=== PATIENT | male | born 1950 | race Caucasian/White ===

== ENCOUNTER 2019-03-18 19:49 | Inpatient (IN) | payer MEDICARE, OTHER, SELFPAY ==
[2019-03-18 19:50] VITALS: BP 193/74; BP 203/85; PULSE 118; PULSE 121; RESP 15; TEMP 36.8; O2SAT 91; O2SAT 92; BMI 38.0
--- NOTE | 2019-03-18 19:54 | CT_ITS ---
CT head/brain wo con HISTORY: Headache, pain, contusion or hematoma following injury ITS.REASON: fall ORDERING PHYSICIAN: Tristen Moreno MD PATIENT AGE: 68 years COMPARISON: 06/03/2018 TECHNIQUE: Axial images obtained without contrast. Brain and bone windows reviewed. All CT scans at the facility use one or more dose reduction, viz: automated exposure control, ma/kV adjustment per patient size (including targeted exams where dose is matched to indication, i.e. head), or iterative reconstruction technique. FINDINGS: There is diffuse atrophy with periventricular ischemic gliotic change. There is no left cerebellar infarction as well as old bilateral lacunar infarctions of the basal ganglia old small area of infarction in the right occipital lobe and possibly a small lacunar infarction in the right cerebellum centrally.. No acute calvarial fracture. Small metallic density in the left occipital scalp. IMPRESSION: 1. No acute finding. 2. Atrophy with chronic ischemic changes
--- NOTE | 2019-03-18 19:54 | XR_ITS ---
XR pelvis 1-2V HISTORY: Fall with injury and pain ITS.REASON: fall ORDERING PHYSICIAN: Tristen Moreno MD PATIENT AGE: 68 years Comparison: None FINDINGS: No fracture or dislocation is evident. No significant degenerative change. No lytic or blastic change. The SI joints have an unremarkable appearance. Unremarkable soft tissues. IMPRESSION: Negative pelvis.
--- NOTE | 2019-03-18 19:54 | XR_ITS ---
XR chest AP HISTORY: Posttraumatic pain ITS.REASON: fall ORDERING PHYSICIAN: Tristen Moreno MD PATIENT AGE: 68 years COMPARISON: 06/03/2018 FINDINGS: There are low lung lines. There is mild prominence of the cardiomediastinal silhouette. There is blunting of left CP angle consistent with left side pleural effusion or pleural reaction. There is a curvilinear lucency involving the superior aspect of the left scapula medial to the coracoid process along with a transverse lucency involving the glenoid region on the left. Suspicious for a scapular fracture. Consider CT for further evaluation. IMPRESSION: 1. Mild cardiomegaly and mild prominence of mediastinum with left-sided pleural effusion or pleural reaction. 2. Possible Left-sided scapular fracture. Suggest correlation with CT
--- NOTE | 2019-03-18 19:54 | CT_ITS ---
CT CERVICAL SPINE WITHOUT CONTRAST CT RECONSTRUCTIONS HISTORY:Neck pain following injury, fall with injury and pain ORDERING PHYSICIAN: Tristen Mroeno MD PATIENT AGE: 68 years COMPARISON: None Technique: All CT scans at the facility use one or more dose reduction, viz: automated exposure control, ma/kV adjustment per patient size (including targeted exams where dose is matched to indication, i.e. head), or iterative reconstruction technique PROCEDURE: Axial spiral CT scanning performed of the cervical spine beginning at the base of the skull and continuing to the upper T-spine. 3-D multiplanar reconstruction with 3-D manipulation of volumetric data set in image rendering was completed by the radiologist and/or technologist with the supervision of the radiologist on independent workstation. FINDINGS: There is normal alignment. No acute fracture or dislocation is evident. There is overall diffuse increased bony density of the skeletal structures. C2-C3: Mild degenerative disc disease with minimal ossification posterior longitudinal ligament. C3-C4: Mild ossification of the posterior longitudinal ligament. C4-C5: Unremarkable. C5-C6: Degenerative disc disease. C6-C7: Prominent right disc osteophyte complex with right lateral recess and foraminal narrowing with degenerative disc disease and spinal stenosis. C7-T1: Degenerative disc disease. Lung apices are clear. No prevertebral soft tissue swelling. There are bilateral thyroid nodules as described chest CT report. IMPRESSION: 1. No acute fracture. 2. Multilevel degenerative changes. At C6-C7 there is prominent right disc osteophyte complex with right lateral recess and foraminal narrowing with degenerative disc disease and spinal stenosis. 3. Diffuse osseous sclerosis of the bony structures. Differential diagnosis includes renal osteodystrophy, hyperparathyroidism, prostate metastatic disease and other less common entities.
[2019-03-18 20:38] LABS: Basophils % 0.1 % (0.1-2.0); Hematocrit 35.9 % (42.0-52.0); Hemoglobin 12.3 g/dL (14.1-18.0); Lymphocytes # 0.5 K/mm3 (0.7-4.5); Lymphocytes % 3.3 % (10-50); Mean Corpuscular HGB Conc 34.1 g/dL (31.8-35.4); Mean Corpuscular Hemoglobin 26.9 pg (27.0-31.2); Mean Corpuscular Volume 78.8 fl (80-94); Mean Platelet Volume 8.9 fl (7.4-10.4); Monocytes # 0.8 K/mm3 (0.1-1.0); Monocytes % 4.7 % (1.7-9.3); Neutrophils # 15.1 K/mm3 (1.8-7.8); Neutrophils % 91.9 % (37.0-80.0); Platelet Count 176 K/mm3 (142-424); Red Blood Count 4.55 M/mm3 (4.60-6.20); Red Cell Distribution Width 14.5 % (11.5-17.5); White Blood Count 16.4 K/mm3 (4.8-10.8)
[2019-03-18 20:39] LABS: Anion Gap 12.8 mEq/L (5-15); Blood Urea Nitrogen 23 mg/dL (7-18); Calcium 8.9 mg/dL (8.5-10.1); Carbon Dioxide 29 mmol/L (21.0-32.0); Chloride 102 mmol/L (98-107); Creatinine Clearance Estimated 65 mL/min (50-200); Creatinine,Serum 2.02 mg/dL (0.70-1.30); Estimated Glomerular Filt Rate 33 ml/min (>60); GFR (African American) 40 ML/MIN (>60); Glucose 205 mg/dL (74-106); Potassium 3.8 mmoL/L (3.5-5.1); Sodium 140 mmol/L (136-145); Troponin I < 0.02 ng/ml (0.00-0.06)
[2019-03-18 20:40] LABS: MANUAL DIFFERENTIAL MANUAL DIFFERENTIAL (MANUAL DIFF)
[2019-03-18 20:50] VITALS: BP 186/80; PULSE 104; O2SAT 90
[2019-03-18 21:11] LABS: Lymphocytes % 2 % (10-50); Monocytes % 2 % (2-9); Neutrophils % 96 % (42-76); Total Cells Counted 100
[2019-03-18 21:12] LABS: Anisocytosis 1+; Ovalocytes 1+; Platelet Estimate Normal
--- NOTE | 2019-03-18 21:16 | HMH.EDFALL ---
ED Disposition Clinical Impression: Renal insufficiency, Cerebral atrophy, Cerebellar infarct, DDD (degenerative disc disease), cervical, Cervical stenosis of spinal canal, Cervical spondylosis, Severe sepsis, Cellulitis of scrotum UTI (urinary tract infection) Qualifiers: Urinary tract infection type: site unspecified Hematuria presence: without hematuria Qualified Code(s): N39.0 - Urinary tract infection, site not specified Leukocytosis Qualifiers: Leukocytosis type: unspecified Qualified Code(s): D72.829 - Elevated white blood cell count, unspecified Scapular fracture Qualifiers: Encounter type: initial encounter Scapula location: body Fracture type: closed Fracture alignment: nondisplaced Laterality: left Qualified Code(s): S42.115A - Nondisplaced fracture of body of scapula, left shoulder, initial encounter for closed fracture Disposition: Admitted As Inpatient Condition on Discharge: Fair Referrals: Provider,Referral, MD [Primary Care Provider] - - Critical Care Critical Care Time: No Attestation: On 03/18/19, the high probability of a clinically significant, sudden or life threatening deterioration of the following system(s) required my full and direct attention, intervention and personal management. The time I documented below is in addition to time spent performing reported procedures but includes the following listed in this critical care notation. Medical Decision Making - Medical Records Medical records reviewed: Yes: I reviewed the patient's medical records. - Sharan Inquiry Pt receiving controlled substance: No Vital Signs: 03/18/19 19:50 03/18/19 20:50 03/18/19 22:14 Temperature 98.3 F Temperature Source Oral Pulse Rate [Right Brachial] 118 H 104 H 95 H Respiratory Rate 15 Blood Pressure [Right Arm] 193/74 H 186/80 H 161/79 H Blood Pressure Mean [Right Arm] 113 115 106 Blood Pressure Source [Right Arm] Manual Cuff/ Auscultation 02 Sat by Pulse Oximetry 92 L 90 L 90 L Oxygen Delivery Method Room Air Room Air Room Air - Lab Data Lab results reviewed: Yes: I reviewed the patient's lab results. Lab Results 03/18/19 20:05: WBC 16.4 H, RBC 4.55 L, Hgb 12.3 L, Hct 35.9 L, MCV 78.8 L, MCH 26.9 L, MCHC 34.1, RDW 14.5, Plt Count 176, MPV 8.9, Neut % (Auto) 91.9 H, Lymph % (Auto) 3.3 L, [place] % (Auto) 4.7, Eos % (Auto) 0.0 L, Baso % (Auto) 0.1, Neut # (Auto) 15.1 H, Lymph # (Auto) 0.5 L, [place] # (Auto) 0.8, Eos # (Auto) 0.0, Baso # (Auto) 0.0, Total Counted 100, Neutrophils % (Manual) 96 H, Lymphocytes % (Manual) 2 L, Monocytes % (Manual) 2, Platelet Estimate Normal, Anisocytosis 1+, Ovalocytes 1+ 03/18/19 20:05: Sodium 140, Potassium 3.8, Chloride 102, Carbon Dioxide 29, Anion Gap 12.8, BUN 23 H, Creatinine 2.02 H, Estimated Creat Clear 65, Estimated GFR 33 L, Est GFR ( Amer) 40 L, Glucose 205 H, Calcium 8.9, Troponin I < 0.02 03/18/19 23:35: Urine Color [place], Urine Appearance Cloudy, Urine pH 6.0, Ur Specific [place] 1.020, Urine Protein 2+, Urine Glucose (UA) Trace, Urine Ketones Negative, Urine Blood 3+, Urine Nitrate Negative, Urine Bilirubin Negative, Urine Urobilinogen 1.0, Ur Leukocyte Esterase 2+ A, Urine RBC 20-50, Urine WBC 5-10, Ur Squamous Epith Cells 3-5, Urine Bacteria 1+ Result diagrams: 03/18/19 20:05 03/18/19 20:05 Orders (Tests/Meds): ED MEDICATIONS Generic Name Dose Route Start Last Admin Trade Name Catrachito PRN Reason Stop Dose Admin Ceftriaxone Sodium 1 gm/ 50 mls @ 100 mls/hr 03/19/19 00:15 03/19/19 00:31 Sodium Chloride IV 04/02/19 00:14 100 mls/hr Q24H MICHAEL Administration Protocol ORDERS Category Date Time Status CT cervical spine wo con Stat Cat Scan 03/18/19 19:[address] chest wo con Stat Cat Scan 03/19/19 23:[address] head/brain wo con Stat Cat Scan 03/18/19 19:54 Taken Hemoglobin A1C Stat Lab 03/19/19 00:41 Ordered Lactic Acid Stat Lab 03/19/19 00:30 Received Blood Culture Stat Micro 03/19/19 00:30 Received Urine
[2019-03-18 22:14] VITALS: BP 161/79; PULSE 95; O2SAT 90
--- NOTE | 2019-03-18 23:00 | PC.NURSE ---
Multiple attempts to start a polo catheter per Dr Moreno. Unsuccessful. stated that patient needed a scotal/testicular ultrasound.
[2019-03-18 23:40] LABS: Microscopic, Urine URINE MICROSCOPIC (MICROSCOPIC)
[2019-03-18 23:42] LABS: Appearance,Urine CLOUDY (Clear); Bilirubin,Urine Negative (Negative); Blood, Urine 3+ (Negative); Color,Urine ORANGE (Yellow); Glucose,Urine (UA) TRACE (Negative); Ketones,Urine Negative (Negative); Leukocyte Esterase,Urine 2+ (Negative); Nitrate,Urine Negative (Negative); Protein,Urine 2+ (Negative)
[2019-03-18 23:51] LABS: Bacteria,Urine 1+ /lpf; RBC,Urine 20-50 #/hpf (0-3)
[2019-03-19] VITALS (15 sets, daily range): BP systolic 150–180; BP diastolic 64–93; PULSE 70–111; RESP 15–18; TEMP 36.2–37.6; O2SAT 91–97; BMI 41.5; BMI 41.3
--- NOTE | 2019-03-19 00:30 | PC.NURSE ---
blood cultures drawn at this time by erma huertap.
--- NOTE | 2019-03-19 01:04 | PC.NURSE ---
pt back to radiology
[2019-03-19 04:55] LABS: Anion Gap 12.8 mEq/L (5-15); Blood Urea Nitrogen 24 mg/dL (7-18); Calcium 8.9 mg/dL (8.5-10.1); Carbon Dioxide 30 mmol/L (21.0-32.0); Chloride 102 mmol/L (98-107); Chol/HDL Ratio 2.4 (1-3.5); Cholesterol 117 mg/dL (140-200); Creatinine Clearance Estimated 33 mL/min (50-200); Creatinine,Serum 1.96 mg/dL (0.70-1.30); Estimated Glomerular Filt Rate 34 ml/min (>60); GFR (African American) 42 ML/MIN (>60); Glucose 153 mg/dL (74-106); HDL Cholesterol 49 mg/dL (27-67); LDL Cholesterol 58 mg/dL (0-130); Potassium 3.8 mmoL/L (3.5-5.1); Sodium 141 mmol/L (136-145); Triglycerides 49 mg/dL (30-200); VLDL Cholesterol 10 mg/dL (0-40)
[2019-03-19 05:00] LABS: Troponin I < 0.02 ng/ml (0.00-0.06)
[2019-03-19 05:07] LABS: Basophils % 0.1 % (0.1-2.0); Eosinophils % 0.1 % (0.1-12.0); Hematocrit 34.7 % (42.0-52.0); Hemoglobin 11.4 g/dL (14.1-18.0); Lymphocytes # 0.8 K/mm3 (0.7-4.5); Lymphocytes % 4.9 % (10-50); Mean Corpuscular Hemoglobin 26.4 pg (27.0-31.2); Mean Corpuscular Volume 80.2 fl (80-94); Mean Platelet Volume 8.5 fl (7.4-10.4); Monocytes # 0.7 K/mm3 (0.1-1.0); Monocytes % 4.2 % (1.7-9.3); Neutrophils # 14.4 K/mm3 (1.8-7.8); Neutrophils % 90.7 % (37.0-80.0); Platelet Count 147 K/mm3 (142-424); Red Blood Count 4.33 M/mm3 (4.60-6.20); Red Cell Distribution Width 14.4 % (11.5-17.5); White Blood Count 15.8 K/mm3 (4.8-10.8)
[2019-03-19 05:18] LABS: MANUAL DIFFERENTIAL MANUAL DIFFERENTIAL (MANUAL DIFF)
[2019-03-19 05:52] LABS: Anisocytosis 1+; Lymphocytes % 3 % (10-50); Monocytes % 2 % (2-9); Neutrophils % 95 % (42-76); Platelet Estimate Normal; Stomatocytes 1+; Total Cells Counted 100
--- NOTE | 2019-03-19 06:26 | PC.NURSE ---
PT ARRIVED TO FLOOR AT 0150
--- NOTE | 2019-03-19 06:47 | PC.NURSE ---
Pt refused to answer or did not know several questions to admission assessment. Pt can be difficult to understand at time with delayed and garbled speech. Pt A&O to person, place, and situation however would not respond to any time identification questions. Pt slept off/on since arrival to the floor. Pt refused to remove his clothing he arrived in from [facility] and refused to remove shoes, which are noted to be on the wrong foot. Pt also refused to have bath/shower this shift, pt was offered and encouraged to get cleaned up, even partially, pt refused. Pt had an episode of diaphoresis and linens were changed and pt finally allowed to have a gown in place of his makenna-shirt which was soaked. Pt denied any pain, N/V/D, or difficulty breathing. Pt has had an intermittent dry cough. Sinus tach & NSR noted on monitoring manager. Call light within reach, bed alarm in use, and will continue to monitor.
--- NOTE | 2019-03-19 07:31 | P.CONPHA_ITS ---
[facility] Pharmacy VTE Monitoring - Patient Demographics Admission date: 03/18/19 Report Date: 03/19/19 Time: 07:31 Allergies/Adverse Reactions: Patient Allergies No Known Allergies Allergy (Verified 03/18/19 20:00) Height: 1.68 m Weight: 116.8 kg Patient Problems: Current Active Problems (Updated 03/19/19 @ 01:25 by Tristen Moreno MD) Urinary tract infection (Acute) Renal insufficiency (Acute) Leukocytosis (Acute) Scapular fracture (Acute) Cerebral atrophy (Acute) Cerebellar infarct (Acute) DDD (degenerative disc disease), cervical (Acute) Cervical stenosis of spinal canal (Acute) Cervical spondylosis (Acute) Severe sepsis (Acute) Cellulitis of scrotum (Acute) - VTE Risk Labs: VTE Related Lab Results Hgb 11.4 g/dL (14.1-18.0) L 03/19/19 04:35 Hct 34.7 % (42.0-52.0) L 03/19/19 04:35 Plt Count 147 K/mm3 (142-424) 03/19/19 04:35 BUN 24 mg/dL (7-18) H 03/19/19 04:35 Creatinine 1.96 mg/dL (0.70-1.30) H 03/19/19 04:35 Estimated Creat Clear 33 mL/min (50-200) 03/19/19 04:35 Clinical Trial Participant: No - Prophylaxis VTE Prophylaxis Ordered?: Yes Types of VTE Prophylaxis: TEDS Knee High
[2019-03-19 07:49] LABS: Troponin I < 0.02 ng/ml (0.00-0.06)
--- NOTE | 2019-03-19 08:38 | HMH.ACPN2 ---
Internal Medicine - PN: Subj *Date: 03/19/19 *Time: 08:38 Interval history: 68-year-old patient resting in bed quietly. Is awake and alert answers all questions appropriately says he is feeling better today. 03/18/2019 Pt brought in by EMS after an unwitnessed fall at [facility]. Pt denies any pain anywhere, and stated that he just hit his head after losing his footing. Pt heart rate and blood pressure are elevated. Pt slow to respond but does follow commands. FSBS en route by EMS was 209. (Per Dr. Moreno). Exam Vital signs and Labs for Last 24 Hours: Temp Pulse Resp BP Pulse Ox 97.1 F L 85 18 156/89 H 97 03/19/19 07:38 03/19/19 07:38 03/19/19 07:38 03/19/19 07:38 03/19/19 07:38 Laboratory Results - last 24 hr 03/18/19 20:05: WBC 16.4 H, RBC 4.55 L, Hgb 12.3 L, Hct 35.9 L, MCV 78.8 L, MCH 26.9 L, MCHC 34.1, RDW 14.5, Plt Count 176, MPV 8.9, Neut % (Auto) 91.9 H, Lymph % (Auto) 3.3 L, [place] % (Auto) 4.7, Eos % (Auto) 0.0 L, Baso % (Auto) 0.1, Neut # (Auto) 15.1 H, Lymph # (Auto) 0.5 L, [place] # (Auto) 0.8, Eos # (Auto) 0.0, Baso # (Auto) 0.0, Total Counted 100, Neutrophils % (Manual) 96 H, Lymphocytes % (Manual) 2 L, Monocytes % (Manual) 2, Platelet Estimate Normal, Anisocytosis 1+, Ovalocytes 1+ 03/18/19 20:05: Sodium 140, Potassium 3.8, Chloride 102, Carbon Dioxide 29, Anion Gap 12.8, BUN 23 H, Creatinine 2.02 H, Estimated Creat Clear 65, Estimated GFR 33 L, Est GFR ( Amer) 40 L, Glucose 205 H, Calcium 8.9, Troponin I < 0.02 03/18/19 23:35: Urine Color [place], Urine Appearance Cloudy, Urine pH 6.0, Ur Specific [place] 1.020, Urine Protein 2+, Urine Glucose (UA) Trace, Urine Ketones Negative, Urine Blood 3+, Urine Nitrate Negative, Urine Bilirubin Negative, Urine Urobilinogen 1.0, Ur Leukocyte Esterase 2+ A, Urine RBC 20-50, Urine WBC 5-10, Ur Squamous Epith Cells 3-5, Urine Bacteria 1+ 03/19/19 00:00: Hemoglobin A1c 5.0 03/19/19 00:30: Lactate 1.0 03/19/19 04:35: Troponin I < 0.02 03/19/19 04:35: WBC 15.8 H, RBC 4.33 L, Hgb 11.4 L, Hct 34.7 L, MCV 80.2, MCH 26.4 L, MCHC 33.0, RDW 14.4, Plt Count 147, MPV 8.5, Neut % (Auto) 90.7 H, Lymph % (Auto) 4.9 L, [place] % (Auto) 4.2, Eos % (Auto) 0.1, Baso % (Auto) 0.1, Neut # (Auto) 14.4 H, Lymph # (Auto) 0.8, [place] # (Auto) 0.7, Eos # (Auto) 0.0, Baso # (Auto) 0.0, Total Counted 100, Neutrophils % (Manual) 95 H, Lymphocytes % (Manual) 3 L, Monocytes % (Manual) 2, Platelet Estimate Normal, Anisocytosis 1+, Stomatocytes 1+ 03/19/19 04:35: Sodium 141, Potassium 3.8, Chloride 102, Carbon Dioxide 30, Anion Gap 12.8, BUN 24 H, Creatinine 1.96 H, Estimated Creat Clear 33, Estimated GFR 34 L, Est GFR ( Amer) 42 L, Glucose 153 H D, Calcium 8.9, Magnesium 2.0, Triglycerides 49, Cholesterol 117 L, LDL Cholesterol 58, VLDL Cholesterol 10, HDL Cholesterol 49, Cholesterol/HDL Ratio 2.4 03/19/19 07:25: Troponin I < 0.02 I & O for Last 24 hours: Intake & Output 03/16/19 03/17/19 03/18/19 03/19/19 23:59 23:59 23:59 23:59 Intake Total 780 / 780 Balance 780 / 780 Weight 280 lb 257 lb 8 oz Radiology Reports for the Last 24 Hours: 03/[address]: IMPRESSION: 1. No acute fracture. 2. Multilevel degenerative changes. At C6-C7 there is prominent right disc osteophyte complex with right lateral recess and foraminal narrowing with degenerative disc disease and spinal stenosis. 3. Diffuse osseous sclerosis of the bony structures. Differential diagnosis includes renal osteodystrophy, hyperparathyroidism, prostate metastatic disease and other less common entities. Dictated By: Ephraim Estevez MD CXR: IMPRESSION: 1. Mild cardiomegaly and mild prominence of mediastinum with left-sided pleural effusion or pleural reaction. 2. Possible Left-sided scapular fracture. Suggest correlation with CT Dictated By: Ephraim Estevez MD 03/[address]: MPRESSION: 1. No acute finding. 2. Atrophy with chronic ischemic changes Dictated By: Ephraim Estevez MD 03/18 Pelvis XR: MPRESSION: Negative
--- NOTE | 2019-03-19 08:41 | P.PN_ITS ---
Internal Medicine - PN: Subj *Date: 03/19/19 *Time: 08:38 Interval history: 68-year-old patient resting in bed quietly. Is awake and alert answers all questions appropriately says he is feeling better today. 03/18/2019 Pt brought in by EMS after an unwitnessed fall at [facility]. Pt denies any pain anywhere, and stated that he just hit his head after losing his footing. Pt heart rate and blood pressure are elevated. Pt slow to respond but does follow commands. FSBS en route by EMS was 209. (Per Dr. Moreno). Exam Vital signs and Labs for Last 24 Hours: Temp Pulse Resp BP Pulse Ox 97.1 F L 85 18 156/89 H 97 03/19/19 07:38 03/19/19 07:38 03/19/19 07:38 03/19/19 07:38 03/19/19 07:38 Laboratory Results - last 24 hr 03/18/19 20:05: WBC 16.4 H, RBC 4.55 L, Hgb 12.3 L, Hct 35.9 L, MCV 78.8 L, MCH 26.9 L, MCHC 34.1, RDW 14.5, Plt Count 176, MPV 8.9, Neut % (Auto) 91.9 H, Lymph % (Auto) 3.3 L, [place] % (Auto) 4.7, Eos % (Auto) 0.0 L, Baso % (Auto) 0.1, Neut # (Auto) 15.1 H, Lymph # (Auto) 0.5 L, [place] # (Auto) 0.8, Eos # (Auto) 0.0, Baso # (Auto) 0.0, Total Counted 100, Neutrophils % (Manual) 96 H, Lymphocytes % (Manual) 2 L, Monocytes % (Manual) 2, Platelet Estimate Normal, Anisocytosis 1+, Ovalocytes 1+ 03/18/19 20:05: Sodium 140, Potassium 3.8, Chloride 102, Carbon Dioxide 29, Anion Gap 12.8, BUN 23 H, Creatinine 2.02 H, Estimated Creat Clear 65, Estimated GFR 33 L, Est GFR ( Amer) 40 L, Glucose 205 H, Calcium 8.9, Troponin I < 0.02 03/18/19 23:35: Urine Color [place], Urine Appearance Cloudy, Urine pH 6.0, Ur Specific [place] 1.020, Urine Protein 2+, Urine Glucose (UA) Trace, Urine Ketones Negative, Urine Blood 3+, Urine Nitrate Negative, Urine Bilirubin Negative, Urine Urobilinogen 1.0, Ur Leukocyte Esterase 2+ A, Urine RBC 20-50, Urine WBC 5-10, Ur Squamous Epith Cells 3-5, Urine Bacteria 1+ 03/19/19 00:00: Hemoglobin A1c 5.0 03/19/19 00:30: Lactate 1.0 03/19/19 04:35: Troponin I < 0.02 03/19/19 04:35: WBC 15.8 H, RBC 4.33 L, Hgb 11.4 L, Hct 34.7 L, MCV 80.2, MCH 26.4 L, MCHC 33.0, RDW 14.4, Plt Count 147, MPV 8.5, Neut % (Auto) 90.7 H, Lymph % (Auto) 4.9 L, [place] % (Auto) 4.2, Eos % (Auto) 0.1, Baso % (Auto) 0.1, Neut # (Auto) 14.4 H, Lymph # (Auto) 0.8, [place] # (Auto) 0.7, Eos # (Auto) 0.0, Baso # (Auto) 0.0, Total Counted 100, Neutrophils % (Manual) 95 H, Lymphocytes % (Manual) 3 L, Monocytes % (Manual) 2, Platelet Estimate Normal, Anisocytosis 1+, Stomatocytes 1+ 03/19/19 04:35: Sodium 141, Potassium 3.8, Chloride 102, Carbon Dioxide 30, Anion Gap 12.8, BUN 24 H, Creatinine 1.96 H, Estimated Creat Clear 33, Estimated GFR 34 L, Est GFR ( Amer) 42 L, Glucose 153 H D, Calcium 8.9, Magnesium 2.0, Triglycerides 49, Cholesterol 117 L, LDL Cholesterol 58, VLDL Cholesterol 10, HDL Cholesterol 49, Cholesterol/HDL Ratio 2.4 03/19/19 07:25: Troponin I < 0.02 I & O for Last 24 hours: Intake & Output 03/16/19 03/17/19 03/18/19 03/19/19 23:59 23:59 23:59 23:59 Intake Total 780 / 780 Balance 780 / 780 Weight 280 lb 257 lb 8 oz Radiology Reports for the Last 24 Hours: 03/[address]: IMPRESSION: 1. No acute fracture. 2. Multilevel degenerative changes. At C6-C7 there is prominent right disc osteophyte complex with right lateral recess and foraminal narrowing with degenerative disc disease and spinal stenosis. 3. Diffuse osseous sclerosis of the bony structures. Differential diagnosis includes renal osteodystrophy, hyperparathyroidism, prostate m
--- NOTE | 2019-03-19 10:15 | HMH.PTEV ---
Physical Therapy Evaluation Rehab PT IP Evaluation Start: 03/19/19 08:42 Freq: ONCE Status: Active Protocol: Document 03/19/19 10:13 YUE (Rec: 03/19/19 10:15 YUE [id number]) Subjective/History History History this is the initial IP PT evaluation for Floyd Medina . Pt is a 68 y/o male that lives at [facility] home. Nsg [facility] Subjective Subjective no complaints Rehab PT IP Eval Objective Appearance Patient Behavior Appropriate Patient Orientation Person,Place Difficulty following instructions mild Speech Pattern Clear Ambulation Patient Able to Ambulate Yes Ambulation Observation IP General Gait Pattern Observation Wide Based Gait,Shuffling Step Ambulation Distance (feet) 40 Ambulation Assistive Device None Balance Ability to Arise Able, uses arms to help Sitting Balance Steady, safe Standing Balance Steady, wide stance Dynamic Sitting Balance Ability Good Dynamic Standing Balance Ability Fair Transfers Bed Transfer Ability Independent Chair Transfer Ability Independent Sit to Stand Bed Transfer Ability Supervision/Stand by Sit to Stand Chair Transfer Ability Supervision/Stand by ROM All Extremities PT ROM Status WFL MMT All Extremities PT MMT WFL Rehab PT IP prob,goals,plan Problems Date of Evaluation: 03/19/19 Rehab Potential Rehab Potential Innapropriate for Skilled Therapy Discharge Plan PT Discharge Plan dc back to home once medically stable G -code Required Yes Eval Complexity Eval Charge Codes 56532 - Low Complexity G Codes PT Current Status Mobility PT Current Status Modifier CI-At least 1% but less than 20% impaired, limited or restricted PT Goal Status Mobility PT Goal Status Modifer CI-At least 1% but less than 20% impaired, limited or restricted PHYSICIAN CERTIFICATION: I certify the specified therapy services for Floyd Medina are required, authorized, and reviewed every 30 days.
--- NOTE | 2019-03-19 11:09 | HMH.OTEV ---
OT Inpatient Evaluation Rehab OT IP Evaluation Start: 03/19/19 08:43 Freq: ONCE Status: Complete Protocol: Document 03/19/19 11:03 LILIANA (Rec: 03/19/19 11:09 [facility] [id number]) Rehab OT IP Assessment Subjective History Pt is a 68 year old male who lived at [facility] prior to being admitted to the hospital . Pt reports prior to hosptial stay he was independent with all ADLs and IADLs. Pt plans to return back to [facility] following discharge. Subjective I feel good. Objective Upper Extremity Gross ROM WFL Bed Mobility bed mobility-scooting,bed mobility - supine/sit,bed mobility - rolling Assist Level Supervision/Stand by Transfer Training Sit/Stand Transfer Assist Level Supervision/Stand by Chair Transfer Ability Supervision/Stand by Chair Transfer Technique Sit to/from Ambulatory Chair Transfer Assistive Devices None Lower Body Dressing Ability Standby Assistance Performing Toilet Hygiene Ability Standby Assistance Overall Commode/Toilet Transfer Ability Standby Assistance Commode/Toilet Transfer Technique Sit to/from Ambulatory decrease in endurance No Rehab OT IP prob,goals,plan Problems Date of Evaluation: 03/19/19 Rehab Potential Rehab Potential Innapropriate for Skilled Therapy Discharge Plan OT Discharge Plan At this time patient is at his baseline. Pt does not require further therapy. Eval Complexity Eval Charge Codes 60644 - Low Complexity G Codes G -code Required Yes OT Current Status Self Care OT Current Status Modifier CI-At least 1% but less than 20% impaired, limited or restricted OT Goal Status Carry OT Goal Status Modifier CI-At least 1% but less than 20% impaired, limited or restricted PHYSICIAN CERTIFICATION: I certify the specified therapy services for Floyd Medina are required, authorized, and reviewed every 30 days.
--- NOTE | 2019-03-19 14:12 | HMH.HP ---
*Admission Date: 03/18/19 *Chief complaint: Fall at [facility] *History of present illness: 68 YOM sitting up in bed, resp easy/even. States he feels a lot better. Pt brought in by EMS after an unwitnessed fall at [facility]. Pt denies any pain anywhere, and stated that he just hit his head after losing his footing. Pt heart rate and blood pressure are elevated. Pt slow to respond but does follow commands. FSBS en route by EMS was 209. Denies any specific injury or abd pain but has scrotal swelling for 2 weeks ([address] Dr. Moreno) [facility] History Medical History: Reports:: Hypertension Denies:: Cancer, Diabetes Mellitus Type 1, Diabetes Mellitus Type 2, MRSA *Have you ever received a pneumonia vaccine?: No (pt could not answer) *Have you received a flu vaccine this season?: No (pt could not answer) Amputation: No Fractures: Yes (right foot) - *Social History Educational Level: Completed High School Smoking Status: Former smoker Alcohol Intake: former *Occupational Status:: disabled Housing: residential *Travel in the last 8 weeks: None - Psychiatric History Expresses thoughts of harming self/others: None Suicide Plan Description: No Plan Family Hx:: Cancer, Diabetes, Heart Attack, Kidney Disease Review of Systems - *Neurologic Denies localized weakness, Denies frequent falls Meds Home Medications Medication Instructions Recorded Confirmed Type Lisinopril [Lisinopril 5mg Tablet] 5 mg PO DAILY 03/18/19 03/18/19 History Allergies Allergy/AdvReac Type Severity Reaction Status Date / Time No Known Allergies Allergy Verified 03/18/19 20:00 Exam Vital signs and Labs for Last 24 Hours: Temp Pulse Resp BP Pulse Ox 98.6 F 70 18 163/87 H 95 03/19/19 11:23 03/19/19 12:00 03/19/19 11:23 03/19/19 11:23 03/19/19 11:23 Laboratory Results - last 24 hr 03/18/19 20:05: WBC 16.4 H, RBC 4.55 L, Hgb 12.3 L, Hct 35.9 L, MCV 78.8 L, MCH 26.9 L, MCHC 34.1, RDW 14.5, Plt Count 176, MPV 8.9, Neut % (Auto) 91.9 H, Lymph % (Auto) 3.3 L, [place] % (Auto) 4.7, Eos % (Auto) 0.0 L, Baso % (Auto) 0.1, Neut # (Auto) 15.1 H, Lymph # (Auto) 0.5 L, [place] # (Auto) 0.8, Eos # (Auto) 0.0, Baso # (Auto) 0.0, Total Counted 100, Neutrophils % (Manual) 96 H, Lymphocytes % (Manual) 2 L, Monocytes % (Manual) 2, Platelet Estimate Normal, Anisocytosis 1+, Ovalocytes 1+ 03/18/19 20:05: Sodium 140, Potassium 3.8, Chloride 102, Carbon Dioxide 29, Anion Gap 12.8, BUN 23 H, Creatinine 2.02 H, Estimated Creat Clear 65, Estimated GFR 33 L, Est GFR ( Amer) 40 L, Glucose 205 H, Calcium 8.9, Troponin I < 0.02 03/18/19 23:35: Urine Color [place], Urine Appearance Cloudy, Urine pH 6.0, Ur Specific [place] 1.020, Urine Protein 2+, Urine Glucose (UA) Trace, Urine Ketones Negative, Urine Blood 3+, Urine Nitrate Negative, Urine Bilirubin Negative, Urine Urobilinogen 1.0, Ur Leukocyte Esterase 2+ A, Urine RBC 20-50, Urine WBC 5-10, Ur Squamous Epith Cells 3-5, Urine Bacteria 1+ 03/19/19 00:00: Hemoglobin A1c 5.0 03/19/19 00:30: Lactate 1.0 03/19/19 04:35: Troponin I < 0.02 03/19/19 04:35: WBC 15.8 H, RBC 4.33 L, Hgb 11.4 L, Hct 34.7 L, MCV 80.2, MCH 26.4 L, MCHC 33.0, RDW 14.4, Plt Count 147, MPV 8.5, Neut % (Auto) 90.7 H, Lymph % (Auto) 4.9 L, [place] % (Auto) 4.2, Eos % (Auto) 0.1, Baso % (Auto) 0.1, Neut # (Auto) 14.4 H, Lymph # (Auto) 0.8, [place] # (Auto) 0.7, Eos # (Auto) 0.0, Baso # (Auto) 0.0, Total Counted 100, Neutrophils % (Manual) 95 H, Lymphocytes % (Manual) 3 L, Monocytes % (Manual) 2, Platelet Estimate Normal, Anisocytosis 1+, Stomatocytes 1+ 03/19/19 04:35: Sodium 141, Potassium 3.8, Chloride 102, Carbon Dioxide 30, Anion Gap 12.8, BUN 24 H, Creatinine 1.96 H, Estimated Creat Clear 33, Estimated GFR 34 L, Est GFR ( Amer) 42 L, Glucose 153 H D, Calcium 8.9, Magnesium 2.0, Triglycerides 49, Cholesterol 117 L, LDL Cholesterol 58, VLDL Cholesterol 10, HDL Cholesterol 49, Cholesterol/HDL Ratio 2.4 03/19/19 07:25: Troponin I < 0.02 I & O for Last 24 hours
--- NOTE | 2019-03-19 16:05 | PC.NURSE ---
no acute changes noted. b/p elevated and md notified. pt has been restless this shift and states aggravation with safety alarms. pt ambulates to bathroom and has incontinent episodes as well. iv patent but fluids are unhooked at this time due to pt constantly getting up and pulling at iv. md is aware of this. pt has had a bath this shift. call light in reach. nonskids on. safety on. will continue to monitor pt condition.
--- NOTE | 2019-03-19 17:31 | PC.NURSE ---
courtesy round done, ice filled and trash taken out.
--- NOTE | 2019-03-19 19:15 | PC.NURSE ---
report given to karen
--- NOTE | 2019-03-19 23:10 | US_ITS ---
US Testicular CLINICAL INDICATION: ITS.REASON: swollen testicular, unable to place polo ORDERING PHYSICIAN: Tristen Moreno MD PATIENT AGE: 68 years Comparison: None FINDINGS: Right testicle is 4.6 x 3.5 x 3.5 cm. Left testicle is 4.7 x 2 x 3.1 cm. Blood flow is present bilaterally. No testicular mass apparent. The epididymides are enlarged on both sides with heterogeneous increase echogenicity. There are bilateral hydroceles with synechiae noted on the right. There is diffuse scrotal wall thickening. IMPRESSION: 1. There is bilateral testicular blood flow with no testicular mass apparent. 2. Enlarged hyperechoic epididymides suggesting chronic epididymitis with small bilateral hydroceles. 3. Diffuse thickening of the scrotal skin suggesting cellulitis
--- NOTE | 2019-03-19 23:20 | CT_ITS ---
CT chest wo con HISTORY: Posttraumatic pain, abnormal chest x-ray, possible scapular fracture. ITS.REASON: abn cxr ORDERING PHYSICIAN: Tristen Moreno MD PATIENT AGE: 68 years COMPARISON: None Technique: Axial images obtained. Sagittal, and coronal reformatted images are also generated and reviewed. All CT scans at the facility use one or more dose reduction, viz: automated exposure control, ma/kV adjustment per patient size (including targeted exams where dose is matched to indication, i.e. head), or iterative reconstruction technique. FINDINGS: There is a 16 mm nodule in the right lobe of the thyroid gland superiorly at a 14 mm isodense nodule in the left lobe of thyroid gland.. No mediastinal or hilar mass. There are coronary artery calcifications and there is mild cardiomegaly. There is a small hiatal hernia. Upper abdominal images show splenomegaly at 19 cm. There is mild generalized motion artifact. No lobar consolidation or collapse. Atelectatic changes are present in the lung bases. There is mild fullness in the left adrenal gland nonspecific There is ankylosis of the lower thoracic spine. There is diffuse increased bony density throughout the skeleton. There is a faint curvilinear lucency near the base of the wing of the left scapula. This could be related to a prominent vascular groove. A nondisplaced fracture is not excluded. Please correlate with patient's area of pain and tenderness. IMPRESSION: 1. Bilateral thyroid nodules which may be better evaluated with ultrasound. 2. Splenomegaly. 3. Diffuse increased bony density of the skeletal structures. Differential diagnosis includes diffuse blastic metastatic process such as prostate metastasis,, renal osteodystrophy/hyperparathyroidism, myelosclerosis and other less common entities. 4. Faint curvilinear lucency at the base of the wing of the scapula on the left which could be related to prominent vascular groove or a nondisplaced fracture. Please correlate with patient's symptoms and area of tenderness
[2019-03-20 04:00] VITALS: BP 119/64; PULSE 92; RESP 20; TEMP 36.9; O2SAT 94; BMI 40.9
--- NOTE | 2019-03-20 05:16 | PC.NURSE ---
PT HAS SLEPT INTERMITTENTLY. ORIENTED TO NAME, PLACE ONLY. VERY UNSTEADY GAIT REQUIRING ASSISTANCE TO BATHROOM. NO COMPLAINTS OF PAIN. BED ALARM IN USE.
[2019-03-20 07:08] LABS: Basophils % 0.2 % (0.1-2.0); Eosinophils # 0.1 K/mm3 (0.0-0.4); Hematocrit 36.2 % (42.0-52.0); Lymphocytes # 0.7 K/mm3 (0.7-4.5); Lymphocytes % 7.5 % (10-50); Mean Corpuscular HGB Conc 33.1 g/dL (31.8-35.4); Mean Corpuscular Hemoglobin 26.6 pg (27.0-31.2); Mean Corpuscular Volume 80.4 fl (80-94); Mean Platelet Volume 9.2 fl (7.4-10.4); Monocytes # 0.4 K/mm3 (0.1-1.0); Monocytes % 4.5 % (1.7-9.3); Neutrophils # 8.3 K/mm3 (1.8-7.8); Neutrophils % 86.9 % (37.0-80.0); Platelet Count 174 K/mm3 (142-424); Red Cell Distribution Width 14.1 % (11.5-17.5); White Blood Count 9.5 K/mm3 (4.8-10.8)
[2019-03-20 07:10] LABS: MANUAL DIFFERENTIAL MANUAL DIFFERENTIAL (MANUAL DIFF)
--- NOTE | 2019-03-20 07:21 | PC.NURSE ---
REPORT GIVEN TO Kacy NEWTON
[2019-03-20 07:28] LABS: Anion Gap 9.8 mEq/L (5-15); Blood Urea Nitrogen 32 mg/dL (7-18); Calcium 9.1 mg/dL (8.5-10.1); Carbon Dioxide 30 mmol/L (21.0-32.0); Chloride 107 mmol/L (98-107); Creatinine Clearance Estimated 63 mL/min (50-200); Creatinine,Serum 1.88 mg/dL (0.70-1.30); Estimated Glomerular Filt Rate 36 ml/min (>60); GFR (African American) 44 ML/MIN (>60); Glucose 101 mg/dL (74-106); Potassium 3.8 mmoL/L (3.5-5.1); Sodium 143 mmol/L (136-145)
[2019-03-20 08:00] VITALS: BP 193/99; PULSE 81; RESP 18; TEMP 36.6; O2SAT 93
[2019-03-20 08:25] LABS: Lymphocytes % 8 % (10-50); Monocytes % 6 % (2-9); Neutrophils % 84 % (42-76); Platelet Estimate Normal; Total Cells Counted 100
--- NOTE | 2019-03-20 08:50 | HMH.ACPN2 ---
Internal Medicine - PN: Subj *Date: 03/20/19 *Time: 08:50 Interval history: looks better - scrotal reddness better - urology consult pending - Exam Vital signs and Labs for Last 24 Hours: Temp Pulse Resp BP Pulse Ox 97.8 F 81 18 193/99 H 93 L 03/20/19 08:00 03/20/19 08:00 03/20/19 08:00 03/20/19 08:00 03/20/19 08:00 Laboratory Results - last 24 hr 03/18/19 23:35: Urine Color [place], Urine Appearance Cloudy, Urine pH 6.0, Ur Specific [place] 1.020, Urine Protein 2+, Urine Glucose (UA) Trace, Urine Ketones Negative, Urine Blood 3+, Urine Nitrate Negative, Urine Bilirubin Negative, Urine Urobilinogen 1.0, Ur Leukocyte Esterase 2+ A, Urine RBC 20-50, Urine WBC 5-10, Ur Squamous Epith Cells 3-5, Urine Bacteria 1+ 03/20/19 06:38: WBC 9.5 D, RBC 4.50 L, Hgb 12.0 L, Hct 36.2 L, MCV 80.4, MCH 26.6 L, MCHC 33.1, RDW 14.1, Plt Count 174, MPV 9.2, Neut % (Auto) 86.9 H, Lymph % (Auto) 7.5 L, [place] % (Auto) 4.5, Eos % (Auto) 1.0, Baso % (Auto) 0.2, Neut # (Auto) 8.3 H, Lymph # (Auto) 0.7, [place] # (Auto) 0.4, Eos # (Auto) 0.1, Baso # (Auto) 0.0, Total Counted 100, Neutrophils % (Manual) 84 H, Band Neutrophils % 2.0, Lymphocytes % (Manual) 8 L, Monocytes % (Manual) 6, Platelet Estimate Normal 03/20/19 06:38: Sodium 143, Potassium 3.8, Chloride 107, Carbon Dioxide 30, Anion Gap 9.8, BUN 32 H D, Creatinine 1.88 H, Estimated Creat Clear 63, Estimated GFR 36 L, Est GFR ( Amer) 44 L, Glucose 101, Calcium 9.1 I & O for Last 24 hours: Intake & Output 03/17/19 03/18/19 03/19/19/30/19 11:59 11:59 11:59 11:59 Intake Total 780 / 780 1896 Balance 780 / 780 1896 Weight 257 lb 8 oz 255 lb Microbiology Reports for the Last 24 Hours: Microbiology 03/18/19 23:35 Urine,Clean Catch Urine Culture - Preliminary Gram Positive Cocci 03/19/19 00:30 Blood Blood Culture - Preliminary - Constitutional no acute distress, obese - *Routine HEENT Exam Head: Present: normocephalic Eye: Present: EOMI, PERRL ENT: Present: mucous membranes dry - *Routine Neck Exam Present: supple. Absent: JVD - *Routine Respiratory Exam Present: CTA bilaterally - *Routine Cardiovascular Exam Present: RRR, murmur - *Routine Abdominal Exam Present: soft - *Routine Exam Scrotal: Present: swelling, erythema - *Routine Extremities Exam Absent: calf tenderness - *Routine Skin Exam Present: intact - *Routine Neurological Exam Present: alert, CN II-XII intact - Routine Psychiatric Exam Present: cooperative, anxious Assessment and Plan (1) DDD (degenerative disc disease), cervical Current visit: Yes Status: Acute Category: Medical Code(s): M50.30 - Other cervical disc degeneration, unspecified cervical region (2) Foraminal stenosis of cervical region Current visit: Yes Status: Acute Category: Medical Code(s): M99.81 - Other biomechanical lesions of cervical region (3) Cervical spinal stenosis Current visit: Yes Status: Acute Category: Medical Code(s): M48.02 - Spinal stenosis, cervical region (4) Multiple thyroid nodules Current visit: Yes Status: Acute Category: Medical Code(s): E04.2 - Nontoxic multinodular goiter (5) Lacunar infarction Current visit: Yes Status: Acute Category: Medical Code(s): I63.81 - Other cerebral infarction due to occlusion or stenosis of small artery (6) Epididymitis Current visit: Yes Status: Acute Category: Medical Code(s): N45.1 - Epididymitis (7) UTI (urinary tract infection), bacterial Current visit: Yes Status: Acute Category: Medical Code(s): N39.0 - Urinary tract infection, site not specified; A49.9 - Bacterial infection, unspecified
--- NOTE | 2019-03-20 08:55 | P.PN_ITS ---
Internal Medicine - PN: Subj *Date: 03/20/19 *Time: 08:50 Interval history: looks better - scrotal reddness better - urology consult pending - Exam Vital signs and Labs for Last 24 Hours: Temp Pulse Resp BP Pulse Ox 97.8 F 81 18 193/99 H 93 L 03/20/19 08:00 03/20/19 08:00 03/20/19 08:00 03/20/19 08:00 03/20/19 08:00 Laboratory Results - last 24 hr 03/18/19 23:35: Urine Color [place], Urine Appearance Cloudy, Urine pH 6.0, Ur Specific [place] 1.020, Urine Protein 2+, Urine Glucose (UA) Trace, Urine Ketones Negative, Urine Blood 3+, Urine Nitrate Negative, Urine Bilirubin Negative, Urine Urobilinogen 1.0, Ur Leukocyte Esterase 2+ A, Urine RBC 20-50, Urine WBC 5-10, Ur Squamous Epith Cells 3-5, Urine Bacteria 1+ 03/20/19 06:38: WBC 9.5 D, RBC 4.50 L, Hgb 12.0 L, Hct 36.2 L, MCV 80.4, MCH 26.6 L, MCHC 33.1, RDW 14.1, Plt Count 174, MPV 9.2, Neut % (Auto) 86.9 H, Lymph % (Auto) 7.5 L, [place] % (Auto) 4.5, Eos % (Auto) 1.0, Baso % (Auto) 0.2, Neut # (Auto) 8.3 H, Lymph # (Auto) 0.7, [place] # (Auto) 0.4, Eos # (Auto) 0.1, Baso # (Auto) 0.0, Total Counted 100, Neutrophils % (Manual) 84 H, Band Neutrophils % 2.0, Lymphocytes % (Manual) 8 L, Monocytes % (Manual) 6, Platelet Estimate Normal 03/20/19 06:38: Sodium 143, Potassium 3.8, Chloride 107, Carbon Dioxide 30, Anion Gap 9.8, BUN 32 H D, Creatinine 1.88 H, Estimated Creat Clear 63, Estimated GFR 36 L, Est GFR ( Amer) 44 L, Glucose 101, Calcium 9.1 I & O for Last 24 hours: Intake & Output 03/17/19 03/18/19 03/19/19/30/19 11:59 11:59 11:59 11:59 Intake Total 780 / 780 1896 Balance 780 / 780 1896 189 Weight 257 lb 8 oz 255 lb Microbiology Reports for the Last 24 Hours: Microbiology 03/18/19 23:35 Urine,Clean Catch Urine Culture - Preliminary Gram Positive Cocci 03/19/19 00:30 Blood Blood Culture - Preliminary - Constitutional no acute distress, obese - *Routine HEENT Exam Head: Present: normocephalic Eye: Present: EOMI, PERRL ENT: Present: mucous membranes dry - *Routine Neck Exam Present: supple. Absent: JVD - *Routine Respiratory Exam Present: CTA bilaterally - *Routine Cardiovascular Exam Present: RRR, murmur - *Routine Abdominal Exam Present: soft - *Routine Exam Scrotal: Present: swelling, erythema - *Routine Extremities Exam Absent: calf tenderness - *Routine Skin Exam Present: intact - *Routine Neurological Exam Present: alert, CN II-XII intact - Routine Psychiatric Exam Present: cooperative, anxious Assessment and Plan (1) DDD (degenerative disc disease), cervical Current visit: Yes Status: Acute Category: Medical Code(s): M50.30 - Other cervical disc degeneration, unspecified cervical region (2) Foraminal stenosis of cervical region Current visit: Yes Status: Acute Category: Medical Code(s): M99.81 - Other biomechanical lesions of cervical region (3) Cervical spinal stenosis Current visit: Yes Status: Acute Category: Medical Code(s): M48.02 - Spinal stenosis, cervical region (4) Multiple thyroid nodules Current visit: Yes Status: Acute Category: Medical Code(s): E04.2 - Nontoxic multinodular goiter (5) Lacunar infarction Current visit: Yes Status: Acute Category: Medical Code(s): I63.81 - Other cerebral infarction due to
[2019-03-20 09:32] LABS: Prostate Specific Ag Screen 2.6 ng/mL (0.0-4.0)
--- NOTE | 2019-03-20 10:12 | PC.NURSE ---
0904: left message with tamara craft at dr [facility] office. pt's BP is getting higher and higher. pt takes lisinopril at [facility], but is not getting the med here. does md want to restart? waiting sex offender treatment professional back.
--- NOTE | 2019-03-20 10:13 | SW/DCPLANNER ---
Addendum entered by Kylee Willis 03/20/19 15:50: I have attempted to contact Raiza several times to inform her of the plan for this patient. There has been no answer/call back all day. Original Note: I have contacted Laureano from [facility] to inform her that after this patient is consulted by Urology. I did inform Laureano that this patient was evaluated by PT and walked a distance of 40ft and they have stated that patient is appropriate to return back to [place]. Laureano has stated that she will inform Raiza and she will come evaluate this patient. I have informed Laureano once Urology evaluates this patient this patient will be ready for discharge.
--- NOTE | 2019-03-20 10:52 | PC.NURSE ---
CA Round done at 1000. Ice water given, trash taken out.
--- NOTE | 2019-03-20 11:09 | HMH.PHACONS ---
- Pharmacy Consult Date: 03/20/19 Time: 11:09 Referring provider: DR. ESCALANTE Reason for Consult:: VANCOMYCIN DOSING Allergies and ADEs:: Allergies Allergy/AdvReac Type Severity Reaction Status Date / Time No Known Allergies Allergy Verified 03/18/19 20:00 Home Medications:: Home Medications Medication Instructions Recorded Confirmed Type Lisinopril [Lisinopril 5mg Tablet] 5 mg PO DAILY 03/18/19 03/18/19 History Height: 1.68 m Weight: 115.666 kg Laboratory Results:: Laboratory Results - last 24 hr 03/18/19 23:35: Urine Color [place], Urine Appearance Cloudy, Urine pH 6.0, Ur Specific [place] 1.020, Urine Protein 2+, Urine Glucose (UA) Trace, Urine Ketones Negative, Urine Blood 3+, Urine Nitrate Negative, Urine Bilirubin Negative, Urine Urobilinogen 1.0, Ur Leukocyte Esterase 2+ A, Urine RBC 20-50, Urine WBC 5-10, Ur Squamous Epith Cells 3-5, Urine Bacteria 1+ 03/20/19 06:38: WBC 9.5 D, RBC 4.50 L, Hgb 12.0 L, Hct 36.2 L, MCV 80.4, MCH 26.6 L, MCHC 33.1, RDW 14.1, Plt Count 174, MPV 9.2, Neut % (Auto) 86.9 H, Lymph % (Auto) 7.5 L, [place] % (Auto) 4.5, Eos % (Auto) 1.0, Baso % (Auto) 0.2, Neut # (Auto) 8.3 H, Lymph # (Auto) 0.7, [place] # (Auto) 0.4, Eos # (Auto) 0.1, Baso # (Auto) 0.0, Total Counted 100, Neutrophils % (Manual) 84 H, Band Neutrophils % 2.0, Lymphocytes % (Manual) 8 L, Monocytes % (Manual) 6, Platelet Estimate Normal 03/20/19 06:38: Sodium 143, Potassium 3.8, Chloride 107, Carbon Dioxide 30, Anion Gap 9.8, BUN 32 H D, Creatinine 1.88 H, Estimated Creat Clear 63, Estimated GFR 36 L, Est GFR ( Amer) 44 L, Glucose 101, Calcium 9.1 03/20/19 06:38: PSA Screen 2.6 Medical History: Reports:: Hypertension Denies:: Cancer, Diabetes Mellitus Type 1, Diabetes Mellitus Type 2, MRSA Assessment and Plan (1) DDD (degenerative disc disease), cervical Current visit: Yes Status: Acute Category: Medical Code(s): M50.30 - Other cervical disc degeneration, unspecified cervical region (2) Foraminal stenosis of cervical region Current visit: Yes Status: Acute Category: Medical Code(s): M99.81 - Other biomechanical lesions of cervical region (3) Cervical spinal stenosis Current visit: Yes Status: Acute Category: Medical Code(s): M48.02 - Spinal stenosis, cervical region (4) Multiple thyroid nodules Current visit: Yes Status: Acute Category: Medical Code(s): E04.2 - Nontoxic multinodular goiter (5) Lacunar infarction Current visit: Yes Status: Acute Category: Medical Code(s): I63.81 - Other cerebral infarction due to occlusion or stenosis of small artery (6) Epididymitis Current visit: Yes Status: Acute Category: Medical Code(s): N45.1 - Epididymitis (7) UTI (urinary tract infection), bacterial Current visit: Yes Status: Acute Category: Medical Code(s): N39.0 - Urinary tract infection, site not specified; A49.9 - Bacterial infection, unspecified - Assessment and plan all Dx Assessment and Plan for all problems:: BASED ON PATIENT FACTORS, RECOMMEND VANCOMYCIN 1,750MG IV EVERY 24 HOURS DUE TO POSITIVE BLOOD CULTURE (mecA DETECTED). PHARMACY WILL MONITOR AND ADJUST DOSE APPROPRIATE. -SHANTEL TAYLOR PHARMD
--- NOTE | 2019-03-20 14:48 | HMH.CONS ---
*Admission Date: 03/20/19 *Chief complaint: Scrotal swelling and buried penis *History of present illness: Patient is a 68-year-old white male admitted from [facility] for recent fall 2 days ago. Physical examination reveals some scrotal swelling and buried penis making it difficult for Calvin catheter placement. Scrotal ultrasound showed bilateral blood flow with no testicular mass. There are enlarged bilateral epididymis suggesting chronic epididymitis with small hydroceles and diffuse thickening of the scrotal skin. His white count was 15.8 yesterday renal function is elevated at 1.9. His urine showed 2+ leukocyte esterase 1+ bacteria. Urine cultures growing gram-positive cocci. Patient is a very poor historian and difficult to understand. He denies any recent scrotal injury. [facility] History Medical History: Reports:: Hypertension Denies:: Cancer, Diabetes Mellitus Type 1, Diabetes Mellitus Type 2, MRSA *Have you ever received a pneumonia vaccine?: No (pt could not answer) *Have you received a flu vaccine this season?: No (pt could not answer) Amputation: No Fractures: Yes (right foot) - *Social History Educational Level: Completed High School Smoking Status: Former smoker Alcohol Intake: former *Occupational Status:: disabled Housing: assisted *Travel in the last 8 weeks: None - Psychiatric History Expresses thoughts of harming self/others: None Suicide Plan Description: No Plan Family Hx:: Cancer, Diabetes, Heart Attack, Kidney Disease Review of Systems - *Neurologic Denies localized weakness, Denies frequent falls Meds Home Medications Medication Instructions Recorded Confirmed Type Lisinopril [Lisinopril 5mg Tablet] 5 mg PO DAILY 03/18/19 03/18/19 History Allergies Allergy/AdvReac Type Severity Reaction Status Date / Time No Known Allergies Allergy Verified 03/18/19 20:00 Exam Vital signs and Labs for Last 24 Hours: Temp Pulse Resp BP Pulse Ox 97.8 F 81 18 193/99 H 93 L 03/20/19 08:00 03/20/19 08:00 03/20/19 08:00 03/20/19 08:00 03/20/19 08:00 Laboratory Results - last 24 hr 03/18/19 23:35: Urine Color [place], Urine Appearance Cloudy, Urine pH 6.0, Ur Specific [place] 1.020, Urine Protein 2+, Urine Glucose (UA) Trace, Urine Ketones Negative, Urine Blood 3+, Urine Nitrate Negative, Urine Bilirubin Negative, Urine Urobilinogen 1.0, Ur Leukocyte Esterase 2+ A, Urine RBC 20-50, Urine WBC 5-10, Ur Squamous Epith Cells 3-5, Urine Bacteria 1+ 03/20/19 06:38: WBC 9.5 D, RBC 4.50 L, Hgb 12.0 L, Hct 36.2 L, MCV 80.4, MCH 26.6 L, MCHC 33.1, RDW 14.1, Plt Count 174, MPV 9.2, Neut % (Auto) 86.9 H, Lymph % (Auto) 7.5 L, [place] % (Auto) 4.5, Eos % (Auto) 1.0, Baso % (Auto) 0.2, Neut # (Auto) 8.3 H, Lymph # (Auto) 0.7, [place] # (Auto) 0.4, Eos # (Auto) 0.1, Baso # (Auto) 0.0, Total Counted 100, Neutrophils % (Manual) 84 H, Band Neutrophils % 2.0, Lymphocytes % (Manual) 8 L, Monocytes % (Manual) 6, Platelet Estimate Normal 03/20/19 06:38: Sodium 143, Potassium 3.8, Chloride 107, Carbon Dioxide 30, Anion Gap 9.8, BUN 32 H D, Creatinine 1.88 H, Estimated Creat Clear 63, Estimated GFR 36 L, Est GFR ( Amer) 44 L, Glucose 101, Calcium 9.1 03/20/19 06:38: PSA Screen 2.6 I & O for Last 24 hours: Intake & Output 03/17/19 03/18/19 03/19/19 03/20/19 23:59 23:59 23:59 23:59 Intake Total 1620 / 1620 1417 / 1417 Balance 1620 / 1620 1417 / 1417 Weight 127.006 kg 116.8 kg 115.666 kg Microbiology Reports for the Last 24 Hours: Microbiology 03/19/19 00:30 Blood Blood Culture - Preliminary Gram Positive Cocci 03/18/19 23:35 Urine,Clean Catch Urine Culture - Preliminary Gram Positive Cocci Narrative: Moderately obese white male in no apparent distress Pupils equal round reactive light Head is normocephalic Neck normal supple symmetric Normal respiratory effort Abdomen soft nondistended examination reveals scrotal enla
--- NOTE | 2019-03-20 14:52 | P.CONS_ITS ---
*Admission Date: 03/20/19 *Chief complaint: Scrotal swelling and buried penis *History of present illness: Patient is a 68-year-old white male admitted from [facility] for recent fall 2 days ago. Physical examination reveals some scrotal swelling and buried penis making it difficult for Calvin catheter placement. Scrotal ultrasound showed bilateral blood flow with no testicular mass. There are enlarged bilateral epididymis suggesting chronic epididymitis with small hydroceles and diffuse thickening of the scrotal skin. His white count was 15.8 yesterday renal function is elevated at 1.9. His urine showed 2+ leukocyte esterase 1+ bacteria. Urine cultures growing gram-positive cocci. Patient is a very poor historian and difficult to understand. He denies any recent scrotal injury. [facility] History Medical History: Reports:: Hypertension Denies:: Cancer, Diabetes Mellitus Type 1, Diabetes Mellitus Type 2, MRSA *Have you ever received a pneumonia vaccine?: No (pt could not answer) *Have you received a flu vaccine this season?: No (pt could not answer) Amputation: No Fractures: Yes (right foot) - *Social History Educational Level: Completed High School Smoking Status: Former smoker Alcohol Intake: former *Occupational Status:: disabled Housing: alf *Travel in the last 8 weeks: None - Psychiatric History Expresses thoughts of harming self/others: None Suicide Plan Description: No Plan Family Hx:: Cancer, Diabetes, Heart Attack, Kidney Disease Review of Systems - *Neurologic Denies localized weakness, Denies frequent falls Meds Home Medications Medication Instructions Recorded Confirmed Type Lisinopril [Lisinopril 5mg Tablet] 5 mg PO DAILY 03/18/19 03/18/19 History Allergies Allergy/AdvReac Type Severity Reaction Status Date / Time No Known Allergies Allergy Verified 03/18/19 20:00 Exam Vital signs and Labs for Last 24 Hours: Temp Pulse Resp BP Pulse Ox 97.8 F 81 18 193/99 H 93 L 03/20/19 08:00 03/20/19 08:00 03/20/19 08:00 03/20/19 08:00 03/20/19 08:00 Laboratory Results - last 24 hr 03/18/19 23:35: Urine Color [place], Urine Appearance Cloudy, Urine pH 6.0, Ur Specific [place] 1.020, Urine Protein 2+, Urine Glucose (UA) Trace, Urine K etones Negative, Urine Blood 3+, Urine Nitrate Negative, Urine Bilirubin Negative, Urine Urobilinogen 1.0, Ur Leukocyte Esterase 2+ A, Urine RBC 20-50, Urine WBC 5-10, Ur Squamous Epith Cells 3-5, Urine Bacteria 1+ 03/20/19 06:38: WBC 9.5 D, RBC 4.50 L, Hgb 12.0 L, Hct 36.2 L, MCV 80.4, MCH 26.6 L, MCHC 33.1, RDW 14.1, Plt Count 174, MPV 9.2, Neut % (Auto) 86.9 H, Lymph % (Auto) 7.5 L, [place] % (Auto) 4.5, Eos % (Auto) 1.0, Baso % (Auto) 0.2, Neut # (Auto) 8.3 H, Lymph # (Auto) 0.7, [place] # (Auto) 0.4, Eos # (Auto) 0.1, Baso # (Auto) 0.0, Total Counted 100, Neutrophils % (Manual) 84 H, Band Neutrophils % 2.0, Lymphocytes % (Manual) 8 L, Monocytes % (Manual) 6, Platelet Estimate Normal 03/20/19 06:38: Sodium 143, Potassium 3.8, Chloride 107, Carbon Dioxide 30, Anion Gap 9.8, BUN 32 H D, Creatinine 1.88 H, Estimated Creat Clear 63, Estimated GFR 36 L, Est GFR ( Amer) 44 L, Glucose 101, Calcium 9.1 03/20/19 06:38: PSA Screen 2.6 I & O for Last 24 hours: Intake & Output 03/17/19 03/18/19 03/19/19 03/20/19 23:59 23:59 23:59 23:59 Intake Total 1620 / 1620 1417
[2019-03-20 15:29] VITALS: BP 190/100; PULSE 89; RESP 18; TEMP 36.7; O2SAT 94
--- NOTE | 2019-03-20 15:48 | CT_ITS ---
CT pelvis wo con INDICATION: Mass lump or swelling, enlarged scrotum, possible penile cancer ITS.REASON: ? [facility] ORDERING PHYSICIAN: Tristen Moreno MD PATIENT AGE: 68 years COMPARISON: None TECHNIQUE: Axial images are obtained without contrast. Sagittal and coronal reformatted images are reviewed as well. All CT scans at the facility use one or more dose reduction, viz: automated exposure control, ma/kV adjustment per patient size (including targeted exams where dose is matched to indication, i.e. head), or iterative reconstruction technique. IV contrast was not utilized secondary to patient's compromised renal status. Oral contrast was utilized. FINDINGS: 2.5 cm cyst projects off the posterior aspect of the left kidney. No evidence of appendicitis. No intestinal obstruction or free air on the visualized images. The prostate is slightly enlarged at 5.7 x 4.7 cm. There is thickening of the skin of the scrotum with right-sided hydrocele. There is increased soft tissue density with ill definition involving the penis. Correlation with physical exam needed inflammation/infection or neoplasm could cause this finding. There are small lymph nodes in the external iliac region and inguinal region on both sides with a right inguinal month measuring up to 1.5 x 1.3 cm and right external iliac nodes measuring up to 1.7 x 1.6 cm. There is diffuse bony sclerosis. IMPRESSION: 1. Diffuse increased density with ill definition of the penis which may be due to inflammation, infection, or even neoplasm. Small lymph nodes are present in the ankle regions and external iliac areas bilaterally. 2. Diffuse scrotal edema with small right hydrocele 3. Enlarged prostate. 4. Diffuse bony sclerosis. Diffuse prostate metastasis or renal osteodystrophy is considered
--- NOTE | 2019-03-20 17:23 | PC.NURSE ---
CA Round done 1700. Ice water given, trash taken out.
[2019-03-20 19:59] VITALS: BP 165/88; PULSE 86; RESP 18; TEMP 36.8; O2SAT 94
--- NOTE | 2019-03-21 03:11 | PC.NURSE ---
PT. ABLE TO STATE NAME AND ; UNABLE TO STATE PLACE OR YEAR. PT. UNCOOPERATIVE IN CARE AND HAS ATTEMPTED TO GET OOB WITHOUT ASSISTANCE SEVERAL TIMES; SAFETY PRECAUTIONS MAINTAINED. AROUND 2200 STAFF ALERTED TO BED ALARM AND FOUND PT. SITTING ON SIDE OF BED. PT. TRANSFERRED TO BATHROOM WITH X2 ASSIST; UNSTEADY GAIT AND BALANCE NOTED. WHILE PT. WAS WALKING INTO THE BATHROOM PT. HAD AN EPISODE OF INCONTINENCE OF THE BOWEL. BM WAS LIQUID IN CONSISTENCY. PT. RECEIVED A SHOWER. PER DAYSHIFT NURSE PT. HAD ONE EPISODE OF LOOSE STOOL, AND ONE SMALL EPISODE AT SHIFT CHANGE. DIARRHEA PANEL ORDERED PER POLICY. SCROTUM REDDENED AND ENLARGED WITH EXCORIATION. PT. IS CURRENTLY RESTING IN BED WITH EYES CLOSED AT THIS TIME. VSS. WILL CONTINUE TO MONITOR.
[2019-03-21 04:00] VITALS: BP 160/71; PULSE 89; RESP 20; TEMP 36.8; O2SAT 94
[2019-03-21 04:59] LABS: Adenovirus F 40/41, stool Not Detected (NotDetected); Astrovirus Not Detected (NotDetected); Campylobacter Not Detected (NotDetected); Clostridium Difficile A/B, PCR Not Detected (NotDetected); Cryptosporidium Not Detected (NotDetected); Cyclospora Cayetanesis Not Detected (NotDetected); Entamoeba histolytica Not Detected (NotDetected); Enteroaggregative E coli Not Detected (NotDetected); Enteropathogenic E coli Not Detected (NotDetected); Enterotoxigenic E coli Not Detected (NotDetected); Giardia lamblia Not Detected (NotDetected); Norovirus Not Detected (NotDetected); Plesimonas Shigalloides, PCR Not Detected (NotDetected); Rotavirus A Not Detected (NotDetected); Salmonella, PCR Not Detected (NotDetected); Sapovirus Not Detected (NotDetected); Shiga-like toxin E coli Not Detected (NotDetected); Shigella Enterovasive E coli Not Detected (NotDetected); Vibrio Cholerae Not Detected (NotDetected); Vibrio, PCR Not Detected (NotDetected); Yersinia Entercolitica, PCR Not Detected (NotDetected)
[2019-03-21 05:50] VITALS: BMI 40.8
--- NOTE | 2019-03-21 06:45 | PC.NURSE ---
REPORT WILL BE GIVEN TO Vasu FORREST
--- NOTE | 2019-03-21 07:11 | HMH.DCSUM ---
General - General Admission date:: 03/19/19 Discharge date: 03/21/19 HPI HPI: 68 YOM sitting up in bed, resp easy/even. States he feels a lot better. Pt brought in by EMS after an unwitnessed fall at [facility]. Pt denies any pain anywhere, and stated that he just hit his head after losing his footing. Pt heart rate and blood pressure are elevated. Pt slow to respond but does follow commands. FSBS en route by EMS was 209. Denies any specific injury or abd pain but has scrotal swelling for 2 weeks (Per Dr. Moreno) Hospital Course Hospital Course: pt has did well with ivf and abx with positive gram pos uti and was seen by urology-ient is a 68-year-old white male admitted from [facility] for recent fall 2 days ago. Physical examination reveals some scrotal swelling and buried penis making it difficult for Calvin catheter placement. Scrotal ultrasound showed bilateral blood flow with no testicular mass. There are enlarged bilateral epididymis suggesting chronic epididymitis with small hydroceles and diffuse thickening of the scrotal skin. His white count was 15.8 yesterday renal function is elevated at 1.9. His urine showed 2+ leukocyte esterase 1+ bacteria. Urine cultures growing gram-positive cocci. Patient is a very poor historian and difficult to understand. He denies any recent scrotal injury. -year-old white male with buried penis and scrotal swelling. It is difficult to say whether the patient has phimosis or not as the glans penis cannot be visualized. Of most interest is nodular glans penis and penile cancer is a possibility. Would recommend CT scan of the pelvic region with oral contrast to evaluate for lymphadenopathy. This patient will need higher level of care he does have penile cancer and referral to [facility] on outpatient basis is recommended. pt is ambulatory and kaitlin diet and blood culture was felt to be containment - pr will finish with po abx and will follow up as op with [facility] to determine if cancer and any treatment - pt has elevated bp and will change to norvasc sec to renal insuff Objective Vital signs: Temp Pulse Resp BP Pulse Ox 98.3 F 89 20 160/71 H 94 L 03/21/19 04:00 03/21/19 04:00 03/21/19 04:00 03/21/19 04:00 03/21/19 04:00 no acute distress, obese - *Routine HEENT Exam Head: Present: normocephalic Eye: Present: EOMI, PERRL, conjunctival icterus ENT: Present: mucous membranes dry - *Routine Neck Exam Present: supple - *Routine Respiratory Exam Present: CTA bilaterally - *Routine Cardiovascular Exam Present: RRR. Absent: murmur - *Routine Abdominal Exam Present: soft - *Routine Extremities Exam Present: full ROM - *Routine Skin Exam Present: intact - *Routine Neurological Exam Present: alert, oriented X3, CN II-XII intact - Routine Psychiatric Exam Present: normal affect Results Labs on day of discharge: Labs from last 24 hours 03/20/19 03/20/19 03/20/19 06:38 06:38 06:38 Total Counted 100 Neutrophils % (Manual) 84 H Band Neutrophils % 2.0 Lymphocytes % (Manual) 8 L Monocytes % (Manual) 6 Platelet Estimate Normal Sodium 143 Potassium 3.8 Chloride 107 Carbon Dioxide 30 Anion Gap 9.8 BUN 32 H D Creatinine 1.88 H Estimated Creat Clear 63 Estimated GFR 36 L Est GFR ( Amer) 44 L Glucose 101 Calcium 9.1 PSA Screen 2.6 Urine Color Urine Appearance Urine pH Ur Specific [place] Urine Protein Urine Glucose (UA) Urine Ketones Urine Blood Urine Nitrate Urine Bilirubin Urine Urobilinogen Ur Leukocyte Esterase Urine RBC Urine WBC Ur Squamous Epith Cells Urine Bacteria 03/18/19 23:35 Total Counted Neutrophils % (Manual) Band Neutrophils % Lymphocytes % (Manual) Monocytes % (Manual) Platelet Estimate Sodium Potassium Chloride Carbon Dioxide Anion Gap BUN Creatinine Estimated Creat Clear Estimat
[2019-03-21 08:00] VITALS: PULSE 94; RESP 18; TEMP 36.4; O2SAT 94
--- NOTE | 2019-03-21 09:01 | PC.NURSE ---
NURSE OBTAINED PTS BLOOD PRESSURE
--- NOTE | 2019-03-21 09:04 | PC.NURSE ---
called and spoke with tamara schroeder rn in dr. diamond office about patient bp being 195/102. patient only has lisinopril ordered which he will not be going back to [facility] on. they will be discontinuing that and starting amlodipine back at the [facility]. that has not be ordered here and with his being elevated wanted to ensure it was stable before discharge
[2019-03-21 09:06] VITALS: BP 195/102
--- NOTE | 2019-03-21 09:23 | PC.NURSE ---
tamara schroeder rn called back from dr. diamond office stating per cheo jones to give patient dose of amlodipine before discharge..
--- NOTE | 2019-03-21 09:40 | SW/DCPLANNER ---
I have spoke with Raiza at [facility] to inform her this patient will be discharging back today. Raiza has stated that she will send staff up today to transport this patient back to [place] [facility].
[2019-03-21 09:57] VITALS: BP 178/96
--- NOTE | 2019-03-21 09:58 | PC.NURSE ---
recheck of bp manually reveals an improvement of bp since medication was given. called and relayed to [facility] about new medications
== END 2019-03-21 11:55 | disposition home or self-care (01) | DRG 552 ==
LOC: ER 03-19 00:46 → 2ND 03-19 01:53
PROVIDERS: Nurse Practitioner Family; Admitting Provider Emergency Medicine; Emergency Provider Emergency Medicine; PCP Emergency Medicine; Visit Provider Emergency Medicine
DX: M48.02 Spinal stenosis, cervical region (principal); N39.0 Urinary tract infection, site not specified; M50.30 Other cervical disc degeneration, unspecified cervical region; E04.1 Nontoxic single thyroid nodule; N45.1 Epididymitis; N40.1 Benign prostatic hyperplasia with lower urinary tract symptoms; Z86.73 Personal history of transient ischemic attack (TIA), and cerebral infarction without residual deficits
CPT/HCPCS: 36415; 70450; 71045; 71250; 72125; 72170; 72192; 76870; 80048; 80061; 81001; 83036; 83605; 83735; 84484; 85007; 85025; 87040; 87077; 87086; 87088; 87186; 87507; 93005; 96365; 97161; 97165; 99285; G0103; J3370

== ENCOUNTER 2019-03-28 12:11 | Emergency (ER) | payer MEDICARE, OTHER, SELFPAY ==
[2019-03-28 12:12] VITALS: BP 185/111; PULSE 97; RESP 20; TEMP 36.8; O2SAT 92; BMI 29.5
--- NOTE | 2019-03-28 12:25 | HMH.EDGENADL ---
ED Disposition Clinical Impression: Hypertension Disposition: Home, Self-Care Condition on Discharge: Good Instructions: High Blood Pressure Additional Instructions: stop amlodipine. Start Losartan/hctz at dose sent to your pharmacy. follow up with Josh in week Prescriptions: Losartan/Hydrochlorothiazide [Losartan-Hctz 50-12.5 mg Tab] 1 each PO DAILY 30 Days #30 tab Time of Disposition: 13:10 - Critical Care Critical Care Time: No Attestation: On , the high probability of a clinically significant, sudden or life threatening deterioration of the following system(s) required my full and direct attention, intervention and personal management. The time I documented below is in addition to time spent performing reported procedures but includes the following listed in this critical care notation. Medical Decision Making - Medical Records Medical records reviewed: Yes: I reviewed the patient's medical records. - Sharan Inquiry Pt receiving controlled substance: No Sharan was queried for this patient: No Vital Signs: 03/28/19 12:12 03/28/19 12:45 Temperature 98.3 F Temperature Source Oral Pulse Rate [Left Radial] 97 H 97 H Respiratory Rate 20 18 Blood Pressure [Right Arm] 185/111 H 181/95 H Blood Pressure Mean [Right Arm] 135 123 Blood Pressure Source [Right Arm] Automatic Cuff Automatic Cuff Blood Pressure Position [Right Arm] Sitting Supine 02 Sat by Pulse Oximetry 92 L 93 L Oxygen Delivery Method Room Air Room Air - Lab Data Lab results reviewed: Yes: I reviewed the patient's lab results. Lab Results 03/28/19 12:00: WBC 8.5, RBC 4.74, Hgb 12.6 L, Hct 39.7 L, MCV 83.8, MCH 26.5 L, MCHC 31.6 L, RDW 14.9, Plt Count 240, MPV 8.5, Neut % (Auto) 83.6 H, Lymph % (Auto) 11.2, [place] % (Auto) 3.5, Eos % (Auto) 1.3, Baso % (Auto) 0.4, Neut # (Auto) 7.1, Lymph # (Auto) 1.0, [place] # (Auto) 0.3, Eos # (Auto) 0.1, Baso # (Auto) 0.0 03/28/19 12:00: Sodium 144, Potassium 3.8, Chloride 105, Carbon Dioxide 29, Anion Gap 13.8, BUN 20 H, Creatinine 1.77 H, Estimated Creat Clear 53, Estimated GFR 39 L, Est GFR ( Amer) 47 L, Glucose 97, Calcium 8.9, Total Bilirubin 0.6, AST 13 L, ALT 20, Alkaline Phosphatase 94, Total Protein 7.6, Albumin 3.3 L, Globulin 4.3 H, Albumin/Globulin Ratio 0.8 L Result diagrams: 03/28/19 12:00 03/28/19 12:00 Orders (Tests/Meds): ED MEDICATIONS Discontinued Medications Generic Name Dose Route Start Last Admin Trade Name Catrachito PRN Reason Stop Dose Admin Clonidine HCl 0.2 mg 03/28/19 12:24 03/28/19 12:32 Clonidine 0.1mg Tablet PO 03/28/19 12:25 0.1 mg ONCE ONE Administration ORDERS Category Date Time Status EKG Request [ECG Request by /Светлана] Stat Y 03/28/19 12:27 Ordered General Adult HPI - General Chief complaint: Anxiety Stated complaint: hypertension Time Seen by Provider: 03/28/19 12:25 Mode of Arrival: EMS Source of Information: Patient Limitations: No Limitations Description of Symptoms (Recalled from ER Triage Doc. by RN): sent over from [facility] for high blood pressure. Pt states he feels fine at this time. - History of Present Illness HPI narrative: no complaints. on amlodipine for two weeks, formerly on lisinopril - Related Data Home Medications Medication Instructions Recorded Confirmed lisinopril 5 mg tablet 5 mg PO DAILY 03/21/19 loperamide 2 mg capsule 2 mg PO Q4H 03/21/19 Previous Rx's Medication Instructions Recorded Cefdinir [Omnicef 300mg Capsule] 300 mg PO BID #10 cap 03/21/19 Losartan/Hydrochlorothiazide 1 each PO DAILY 30 Days #30 tab 03/28/19 [Losartan-Hctz 50-12.5 mg Tab] Allergies Allergy/AdvReac Type Severity Reaction Status Date / Time No Known Allergies Allergy Verified 03/18/19 20:00 [facility] History - Hepatitis A Screen Drug use history?: No High risk sexual behaviors?: No History of sexually transmitted infection?: No Currently employed?: No Childcare worker?: No Do you have
--- NOTE | 2019-03-28 12:28 | ED_ITS ---
ED Disposition Clinical Impression: Hypertension Disposition: Home, Self-Care Condition on Discharge: Good Instructions: High Blood Pressure Additional Instructions: stop amlodipine. Start Losartan/hctz at dose sent to your pharmacy. follow up with Josh in week Prescriptions: Losartan/Hydrochlorothiazide [Losartan-Hctz 50-12.5 mg Tab] 1 each PO DAILY 30 Days #30 tab Time of Disposition: 13:10 - Critical Care Critical Care Time: No Attestation: On , the high probability of a clinically significant, sudden or life thr eatening deterioration of the following system(s) required my full and direct attention, intervention and personal management. The time I documented below is in addition to time spent performing reported procedures but includes the following listed in this critical care notation. Medical Decision Making - Medical Records Medical records reviewed: Yes: I reviewed the patient's medical records. - Sharan Inquiry Pt receiving controlled substance: No Sharan was queried for this patient: No Vital Signs: 03/28/19 12:12 03/28/19 12:45 Temperature 98.3 F Temperature Source Oral Pulse Rate [Left Radial] 97 H 97 H Respiratory Rate 20 18 Blood Pressure [Right Arm] 185/111 H 181/95 H Blood Pressure Mean [Right Arm] 135 123 Blood Pressure Source [Right Arm] Automatic Cuff Automatic Cuff Blood Pressure Position [Right Arm] Sitting Supine 02 Sat by Pulse Oximetry 92 L 93 L Oxygen Delivery Method Room Air Room Air - Lab Data Lab results reviewed: Yes: I reviewed the patient's lab results. Lab Results 03/28/19 12:00: WBC 8.5, RBC 4.74, Hgb 12.6 L, Hct 39.7 L, MCV 83.8, MCH 26.5 L, MCHC 31.6 L, RDW 14.9, Plt Count 240, MPV 8.5, Neut % (Auto) 83.6 H, Lymph % (Auto) 11.2, [place] % (Auto) 3.5, Eos % (Auto) 1.3, Baso % (Auto) 0.4, Neut # (Auto) 7.1, Lymph # (Auto) 1.0, [place] # (Auto) 0.3, Eos # (Auto) 0.1, Baso # (Auto) 0.0 03/28/19 12:00: Sodium 144, Potassium 3.8, Chloride 105, Carbon Dioxide 29, Anion Gap 13.8, BUN 20 H, Creatinine 1.77 H, Estimated Creat Clear 53, Estimated GFR 39 L, Est GFR ( Amer) 47 L, Glucose 97, Calcium 8.9, Total Bilirubin 0.6, AST 13 L, ALT 20, Alkaline Phosphatase 94, Total Protein 7.6, Albumin 3.3 L , Globulin 4.3 H, Albumin/Globulin Ratio 0.8 L Result diagrams: 03/28/19 12:00 03/28/19 12:00 Orders (Tests/Meds): ED MEDICATIONS Discontinued Medications Generic Name Dose Route Start Last Admin Trade Name Freq PRN Reason Stop Dose Admin Clonidine HCl 0.2 mg 03/28/19 12:24 03/28/19 12:32 Clonidine 0.1mg Tablet PO 03/28/19 12:25 0.1 mg ONCE ONE Administration ORDERS Category Date Time Status EKG Request [ECG Request by /Светлана] Stat Y 03/28/19 12:27 Ordered General Adult HPI - General Chief complaint: Anxiety Stated complaint: hypertension Time Seen by Provider: 03/28/19 12:25 Mode of Arrival: EMS Source of Information: Patient Limitations: No Limitations Description of Symptoms (Recalled from ER Triage Doc. by RN): sent over from [facility] for high blood pressure. Pt states he feels fine at this time. - History of Present Illness HPI narrative:
[2019-03-28 12:45] VITALS: BP 181/95; PULSE 97; RESP 18; O2SAT 93
[2019-03-28 12:47] LABS: Basophils % 0.4 % (0.1-2.0); Eosinophils # 0.1 K/mm3 (0.0-0.4); Eosinophils % 1.3 % (0.1-12.0); Hematocrit 39.7 % (42.0-52.0); Hemoglobin 12.6 g/dL (14.1-18.0); Lymphocytes % 11.2 % (10-50); Mean Corpuscular HGB Conc 31.6 g/dL (31.8-35.4); Mean Corpuscular Hemoglobin 26.5 pg (27.0-31.2); Mean Corpuscular Volume 83.8 fl (80-94); Mean Platelet Volume 8.5 fl (7.4-10.4); Monocytes # 0.3 K/mm3 (0.1-1.0); Monocytes % 3.5 % (1.7-9.3); Neutrophils # 7.1 K/mm3 (1.8-7.8); Neutrophils % 83.6 % (37.0-80.0); Platelet Count 240 K/mm3 (142-424); Red Blood Count 4.74 M/mm3 (4.60-6.20); Red Cell Distribution Width 14.9 % (11.5-17.5); White Blood Count 8.5 K/mm3 (4.8-10.8)
[2019-03-28 12:55] LABS: Alanine Aminotransferase 20 U/L (12-78); Albumin Level 3.3 gm/dL (3.4-5.0); Albumin/Globulin Ratio 0.8 (1.1-1.8); Alkaline Phosphatase 94 U/L (46-116); Anion Gap 13.8 mEq/L (5-15); Aspartate Amino Transferase 13 U/L (15-37); Bilirubin,Total 0.6 mg/dL (0.2-1.0); Blood Urea Nitrogen 20 mg/dL (7-18); Calcium 8.9 mg/dL (8.5-10.1); Carbon Dioxide 29 mmol/L (21.0-32.0); Chloride 105 mmol/L (98-107); Creatinine Clearance Estimated 53 mL/min (50-200); Creatinine,Serum 1.77 mg/dL (0.70-1.30); Estimated Glomerular Filt Rate 39 ml/min (>60); GFR (African American) 47 ML/MIN (>60); Globulin 4.3 gm/dl (1.3-3.2); Glucose 97 mg/dL (74-106); Potassium 3.8 mmoL/L (3.5-5.1); Sodium 144 mmol/L (136-145); Total Protein,Serum 7.6 gm/dL (6.4-8.2)
[2019-03-28 14:03] VITALS: BP 176/85; PULSE 87; RESP 20; TEMP 36.9; O2SAT 92
== END 2019-03-28 14:02 | disposition home or self-care (01) ==
PROVIDERS: Emergency Provider Emergency Medicine
DX: I10 Essential (primary) hypertension (principal); F41.9 Anxiety disorder, unspecified; Z87.891 Personal history of nicotine dependence
CPT/HCPCS: 80053; 85025; 93005; 99282

== ENCOUNTER 2019-04-09 13:02 | Outpatient (CLI) | payer MEDICARE, OTHER, SELFPAY ==
[2019-04-09 13:25] VITALS: BP 154/82; PULSE 78; RESP 18; TEMP 36.8; O2SAT 96
--- NOTE | 2019-04-09 14:04 | PC.NURSE ---
04/09/19 1357 Invanz 1 Gm IM given as ordered in 2 divided doses, 500mg IM R gluteus drake and 500mg IM L gluteus drake. Pt kaitlin well with no problems noted
[2019-04-09 14:25] VITALS: BP 154/81; PULSE 82; RESP 18; TEMP 36.8; O2SAT 97
== END 2019-04-09 14:25 | disposition home or self-care (01) ==
LOC: INF 13:05
PROVIDERS: PCP Emergency Medicine; Visit Provider Emergency Medicine
DX: N39.0 Urinary tract infection, site not specified (principal); Z16.12 Extended spectrum beta lactamase (ESBL) resistance
CPT/HCPCS: 96372; J1335

== ENCOUNTER 2019-04-10 14:10 | Outpatient (CLI) | payer MEDICARE, OTHER, SELFPAY ==
[2019-04-10 14:40] VITALS: BP 157/90; PULSE 97; RESP 16; TEMP 36.7
== END 2019-04-10 14:55 | disposition home or self-care (01) ==
LOC: INF 14:23
PROVIDERS: Visit Provider Emergency Medicine
DX: N39.0 Urinary tract infection, site not specified (principal); Z16.12 Extended spectrum beta lactamase (ESBL) resistance
CPT/HCPCS: 96372; J1335

== ENCOUNTER 2019-04-11 14:00 | Outpatient (CLI) | payer MEDICARE, OTHER, SELFPAY ==
[2019-04-11 14:10] VITALS: BP 170/91; PULSE 96; RESP 18; TEMP 36.6; O2SAT 95; BMI 31.0
== END 2019-04-11 14:42 | disposition home or self-care (01) ==
LOC: INF 14:32
PROVIDERS: Visit Provider Emergency Medicine
DX: N39.0 Urinary tract infection, site not specified (principal); Z16.12 Extended spectrum beta lactamase (ESBL) resistance
CPT/HCPCS: 96372; J1335

== ENCOUNTER 2019-04-12 14:38 | Outpatient (CLI) | payer MEDICARE, OTHER, SELFPAY ==
[2019-04-12 15:03] VITALS: BMI 31.1
[2019-04-12 15:05] VITALS: BP 162/91; PULSE 89; RESP 18; O2SAT 96
== END 2019-04-12 15:16 | disposition home or self-care (01) ==
LOC: INF 14:38
PROVIDERS: PCP Emergency Medicine; Visit Provider Emergency Medicine
DX: N39.0 Urinary tract infection, site not specified (principal); Z16.12 Extended spectrum beta lactamase (ESBL) resistance
CPT/HCPCS: 96372; J1335

== ENCOUNTER 2019-04-13 14:21 | Outpatient (CLI) | payer MEDICARE, OTHER, SELFPAY ==
[2019-04-13 14:52] VITALS: BP 133/76; PULSE 84; RESP 18; O2SAT 94
== END 2019-04-13 14:54 | disposition home or self-care (01) ==
LOC: INF 14:22
PROVIDERS: PCP Emergency Medicine; Visit Provider Emergency Medicine
DX: N39.0 Urinary tract infection, site not specified (principal); Z16.12 Extended spectrum beta lactamase (ESBL) resistance
CPT/HCPCS: 96372; J1335

== ENCOUNTER 2019-04-14 16:12 | Outpatient (CLI) | payer MEDICARE, OTHER, SELFPAY ==
[2019-04-14 16:12] VITALS: BP 147/82; PULSE 95; RESP 20; TEMP 36.9; O2SAT 100
--- NOTE | 2019-04-14 16:15 | PC.NURSE ---
given in both hips
[2019-04-14 16:20] VITALS: BP 145/78; PULSE 68; RESP 20; TEMP 36.9; O2SAT 95
== END 2019-04-14 16:23 | disposition home or self-care (01) ==
LOC: INF 16:12
PROVIDERS: Visit Provider Emergency Medicine
DX: N39.0 Urinary tract infection, site not specified (principal); Z16.12 Extended spectrum beta lactamase (ESBL) resistance
CPT/HCPCS: 96372; J1335

== ENCOUNTER 2019-04-15 14:06 | Outpatient (CLI) | payer MEDICARE, OTHER, SELFPAY ==
[2019-04-15 14:12] VITALS: BP 145/77; PULSE 90; RESP 18; TEMP 36.6; O2SAT 98
== END 2019-04-15 14:27 | disposition home or self-care (01) ==
LOC: INF 14:06
PROVIDERS: Visit Provider Emergency Medicine
DX: N39.0 Urinary tract infection, site not specified (principal); Z16.12 Extended spectrum beta lactamase (ESBL) resistance
CPT/HCPCS: 96372; J1335

== ENCOUNTER 2019-04-16 14:45 | Outpatient (CLI) | payer MEDICARE, OTHER, SELFPAY ==
[2019-04-16 15:00] VITALS: BP 157/79; PULSE 102; RESP 18; TEMP 36.4; O2SAT 96
== END 2019-04-16 15:15 | disposition home or self-care (01) ==
LOC: INF 14:47
PROVIDERS: Visit Provider Emergency Medicine
DX: N39.0 Urinary tract infection, site not specified (principal); Z16.12 Extended spectrum beta lactamase (ESBL) resistance
CPT/HCPCS: 96372; J1335

== ENCOUNTER 2019-04-17 14:20 | Outpatient (CLI) | payer MEDICARE, OTHER, SELFPAY ==
[2019-04-17 14:28] VITALS: BMI 32.5
[2019-04-17 14:56] LABS: Creatinine Clearance Estimated 49 mL/min (50-200); Estimated Glomerular Filt Rate 32 ml/min (>60); GFR (African American) 38 ML/MIN (>60)
[2019-04-17 15:03] VITALS: BP 150/67; PULSE 87; RESP 18; O2SAT 95
== END 2019-04-17 15:05 | disposition home or self-care (01) ==
LOC: INF 14:24
PROVIDERS: Visit Provider Emergency Medicine
DX: N39.0 Urinary tract infection, site not specified (principal); Z16.12 Extended spectrum beta lactamase (ESBL) resistance
CPT/HCPCS: 36415; 82565; 96372; J1335

== ENCOUNTER 2019-04-18 14:25 | Outpatient (CLI) | payer MEDICARE, OTHER, SELFPAY ==
[2019-04-18 14:50] VITALS: BP 165/90; PULSE 92; RESP 18; O2SAT 93
== END 2019-04-18 15:05 | disposition home or self-care (01) ==
LOC: INF 14:32
PROVIDERS: Visit Provider Emergency Medicine
DX: N39.0 Urinary tract infection, site not specified (principal); Z16.12 Extended spectrum beta lactamase (ESBL) resistance
CPT/HCPCS: 96372; J1335

== ENCOUNTER 2019-10-26 08:50 | Inpatient (IN) | payer MEDICARE, OTHER, SELFPAY ==
[2019-10-26] VITALS (8 sets, daily range): BP systolic 121–192; BP diastolic 58–99; PULSE 75–104; RESP 18–22; TEMP 37.1–39.4; O2SAT 90–95; BMI 39.1; BMI 38.7
--- NOTE | 2019-10-26 08:54 | HMH.EDGENADL ---
ED Disposition Clinical Impression: Dehydration, Acute urinary tract infection, Frequent falls Chronic renal disease Qualifiers: Chronic kidney disease stage: unspecified stage Qualified Code(s): N18.9 - Chronic kidney disease, unspecified Rhabdomyolysis Qualifiers: Rhabdomyolysis type: traumatic Encounter type: initial encounter Qualified Code(s): T79.6XXA - Traumatic ischemia of muscle, initial encounter Fever Qualifiers: Fever type: unspecified Qualified Code(s): R50.9 - Fever, unspecified Disposition: Admitted as Observation Condition on Discharge: Fair (Stable) Referrals: Tristen Moreno MD [Primary Care Provider] - Time of Disposition: 10:16 - Critical Care Critical Care Time: No Attestation: On , the high probability of a clinically significant, sudden or life threatening deterioration of the following system(s) required my full and direct attention, intervention and personal management. The time I documented below is in addition to time spent performing reported procedures but includes the following listed in this critical care notation. Medical Decision Making - Medical Records Medical records reviewed: Yes: I reviewed the patient's medical records. - Sharan Inquiry Pt receiving controlled substance: No Sharan was queried for this patient: No Vital Signs: 10/26/19 08:50 10/26/19 09:55 Temperature 100.5 F H Temperature Source Oral Pulse Rate [Radial] 95 H 90 Respiratory Rate 18 Blood Pressure [Right Arm] 138/70 177/91 H Blood Pressure Mean [Right Arm] 92 119 Blood Pressure Source [Right Arm] Automatic Cuff Blood Pressure Position [Right Arm] Sitting 02 Sat by Pulse Oximetry 91 L 91 L Oxygen Delivery Method Room Air Room Air - Lab Data Lab results reviewed: Yes: I reviewed the patient's lab results. Lab Results 10/26/19 09:06: Magnesium 1.7, Troponin I < 0.02, TSH 1.21 D 10/26/19 09:06: Lactate 1.0 10/26/19 09:06: WBC 7.5, RBC 4.64, Hgb 12.2 L, Hct 36.9 L, MCV 79.5 L, MCH 26.3 L, MCHC 33.1, RDW 14.9, Plt Count 173, MPV 9.9, Neut % (Auto) 91.2 H, Lymph % (Auto) 3.5 L, [place] % (Auto) 4.8, Eos % (Auto) 0.2, Baso % (Auto) 0.3, Neut # (Auto) 6.8, Lymph # (Auto) 0.3 L, [place] # (Auto) 0.4, Eos # (Auto) 0.0, Baso # (Auto) 0.0, Total Counted 100, Neutrophils % (Manual) 88 H, Lymphocytes % (Manual) 5 L, Monocytes % (Manual) 7, Platelet Estimate Normal, Hypochromasia 1+, Anisocytosis 1+, Microcytosis 1+ 10/26/19 09:06: Sodium 141, Potassium 3.6, Chloride 103, Carbon Dioxide 29, Anion Gap 12.6, BUN 42 H, Creatinine 2.62 H, Estimated Creat Clear 44, Estimated GFR 25 L, Est GFR ( Amer) 30 L, Glucose 138 H, Calcium 8.4 L, Total Bilirubin 0.9, AST 50 H, ALT 24, Alkaline Phosphatase 90, Total Creatine Kinase 1733 H*, Total Protein 7.1, Albumin 3.3 L, Globulin 3.8 H, Albumin/Globulin Ratio 0.9 L 10/26/19 09:06: Influenza Type A Ag Negative, Influenza Type B Ag Negative 10/26/19 09:08: POC Glucose 126 H 10/26/19 09:25: Ammonia < 10 L 10/26/19 09:36: Urine Color Yellow, Urine Appearance Cloudy, Urine pH 5.5, Ur Specific [place] 1.025, Urine Protein Trace, Urine Glucose (UA) Negative, Urine Ketones Negative, Urine Blood 3+, Urine Nitrate Negative, Urine Bilirubin Negative, Urine Urobilinogen 0.2, Ur Leukocyte Esterase 2+ A, Urine RBC 3-5, Urine WBC 10-20, Ur Squamous Epith Cells 5-10, Urine Bacteria 2+ Result diagrams: 10/26/19 09:06 10/26/19 09:06 Orders (Tests/Meds): ED MEDICATIONS Generic Name Dose Route Start Last Admin Trade Name Freq PRN Reason Stop Dose Admin Sodium Chloride 1,000 mls @ 999 mls/hr 10/26/19 09:00 10/26/19 09:09 Sod Chlor 0.9% 1000ml Bag IV 10/26/19 10:00 999 mls/hr .Q1H1M MICHAEL Administration Piperacillin Sod/Tazobactam 50 mls @ 100 mls/hr 10/26/19 10:15 Sod 3.375 gm/ Sodium Chloride IV 11/09/19 10:14 Q6H MICHAEL Protocol ORDERS Category Date Time Status Pelvis XR 1-2 views [XR pelvis 1-2V] Stat Exams 10/26/19 09:01 Taken Blood Culture S
--- NOTE | 2019-10-26 08:55 | ECG_ITS ---
APPROVED REPORT Exam: Resting ECG HR:103 bpm ECG Measurements Heart Rate 103 AXES MD 132 P 44 QRSd 82 QRS -5 QT 344 T 46 QTc 450 <Conclusion> Sinus tachycardia Nonspecific ST abnormality Abnormal ECG Electronically signed by : Maciel Pike, 10/27/2019 13:04:29
--- NOTE | 2019-10-26 09:00 | XR_ITS ---
PROCEDURE: XR CHEST PORTABLE Patient Age:69Y CLINICAL HISTORY: Fever. Frequent falls COMPARISON: CXR2 XR chest AP from 06/03/[address] chest wo con from 03/19/2019 FINDINGS: Today's lordotic projection AP portable semi-erect CXR compared to more optimal upright PA chest 06/03/2018 CXR. There is poor inspiration today,. Increased density left lung base of which partially obscures the left CP angle. Initially appearance was suspect For left pleural effusion and minimal airspace disease at left base (however see additional note below the) Upper normal pulmonary vascularity.. Cardiomegaly, noting cardiac silhouette will be accentuated by the AP rather lordotic portable projection. manager poker leads in place. Chest wall appears grossly unremarkable with no obvious acute rib fractures the. Mild hypertrophic changes AC joints noted ADDITIONAL NOTE. I now see that there is a February 2019 CT chest.-On that study the CT cable coverer we view this same appearance is at left CP angle that we see today.. Specifically on the February 2019 CT images, note that there is a prominent anterior fat pad extending laterally and along with the cardiomegaly/left ventricular configuration and elevation left hemidiaphragm, along with some elevation left hemidiaphragm, 8 yields this same appearance of increased density left CP angle. Thus after reviewing the CT I suspect this is most likely chronic feature not acute. Current lordotic projection may also further accentuate these anterior fat-pad densities at the left base noted on prior CT IMPRESSION: The CT chest from February 2019 is particularly helpful, and shows a similar density at the left CP angle & left lung base--due to the combination: Prominent anterior fat pad, cardiomegaly, and elevation left hemidiaphragm Thus favor appearance towards the left CP angle more likely chronic feature/baseline. Would encourage more optimal follow-up upright AP chest when can be tolerated to better evaluate (or if feasible PA and lateral chest would be even more optimal) Cardiomegaly. upper normal pulmonary vascularity noted. No acute findings otherwise, on current rather lordotic projection AP portable CXR Dictated by: Tony Lunsford MD 10/26/2019 10:00 Electronically signed by Tony Lunsford MD in [place] 10/26/2019 10:00
--- NOTE | 2019-10-26 09:01 | XR_ITS ---
PROCEDURE: XR PELVIS 1-2V Patient Age:69Y CLINICAL INDICATION: Frequent falls. Poor historian does not follow instructions COMPARISON: No exams were available for comparison TECHNIQUE: XR Pelvis AP View FINDINGS: AP portable pelvis radiograph shows no acute findings. No fracture. Bones well mineralized. Hip joint spaces well maintained. The SI joints unremarkable pubis iliac bone unremarkable. No fracture or dislocation is evident. No significant degenerative change. No lytic or blastic change. The SI joints have an unremarkable appearance. Unremarkable soft tissues. IMPRESSION: No acute findings. . Osseous pelvis appears intact Dictated by: Tony Lunsford MD 10/26/2019 10:05 Electronically signed by Tony Lunsford MD in [place] 10/26/2019 10:05
[2019-10-26 09:15] LABS: POC Glucose,Bedside 126 (70-110)
[2019-10-26 09:15] LABS: Basophils % 0.3 % (0.1-2.0); Eosinophils % 0.2 % (0.1-12.0); Hematocrit 36.9 % (42.0-52.0); Hemoglobin 12.2 g/dL (14.1-18.0); Lymphocytes # 0.3 K/mm3 (0.7-4.5); Lymphocytes % 3.5 % (10-50); Mean Corpuscular HGB Conc 33.1 g/dL (31.8-35.4); Mean Corpuscular Hemoglobin 26.3 pg (27.0-31.2); Mean Corpuscular Volume 79.5 fl (80-94); Mean Platelet Volume 9.9 fl (7.4-10.4); Monocytes # 0.4 K/mm3 (0.1-1.0); Monocytes % 4.8 % (1.7-9.3); Neutrophils # 6.8 K/mm3 (1.8-7.8); Neutrophils % 91.2 % (37.0-80.0); Platelet Count 173 K/mm3 (142-424); Red Blood Count 4.64 M/mm3 (4.60-6.20); Red Cell Distribution Width 14.9 % (11.5-17.5); White Blood Count 7.5 K/mm3 (4.8-10.8)
[2019-10-26 09:23] LABS: MANUAL DIFFERENTIAL MANUAL DIFFERENTIAL (MANUAL DIFF)
[2019-10-26 09:28] LABS: Troponin I < 0.02 ng/ml (0.00-0.06)
[2019-10-26 09:33] LABS: Magnesium 1.7 mg/dL (1.4-2.2); Thyroid Stimulating Hormone 1.21 uIU/ml (0.358-3.740)
[2019-10-26 09:35] LABS: Alanine Aminotransferase 24 U/L (12-78); Albumin Level 3.3 gm/dL (3.4-5.0); Albumin/Globulin Ratio 0.9 (1.1-1.8); Alkaline Phosphatase 90 U/L (46-116); Anion Gap 12.6 mEq/L (5-15); Aspartate Amino Transferase 50 U/L (15-37); Bilirubin,Total 0.9 mg/dL (0.2-1.0); Blood Urea Nitrogen 42 mg/dL (7-18); Calcium 8.4 mg/dL (8.5-10.1); Carbon Dioxide 29 mmol/L (21.0-32.0); Chloride 103 mmol/L (98-107); Creatine Kinase 1733 U/L (39-308); Creatinine Clearance Estimated 44 mL/min (50-200); Creatinine,Serum 2.62 mg/dL (0.70-1.30); Estimated Glomerular Filt Rate 25 ml/min (>60); GFR (African American) 30 ML/MIN (>60); Globulin 3.8 gm/dl (1.3-3.2); Glucose 138 mg/dL (74-106); Potassium 3.6 mmoL/L (3.5-5.1); Sodium 141 mmol/L (136-145); Total Protein,Serum 7.1 gm/dL (6.4-8.2)
[2019-10-26 09:39] LABS: Microscopic, Urine URINE MICROSCOPIC (MICROSCOPIC)
[2019-10-26 09:41] LABS: Appearance,Urine CLOUDY (Clear); Bilirubin,Urine Negative (Negative); Blood, Urine 3+ (Negative); Color,Urine YELLOW (Yellow); Glucose,Urine (UA) Negative (Negative); Ketones,Urine Negative (Negative); Leukocyte Esterase,Urine 2+ (Negative); Nitrate,Urine Negative (Negative); PH,Urine 5.5 (5.0-8.5); Protein,Urine TRACE (Negative); Specific Gravity, Urine 1.025 (1.005-1.030); Urobilinogen,Urine 0.2 EU/dl (0.2)
[2019-10-26 09:44] LABS: Anisocytosis 1+; Lymphocytes % 5 % (10-50); Monocytes % 7 % (2-9); Neutrophils % 88 % (42-76); Platelet Estimate Normal; Total Cells Counted 100
[2019-10-26 09:45] LABS: Hypochromasia 1+; Microcytosis 1+
[2019-10-26 09:45] LABS: Ammonia < 10 umol/L (19-54)
[2019-10-26 09:50] LABS: Bacteria,Urine 2+ /lpf
--- NOTE | 2019-10-26 10:05 | PC.NURSE ---
paged dr davis for ED MD
--- NOTE | 2019-10-26 10:09 | PC.NURSE ---
speaking to dr davis
--- NOTE | 2019-10-26 10:18 | PC.NURSE ---
spoke with tiny in registration for admission
--- NOTE | 2019-10-26 10:32 | PC.NURSE ---
Report called to ADOLFO Wade.
--- NOTE | 2019-10-26 10:37 | PC.NURSE ---
med/surg staff here to take pt
--- NOTE | 2019-10-26 11:51 | PC.NURSE ---
rn aware of all vital signs
--- NOTE | 2019-10-26 13:08 | PC.NURSE ---
Patient triggered sepsis. On-call MD (Dr Danielson) notified, informed him of VS, labs and meds ordered. He wanted patient to complete sepsis bolus. Patient received 1L NS in ER, pharmacy notified and order placed to complete the rest of the bolus.
--- NOTE | 2019-10-26 13:59 | HMH.PHAVTE ---
[facility] Pharmacy VTE Monitoring - Patient Demographics Admission date: 10/26/19 Report Date: 10/26/19 Time: 13:59 Allergies/Adverse Reactions: Patient Allergies No Known Allergies Allergy (Verified 10/03/19 08:18) Height: 1.75 m Weight: 119.068 kg Patient Problems: Current Active Problems Chronic renal disease (Acute) Rhabdomyolysis (Acute) Dehydration (Acute) Acute urinary tract infection (Acute) Frequent falls (Acute) Fever (Acute) - VTE Risk Labs: VTE Related Lab Results Hgb 12.2 g/dL (14.1-18.0) L 10/26/19 09:06 Hct 36.9 % (42.0-52.0) L 10/26/19 09:06 Plt Count 173 K/mm3 (142-424) 10/26/19 09:06 BUN 42 mg/dL (7-18) H 10/26/19 09:06 Creatinine 2.62 mg/dL (0.70-1.30) H 10/26/19 09:06 Estimated Creat Clear 44 mL/min (50-200) 10/26/19 09:06 - Prophylaxis VTE Prophylaxis Ordered?: Yes Types of VTE Prophylaxis: TEDS Knee High Location of Applied Device: Bilateral Lower Extremeties - VTE Diagnosis Confirmed Treatment or plan recommended: Continue Current Treatment
--- NOTE | 2019-10-26 14:10 | PC.NURSE ---
PATIENT ARRIVED ON FLOOR VIA STRETCHER, THIS RN ALONG WITH BERNICE COLEMAN BATHED PATIENT. PATIENT'S PENIS IS SPLIT, RED, HAS PURULENT DRAINAGE AND A STRONG FOUL SMELL. PATIENT HAD A TEMP OF 100.8. THIS RN UNABLE TO ADMINISTER TYLENOL DUE TO PATIENT RECEIVING TYLENOL IN ED. BLANKETS WERE REMOVED AND ROOM WAS COOLED DOWN. THIS RN WILL RE ASSESS AND ADMINISTER TYLENOL WHEN APPROPRIATE. DURING BATH AND BRIEF CHANGE PATIENT WAS COMBATIVE AND RESISTIVE TO CARE. PATIENT CONTINUED TO REFUSE TO ALLOW US TO CLEAN HIS PENIS. NO OTHER CONCERNS AT THIS TIME.
--- NOTE | 2019-10-26 14:26 | HMH.PHAINT ---
MEDICATION RECONCILIATION COMPLETED ON PATIENT USING MAR FROM [facility]. -SHANTEL TAYLOR, NONAD
--- NOTE | 2019-10-26 19:01 | PC.NURSE ---
UPON REASSESSMENT, PATIENT TEMP WAS 103.0, THIS RN ADMINISTERED TYLENOL AND PROVIDED ICE PACKS UNDER PATIENT'S ARMS AND ON PATIENT'S THIGHS. THIS RN RECHECKED PATIENT'S TEMP WHITHIN 30 MIN AND TEMP WAS DOWN TO 100.9. NO OTHER CONCERNS AT THIS TIME.
[2019-10-27] VITALS (9 sets, daily range): BP systolic 152–177; BP diastolic 68–91; PULSE 68–90; RESP 18–20; TEMP 36.6–38.4; O2SAT 91–94; BMI 39.3
--- NOTE | 2019-10-27 06:13 | PC.NURSE ---
A&OX2. PT MUMBLES AND IS UNABLE TO BE UNDERSTOOD AT TIMES. PT TOLERATING RA WELL THIS SHIFT. PT PENIS REDDENED WITH SEROUS DRAINAGE NOTED. INNER THIGHS REDDENED WELL. PT CHANGED AND KEPT DRY, POWDER APPLIED TO THIGHS. PT HAS HAD NO COMPLAINTS THUS FAR THIS SHIFT. PT TEMP 100.1 AT ONE TIME, TREATED WITH TYLENOL PER MAR AND ACTIVE COOLING MEASURES. ON REASSESSMENT, PT TEMP 97.9. BED SAFETY ACTIVE T/O SHIFT. VSS WILL CONTINUE TO MONITOR.
[2019-10-27 07:14] LABS: Basophils % 0.2 % (0.1-2.0); Eosinophils % 0.6 % (0.1-12.0); Hematocrit 34.4 % (42.0-52.0); Hemoglobin 11.4 g/dL (14.1-18.0); Lymphocytes # 0.5 K/mm3 (0.7-4.5); Lymphocytes % 7.7 % (10-50); Mean Corpuscular HGB Conc 33.2 g/dL (31.8-35.4); Mean Corpuscular Hemoglobin 26.4 pg (27.0-31.2); Mean Corpuscular Volume 79.6 fl (80-94); Mean Platelet Volume 9.3 fl (7.4-10.4); Monocytes # 0.5 K/mm3 (0.1-1.0); Monocytes % 6.7 % (1.7-9.3); Neutrophils % 84.9 % (37.0-80.0); Platelet Count 125 K/mm3 (142-424); Red Blood Count 4.32 M/mm3 (4.60-6.20); Red Cell Distribution Width 14.7 % (11.5-17.5)
[2019-10-27 07:31] LABS: Anion Gap 14.4 mEq/L (5-15); Blood Urea Nitrogen 39 mg/dL (7-18); Calcium 8.2 mg/dL (8.5-10.1); Carbon Dioxide 26 mmol/L (21.0-32.0); Chloride 107 mmol/L (98-107); Creatinine Clearance Estimated 47 mL/min (50-200); Creatinine,Serum 2.62 mg/dL (0.70-1.30); Estimated Glomerular Filt Rate 25 ml/min (>60); GFR (African American) 30 ML/MIN (>60); Glucose 108 mg/dL (74-106); Potassium 3.4 mmoL/L (3.5-5.1); Sodium 144 mmol/L (136-145)
[2019-10-27 07:36] LABS: Creatine Kinase 1367 U/L (39-308)
--- NOTE | 2019-10-27 08:44 | CA_ITS ---
APPROVED REPORT EXAM: Comprehensive 2D, Doppler, and color-flow Echocardiogram Steel Engraver: Erica Mcdaniel RT(R) Ht: 5 ft 9 in Wt: 266lbs BSA: 2.33 BP: 154/79 mmHg Indications: ELEVATED CARDIAC ENZY,COPD,OBESITY,HTN 2D Dimensions LVOT 2.04 cm (M/F) 1.5-2.5 M-Mode Dimensions RVDd 3.46 cm (0.9-2.6) LVDd 4.56 cm (3.5-5.7) LVDs 3.02 cm (3.5-5.7) IVSd 1.41 cm (0.6-1.1) PWd 0.98 cm (0.6-1.1) EF (Teich) 62.70% FS 33.80% EDV (Teich) 95.40 mL ESV (Teich) 35.60 mL LV Diastology E/A Ratio 0.80 Mitral Valve MV A Velocity 101.00 (40-130 cm/s) Left Ventricle Left atrium is mildly enlarged, left ventricle is normal size, mild concentric left ventricular hypertrophy, visually estimated ejection fraction 55% with no regional wall motion abnormality, grade 1 diastolic dysfunction seen without tissue Doppler evidence of raise left atrial pressure. Right Ventricle Right atrium and right ventricular normal size and contractility. Aortic Valve Aortic valve is thickened and calcified, leaflet continue to display good mobility, there is no aortic stenosis or aortic insufficiency. Mitral Valve Mitral valve is grossly normal, there is mild mitral regurgitation. Tricuspid Valve Tricuspid valve is grossly normal, there is mild tricuspid regurgitation. Tricuspid regurgitation jet velocity is inadequate for calculation of the right ventricular systolic pressure. Pulmonic Valve Pulmonic valve is poorly visualized. Great Vessels Aortic root is normal size. Pericardium No significant pericardial effusion noted. Conclusion 1. Mildly enlarged left atrium, normal left ventricular size, mild concentric left ventricular hypertrophy, visually estimated ejection fraction 55% with no regional wall motion abnormality, grade 1 diastolic dysfunction seen without tissue Doppler evidence of raise left atrial pressure. 2. Thickened and calcified aortic valve without aortic stenosis aortic insufficiency. 3. Mild mitral and tricuspid regurgitation. 4. No significant pericardial effusion noted. Electronically signed by : Chan Campos, 10/27/2019 20:52:43
--- NOTE | 2019-10-27 08:46 | HMH.HP ---
*Admission Date: 10/26/19 *Chief complaint: uti *History of present illness: 69 yr old male Patient presented to ER via EMS from personal care facility. Patient reports frequent falls and fever. Patient reports strongly smell of urine. Patient denies having chest pain, cough, SOB and abdominal pain. No N/V/D. pt admitted for uti, hx of esbl. elevated cre. [facility] History I have reviewed the patient's past medical history: Yes Medical History: Reports:: Hypertension Denies:: Cancer, Diabetes Mellitus Type 1, Diabetes Mellitus Type 2, Internal Pacemaker, MRSA, Seizures *Have you ever received a pneumonia vaccine?: No (PATIENT WILL NOT ANSWER) *Have you received a flu vaccine this season?: No (PATIENT WILL NOT ANSWER) Other Medical History: Denies: Blood Transfusion Reaction Other Surgeries: No: Pacemaker Amputation: No Fractures: Yes (right foot) - *Social History Educational Level: Completed High School Smoking Status: Never smoker Alcohol Intake: never Alcohol Intake Frequency:: other Substance Use Type: denies use *Occupational Status:: disabled Housing: assisted living facility *Travel in the last 8 weeks: None Family Hx:: Cancer, Diabetes, Heart Attack, Kidney Disease Review of Systems - Review of Systems Review of systems:: pertinent systems reviewed and negative unless documented below - Constitutional Reports fever(s), Denies body ache(s), Denies headache(s) - Eyes Denies change in vision - ENT Denies change in voice - *Cardiovascular Denies chest pain with activity, Denies foot swelling - *Respiratory Denies chest congestion, Denies cough - *Gastrointestinal Denies abdominal pain, Denies belching - *Genitourinary Reports difficulty urinating, Reports urinary frequency, Reports urinary incontinence - *Musculoskeletal Denies decreased muscle mass - Integumentary/Breasts Denies rash - *Neurologic Reports frequent falls, Reports weakness (generalized), Denies abnormal hearing - Psychiatric Denies anxiety - Endocrine Denies flushing - Hematologic/Lymphatic Denies enlarged lymph nodes - Allergic/Immunologic Denies lip swelling, Denies tongue swelling Meds Home Medications Medication Instructions Recorded Confirmed Type Tamsulosin HCl 0.4 mg PO DAILY 10/10/19 10/26/19 History Irbesartan [Avapro 75mg 75 mg PO DAILY 10/26/19 10/26/19 History tablet] hydroCHLOROthiazide [HCTZ 12.5mg 12.5 mg PO DAILY 10/26/19 10/26/19 History cap] Allergies Allergy/AdvReac Type Severity Reaction Status Date / Time No Known Allergies Allergy Verified 10/03/19 08:18 Exam Vital signs and Labs for Last 24 Hours: Temp Pulse Resp BP Pulse Ox 97.9 F 68 19 154/79 H 93 L 10/27/19 03:43 10/27/19 03:43 10/27/19 03:43 10/27/19 03:43 10/27/19 03:43 Laboratory Results - last 24 hr 10/26/19 09:06: Magnesium 1.7, Troponin I < 0.02, TSH 1.21 D 10/26/19 09:06: Lactate 1.0 10/26/19 09:06: WBC 7.5, RBC 4.64, Hgb 12.2 L, Hct 36.9 L, MCV 79.5 L, MCH 26.3 L, MCHC 33.1, RDW 14.9, Plt Count 173, MPV 9.9, Neut % (Auto) 91.2 H, Lymph % (Auto) 3.5 L, [place] % (Auto) 4.8, Eos % (Auto) 0.2, Baso % (Auto) 0.3, Neut # (Auto) 6.8, Lymph # (Auto) 0.3 L, [place] # (Auto) 0.4, Eos # (Auto) 0.0, Baso # (Auto) 0.0, Total Counted 100, Neutrophils % (Manual) 88 H, Lymphocytes % (Manual) 5 L, Monocytes % (Manual) 7, Platelet Estimate Normal, Hypochromasia 1+, Anisocytosis 1+, Microcytosis 1+ 10/26/19 09:06: Sodium 141, Potassium 3.6, Chloride 103, Carbon Dioxide 29, Anion Gap 12.6, BUN 42 H, Creatinine 2.62 H, Estimated Creat Clear 44, Estimated GFR 25 L, Est GFR ( Amer) 30 L, Glucose 138 H, Calcium 8.4 L, Total Bilirubin 0.9, AST 50 H, ALT 24, Alkaline Phosphatase 90, Total Creatine Kinase 1733 H*, Total Protein 7.1, Albumin 3.3 L, Globulin 3.8 H, Albumin/Globulin Ratio 0.9 L 10/26/19 09:06: Influenza Type A Ag Negative, Influenza Type B Ag Negative 10/26/19 09:08: POC Glucose 126 H 10/26/19 09
--- NOTE | 2019-10-27 09:58 | HMH.OTEV ---
OT Inpatient Evaluation Rehab OT IP Evaluation Start: 10/27/19 08:43 Freq: ONCE Status: Complete Protocol: Document 10/27/19 09:53 LILIANA (Rec: 10/27/19 09:56 [id number]) Rehab OT IP Assessment Subjective History Pt oriented to person and place upon arrival. Pt agreeable to engage in therapy evaluation. Pt explains he lived at [facility] skilled nursing prior to being hospitalized. Pt claims he was independent with dressing, showering, and feeding. However, pt explains he relied on staff to complete IADL's. Subjective I'm fine now. Objective Patient Orientation Person,Place Upper Extremity Gross ROM WFL Assist Level Supervision/Stand by Transfer Training Sit/Stand Transfer Assist Level Contact Guard/Hand Hold decrease in endurance No Rehab OT IP prob,goals,plan Problems Date of Evaluation: 10/27/19 Rehab Potential Rehab Potential Innapropriate for Skilled Therapy Discharge Plan OT Discharge Plan Pt appears to be at baseline at this time concerning ADL function. Pt is safe to return to personal skilled nursing once medically stable. Eval Complexity Eval Charge Codes 18444 - Low Complexity G Codes G -code Required Yes OT Current Status Self Care OT Current Status Modifier CJ-At least 20% but less than 40% impaired, limited or restricted OT Goal Status Self Care OT Goal Status Modifier CJ-At least 20% but less than 40% impaired, limited or restricted PHYSICIAN CERTIFICATION: I certify the specified therapy services for Floyd Medina are required, authorized, and reviewed every 30 days.
--- NOTE | 2019-10-27 10:18 | PC.NURSE ---
DR. IGLESIAS AT BEDSIDE. REPORT GIVEN
--- NOTE | 2019-10-27 10:44 | HMH.PTEV ---
Physical Therapy Evaluation Rehab PT IP Evaluation Start: 10/27/19 08:43 Freq: .once Status: Active Protocol: Document 10/27/19 10:42 DAVION (Rec: 10/27/19 10:44 PHOGABI [id number]) Subjective/History History History 69 yowm adm to [facility] with weakness and UTI. He lives at personal [facility] and is independent with all mobility at baseline. Subjective Subjective No c/o this am. Rehab PT IP Eval Objective Appearance Patient Behavior Appropriate Patient Orientation Person,Place,Time Difficulty following instructions none Speech Pattern Clear Ambulation Patient Able to Ambulate Yes Ambulation Observation IP General Gait Pattern Observation Wide Based Gait Ambulation Distance (feet) 50 Ambulation Assistive Device None Balance Ability to Arise Able, uses arms to help Sitting Balance Steady, safe Standing Balance Steady, wide stance Dynamic Sitting Balance Ability Good Dynamic Standing Balance Ability Good Transfers Bed Transfer Ability Supervision/Stand by Chair Transfer Ability Supervision/Stand by Sit to Stand Bed Transfer Ability Supervision/Stand by Sit to Stand Chair Transfer Ability Supervision/Stand by ROM All Extremities PT ROM Status WFL MMT All Extremities PT MMT WFL Rehab PT IP prob,goals,plan Problems Date of Evaluation: 10/27/19 Discharge Plan PT Discharge Plan Pt is appropriate to return to personal [facility] as he is at baseline for all transfers and ambulation. G -code Required Yes Eval Complexity Eval Charge Codes 99606 - Moderate Complexity G Codes PT Current Status Mobility PT Current Status Modifier CI-At least 1% but less than 20% impaired, limited or restricted PT Goal Status Mobility PT Goal Status Modifer CI-At least 1% but less than 20% impaired, limited or restricted PHYSICIAN CERTIFICATION: I certify the specified therapy services for Floyd Medina are required, authorized, and reviewed every 30 days.
--- NOTE | 2019-10-27 10:46 | HMH.CONS ---
*Admission Date: 10/26/19 *Reason for consult:: Frequent UTIs/status post recent dorsal slit of the penis *History of present illness: Patient is a 69-year-old white male who is resident of [facility]. He has a history of urinary tract infections, chronic renal insufficiency and urinary incontinence who underwent recent dorsal slit of the penis for condition of phimosis. Patient was admitted to [facility] yesterday after a fall. He was noted dehydrated and had a urinary tract infection. He has been treated for BPH in my office and started tamsulosin recently. His creatinine is elevated at 2.6 on admission is likely due to rhabdomyolysis as his creatinine kinase is significantly elevated. Is being aggressively hydrated and exam today denies any pain. Did have a CT scan of the chest without any significant acute changes. Urine cultures growing out gram-negative rods in the was on Zosyn and has transitioned to Invanz review of labs show that he had a E. coli UTI back in March 2019. At time of his dorsal slit, a circumcision had been planned but due to extensive adhesions to the underlying glans penis we were unable to retract the foreskin and a dorsal slit was performed instead. Patient states he is able to void little better. Postvoid residual in the office was elevated at 244 cc and he was started on tamsulosin at that time. It is likely that his urinary incontinence is multifactorial. His baseline creatinine is around 1.9. [facility] History Medical History: Reports:: Hypertension Denies:: Cancer, Diabetes Mellitus Type 1, Diabetes Mellitus Type 2, Internal Pacemaker, MRSA, Seizures *Have you ever received a pneumonia vaccine?: No (PATIENT WILL NOT ANSWER) *Have you received a flu vaccine this season?: No (PATIENT WILL NOT ANSWER) Other Medical History: Denies: Blood Transfusion Reaction Other Surgeries: No: Pacemaker Amputation: No Fractures: Yes (right foot) - *Social History Educational Level: Completed High School Smoking Status: Never smoker Alcohol Intake: never Alcohol Intake Frequency:: other Substance Use Type: denies use *Occupational Status:: disabled Housing: assisted living facility *Travel in the last 8 weeks: None Family Hx:: Cancer, Diabetes, Heart Attack, Kidney Disease Review of Systems - Review of Systems Review of systems:: pertinent systems reviewed and negative unless documented below - *Neurologic Reports frequent falls, Reports weakness (generalized), Denies abnormal hearing, Denies headache(s) Meds Home Medications Medication Instructions Recorded Confirmed Type Tamsulosin HCl 0.4 mg PO DAILY 10/10/19 10/26/19 History Irbesartan [Avapro 75mg 75 mg PO DAILY 10/26/19 10/26/19 History tablet] hydroCHLOROthiazide [HCTZ 12.5mg 12.5 mg PO DAILY 10/26/19 10/26/19 History cap] Allergies Allergy/AdvReac Type Severity Reaction Status Date / Time No Known Allergies Allergy Verified 10/03/19 08:18 Exam Vital signs and Labs for Last 24 Hours: Temp Pulse Resp BP Pulse Ox 98.5 F 80 18 177/87 H 94 L 10/27/19 08:00 10/27/19 08:00 10/27/19 08:40 10/27/19 08:00 10/27/19 08:40 Laboratory Results - last 24 hr 10/26/19 09:36: Urine Color Yellow, Urine Appearance Cloudy, Urine pH 5.5, Ur Specific [place] 1.025, Urine Protein Trace, Urine Glucose (UA) Negative, Urine Ketones Negative, Urine Blood 3+, Urine Nitrate Negative, Urine Bilirubin Negative, Urine Urobilinogen 0.2, Ur Leukocyte Esterase 2+ A, Urine RBC 3-5, Urine WBC 10-20, Ur Squamous Epith Cells 5-10, Urine Bacteria 2+ 10/27/19 06:35: WBC 7.0, RBC 4.32 L, Hgb 11.4 L, Hct 34.4 L, MCV 79.6 L, MCH 26.4 L, MCHC 33.2, RDW 14.7, Plt Count 125 L D, MPV 9.3, Neut % (Auto) 84.9 H, Lymph % (Auto) 7.7 L, [place] % (Auto) 6.7, Eos % (Auto) 0.6, Baso % (Auto) 0.2, Neut # (Auto) 6.0, Lymph # (Auto) 0.5 L, [place] # (Auto) 0.5, Eos # (Auto) 0.0, Baso # (Auto) 0.0 10/27/19 06:35: Sodium 144, Potassium 3.4 L, Chloride 107, Carbon Diox
--- NOTE | 2019-10-27 12:00 | PC.NURSE ---
DISCHARGE EDUCATION WENT OVER AT THIS TIME. PT. V/U AND I ENCOURAGED QUESTIONS
--- NOTE | 2019-10-27 13:56 | SW/DCPLANNER ---
This patient currently resides at [facility]. PT has stated that patient is stable to return back once medically ready for discharge. I will follow up with Laureano from [place] once patient is ready for discharge. Discharge date is unknown at this time.
--- NOTE | 2019-10-27 15:45 | PC.NURSE ---
NURSE FOUND PATIENT TO BE IN BATHROOM- IV RIPPED OUT AND PATIENT HAD URINATED AND HAD A BOWEL MOVEMENT ON THE FLOOR. NURSE CLEANED PATIENT AND ROOM UP. IV TO BE RESTARTED. BED ALARM SET AT THIS TIME. EXPLAINED TO PATIENT TO CALL FOR ASSISTANCE
--- NOTE | 2019-10-27 16:45 | PC.NURSE ---
NO CHANGES NOTED FROM PREVIOUS ASSESSMENT. EXP WHEEZES NOTED AND INTERMITTENT SOB NOTED. PT. REPORTS HE DOES NOT USE OXYGEN [place]. BOWEL SOUNDS ACTIVEX4 AND BOWEL MOVEMENT MY SHIFT. PT. IS INCONTINENT WELL. PT. HAS HAD CONFUSION TODAY- GOT OUT OF BED AND TORE IV OUT AND URINATED ON FLOOR. BED ALARM FURTHER PLACED ON PATIENT. PT. ALERT TO NAME, . DORSAL SLIT ON PENIS NOTED TO BE DRAINING SEROUS DRAINAGE NO S/S OF INFECTION. NO CURRENT NEEDS.
--- NOTE | 2019-10-27 19:10 | PC.NURSE ---
report given to rashawn
[2019-10-28] VITALS: BP 180/87; PULSE 78; RESP 19; TEMP 36.5; O2SAT 94
--- NOTE | 2019-10-28 00:54 | PC.NURSE ---
pt found to have ripped iv out again. new 20g placed in the Right AC
[2019-10-28 04:00] VITALS: BP 200/92; PULSE 74; TEMP 36.9; O2SAT 92
--- NOTE | 2019-10-28 04:19 | PC.NURSE ---
pt has rested well. he ran a fever at beginning of shift which prn tylenol was administered with desired effect. pt ambulates to bathroom with standby assist. bed alarm is on. pt desires to go home today. vss. will cont. to monitor.
[2019-10-28 05:00] VITALS: BMI 40.0
[2019-10-28 05:35] VITALS: RESP 24
--- NOTE | 2019-10-28 05:56 | PC.NURSE ---
0540 was notified by tech of elevated bp and RR. audible wheezing noted upon entrance to room, that was not present before. pt states he does not feel sob. teacher physically impaired MD, agustin Blake. he called back and asked about IV fluid rate, and home medications. he ordered to stop IVF for now, and to give a one time dose of 40mg iv lasix and see how it effects him. orders read back for verification and carried out. educated pt, again, on importance of not getting up without assistance and now the importance of helping us measure his urine output. will cont. to monitor.
[2019-10-28 06:30] VITALS: RESP 19
[2019-10-28 08:00] VITALS: BP 174/89; PULSE 97; RESP 20; TEMP 36.9; O2SAT 90
--- NOTE | 2019-10-28 08:11 | HMH.DCSUM ---
General - General Admission date:: 10/27/19 Discharge date: 10/28/19 HPI HPI: 69 yr old male Patient presented to ER via EMS from personal care facility. Patient reports frequent falls and fever. Patient reports strongly smell of urine. Patient denies having chest pain, cough, SOB and abdominal pain. No N/V/D. pt admitted for uti, hx of esbl. elevated cre. Hospital Course Hospital Course: Patient sitting up in chair today, denies any further pain. He reports that he was urinating throughout the night without any difficulty, denies any concerns/needs at present. Discussed discharge back to [facility] today, he is and he is agreeable to this. 69 yr old male Patient presented to ER via EMS from personal care facility. Patient reports frequent falls and fever. Patient reports strongly smell of urine. Patient denies having chest pain, cough, SOB and abdominal pain. No N/V/D. pt admitted for uti, hx of esbl. elevated cre. Urology seen and recommends: 69-year-old white male with history of urinary incontinence, BPH, phimosis and mental health issues. He is currently on tamsulosin and is status post a recent dorsal slit the penis. Continues to wear pull-ups for his incontinence. The plan was to reassess his postvoid residual on the tamsulosin and upcoming office visit. Hopefully tamsulosin is helpful in helping to empty his bladder which would decrease urinary tract infections. His risk factor for urinary tract infections previously included the phimosis but the dorsal slit should improve his ability to empty the urine from inside the foreskin. Patient currently on Invanz for a UTI. His foreskin is healing currently by secondary intention and there is no evidence of any wound infection. His creatinine is elevated above baseline due to some mild rhabdomyolysis. Recommend following up in the office as planned for repeat bladder scan. We need to make sure he is on the tamsulosin at [facility]. Urine grew Proteus and will receive Cipro 500mg twice daily x7 days 10/26 Pelvis XR: IMPRESSION: No acute findings. . Osseous pelvis appears intact Dictated by: Dr. Lunsford, 10/26 CXR: IMPRESSION: The CT chest from February 2019 is particularly helpful, and shows a similar density at the left CP angle & left lung base--due to the combination: Prominent anterior fat pad, cardiomegaly, and elevation left hemidiaphragm Thus favor appearance towards the left CP angle more likely chronic feature/baseline. Would encourage more optimal follow-up upright AP chest when can be tolerated to better evaluate (or if feasible PA and lateral chest would be even more optimal) Cardiomegaly. upper normal pulmonary vascularity noted. No acute findings otherwise, on current rather lordotic projection AP portable CXR Dictated by: Dr. Lunsford, Objective Vital signs: Temp Pulse Resp BP Pulse Ox 98.5 F 97 H 20 174/89 H 90 L 10/28/19 08:00 10/28/19 08:00 10/28/19 08:00 10/28/19 08:00 10/28/19 08:00 no acute distress - *Routine HEENT Exam Head: Present: normocephalic. Absent: tenderness of temporal artery Eye: Present: EOMI, PERRL, normal accommodation ENT: Present: mucous membranes moist. Absent: sinus tenderness - *Routine Neck Exam Present: full ROM, trachea midline. Absent: JVD, tracheal deviation - *Routine Respiratory Exam Present: CTA bilaterally. Absent: accessory muscle use - *Routine Cardiovascular Exam Present: RRR - *Routine Abdominal Exam Present: soft, normoactive bowel sounds. Absent: tenderness, firm - *Routine Extremities Exam Present: full ROM. Absent: tenderness - Routine Back/Spine/Pelvis Exam Back/Spine: Present: full ROM. Absent: CVA tenderness - *Routine Skin Exam Present: intact. Absent: erythema, jaundice - *Routine Neurological Exam Present: alert, oriented X3, CN II-XII intact. Absent: altered mental status - Routine Psychiatric Exam Present:
[2019-10-28 08:55] LABS: Anion Gap 14.3 mEq/L (5-15); Blood Urea Nitrogen 34 mg/dL (7-18); Calcium 8.1 mg/dL (8.5-10.1); Carbon Dioxide 27 mmol/L (21.0-32.0); Chloride 105 mmol/L (98-107); Creatine Kinase 670 U/L (39-308); Creatinine Clearance Estimated 48 mL/min (50-200); Estimated Glomerular Filt Rate 25 ml/min (>60); GFR (African American) 30 ML/MIN (>60); Glucose 153 mg/dL (74-106); Potassium 3.3 mmoL/L (3.5-5.1); Sodium 143 mmol/L (136-145)
--- NOTE | 2019-10-28 10:01 | SW/DCPLANNER ---
CALLED [facility] TO GET THIS PATIENT A RIDE BACK TO HIS PERSONAL ALF HERE AT [facility]... PATIENT HAS BEEN CLEARED TO GO BACK....
--- NOTE | 2019-10-28 10:20 | PC.NURSE ---
LINDA NOTIFIED AT 0932 OF PT DISCHARGE ORDER. SPOKE WITH SHAD STATED HE COULD COME BACK BY [facility]
== END 2019-10-28 11:47 | disposition home or self-care (01) | DRG 690 ==
LOC: ER 10:16 → 2ND 10:23
PROVIDERS: Admitting Provider Family Medicine; Emergency Provider Emergency Medicine; PCP Emergency Medicine; Visit Provider Emergency Medicine
DX: N39.0 Urinary tract infection, site not specified (principal); Z68.41 Body mass index [BMI] 40.0-44.9, adult; M62.82 Rhabdomyolysis; E86.0 Dehydration; I12.9 Hypertensive chronic kidney disease with stage 1 through stage 4 chronic kidney disease, or unspecified chronic kidney disease; N47.1 Phimosis; E66.01 Morbid (severe) obesity due to excess calories; N18.4 Chronic kidney disease, stage 4 (severe); R29.6 Repeated falls
CPT/HCPCS: 36415; 71045; 72170; 80048; 80053; 81001; 82140; 82550; 82962; 83605; 83735; 84443; 84484; 85007; 85025; 87040; 87086; 87088; 87186; 87275; 87276; 93005; 93306; 96365; 96366; 97162; 97165; 99285; G0378; J1335; J2543

== ENCOUNTER 2019-11-25 13:17 | Outpatient (CLI) | payer MEDICARE, OTHER, SELFPAY ==
[2019-11-25 14:05] VITALS: BP 158/84; PULSE 95; RESP 18; TEMP 36.9; O2SAT 95
[2019-11-25 14:35] VITALS: BP 146/82; PULSE 89; RESP 18; TEMP 36.9; O2SAT 95
== END 2019-11-25 14:35 | disposition home or self-care (01) ==
LOC: INF 13:22
PROVIDERS: PCP Emergency Medicine; Visit Provider Emergency Medicine
DX: N39.0 Urinary tract infection, site not specified (principal)
CPT/HCPCS: 96372

== ENCOUNTER → 2020-03-29 08:54 | Outpatient (CLI) | payer MEDICARE, MEDICAID, SELFPAY ==
--- NOTE | 2020-03-29 09:06 | US_ITS ---
PROCEDURE: US KIDNEY CLINICAL INDICATION: CHRONIC KIDNEY DISEASE COMPARISON: No exams were available for comparison FINDINGS: The right kidney has been removed. Left kidney is 15 x 7 by 7 cm. There is some cortical thinning. No hydronephrosis or renal mass evident. Incidental note is made of splenomegaly at 15 cm. IMPRESSION: Prior right nephrectomy. Enlarged left kidney with cortical thinning. Splenomegaly Dictated by: Ephraim Estevez MD 03/29/2020 18:41 Electronically signed by Ephraim Estevez MD in [place] 03/29/2020 18:41
== END ==
PROVIDERS: PCP Emergency Medicine; Visit Provider Internal Medicine Nephrology
DX: N18.4 Chronic kidney disease, stage 4 (severe) (principal)
CPT/HCPCS: 76770

== ENCOUNTER → 2020-05-12 14:07 | Outpatient (CLI) | payer MEDICARE, MEDICAID, SELFPAY ==
[2020-05-12 14:11] LABS: Microscopic, Urine URINE MICROSCOPIC (MICROSCOPIC)
[2020-05-12 14:19] LABS: Appearance,Urine CLEAR (Clear); Bilirubin,Urine Negative (Negative); Blood, Urine TRACE-L (Negative); Color,Urine YELLOW (Yellow); Glucose,Urine (UA) Negative (Negative); Ketones,Urine Negative (Negative); Leukocyte Esterase,Urine 3+ (Negative); Nitrate,Urine Negative (Negative); PH,Urine 5.5 (5.0-8.5); Protein,Urine Negative (Negative); Specific Gravity, Urine <= 1.005 (1.005-1.030); Urobilinogen,Urine 0.2 EU/dl (0.2)
[2020-05-12 14:47] LABS: Amorphous Sediment,Urine 2+ /lpf; Bacteria,Urine Trace /lpf; WBC,Urine 20-50 #/hpf (0-3)
== END ==
PROVIDERS: Visit Provider Emergency Medicine
DX: N39.0 Urinary tract infection, site not specified (principal); R39.15 Urgency of urination; M45.4 Ankylosing spondylitis of thoracic region
CPT/HCPCS: 81001; 87086; 87088; 87186

== ENCOUNTER 2020-06-06 23:14 | Observation (INO) | payer MEDICARE, MEDICAID, SELFPAY ==
[2020-06-06 23:15] VITALS: BP 157/85; PULSE 104; RESP 16; TEMP 37.3; O2SAT 90; BMI 32.1
[2020-06-06 23:45] VITALS: BP 160/85; PULSE 98; RESP 16; O2SAT 91
[2020-06-07] VITALS (11 sets, daily range): BP systolic 128–170; BP diastolic 66–111; PULSE 77–97; RESP 16–20; TEMP 36.7–37.4; O2SAT 92–97; BMI 32.3
[2020-06-07 00:40] LABS: Basophils % 0.1 % (0.1-2.0); Eosinophils % 0.1 % (0.1-12.0); Hemoglobin 12.1 g/dL (14.1-18.0); Lymphocytes # 0.7 K/mm3 (0.7-4.5); Lymphocytes % 4.1 % (10-50); Mean Corpuscular HGB Conc 33.6 g/dL (31.8-35.4); Mean Corpuscular Hemoglobin 26.6 pg (27.0-31.2); Mean Corpuscular Volume 79.3 fl (80-94); Mean Platelet Volume 8.6 fl (7.4-10.4); Monocytes # 0.7 K/mm3 (0.1-1.0); Monocytes % 4.5 % (1.7-9.3); Neutrophils # 14.9 K/mm3 (1.8-7.8); Neutrophils % 91.1 % (37.0-80.0); Platelet Count 202 K/mm3 (142-424); Red Blood Count 4.54 M/mm3 (4.60-6.20); Red Cell Distribution Width 15.2 % (11.5-17.5); White Blood Count 16.3 K/mm3 (4.8-10.8)
[2020-06-07 00:45] LABS: Alanine Aminotransferase 10 U/L (12-78); Albumin Level 3.8 g/dl (3.5-5.0); Albumin/Globulin Ratio 1.2 (1.1-1.8); Alkaline Phosphatase 111 U/L (38-126); Anion Gap 13.8 mEq/L (5-15); Aspartate Amino Transferase 21 U/L (17-59); Bilirubin,Total 0.8 mg/dl (0.2-1.3); Blood Urea Nitrogen 30 mg/dl (9-20); Carbon Dioxide 30 mmol/L (22.0-30.0); Chloride 97 mmol/L (98-107); Creatinine Clearance Estimated 55 mL/min (50-200); Estimated Glomerular Filt Rate 32 ml/min (>60); GFR (African American) 38 ML/MIN (>60); Globulin 3.3 g/dL (1.3-3.2); Glucose 161 mg/dl (74-100); Potassium 3.8 mmoL/L (3.5-5.1); Sodium 137 mmol/L (136-145); Total Protein,Serum 7.1 g/dl (6.3-8.2)
[2020-06-07 01:01] LABS: MANUAL DIFFERENTIAL MANUAL DIFFERENTIAL (MANUAL DIFF)
--- NOTE | 2020-06-07 01:11 | HMH.EDUROGM ---
ED Disposition Clinical Impression: SIRS (systemic inflammatory response syndrome), Renal insufficiency, Phimosis of penis, Obesity (BMI 30.0-34.9) Hematuria Qualifiers: Hematuria type: gross Qualified Code(s): R31.0 - Gross hematuria Disposition: Admitted as Observation Condition on Discharge: Good - Critical Care Critical Care Time: No Attestation: On 06/06/20, the high probability of a clinically significant, sudden or life threatening deterioration of the following system(s) required my full and direct attention, intervention and personal management. The time I documented below is in addition to time spent performing reported procedures but includes the following listed in this critical care notation. Medical Decision Making - Medical Records Medical records reviewed: Yes: I reviewed the patient's medical records. - Sharan Inquiry Pt receiving controlled substance: No Vital Signs: 06/06/20 23:15 06/06/20 23:45 06/07/20 00:30 Temperature 99.1 F Temperature Source Oral Pulse Rate [Right Brachial] 104 H 98 H 92 H Respiratory Rate 16 16 17 Blood Pressure [Right Arm] 157/85 H 160/85 H 128/69 Blood Pressure Mean [Right Arm] 109 110 88 Blood Pressure Source [Right Arm] Automatic Cuff Automatic Cuff Automatic Cuff Blood Pressure Position [Right Arm] Sitting Sitting Sitting 02 Sat by Pulse Oximetry 90 L 91 L 95 Oxygen Delivery Method Room Air Room Air Room Air 06/07/20 01:15 06/07/20 01:40 06/07/20 02:15 Temperature Temperature Source Pulse Rate [Right Brachial] 95 H 90 87 Respiratory Rate 18 17 16 Blood Pressure [Right Arm] 133/111 H 139/73 141/70 H Blood Pressure Mean [Right Arm] 118 95 93 Blood Pressure Source [Right Arm] Automatic Cuff Automatic Cuff Blood Pressure Position [Right Arm] Sitting Sitting Sitting 02 Sat by Pulse Oximetry 96 95 95 Oxygen Delivery Method Room Air Room Air Room Air 06/07/20 02:47 Temperature Temperature Source Pulse Rate [Right Brachial] 97 H Respiratory Rate Blood Pressure [Right Arm] 167/99 H Blood Pressure Mean [Right Arm] 121 Blood Pressure Source [Right Arm] Automatic Cuff Blood Pressure Position [Right Arm] Sitting 02 Sat by Pulse Oximetry 97 Oxygen Delivery Method Room Air - Lab Data Lab results reviewed: Yes: I reviewed the patient's lab results. Lab Results 06/07/20 00:05: WBC 16.3 H, RBC 4.54 L, Hgb 12.1 L, Hct 36.0 L, MCV 79.3 L, MCH 26.6 L, MCHC 33.6, RDW 15.2, Plt Count 202, MPV 8.6, Neut % (Auto) 91.1 H, Lymph % (Auto) 4.1 L, [place] % (Auto) 4.5, Eos % (Auto) 0.1, Baso % (Auto) 0.1, Neut # (Auto) 14.9 H, Lymph # (Auto) 0.7, [place] # (Auto) 0.7, Eos # (Auto) 0.0, Baso # (Auto) 0.0, Total Counted 100, Neutrophils % (Manual) 84 H, Band Neutrophils % 11.0 H, Lymphocytes % (Manual) 5 L, Platelet Estimate Normal, RBC Morphology Normal 06/07/20 00:05: Sodium 137, Potassium 3.8, Chloride 97 L, Carbon Dioxide 30, Anion Gap 13.8, BUN 30 H, Creatinine 2.10 H, Estimated Creat Clear 55, Estimated GFR 32 L, Est GFR ( Amer) 38 L, Glucose 161 H, Calcium 9.0, Total Bilirubin 0.8, AST 21, ALT 10 L, Alkaline Phosphatase 111, Total Protein 7.1, Albumin 3.8, Globulin 3.3 H, Albumin/Globulin Ratio 1.2 06/07/20 01:50: Chlamy pneumoniae PCR Not detected, Adenovirus (PCR) Not detected, B. pertussis DNA (PCR) Not detected, Coronavirus OC43 (PCR) Not detected, Coronavirus HKU1 (PCR) Not detected, Coronavirus 229E (PCR) Not detected, COVID-19 PCR Not detected, Coronavirus NL63 (PCR) Not detected, Human Metapneumovir PCR Not detected, Influenza A (H1) PCR Not detected, Influ A (H1N1/09) PCR Not detected, Influenza A (H3) PCR Not detected, Influenza Type A (PCR) Not detected, Influenza Type B (PCR) Not detected, M. pneumoniae (PCR) Not detected, Parainfluenza 1 (PCR) Not detected, Parainfluenza 2 (PCR) Not detected, Parainfluenza 3 (PCR) Not detected, Parainfluenza 4 (PCR) Not detected, RSV (PCR) Not detected, Entero/Rhino (PCR) Not detected Result diagrams: 06/07/20 00:05
[2020-06-07 01:12] LABS: Lymphocytes % 5 % (10-50); Neutrophils % 84 % (42-76); Platelet Estimate Normal; RBC Morphology Normal; Total Cells Counted 100
--- NOTE | 2020-06-07 01:17 | CT_ITS ---
PROCEDURE: CT ABDOMEN PELVIS WO CON CLINICAL INDICATION: blood in urine Hematuria COMPARISON: CT CT ABDOMEN PELVIS WO CON from 11/20/2019 TECHNIQUE: Axial images obtained with sagittal and coronal reformats. All CT scans at the facility use one or more dose reduction, viz: automated exposure control, ma/kV adjustment per patient size (including targeted exams where dose is matched to indication, i.e. head), or iterative reconstruction technique. FINDINGS: LOWER THORAX: No acute finding ABDOMEN & PELVIS: The liver and gallbladder unremarkable appearance. Spleen is enlarged at 18 cm. There is thickening of distal esophagus. The adrenal glands are enlarged left more so than changed. There has been prior nephrectomy. 3 cm exophytic density projects from the left kidney posteriorly may be due to renal cyst. No renal or. No intestinal obstruction or free air. Unremarkable appendix. No evidence of diverticulitis. Prostate is enlarged at 6.2 cm with mild thickening of the urinary bladder. There is diffuse increased density bony structures similar to the previous exam. There is an old right 8th and 9th rib fracture. There is gynecomastia. IMPRESSION: 1. Prior right nephrectomy. Probable left cyst. 2. Enlarged prostate. 3. Mild thickening of the urinary bladder which may be due to nondistention or cystitis. 4. Splenomegaly 5. Diffuse sclerotic appearance of the bones. Differential diagnosis includes renal osteodystrophy, hyperparathyroidism, or diffuse sclerotic metastatic disease. Dictated by: Ephraim Estevez MD 06/07/2020 06:26 Ephraim Estevez MD in [place] 06/07/2020 06:26
--- NOTE | 2020-06-07 01:45 | PC.NURSE ---
attempted to obtain cultures and lactic per order. unsuccessful x 2 attempts. pt tolerated well. waiting on next available staff member to attempt.
--- NOTE | 2020-06-07 02:01 | PC.NURSE ---
unable to obtain lactic and cultures by ana rosa ríos rn. will reattempt
[2020-06-07 02:03] LABS: Adenovirus,PCR Not Detected (NotDetected); Bordetella Pertussis Not Detected (NotDetected); Chlamydophila Pneumoniae, PCR Not Detected (NotDetected); Coronavirus 19, PCR Not Detected (NotDetected); Coronavirus 229E Not Detected (NotDetected); Coronavirus NL63 Not Detected (NotDetected); Coronavirus OC43 Not Detected (NotDetected); Coronovirus HKU1,PCR Not Detected (NotDetected); Human Metapneumovirus Not Detected (NotDetected); Influenza A, PCR Not Detected (NotDetected); Influenza AH1, 2009 Not Detected (NotDetected); Influenza AH1, PCR Not Detected (NotDetected); Influenza AH3,PCR Not Detected (NotDetected); Influenza B, PCR Not Detected (NotDetected); Mycoplasma Pneumoniae, PCR Not Detected (NotDetected); Parainfluenza 1, PCR Not Detected (NotDetected); Parainfluenza 2, PCR Not Detected (NotDetected); Parainfluenza 3, PCR Not Detected (NotDetected); Parainfluenza 4, PCR Not Detected (NotDetected); Respiratory Syncytial Virus Not Detected (NotDetected); Rhinovirus/Enterovirus Not Detected (NotDetected)
--- NOTE | 2020-06-07 02:09 | PC.NURSE ---
to ct at this time.
--- NOTE | 2020-06-07 02:10 | PC.NURSE ---
multiple attempts to obtain lactic and cultures; was successful for cultures but not lactic. called lab and spoke with xavier. he will obtain lactic while patient in ct
--- NOTE | 2020-06-07 02:13 | PC.NURSE ---
Administered Invanz at this time. Had documented previously that it was given but after I scanned realized we had not drawn lactic and cultures. It took multiple sticks in the mean time to get those drawn.
[2020-06-07 02:57] LABS: Lactic Acid 1.2 mmol/L (0.7-2.1)
--- NOTE | 2020-06-07 04:27 | PC.NURSE ---
patient up to floor via wheelchair per staff
--- NOTE | 2020-06-07 05:18 | PC.NURSE ---
Spoke with sister in law Luna Medina on the phone. No POA per [facility] face sheet and per RACHEL. DNR code status per SNF face sheet. New DNR signed and verified with 2 RN's, on chart now. Pt aware.
--- NOTE | 2020-06-07 06:07 | PC.NURSE ---
Per MD we do not work up pt for sepsis due to the fact his elevated creatinine is a chronic issue.
--- NOTE | 2020-06-07 06:54 | PC.NURSE ---
Pt is alert and oriented to person and place only. Speech intermittently garbled with repetition, pt baseline. Pt is very resistive to care from staff. Pulled out his IV from the ER while in ER. Noted to be a difficult stick due to resistance from pt and noncompliance. Was able to obtain a 20 gauge in his left ac with NS infusing at 50 ml/hr. Bed alarm on and functioning for pt safety due to wandering with confusion. Tolerates RA well with no c/o soa. Ambulates well independently with standby assist. Remains incontinent of bowel and bladder. Pt wearing brief at this time. VSS. Remains safe. Call light within reach. Spoke with ER nurse Namrata upon receiving report due to pt meeting sepsis criteria at this time. Due to pt having hx of chronic renal disease with chronic elevated creatine levels. states he does not meet sepsis criteria at this time.
--- NOTE | 2020-06-07 08:04 | HMH.PHAVTE ---
[facility] Pharmacy VTE Monitoring - Patient Demographics Admission date: 06/06/20 Report Date: 06/07/20 Time: 08:04 Allergies/Adverse Reactions: Patient Allergies No Known Allergies Allergy (Verified 06/07/20 04:42) Height: 1.88 m Weight: 114.56 kg Patient Problems: Current Active Problems Renal insufficiency (Acute) Phimosis of penis (Acute) Hematuria (Acute) SIRS (systemic inflammatory response syndrome) (Acute) Obesity (BMI 30.0-34.9) (Acute) - VTE Risk Labs: VTE Related Lab Results Hgb 12.1 g/dL (14.1-18.0) L 06/07/20 00:05 Hct 36.0 % (42.0-52.0) L 06/07/20 00:05 Plt Count 202 K/mm3 (142-424) 06/07/20 00:05 BUN 30 mg/dl (9-20) H 06/07/20 00:05 Creatinine 2.10 mg/dl (0.66-1.25) H 06/07/20 00:05 Estimated Creat Clear 55 mL/min (50-200) 06/07/20 00:05 Was VTE Risk Assessment Performed: Yes VTE Risk Level: Low Risk Clinical Trial Participant: No - Prophylaxis VTE Prophylaxis Ordered?: Yes Types of VTE Prophylaxis: TEDS Knee High
--- NOTE | 2020-06-07 08:04 | PC.NURSE ---
Called Dr. Hartley's office to notify him of consult for this pt.
--- NOTE | 2020-06-07 08:22 | HMH.PHAINT ---
Home medication reconciliation completed using list from Mobile.
--- NOTE | 2020-06-07 09:26 | SW/DCPLANNER ---
This patient currently resides at [facility]. I have spoke with Miya from [place] and she has stated that patient is currently [facility] level of care at this time. I will continue to follow up Miya until this patient is ready for discharge.
[2020-06-07 10:44] LABS: Microscopic, Urine URINE MICROSCOPIC (MICROSCOPIC)
[2020-06-07 10:47] LABS: Appearance,Urine SL CLOUDY (Clear); Bilirubin,Urine Negative (Negative); Blood, Urine 2+ (Negative); Color,Urine YELLOW (Yellow); Glucose,Urine (UA) Negative (Negative); Ketones,Urine Negative (Negative); Leukocyte Esterase,Urine 2+ (Negative); Nitrate,Urine Negative (Negative); Protein,Urine TRACE (Negative); Urobilinogen,Urine 0.2 EU/dl (0.2)
[2020-06-07 11:04] LABS: Bacteria,Urine 2+ /lpf; WBC,Urine 20-50 #/hpf (0-3)
--- NOTE | 2020-06-07 11:18 | HMH.CONS ---
*Admission Date: 06/06/20 *Reason for consult:: Gross hematuria/urinary tract infection *History of present illness: Patient is a 69-year-old white male with a history of penile phimosis, urinary incontinence, chronic kidney disease and urinary incontinence. He is a resident of a local personal nursing home. He is a very poor historian. He was admitted to the hospital today with reports of gross hematuria and his personal nursing home but his urinalysis emergency room so the color was yellow and there was only 3-5 red cells per high-powered field and 1+ bacteria is present. The nurse taking care of him today states that she has not seen any gross hematuria. Patient is known to me and underwent a dorsal slit procedure last year for the phimosis. He has such dense underlying adhesions to the glans that a more formal circumcision could not be performed. His postvoid residual has been measured at 400 it is unclear if he is able to void on command. He does wear depends at the personal nursing home. 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 Recent urine cultures were reviewed. Urine culture on November 20 showed proper [employer] and a urine culture in March was contaminated. Urine culture on May 14 showed greater than 100,[address] scan was performed this admission shows a prior right nephrectomy and a stable left exophytic cystic structure as well as enlarged prostate. Patient is on tamsulosin. [facility] History Medical History: Reports:: BPH, Cerebrovascular Accident, Hypertension, Renal Disease, Renal Insufficiency, Urinary Tract Infection Denies:: Cancer, Diabetes Mellitus Type 1, Diabetes Mellitus Type 2, Internal Pacemaker, MRSA, Seizures *Have you ever received a pneumonia vaccine?: No *Have you received a flu vaccine this season?: Yes Other Medical History: Reports: Thyroid Disease. Denies: Blood Transfusion Reaction Other Surgeries: No: Pacemaker Amputation: No Fractures: Yes (right foot) - *Social History Last grade of school completed: High school graduate Smoking Status: Never smoker Alcohol Intake: former Alcohol Intake Frequency:: other Substance Use Type: denies use *Occupational Status:: unemployed Housing: group home Household Members: other *Travel in the last 8 weeks: None Family Hx:: Unable to obtain Review of Systems - Review of Systems Review of systems:: pertinent systems reviewed and negative unless documented below - *Neurologic Denies abnormal walking, Denies localized weakness, Denies seizure-like activity Meds Home Medications Medication Instructions Recorded Confirmed Type Tamsulosin HCl 0.4 mg PO HS 10/10/19 06/07/20 History Irbesartan [Avapro 75mg 75 mg PO DAILY 10/26/19 06/07/20 History tablet] hydroCHLOROthiazide [HCTZ 12.5mg 12.5 mg PO DAILY 10/26/19 06/07/20 History capsule] Loperamide HCl [Imodium 2 mg 2 mg PO Q8H PRN 11/25/19 06/07/20 History capsule] hydrocodone 5 mg-acetaminophen 325 1 tab PO Q6H PRN #120 tab 03/31/20 06/07/20 Rx mg tablet Acetaminophen 500 mg PO TIDP PRN 06/07/20 06/07/20 History Cholecalciferol (Vitamin D3) 50,000 unit PO WEEKLY 06/07/20 06/07/20 History [Vitamin D3 50,000 unit Cap] Tramadol HCl [Tramadol 50mg 50 mg PO Q6HP PRN 06/07/20 06/07/20 History Tab] Allergies Allergy/AdvReac Type Severity Reaction Status Date / Time No Known Allergies Allergy Verified 06/07/20 04:42 Exam Vital signs and Labs for Last 24 Hours: Temp Pulse Resp BP Pulse Ox 98.2 F 96 H 18 164/66 H 92 L 06/07/20 08:00 06/07/20 08:00 06/07/20 08:00 06/07/20 08:00 06/07/20 08:00 Laboratory Results - last 24 hr 06/07/20 00:05: WBC 16.3 H, RBC 4.54 L, Hgb 12.1 L, Hct 36.0 L, MCV 79.3 L, MCH 26.6 L, MCHC 33.6, RDW 15.2, Plt Count 202, MPV 8.6, Neut % (Auto) 91.1 H, Lymph % (Auto) 4.1 L, [place] % (Auto) 4.5, Eos % (Auto) 0.1, Baso % (Auto) 0.1, Neut # (Auto) 14.9 H, Lymph # (Auto) 0.7, [place] # (Auto)
--- NOTE | 2020-06-07 13:03 | PC.NURSE ---
THIS RN RECEIVED A PHONE CALL FROM KASSANDRA MUSA TO ORDER A RENAL DIET. THIS RN PLACED ORDER.
--- NOTE | 2020-06-07 13:05 | HMH.HP ---
*Admission Date: 06/06/20 *Chief complaint: hematuria *History of present illness: this wm was sent from [facility] with episodes of hematuria with hx of recurrent uti- he was unable to provide hx in ed but has known issues with phimosis- he was found to have prob uti and sirs in the ed and was admitted for ivf and abx and urology consult - [facility] History I have reviewed the patient's past medical history: Yes Medical History: Reports:: BPH, Cerebrovascular Accident, Hypertension, Renal Disease, Renal Insufficiency, Urinary Tract Infection Denies:: Cancer, Diabetes Mellitus Type 1, Diabetes Mellitus Type 2, Internal Pacemaker, MRSA, Seizures *Have you ever received a pneumonia vaccine?: No *Have you received a flu vaccine this season?: Yes Other Medical History: Reports: Thyroid Disease. Denies: Blood Transfusion Reaction Other Surgeries: No: Pacemaker Amputation: No Fractures: Yes (right foot) - *Social History Last grade of school completed: High school graduate Smoking Status: Never smoker Alcohol Intake: former Alcohol Intake Frequency:: other Substance Use Type: denies use *Occupational Status:: unemployed Housing: [facility] Household Members: other *Travel in the last 8 weeks: None Family Hx:: Unable to obtain Review of Systems - Constitutional Denies fatigue, Denies fever(s) - Eyes Denies change in vision - ENT Denies tongue swelling - *Cardiovascular Denies chest pain - *Respiratory Denies chest congestion, Denies cough - *Gastrointestinal Denies abdominal pain - *Genitourinary Reports blood in urine, Reports other (phimosis) - *Musculoskeletal Denies joint pain - Integumentary/Breasts Denies rash - *Neurologic Denies abnormal walking, Denies localized weakness, Denies seizure-like activity - Psychiatric Reports irritability Meds Home Medications Medication Instructions Recorded Confirmed Type Tamsulosin HCl 0.4 mg PO HS 10/10/19 06/07/20 History Irbesartan [Avapro 75mg 75 mg PO DAILY 10/26/19 06/07/20 History tablet] hydroCHLOROthiazide [HCTZ 12.5mg 12.5 mg PO DAILY 10/26/19 06/07/20 History capsule] Loperamide HCl [Imodium 2 mg 2 mg PO Q8H PRN 11/25/19 06/07/20 History capsule] hydrocodone 5 mg-acetaminophen 325 1 tab PO Q6H PRN #120 tab 03/31/20 06/07/20 Rx mg tablet Acetaminophen 500 mg PO TIDP PRN 06/07/20 06/07/20 History Cholecalciferol (Vitamin D3) 50,000 unit PO WEEKLY 06/07/20 06/07/20 History [Vitamin D3 50,000 unit Cap] Tramadol HCl [Tramadol 50mg 50 mg PO Q6HP PRN 06/07/20 06/07/20 History Tab] Allergies Allergy/AdvReac Type Severity Reaction Status Date / Time No Known Allergies Allergy Verified 06/07/20 04:42 Exam Vital signs and Labs for Last 24 Hours: Temp Pulse Resp BP Pulse Ox 98.2 F 96 H 18 164/66 H 92 L 06/07/20 08:00 06/07/20 08:00 06/07/20 08:00 06/07/20 08:00 06/07/20 08:00 Laboratory Results - last 24 hr 06/07/20 00:05: WBC 16.3 H, RBC 4.54 L, Hgb 12.1 L, Hct 36.0 L, MCV 79.3 L, MCH 26.6 L, MCHC 33.6, RDW 15.2, Plt Count 202, MPV 8.6, Neut % (Auto) 91.1 H, Lymph % (Auto) 4.1 L, [place] % (Auto) 4.5, Eos % (Auto) 0.1, Baso % (Auto) 0.1, Neut # (Auto) 14.9 H, Lymph # (Auto) 0.7, [place] # (Auto) 0.7, Eos # (Auto) 0.0, Baso # (Auto) 0.0, Total Counted 100, Neutrophils % (Manual) 84 H, Band Neutrophils % 11.0 H, Lymphocytes % (Manual) 5 L, Platelet Estimate Normal, RBC Morphology Normal 06/07/20 00:05: Sodium 137, Potassium 3.8, Chloride 97 L, Carbon Dioxide 30, Anion Gap 13.8, BUN 30 H, Creatinine 2.10 H, Estimated Creat Clear 55, Estimated GFR 32 L, Est GFR ( Amer) 38 L, Glucose 161 H, Calcium 9.0, Total Bilirubin 0.8, AST 21, ALT 10 L, Alkaline Phosphatase 111, Total Protein 7.1, Albumin 3.8, Globulin 3.3 H, Albumin/Globulin Ratio 1.2 06/07/20 01:50: Chlamy pneumoniae PCR Not detected, Adenovirus (PCR) Not detected, B. pertussis DNA (PCR) Not detected, Coronavirus OC43 (PCR) Not detected, Coronavirus HKU1 (PC
--- NOTE | 2020-06-07 17:55 | PC.NURSE ---
PATIENT HAS INTERMITTENT CONFUSION. THIS RN TAUGHT PATIENT HOW TO USE THE CALL LIGHT AT START OF SHIFT. PATIENT WAS USING CALL LIGHT TO USE RESTROOM AND USING CALL ROPE IN RESTROOM. AROUND 1600 PATIENT BEGAN SHOWING SOME CONFUSION. QUICK TO GET OUT OF BED WITHOUT THINKING OF CONSEQUENCES. NOT USE CALL ROPE IN BATHROOM. PATIENT IS UP TO CHAIR AT THIS TIME WITH A CHAIR ALARM. TOLERATING WELL. NO OTHER CONCERNS AT THIS TIME.
--- NOTE | 2020-06-08 02:31 | PC.NURSE ---
A&OX4. PT HAS TOLERATED ROOM AIR WELL THROUGHOUT SHIFT. RESPIRATIONS REGULAR AND UNLABORED. LUNG SOUNDS BILATERALLY CLEAR. NO COUGH NOTED. FIRM AND NONTENDER ABDOMEN NOTED. ACTIVE BOWEL SOUNDS HEARD IN ALL 4 QUADRANTS. NO BM THUS FAR. PT AMBULATES TO THE RESTROOM WITH STANDBY ASSIST. PT VOIDS IN TOILET. CLOUDY YELLOW AND RUST COLOR URINE NOTED. DRIBBLING NOTED. PT HAS BEEN UP SEVERAL TIMES TO URINATE. PT HAS HAD A FEW EPISODES OF INCONTINENCE THIS SHIFT. BED LINENS CHANGED NEEDED AND GOWN. PT RECEIVED PARTIAL BATH. REFUSED FULL BATH. HAND FOOD AND NUTRITION SERVICES ASSISTANT EQUAL. +2 PULSES NOTED THROUGHOUT. NO EDEMA NOTED. BED ALARM ON TO PROMOTE SAFETY. NS INFUSING AT 50ML/HR. PT MOVES INDEPENDENTLY IN BED. NO PAIN REPORTED THROUHGOUT SHIFT. PT IS CURRENTLY SLEEPING AT THIS TIME WITH CALL LIGHT WITHIN REACH. BED IN LOWEST POSITION. VSS. NO CONCERNS AT THIS TIME. WILL CONTINUE TO MONITOR.
[2020-06-08 03:53] VITALS: BP 156/86; PULSE 85; RESP 18; TEMP 37.5; O2SAT 94
[2020-06-08 05:00] VITALS: BMI 32.3
[2020-06-08 06:48] LABS: Basophils % 0.2 % (0.1-2.0); Eosinophils # 0.1 K/mm3 (0.0-0.4); Eosinophils % 1.3 % (0.1-12.0); Hematocrit 34.1 % (42.0-52.0); Hemoglobin 11.4 g/dL (14.1-18.0); Lymphocytes # 0.6 K/mm3 (0.7-4.5); Lymphocytes % 7.1 % (10-50); Mean Corpuscular HGB Conc 33.3 g/dL (31.8-35.4); Mean Corpuscular Hemoglobin 26.9 pg (27.0-31.2); Mean Corpuscular Volume 80.8 fl (80-94); Mean Platelet Volume 9.1 fl (7.4-10.4); Monocytes # 0.4 K/mm3 (0.1-1.0); Monocytes % 5.1 % (1.7-9.3); Neutrophils # 6.7 K/mm3 (1.8-7.8); Neutrophils % 86.3 % (37.0-80.0); Platelet Count 163 K/mm3 (142-424); Red Blood Count 4.23 M/mm3 (4.60-6.20); Red Cell Distribution Width 15.3 % (11.5-17.5); White Blood Count 7.8 K/mm3 (4.8-10.8)
[2020-06-08 06:50] LABS: Chloride 102 mmol/L (98-107); Potassium 3.8 mmoL/L (3.5-5.1); Sodium 140 mmol/L (136-145)
[2020-06-08 06:53] LABS: Anion Gap 11.8 mEq/L (5-15); Blood Urea Nitrogen 22 mg/dl (9-20); Calcium 8.8 mg/dl (8.4-10.2); Carbon Dioxide 30 mmol/L (22.0-30.0); Creatinine Clearance Estimated 64 mL/min (50-200); Estimated Glomerular Filt Rate 38 ml/min (>60); GFR (African American) 46 ML/MIN (>60); Glucose 136 mg/dl (74-100)
[2020-06-08 07:04] LABS: MANUAL DIFFERENTIAL MANUAL DIFFERENTIAL (MANUAL DIFF)
[2020-06-08 07:34] LABS: Eosinophils % 2 % (0-3); Lymphocytes % 4 % (10-50); Monocytes % 5 % (2-9); Neutrophils % 89 % (42-76); Platelet Estimate Normal; Total Cells Counted 100
[2020-06-08 07:35] LABS: Anisocytosis 1+; Hypochromasia 1+; Microcytosis 1+
[2020-06-08 07:48] VITALS: BP 157/89; PULSE 80; RESP 18; TEMP 36.9; O2SAT 98
--- NOTE | 2020-06-08 09:58 | HMH.DCSUM ---
General - General Admission date:: 06/07/20 Discharge date: 06/08/20 HPI HPI: this wm was sent from f with episodes of hematuria with hx of recurrent uti- he was unable to provide hx in ed but has known issues with phimosis- he was found to have prob uti and sirs in the ed and was admitted for ivf and abx and urology consult - Hospital Course Hospital Course: 69-year-old male patient lying in bed with eyes closed, awakens to verbal and tactile stimuli. He is nonverbal shakes his head no when asked if he is in pain or needs anything. Discussed him being discharged back to the [facility] today, he is agreeable to this. No more episodes of hematuria visible during the night. T-max during the night 99 5, currently 98 4 at present. 69 YOM in to ED from [facility] with episodes of large amounts of bloody urine with hx of recurrent uti. He was non-verbal unable to provide hx in ed, but has known issues with phimosis. He was found to have prob uti and sirs in the ed and was admitted for ivf and abx and urology consult. White blood count 16.3, after fluids and antibiotics currently 7.8. BUN/creatinine on admission 30/2.1. After fluids is decreased to 22/1.8. GFR on admission 32, after fluids now increased to 38. Urinalysis showed 2+ blood, 2+ leukocyte esterase, 2+ bacteria, and trace protein, culture currently pending Blood cultures pending x2 06/07/20 Abd/Pelvis CT: FINDINGS: ABDOMEN & PELVIS: The liver and gallbladder unremarkable appearance. Spleen is enlarged at 18 cm. There is thickening of distal esophagus. The adrenal glands are enlarged left more so than changed. There has been prior nephrectomy. 3 cm exophytic density projects from the left kidney posteriorly may be due to renal cyst. No renal or. No intestinal obstruction or free air. Unremarkable appendix. No evidence of diverticulitis. Prostate is enlarged at 6.2 cm with mild thickening of the urinary bladder. There is diffuse increased density bony structures similar to the previous exam. There is an old right 8th and 9th rib fracture. There is gynecomastia. IMPRESSION 1. Prior right nephrectomy. Probable left cyst. 2. Enlarged prostate. 3. Mild thickening of the urinary bladder which may be due to nondistention or cystitis. 4. Splenomegaly 5. Diffuse sclerotic appearance of the bones. Differential diagnosis includes renal osteodystrophy, hyperparathyroidism, or diffuse sclerotic metastatic disease. Dictated by: Herb, Urology has seen and rec: Patient with reports of gross hematuria but his urine in the emergency room was yellow and there is no report of his urine being bloody on the floor. Recommend watching on the floor overnight. Patient does have a history of recurring urinary tract infections and BPH. He is currently on tamsulosin and will add finasteride to help with bladder emptying as well as possible prostatic bleeding. Recurrent phimosis. The opening the foreskin is large enough to get a urine stream through and patient has undergone a previous dorsal slit with some recurrence of the phimosis due to healing of the dorsal slit. 1. We will discharge back to [place] today 2. Cefdinir 300 mg twice daily x5 days 3. Follow-up with PCP in 1 week 4. Follow-up with urology in 4 weeks Objective Vital signs: Temp Pulse Resp BP Pulse Ox 98.4 F 80 18 157/89 H 98 06/08/20 07:48 06/08/20 07:48 06/08/20 07:48 06/08/20 07:48 06/08/20 07:48 no acute distress, obese, chronically ill appearing - *Routine HEENT Exam Head: Present: normocephalic ENT: Present: mucous membranes dry - *Routine Neck Exam Present: trachea midline. Absent: JVD, tracheal deviation - *Routine Respiratory Exam Present: decreased breath sounds - *Routine Cardiovascular Exam Present: RRR - *Routine Abdominal Exam Present: soft, obese. Absent: tenderness, firm - *Routine Extremities Exam Present: pulses intact. Absen
--- NOTE | 2020-06-08 12:25 | PC.NURSE ---
Called report to Rayne Ye and gave report on pt. Also, pt is going to be transported back to [place] via bus within 30 mins, this was at 1225. Pt has had a bm this shift it was soft and brown. RR even and unlabored. Alert to self and sitting in chair. Chair alarm on r/t safety. Has briefs on r/t occasional incont. CB in reach.
--- NOTE | 2020-06-08 13:47 | PC.NURSE ---
Pt back to [place] via bus at approx 1330
== END 2020-06-08 13:30 ==
LOC: ER 06-07 01:42 → 2ND 06-07 04:02
PROVIDERS: Nurse Practitioner Family; Admitting Provider Emergency Medicine; Emergency Provider Emergency Medicine; PCP Emergency Medicine; Visit Provider Emergency Medicine
DX: N30.21 Other chronic cystitis with hematuria (principal); I10 Essential (primary) hypertension; E03.9 Hypothyroidism, unspecified; N47.1 Phimosis; Z79.899 Other long term (current) drug therapy
CPT/HCPCS: 36415; 74176; 80048; 80053; 81001; 83605; 85007; 85025; 87040; 87086; 87088; 87186; 87581; 87633; 87798; 96365; 96366; 99285; G0378; J1335

== ENCOUNTER → 2021-02-06 14:23 | Outpatient (CLI) | payer MEDICARE, MEDICAID, SELFPAY ==
[2021-02-06 14:35] LABS: Microscopic, Urine URINE MICROSCOPIC (MICROSCOPIC)
[2021-02-06 14:40] LABS: Basophils # 0.1 K/mm3 (0-0.2); Basophils % 0.7 % (0.1-2.0); Eosinophils # 0.2 K/mm3 (0.0-0.4); Hematocrit 42.9 % (42.0-52.0); Hemoglobin 13.8 g/dL (14.1-18.0); Lymphocytes % 13.3 % (10-50); Mean Corpuscular HGB Conc 32.3 g/dL (31.8-35.4); Mean Corpuscular Hemoglobin 26.7 pg (27.0-31.2); Mean Corpuscular Volume 82.7 fl (80-94); Mean Platelet Volume 8.8 fl (7.4-10.4); Monocytes # 0.4 K/mm3 (0.1-1.0); Monocytes % 5.3 % (1.7-9.3); Neutrophils # 5.8 K/mm3 (1.8-7.8); Neutrophils % 78.6 % (37.0-80.0); Platelet Count 189 K/mm3 (142-424); Red Blood Count 5.19 M/mm3 (4.60-6.20); Red Cell Distribution Width 14.7 % (11.5-17.5); White Blood Count 7.3 K/mm3 (4.8-10.8)
[2021-02-06 15:12] LABS: Appearance,Urine CLEAR (Clear); Bilirubin,Urine Negative (Negative); Blood, Urine TRACE-I (Negative); Color,Urine YELLOW (Yellow); Glucose,Urine (UA) Negative (Negative); Ketones,Urine Negative (Negative); Leukocyte Esterase,Urine 2+ (Negative); Nitrate,Urine Negative (Negative); Protein,Urine Negative (Negative); Urobilinogen,Urine 0.2 EU/dl (0.2)
[2021-02-06 15:15] LABS: Chloride 101 mmol/L (98-107); Sodium 141 mmol/L (136-145)
[2021-02-06 15:16] LABS: Potassium 4.2 mmoL/L (3.5-5.1)
[2021-02-06 15:18] LABS: Alanine Aminotransferase 17 U/L (12-78); Albumin Level 4.1 g/dl (3.5-5.0); Albumin/Globulin Ratio 1.5 (1.1-1.8); Alkaline Phosphatase 95 U/L (38-126); Anion Gap 10.2 mEq/L (5-15); Aspartate Amino Transferase 24 U/L (17-59); Bilirubin,Total 0.6 mg/dl (0.2-1.3); Blood Urea Nitrogen 21 mg/dl (9-20); Carbon Dioxide 34 mmol/L (22.0-30.0); Estimated Glomerular Filt Rate 38 ml/min (>60); GFR (African American) 46 ML/MIN (>60); Globulin 2.7 g/dL (1.3-3.2); Total Protein,Serum 6.8 g/dl (6.3-8.2)
[2021-02-06 15:19] LABS: Calcium 9.3 mg/dl (8.4-10.2); Glucose 114 mg/dl (74-100)
[2021-02-06 15:33] LABS: Amorphous Sediment,Urine 1+ /lpf; WBC,Urine 20-50 #/hpf (0-3)
== END ==
LOC: LAB 02-07 06:22 → LAB.DROPOF 02-07 06:23
PROVIDERS: Visit Provider Emergency Medicine
DX: R31.9 Hematuria, unspecified (principal)
CPT/HCPCS: 80053; 81001; 85025; 87086

== ENCOUNTER 2021-02-27 03:20 | Emergency (ER) | payer MEDICARE, MEDICAID, SELFPAY ==
[2021-02-27 03:15] VITALS: BP 167/94; PULSE 81; RESP 18; TEMP 36.8; O2SAT 95; BMI 40.8
[2021-02-27 03:47] LABS: Microscopic, Urine URINE MICROSCOPIC (MICROSCOPIC)
[2021-02-27 03:48] LABS: Appearance,Urine SL CLOUDY (Clear); Bilirubin,Urine Negative (Negative); Blood, Urine 1+ (Negative); Color,Urine YELLOW (Yellow); Glucose,Urine (UA) Negative (Negative); Ketones,Urine Negative (Negative); Leukocyte Esterase,Urine 2+ (Negative); Nitrate,Urine Negative (Negative); Protein,Urine TRACE (Negative); Specific Gravity, Urine 1.015 (1.005-1.030); Urobilinogen,Urine 0.2 EU/dl (0.2)
[2021-02-27 03:59] LABS: Barbiturates Screen,Urine Negative ng/ml (<200); Benzodiazepines Screen,Urine Negative ng/ml (<200); RBC,Urine Occasional #/hpf (0-3); WBC,Urine TNTC #/hpf (0-3)
[2021-02-27 04:00] VITALS: BP 158/81; PULSE 79; RESP 16; O2SAT 93
[2021-02-27 04:00] LABS: Amphetamine/Metha Screen,Urine Negative ng/ml (<1000); Bacteria,Urine 3+ /lpf
[2021-02-27 04:01] LABS: Cannabinoid Screen,Urine Negative ng/ml (<50); Cocaine Screen,Urine Negative ng/ml (<300)
[2021-02-27 04:02] LABS: Methadone Screen,Urine Negative ng/ml (<300)
[2021-02-27 04:03] LABS: Opiate Screen,Urine Negative ng/ml (<300); Phencyclidine Screen,Urine Negative ng/ml (<25)
--- NOTE | 2021-02-27 04:03 | XR_ITS ---
PROCEDURE INFORMATION: Exam: XR Chest Exam date and time: 02/27/2021 4:03 AM Age: 70 years old Clinical indication: Injury or trauma; Blunt trauma (contusions or hematomas); Patient HX: Fall, PT not good historian TECHNIQUE: Imaging protocol: XR of the chest. Views: 2 views. Total images: 2 COMPARISON: CT CHEST WO CON 12/20/2019 2:43 PM FINDINGS: Lungs: Patchy nonspecific bibasilar opacities favor atelectasis. Pleural spaces: Unremarkable. No pleural effusion. No pneumothorax. Heart/Mediastinum: Unremarkable. No cardiomegaly. Bones/joints: Osseous sclerosis from potential osseous metastatic disease or metabolic disorder. Anterior endplate osteophyte formation. IMPRESSION: 1. Osseous sclerosis from potential osseous metastatic disease or metabolic disorder. 2. Patchy nonspecific bibasilar opacities favor atelectasis.
--- NOTE | 2021-02-27 04:03 | XR_ITS ---
PROCEDURE INFORMATION: Exam: XR Pelvis Exam date and time: 02/27/2021 4:03 AM Age: 70 years old Clinical indication: Injury or trauma; Blunt trauma (contusions or hematomas); Does not apply; Pelvic region; Patient HX: Fall, PT not good historian TECHNIQUE: Imaging protocol: XR pelvis. Views: 1 or 2 view. Total images: 1 COMPARISON: CT ABDOMEN PELVIS WO CON 06/07/2020 2:11 AM FINDINGS: Bones/joints: Severe osseous sclerosis is concerning for osseous metastatic disease or less likely metabolic disorder. Neither femoral neck well displayed due to slight outward rotation of the hips. Soft tissues: Unremarkable. IMPRESSION: 1. Severe osseous sclerosis is concerning for osseous metastatic disease or less likely metabolic disorder. Recommend correlation with PSA levels. 2. Neither femoral neck well displayed due to slight outward rotation of the hips. If the patient is tender in this region, consider dedicated radiographs. 3. No acute fracture identified.
--- NOTE | 2021-02-27 04:03 | CT_ITS ---
PROCEDURE INFORMATION: Exam: CT Head Without Contrast Exam date and time: 02/27/2021 4:03 AM Age: 70 years old Clinical indication: Injury or trauma; Blunt trauma (contusions or hematomas); Consciousness not specified; Patient HX: Fall, PT not good historian; Additional info: Dizzy TECHNIQUE: Imaging protocol: Computed tomography of the head without contrast. Radiation optimization: All CT scans at this facility use at least one of these dose optimization techniques: automated exposure control; mA and/or kV adjustment per patient size (includes targeted exams where dose is matched to clinical indication); or iterative reconstruction. COMPARISON: HEADWO CT head/brain wo con 04/07/2019 8:36 PM FINDINGS: Brain: Moderate atrophy. No intracranial hemorrhage. No mass. Several scattered foci of decreased attenuation within periventricular/subcortical white matter. Encephalomalacia within LEFT cerebellar hemisphere. No edema. Cerebral ventricles: No hydrocephalus. Bones/joints: No acute fracture. Paranasal sinuses: No acute sinusitis. Mastoid air cells: No significant effusion. Orbital cavity: Unremarkable as visualized. Soft tissues: Small radiopaque foreign body along LEFT occipital soft tissues, stable. IMPRESSION: 1. No intracranial hemorrhage. 2. Probable chronic microvascular ischemic changes.
--- NOTE | 2021-02-27 04:06 | CT_ITS ---
PROCEDURE INFORMATION: Exam: CT Cervical Spine Without Contrast Exam date and time: 02/27/2021 4:06 AM Age: 70 years old Clinical indication: Injury or trauma; Blunt trauma; Patient HX: Fall, PT not good historian TECHNIQUE: Imaging protocol: Computed tomography images of the cervical spine without contrast. Radiation optimization: All CT scans at this facility use at least one of these dose optimization techniques: automated exposure control; mA and/or kV adjustment per patient size (includes targeted exams where dose is matched to clinical indication); or iterative reconstruction. COMPARISON: [facility] CT cervical spine wo con 04/07/2019 8:39 PM FINDINGS: Bones/joints: No acute fracture. Normal alignment. Increased density of visualized bones, stable. Discs/Spinal canal/Neural foramina: Mild to moderate degenerative disc disease within lower cervical spine. Mild indentation thecal sac/cord lower cervical spine. Sinuses: Mild focal mucosal thickening of maxillary sinuses. Small LEFT maxillary retention cyst. Thyroid: 1.3 cm nodule within RIGHT lobe. Lungs: Unremarkable as visualized. Soft tissues: Unremarkable. IMPRESSION: No fracture. COMMENTS: Consistent with the [employer] [place] [employer]'s Incidental Findings Committee white paper (J Am Andrea Radiol 2015): In patients aged 35 years and older with an incidental thyroid nodule equal to or greater than 1.[address], MRI or extrathyroidal US, further evaluation with dedicated thyroid US is recommended for patients with normal life expectancy and without comorbidities. For smaller nodules without suspicious features, no further evaluation or follow up is recommended.
--- NOTE | 2021-02-27 04:08 | PC.NURSE ---
This RN spoke with RN at [facility]. RN states pt had fallen out of his chair onto his bottom yesterday evening with no injuries but had been hypertensive during the day. She called PCP and received one time order for Irbesartan 75mg. She says pt had also been leaning when he was walking and stated he was dizzy around 6pm. Pt denies being dizzy or that he was dizzy yesterday.
[2021-02-27 04:13] LABS: Basophils % 0.3 % (0.1-2.0); Eosinophils # 0.2 K/mm3 (0.0-0.4); Eosinophils % 2.4 % (0.1-12.0); Hemoglobin 12.1 g/dL (14.1-18.0); Lymphocytes % 15.3 % (10-50); Mean Corpuscular HGB Conc 32.5 g/dL (31.8-35.4); Mean Corpuscular Hemoglobin 26.6 pg (27.0-31.2); Mean Corpuscular Volume 81.8 fl (80-94); Mean Platelet Volume 9.2 fl (7.4-10.4); Monocytes # 0.4 K/mm3 (0.1-1.0); Monocytes % 5.5 % (1.7-9.3); Neutrophils % 76.4 % (37.0-80.0); Platelet Count 170 K/mm3 (142-424); Red Blood Count 4.53 M/mm3 (4.60-6.20); Red Cell Distribution Width 14.9 % (11.5-17.5); White Blood Count 6.5 K/mm3 (4.8-10.8)
[2021-02-27 04:20] LABS: Anion Gap 7.3 mEq/L (5-15); Blood Urea Nitrogen 28 mg/dl (9-20); Carbon Dioxide 35 mmol/L (22.0-30.0); Chloride 104 mmol/L (98-107); Creatinine Clearance Estimated 68 mL/min (50-200); Estimated Glomerular Filt Rate 35 ml/min (>60); GFR (African American) 43 ML/MIN (>60); Glucose 104 mg/dl (74-100); Potassium 4.3 mmoL/L (3.5-5.1); Sodium 142 mmol/L (136-145)
[2021-02-27 04:25] LABS: Acetaminophen < 10 ug/ml (10-30); Salicylate < 1.0 mg/dL (2.0-20.0); Valproic Acid, (Depakene) < 10.0 ug/ml (50-100)
--- NOTE | 2021-02-27 05:31 | HMH.EDAMS ---
ED Disposition Clinical Impression: CKD (chronic kidney disease) stage 4, GFR 15-29 ml/min, Obesity, morbid, BMI 40.0-49.9, Chronic schizophrenia UTI (urinary tract infection) Qualifiers: Urinary tract infection type: site unspecified Hematuria presence: without hematuria Qualified Code(s): N39.0 - Urinary tract infection, site not specified Disposition: Home, Self-Care Condition on Discharge: Good Instructions: DI for Altered Mental Status Additional Instructions: resume meds and will call sunday for additional orders - Critical Care Critical Care Time: No Attestation: On 02/27/21, the high probability of a clinically significant, sudden or life threatening deterioration of the following system(s) required my full and direct attention, intervention and personal management. The time I documented below is in addition to time spent performing reported procedures but includes the following listed in this critical care notation. Medical Decision Making - Medical Records Medical records reviewed: Yes: I reviewed the patient's medical records. - Sharan Inquiry Pt receiving controlled substance: No Vital Signs: 02/27/21 03:15 02/27/21 04:00 Temperature 98.2 F Temperature Source Oral Pulse Rate 79 Pulse Rate [Left Radial] 81 Respiratory Rate 18 16 Blood Pressure 158/81 H Blood Pressure [Right Arm] 167/94 H Blood Pressure Mean [Right Arm] 118 Blood Pressure Source Automatic Cuff Blood Pressure Source [Right Arm] Automatic Cuff Blood Pressure Position Sitting Blood Pressure Position [Right Arm] Sitting 02 Sat by Pulse Oximetry 95 93 L Oxygen Delivery Method Room Air Room Air - Lab Data Lab results reviewed: Yes: I reviewed the patient's lab results. Lab Results 02/27/21 03:39: Urine Color Yellow, Urine Appearance Sl cloudy, Urine pH 7.0, Ur Specific [place] 1.015, Urine Protein Trace, Urine Glucose (UA) Negative, Urine Ketones Negative, Urine Blood 1+, Urine Nitrate Negative, Urine Bilirubin Negative, Urine Urobilinogen 0.2, Ur Leukocyte Esterase 2+ A, Urine RBC Occasional, Urine WBC Tntc, Ur Squamous Epith Cells None, Urine Bacteria 3+ 02/27/21 03:39: Urine Opiates Screen Negative, Urine Methadone Screen Negative, Ur Barbituates Screen Negative, Ur Phencyclidine Scrn Negative, Ur Amphetamines Screen Negative, U Benzodiazepines Scrn Negative, Urine Cocaine Screen Negative, U Marijuana (THC) Screen Negative 02/27/21 04:02: WBC 6.5, RBC 4.53 L, Hgb 12.1 L, Hct 37.0 L, MCV 81.8, MCH 26.6 L, MCHC 32.5, RDW 14.9, Plt Count 170, MPV 9.2, Neut % (Auto) 76.4, Lymph % (Auto) 15.3, [place] % (Auto) 5.5, Eos % (Auto) 2.4, Baso % (Auto) 0.3, Neut # (Auto) 5.0, Lymph # (Auto) 1.0, [place] # (Auto) 0.4, Eos # (Auto) 0.2, Baso # (Auto) 0.0 02/27/21 04:02: Sodium 142, Potassium 4.3, Chloride 104, Carbon Dioxide 35 H, Anion Gap 7.3, BUN 28 H, Creatinine 1.90 H, Estimated Creat Clear 68, Estimated GFR 35 L, Est GFR ( Amer) 43 L, Glucose 104 H, Calcium 9.0, Salicylates < 1.0 L, Acetaminophen < 10 L, Total Valproic Acid < 10.0 L Result diagrams: 02/27/21 04:02 02/27/21 04:02 Orders (Tests/Meds): ORDERS Category Date Time Status XR chest 2V Stat Exams 02/27/21 04:03 Taken XR pelvis 1-2V Stat Exams 02/27/21 04:03 Taken Urine Culture Stat Micro 02/27/21 03:39 Received - Radiology Data #1 Image(s): Chest, Pelvis Image Reviewed: Yes I reviewed the patient's radiology image Preliminary Findings: No Fracture Seen - CT Data CT Scan: Head, C-Spine Time Received: 05:[address] Reviewed: Yes: I have viewed the radiologist's interpretation Preliminary Findings: No Fracture Seen Medical Decision Narrative: no fx seen and pt with no fever but has uti -will await culture results Altered Mental Status HPI - General Chief Complaint: Altered Mental Status Stated Complaint: insomnia Time Seen by Provider: 02/27/21 03:30 Mode of Arrival: EMS Source of Information: Patient, EMS, Medical Record Limit
[2021-02-27 05:49] VITALS: BP 169/78; PULSE 91; RESP 16; TEMP 36.6; O2SAT 96
[2021-02-27 06:16] LABS: Alanine Aminotransferase 10 U/L (12-78); Albumin Level 3.7 g/dl (3.5-5.0); Alkaline Phosphatase 90 U/L (38-126); Aspartate Amino Transferase 16 U/L (17-59); Bilirubin,Direct 0.2 mg/dl (0.0-0.4); Bilirubin,Indirect 0.1 mg/dL (0.0-0.9); Bilirubin,Total 0.3 mg/dl (0.2-1.3); Bilirubin,Unconjugated 0.1 mg/dL (0.0-1.1); Total Protein,Serum 6.6 g/dl (6.3-8.2)
[2021-02-27 06:48] LABS: Prostate Specific Ag Screen 0.8 ng/ml (0.0-4.0)
== END 2021-02-27 05:58 | disposition home or self-care (01) ==
PROVIDERS: Emergency Provider Emergency Medicine; PCP Emergency Medicine
DX: N18.4 Chronic kidney disease, stage 4 (severe) (principal); E66.9 Obesity, unspecified; Z68.41 Body mass index [BMI] 40.0-44.9, adult; N30.00 Acute cystitis without hematuria; F20.9 Schizophrenia, unspecified; E10.9 Type 1 diabetes mellitus without complications; E78.5 Hyperlipidemia, unspecified; I10 Essential (primary) hypertension; Z86.73 Personal history of transient ischemic attack (TIA), and cerebral infarction without residual deficits; K21.9 Gastro-esophageal reflux disease without esophagitis; Z87.891 Personal history of nicotine dependence; Z79.899 Other long term (current) drug therapy; Z12.5 Encounter for screening for malignant neoplasm of prostate
CPT/HCPCS: 70450; 71046; 72125; 72170; 80048; 80076; 80164; 80305; 80329; 81001; 85025; 87086; 99283; G0103

== ENCOUNTER 2021-06-02 18:49 | Observation (INO) | payer MEDICARE, MEDICAID, SELFPAY ==
[2021-06-02] VITALS (11 sets, daily range): BP systolic 122–164; BP diastolic 60–95; PULSE 79–113; RESP 22–30; TEMP 37.4–38.2; O2SAT 93–98; BMI 40.6
--- NOTE | 2021-06-02 18:54 | XR_ITS ---
PROCEDURE INFORMATION: Exam: XR Chest Exam date and time: 06/02/2021 6:54 PM Age: 70 years old Clinical indication: Fever and shortness of breath; Patient HX: Fever; SOA; Additional info: Fever, SOA TECHNIQUE: Imaging protocol: XR of the chest. Views: 1 view. COMPARISON: CR XR CHEST 2V 02/27/2021 4:10 AM FINDINGS: Lungs: Ill-defined left basilar opacity noted. Pleural spaces: Unremarkable. No pleural effusion. No pneumothorax. Heart/Mediastinum: Unremarkable. No cardiomegaly. Bones/joints: Unremarkable. IMPRESSION: Ill-defined left basilar opacity could represent a pneumonia
--- NOTE | 2021-06-02 19:00 | HMH.EDGENADL ---
ED Disposition Condition on Discharge: Fair - Critical Care Critical Care Time: No <Zach Millan - Last Filed: 06/02/21 19:35> <Tristen Moreno - Last Filed: 06/02/21 21:16> Clinical Impression: SIRS (systemic inflammatory response syndrome), Obesity, morbid, BMI 40.0-49.9, Chronic schizophrenia, REYNALDO (acute kidney injury) Sepsis Qualifiers: Sepsis type: sepsis due to unspecified organism Sepsis acute organ dysfunction status: unspecified Qualified Code(s): A41.9 - Sepsis, unspecified organism Fall Qualifiers: Encounter type: initial encounter Qualified Code(s): W19.XXXA - Unspecified fall, initial encounter Disposition: Admitted as Observation Referrals: Tristen Moreno MD [Primary Care Provider] - Attestation: On 06/02/21, the high probability of a clinically significant, sudden or life threatening deterioration of the following system(s) required my full and direct attention, intervention and personal management. The time I documented below is in addition to time spent performing reported procedures but includes the following listed in this critical care notation. Medical Decision Making - Medical Records Medical records reviewed: Yes: I reviewed the patient's medical records. - Sharan Inquiry Pt receiving controlled substance: No <Zach Millan - Last Filed: 06/02/21 19:35> - Lab Data Lab results reviewed: Yes: I reviewed the patient's lab results. Result diagrams: 06/02/21 19:23 06/02/21 19:23 - Radiology Data #1 Image(s): Chest Image Reviewed: Yes I reviewed the patient's radiology image, Yes I have reviewed radiologist's interpretation Preliminary Findings: Abnormal <Tristen Moreno - Last Filed: 06/02/21 21:16> Vital Signs: 06/02/21 18:49 Temperature 100.8 F H Temperature Source Rectal Pulse Rate [Right] 110 H Respiratory Rate 22 Blood Pressure [Right Arm] 140/64 Blood Pressure Mean [Right Arm] 89 02 Sat by Pulse Oximetry 97 Oxygen Delivery Method Nasal Cannula Oxygen Flow Rate (LPM) 3 - Lab Data Lab Results 06/02/21 19:23: WBC 7.4, RBC 4.41 L, Hgb 11.6 L, Hct 35.0 L, MCV 79.4 L, MCH 26.3 L, MCHC 33.1, RDW 15.1, Plt Count 177, MPV 8.6, Neut % (Auto) 89.4 H, Lymph % (Auto) 4.6 L, [place] % (Auto) 5.5, Eos % (Auto) 0.2, Baso % (Auto) 0.2, Neut # (Auto) 6.6, Lymph # (Auto) 0.4 L, [place] # (Auto) 0.4, Eos # (Auto) 0.0, Baso # (Auto) 0.0, Total Counted 100, Neutrophils % (Manual) 93 H, Lymphocytes % (Manual) 5 L, Monocytes % (Manual) 2, Platelet Estimate Normal, Hypochromasia 1+, Microcytosis 1+ 06/02/21 19:23: Sodium 140, Potassium 3.6, Chloride 102, Carbon Dioxide 30, Anion Gap 11.6, BUN 34 H, Creatinine 2.40 H, Estimated Creat Clear 61, Estimated GFR 27 L, Est GFR ( Amer) 33 L, Glucose 137 H, Calcium 8.7, Total Bilirubin 0.4, AST 26, ALT 20, Alkaline Phosphatase 92, Total Protein 6.9, Albumin 3.7, Globulin 3.2, Albumin/Globulin Ratio 1.2, Lipase 76 06/02/21 19:23: Lactate 0.8 Orders (Tests/Meds): ED MEDICATIONS Generic Name Dose Route Start Last Admin Trade Name Freq PRN Reason Stop Dose Admin Sodium Chloride 1,000 mls @ 999 mls/hr 06/02/21 19:00 06/02/21 19:34 Sod Chlor 0.9% 1000ml Bag IV 06/02/21 20:00 999 mls/hr .Q1H1M MICHAEL Administration Piperacillin Sod/Tazobactam 100 mls @ 200 mls/hr 06/02/21 19:00 06/02/21 19:45 Sod 4.5 gm/ Sodium Chloride IV 06/16/21 18:59 200 mls/hr Q6H MICHAEL Administration Discontinued Medications Generic Name Dose Route Start Last Admin Trade Name Freq PRN Reason Stop Dose Admin Acetaminophen 975 mg 06/02/21 19:36 06/02/21 19:47 Acetaminophen 325mg Tab PO 06/02/21 19:37 975 mg ONCE ONE Administration Ceftriaxone Sodium 2 gm/ 100 mls @ 200 mls/hr 06/02/21 19:00 Sodium Chloride IV 06/16/21 18:59 Q12H MICHAEL ORDERS Category Date Time Status Rapid PCR Covid and Flu A/B Stat Lab 06/02/21 20:16 Received Urinalysis and Microscopic Stat Lab 06/02/21 18:54 Ordered Blood Culture
[2021-06-02 19:53] LABS: Chloride 102 mmol/L (98-107)
[2021-06-02 19:54] LABS: Basophils % 0.2 % (0.1-2.0); Eosinophils % 0.2 % (0.1-12.0); Hemoglobin 11.6 g/dL (14.1-18.0); Lymphocytes # 0.4 K/mm3 (0.7-4.5); Lymphocytes % 4.6 % (10-50); Mean Corpuscular HGB Conc 33.1 g/dL (31.8-35.4); Mean Corpuscular Hemoglobin 26.3 pg (27.0-31.2); Mean Corpuscular Volume 79.4 fl (80-94); Mean Platelet Volume 8.6 fl (7.4-10.4); Monocytes # 0.4 K/mm3 (0.1-1.0); Monocytes % 5.5 % (1.7-9.3); Neutrophils # 6.6 K/mm3 (1.8-7.8); Neutrophils % 89.4 % (37.0-80.0); Platelet Count 177 K/mm3 (142-424); Potassium 3.6 mmoL/L (3.5-5.1); Red Blood Count 4.41 M/mm3 (4.60-6.20); Red Cell Distribution Width 15.1 % (11.5-17.5); Sodium 140 mmol/L (136-145); White Blood Count 7.4 K/mm3 (4.8-10.8)
[2021-06-02 19:55] LABS: MANUAL DIFFERENTIAL MANUAL DIFFERENTIAL (MANUAL DIFF)
[2021-06-02 19:56] LABS: Alanine Aminotransferase 20 U/L (12-78); Aspartate Amino Transferase 26 U/L (17-59); Blood Urea Nitrogen 34 mg/dl (9-20); Creatinine Clearance Estimated 61 mL/min (50-200); Estimated Glomerular Filt Rate 27 ml/min (>60); GFR (African American) 33 ML/MIN (>60)
[2021-06-02 19:57] LABS: Albumin Level 3.7 g/dl (3.5-5.0); Albumin/Globulin Ratio 1.2 (1.1-1.8); Alkaline Phosphatase 92 U/L (38-126); Anion Gap 11.6 mEq/L (5-15); Bilirubin,Total 0.4 mg/dl (0.2-1.3); Calcium 8.7 mg/dl (8.4-10.2); Carbon Dioxide 30 mmol/L (22.0-30.0); Globulin 3.2 g/dL (1.3-3.2); Glucose 137 mg/dl (74-100); Lipase 76 U/L (23-300); Total Protein,Serum 6.9 g/dl (6.3-8.2)
[2021-06-02 20:05] LABS: Lactic Acid 0.8 mmol/L (0.7-2.1)
[2021-06-02 20:21] LABS: Coronavirus 19, PCR Not Detected (NotDetected); Influenza A, PCR Not Detected (NotDetected); Influenza B, PCR Not Detected (NotDetected)
[2021-06-02 20:28] LABS: Lymphocytes % 5 % (10-50); Microcytosis 1+; Monocytes % 2 % (2-9); Neutrophils % 93 % (42-76); Total Cells Counted 100
[2021-06-02 20:29] LABS: Hypochromasia 1+; Platelet Estimate Normal
--- NOTE | 2021-06-02 21:32 | PC.NURSE ---
multiple attempts by nursing and md to obtain urine specimen via catheter. unsuccessful. pt tolerated, but not well. upset and it was agreed we would stop attempting to do so.
[2021-06-03] VITALS (7 sets, daily range): BP systolic 122–174; BP diastolic 68–96; PULSE 76–87; RESP 20–22; TEMP 36.7–37.2; O2SAT 2–94; BMI 39.7
--- NOTE | 2021-06-03 00:02 | PC.NURSE ---
patient up to floor via stretcher.
--- NOTE | 2021-06-03 05:46 | PC.NURSE ---
Patient has difficultly speaking clearly due to hx of CVA. No signs of pain or complaints of pain. Walked to bathroom x1 assist. Bed alarm active. Reoriented patient to call light multiple times. VSS. No further concerns.
[2021-06-03 06:06] LABS: Appearance,Urine CLEAR (Clear); Bilirubin,Urine Negative (Negative); Blood, Urine 3+ (Negative); Color,Urine YELLOW (Yellow); Glucose,Urine (UA) Negative (Negative); Ketones,Urine Negative (Negative); Leukocyte Esterase,Urine 2+ (Negative); Nitrate,Urine Negative (Negative); Protein,Urine 2+ (Negative); Specific Gravity, Urine 1.015 (1.005-1.030); Urobilinogen,Urine 0.2 EU/dl (0.2)
[2021-06-03 06:07] LABS: Microscopic, Urine URINE MICROSCOPIC (MICROSCOPIC)
[2021-06-03 06:29] LABS: Bacteria,Urine Trace /lpf; RBC,Urine 20-50 #/hpf (0-3)
--- NOTE | 2021-06-03 07:37 | HMH.PHAVTE ---
[facility] Pharmacy VTE Monitoring - Patient Demographics Admission date: 06/02/21 Report Date: 06/03/21 Time: 07:37 Allergies/Adverse Reactions: Patient Allergies No Known Allergies Allergy (Verified 03/03/21 10:19) Height: 1.75 m Weight: 122.215 kg Patient Problems: Current Active Problems Fall (Acute) SIRS (systemic inflammatory response syndrome) (Acute) Chronic schizophrenia (Acute) Sepsis (Acute) REYNALDO (acute kidney injury) (Acute) Obesity, morbid, BMI 40.0-49.9 (Chronic) - VTE Risk Labs: VTE Related Lab Results Hgb 11.6 g/dL (14.1-18.0) L 06/02/21 19:23 Hct 35.0 % (42.0-52.0) L 06/02/21 19:23 Plt Count 177 K/mm3 (142-424) 06/02/21 19:23 BUN 34 mg/dl (9-20) H 06/02/21 19:23 Creatinine 2.40 mg/dl (0.66-1.25) H 06/02/21 19:23 Estimated Creat Clear 61 mL/min (50-200) 06/02/21 19:23 VTE Score: 2 VTE Risk Level: Very Low Risk - Prophylaxis VTE Prophylaxis Ordered?: Yes Types of VTE Prophylaxis: TEDS Knee High Location of Applied Device: Bilateral Lower Extremeties
[2021-06-03 07:38] LABS: Chloride 105 mmol/L (98-107); Potassium 3.6 mmoL/L (3.5-5.1); Sodium 144 mmol/L (136-145)
[2021-06-03 07:41] LABS: Anion Gap 11.6 mEq/L (5-15); Blood Urea Nitrogen 33 mg/dl (9-20); Calcium 8.5 mg/dl (8.4-10.2); Carbon Dioxide 31 mmol/L (22.0-30.0); Creatinine Clearance Estimated 51 mL/min (50-200); Estimated Glomerular Filt Rate 27 ml/min (>60); GFR (African American) 33 ML/MIN (>60); Glucose 113 mg/dl (74-100)
[2021-06-03 07:43] LABS: Basophils % 0.4 % (0.1-2.0); Eosinophils % 0.5 % (0.1-12.0); Hematocrit 35.6 % (42.0-52.0); Hemoglobin 11.8 g/dL (14.1-18.0); Lymphocytes # 0.6 K/mm3 (0.7-4.5); Lymphocytes % 10.7 % (10-50); Mean Corpuscular HGB Conc 33.2 g/dL (31.8-35.4); Mean Corpuscular Hemoglobin 26.4 pg (27.0-31.2); Mean Corpuscular Volume 79.4 fl (80-94); Mean Platelet Volume 8.7 fl (7.4-10.4); Monocytes # 0.4 K/mm3 (0.1-1.0); Monocytes % 8.3 % (1.7-9.3); Neutrophils # 4.2 K/mm3 (1.8-7.8); Platelet Count 160 K/mm3 (142-424); Red Blood Count 4.48 M/mm3 (4.60-6.20); Red Cell Distribution Width 14.8 % (11.5-17.5); White Blood Count 5.2 K/mm3 (4.8-10.8)
--- NOTE | 2021-06-03 08:50 | SW/DCPLANNER ---
Addendum entered by Kylee Willis 06/03/21 13:55: Discharge summary has been faxed to Miya with [facility]. Original Note: This patient currently resides at [facility]. I spoke with Miya from [place] and she has stated that patient is [facility] level of care. The plan is for this patient to discharge back today. Patient did have a COVID swab yesterday 06/02 and per Miya an additional COVID swab is NOT required prior to discharge today.
--- NOTE | 2021-06-03 12:52 | HMH.HPDC ---
General - General Admission date:: 06/03/21 Discharge date: 06/03/21 *Admission Date: 06/02/21 *Chief complaint: sepsis *History of present illness: 70-year-old male with a presents to the emergency department for evaluation of unwitnessed fall. Patient states he did fall, but did not hit his head and was lying on the bed when EMS got to [place]. Per ems He states he felt like he was having urinary problems . HX of UTI. Poor historian secondary to his schizophrenia. pt admitted for uti with 2+ leuk. [facility] History I have reviewed the patient's past medical history: Yes Medical History: Reports:: BPH, Cerebrovascular Accident, Diabetes Mellitus Type 1, Gastroesophageal Reflux Disease(GERD), Hyperlipidemia, Hypertension, MRSA, Renal Disease, Renal Insufficiency, Transient Ischemic Attacks (TIA), Urinary Tract Infection Denies:: Cancer, Diabetes Mellitus Type 2, Internal Pacemaker, Seizures *Have you ever received a pneumonia vaccine?: Yes *Have you received a flu vaccine this season?: Yes Other Medical History: Reports: Thyroid Disease. Denies: Blood Transfusion Reaction Other Surgeries: Yes: No Previous Surgery, Colonoscopy. No: Pacemaker Amputation: No Fractures: Yes (right foot) - *Social History Smoking Status: Former smoker Alcohol Intake: former Alcohol Intake Frequency:: other Substance Use Type: denies use *Occupational Status:: unemployed Housing: [facility] Household Members: other *Travel in the last 8 weeks: None Family Hx:: Unable to obtain Review of Systems - Review of Systems Review of systems:: pertinent systems reviewed and negative unless documented below - Constitutional Reports fatigue, Denies body ache(s) - Eyes Denies blurry vision - ENT Denies dizziness - *Cardiovascular Denies chest pain at rest - *Respiratory Denies chest congestion - *Gastrointestinal Denies belching - *Genitourinary Reports difficulty urinating, Reports painful urination, Reports urinary incontinence - *Musculoskeletal Denies deformity - Integumentary/Breasts Denies bleeding lesions - *Neurologic Denies abnormal hearing - Psychiatric Denies lack of enjoyment - Endocrine Denies excessive sweating - Hematologic/Lymphatic Denies easy bruising - Allergic/Immunologic Denies GI upset with certain foods Exam Vital signs and Labs for Last 24 Hours: Temp Pulse Resp BP Pulse Ox 98.5 F 78 20 158/78 H 94 L 06/03/21 08:00 06/03/21 08:00 06/03/21 08:00 06/03/21 08:00 06/03/21 08:00 Laboratory Results - last 24 hr 06/02/21 05:50: Urine Color Yellow, Urine Appearance Clear, Urine pH 7.0, Ur Specific [place] 1.015, Urine Protein 2+, Urine Glucose (UA) Negative, Urine Ketones Negative, Urine Blood 3+, Urine Nitrate Negative, Urine Bilirubin Negative, Urine Urobilinogen 0.2, Ur Leukocyte Esterase 2+ A, Urine RBC 20-50, Urine WBC 5-10, Ur Squamous Epith Cells 3-5, Urine Bacteria Trace 06/02/21 19:23: WBC 7.4, RBC 4.41 L, Hgb 11.6 L, Hct 35.0 L, MCV 79.4 L, MCH 26.3 L, MCHC 33.1, RDW 15.1, Plt Count 177, MPV 8.6, Neut % (Auto) 89.4 H, Lymph % (Auto) 4.6 L, [place] % (Auto) 5.5, Eos % (Auto) 0.2, Baso % (Auto) 0.2, Neut # (Auto) 6.6, Lymph # (Auto) 0.4 L, [place] # (Auto) 0.4, Eos # (Auto) 0.0, Baso # (Auto) 0.0, Total Counted 100, Neutrophils % (Manual) 93 H, Lymphocytes % (Manual) 5 L, Monocytes % (Manual) 2, Platelet Estimate Normal, Hypochromasia 1+, Microcytosis 1+ 06/02/21 19:23: Sodium 140, Potassium 3.6, Chloride 102, Carbon Dioxide 30, Anion Gap 11.6, BUN 34 H, Creatinine 2.40 H, Estimated Creat Clear 61, Estimated GFR 27 L, Est GFR ( Amer) 33 L, Glucose 137 H, Calcium 8.7, Total Bilirubin 0.4, AST 26, ALT 20, Alkaline Phosphatase 92, Total Protein 6.9, Albumin 3.7, Globulin 3.2, Albumin/Globulin Ratio 1.2, Lipase 76 06/02/21 19:23: Lactate 0.8 06/02/21 20:16: SARS-CoV-2 (PCR) Not detected, Influenza A Untype (PCR) Not detected, Influenza Type B (PCR) Not detected 06/03/21 07:21: WBC 5
== END 2021-06-03 15:50 ==
LOC: ER 21:18 → 2ND 06-03 00:11
PROVIDERS: Admitting Provider Emergency Medicine; Emergency Provider Emergency Medicine; PCP Emergency Medicine; Visit Provider Emergency Medicine
DX: Z20.822 Contact with and (suspected) exposure to COVID-19; Z79.899 Other long term (current) drug therapy; N39.0 Urinary tract infection, site not specified; R29.6 Repeated falls; F20.9 Schizophrenia, unspecified; E11.9 Type 2 diabetes mellitus without complications; I10 Essential (primary) hypertension; E78.5 Hyperlipidemia, unspecified; K21.9 Gastro-esophageal reflux disease without esophagitis
CPT/HCPCS: G0378; 36415; 71045; 80048; 80053; 81001; 83605; 83690; 85007; 85025; 87040; 87086; 96365; 96366; 99284; J2543; U0003

== ENCOUNTER → 2021-08-12 15:12 | Outpatient (CLI) | payer MEDICARE, MEDICAID, SELFPAY ==
[2021-08-12 16:14] LABS: Basophils % 0.5 % (0.1-2.0); Eosinophils # 0.1 K/mm3 (0.0-0.4); Eosinophils % 1.5 % (0.1-12.0); Hematocrit 38.2 % (42.0-52.0); Hemoglobin 11.9 g/dL (14.1-18.0); Lymphocytes # 0.8 K/mm3 (0.7-4.5); Lymphocytes % 12.9 % (10-50); Mean Corpuscular HGB Conc 31.1 g/dL (31.8-35.4); Mean Corpuscular Hemoglobin 26.4 pg (27.0-31.2); Mean Corpuscular Volume 84.9 fl (80-94); Monocytes # 0.4 K/mm3 (0.1-1.0); Neutrophils # 5.1 K/mm3 (1.8-7.8); Neutrophils % 79.2 % (37.0-80.0); Platelet Count 231 K/mm3 (142-424); Red Cell Distribution Width 15.6 % (11.5-17.5); White Blood Count 6.5 K/mm3 (4.8-10.8)
[2021-08-12 16:39] LABS: Alanine Aminotransferase 19 U/L (12-78); Albumin Level 3.5 g/dl (3.5-5.0); Albumin/Globulin Ratio 1.2 (1.1-1.8); Alkaline Phosphatase 77 U/L (38-126); Anion Gap 13.1 mEq/L (5-15); Aspartate Amino Transferase 21 U/L (17-59); Bilirubin,Total 0.2 mg/dl (0.2-1.3); Blood Urea Nitrogen 23 mg/dl (9-20); Calcium 8.8 mg/dl (8.4-10.2); Carbon Dioxide 30 mmol/L (22.0-30.0); Chloride 103 mmol/L (98-107); Estimated Glomerular Filt Rate 27 ml/min (>60); GFR (African American) 33 ML/MIN (>60); Globulin 2.9 g/dL (1.3-3.2); Glucose 136 mg/dl (74-100); Potassium 4.1 mmoL/L (3.5-5.1); Sodium 142 mmol/L (136-145); Total Protein,Serum 6.4 g/dl (6.3-8.2)
== END ==
PROVIDERS: Visit Provider Emergency Medicine
DX: D64.9 Anemia, unspecified (principal)
CPT/HCPCS: 80053; 85025

== ENCOUNTER 2021-08-13 09:31 | Emergency (ER) | payer MEDICARE, MEDICAID, SELFPAY ==
[2021-08-13 09:33] VITALS: BP 152/78; PULSE 103; RESP 18; TEMP 36.9; O2SAT 93; BMI 36.3
--- NOTE | 2021-08-13 09:35 | CT_ITS ---
PROCEDURE INFORMATION: Exam: CT Head Without Contrast Exam date and time: 08/13/2021 9:35 AM Age: 70 years old Clinical indication: Injury or trauma; Fall; Bleeding/hemorrhage and blunt trauma (contusions or hematomas); Consciousness not specified; Injury date: 08/13/2021 TECHNIQUE: Imaging protocol: Computed tomography of the head without contrast. 3D rendering (Not supervised by radiologist): MIP and/or 3D reconstructed images were created by the technologist. Radiation optimization: All CT scans at this facility use at least one of these dose optimization techniques: automated exposure control; mA and/or kV adjustment per patient size (includes targeted exams where dose is matched to clinical indication); or iterative reconstruction. COMPARISON: CT HEAD/BRAIN WO CON 02/27/2021 4:30 AM FINDINGS: Brain: 2.2 cm acute right subdural hematoma producing 7 mm of midline shift to the left. Chronic small-vessel ischemic change and left cerebellar encephalomalacia. Asymmetric caliber of the cortical sulci. Cerebral ventricles: Asymmetric caliber of the lateral ventricles, left greater than right. Paranasal sinuses: Bilateral paranasal sinus fluid and mucoperiosteal disease. Mastoid air cells: No mastoid effusion. Bones/joints: No acute calvarial injury. Soft tissues: No significant scalp hematoma. IMPRESSION: 2.2 cm acute right subdural hematoma producing 7 mm of midline shift to the left. The aforementioned findings initiated a critical results communication pathway. An addendum will be issued at the time of clincian notification.
--- NOTE | 2021-08-13 09:35 | CT_ITS ---
PROCEDURE INFORMATION: Exam: CT Maxillofacial Without Contrast Exam date and time: 08/13/2021 9:35 AM Age: 70 years old Clinical indication: Injury or trauma; Fall; Bleeding/hemorrhage and blunt trauma (contusions or hematomas); Eyelid and forehead and nose; Upper right and lower right; Uppeupper rightr right and lower left; Injury date: 08/13/2021 TECHNIQUE: Imaging protocol: Computed tomography images of the face without contrast. Radiation optimization: All CT scans at this facility use at least one of these dose optimization techniques: automated exposure control; mA and/or kV adjustment per patient size (includes targeted exams where dose is matched to clinical indication); or iterative reconstruction. COMPARISON: None FINDINGS: Orbital cavity: Unremarkable appearance of the globes, optic nerves, and extraocular muscles. Bones/joints: Acute nasal bone and nasal septal fractures. Paranasal sinuses: Bilateral paranasal sinus fluid and mucoperiosteal disease. Soft tissues: Nasal soft tissue swelling and subcutaneous emphysema. Nasal cavity: Bilateral opacification of the nasal cavities. IMPRESSION: Acute nasal bone and nasal septal fractures.
--- NOTE | 2021-08-13 09:35 | CT_ITS ---
PROCEDURE INFORMATION: Exam: CT Cervical Spine Without Contrast Exam date and time: 08/13/2021 9:35 AM Age: 70 years old Clinical indication: Injury or trauma; Fall; Bleeding/hemorrhage and blunt trauma; Injury date: 08/13/2021 TECHNIQUE: Imaging protocol: Computed tomography images of the cervical spine without contrast. Radiation optimization: All CT scans at this facility use at least one of these dose optimization techniques: automated exposure control; mA and/or kV adjustment per patient size (includes targeted exams where dose is matched to clinical indication); or iterative reconstruction. COMPARISON: CT CERVICAL SPINE WO CON 02/27/2021 4:33 AM FINDINGS: Bones/joints: No acute bony injury or malalignment in the visualized cervical spine. Discs/Spinal canal/Neural foramina: Degenerative change and disc bulging.Note that assessment of disc, spinal cord, and nerve root pathology is limited in the absence of intrathecal contrast. Nasopharynx: Fluid in the nasopharynx and visualized nasal cavities. Thyroid: Bilateral nodular hypodense thyroid lesions. Lungs: Unremarkable apices as visualized. Soft tissues: 4 mm subcutaneous metallic density in the left occipital region. Ligamentous calcification. IMPRESSION: No acute bony injury or malalignment in the visualized cervical spine. COMMENTS: Consistent with the [employer]'s Incidental Findings Committee white paper (J Am Andrea Radiol 2015): In patients aged 35 years and older with an incidental thyroid nodule equal to or greater than 1.[address], MRI or extrathyroidal US, further evaluation with dedicated thyroid US is recommended for patients with normal life expectancy and without comorbidities. For smaller nodules without suspicious features, no further evaluation or follow up is recommended.
--- NOTE | 2021-08-13 09:36 | XR_ITS ---
PROCEDURE INFORMATION: Exam: XR Chest Exam date and time: 08/13/2021 9:36 AM Age: 70 years old Clinical indication: Injury or trauma; Fall; Blunt trauma (contusions or hematomas) TECHNIQUE: Imaging protocol: XR of the chest. Views: 4 or more views. COMPARISON: CR XR CHEST PORTABLE 06/02/2021 7:24 PM FINDINGS: Lungs: Hypoinflation, without significant airspace disease. Pleural spaces: No pleural effusion. Heart/Mediastinum: Cardiac silhouette accentuated by hypoinflation. Bones/joints: Degenerative change. IMPRESSION: Hypoinflation, without significant airspace or pleural disease.
--- NOTE | 2021-08-13 09:39 | HMH.EDGENADL ---
ED Disposition Clinical Impression: Subdural hematoma Nasal fracture Qualifiers: Encounter type: initial encounter Fracture type: open Qualified Code(s): S02.2XXB - Fracture of nasal bones, initial encounter for open fracture Disposition: Xfer Short-Term Hosp Condition on Discharge: Serious Referrals: Provider,Referral, MD [Primary Care Provider] - Forms: Transfer Record - ED - Critical Care Critical Care Time: No Attestation: On , the high probability of a clinically significant, sudden or life threatening deterioration of the following system(s) required my full and direct attention, intervention and personal management. The time I documented below is in addition to time spent performing reported procedures but includes the following listed in this critical care notation. Medical Decision Making - Medical Records Medical records reviewed: Yes: I reviewed the patient's medical records. MR Comment: Reviewed lab work yesterday. The patient was not seen in the emergency department for his fall yesterday. - Sharan Inquiry Pt receiving controlled substance: No Vital Signs: 08/13/21 09:33 Temperature 98.5 F Temperature Source Oral Pulse Rate [Left Radial] 103 H Respiratory Rate 18 Blood Pressure [Right Arm] 152/78 H Blood Pressure Mean [Right Arm] 102 Blood Pressure Source [Right Arm] Automatic Cuff Blood Pressure Position [Right Arm] Sitting 02 Sat by Pulse Oximetry 93 L Oxygen Delivery Method Room Air - Lab Data Lab Results 08/13/21 09:51: WBC 5.5, RBC 4.55 L, Hgb 12.0 L, Hct 38.6 L, MCV 84.9, MCH 26.3 L, MCHC 31.0 L, RDW 15.5, Plt Count 201, MPV 9.7, Neut % (Auto) 80.4 H, Lymph % (Auto) 12.6, [place] % (Auto) 5.1, Eos % (Auto) 1.5, Baso % (Auto) 0.4, Neut # (Auto) 4.4, Lymph # (Auto) 0.7, [place] # (Auto) 0.3, Eos # (Auto) 0.1, Baso # (Auto) 0.0 08/13/21 09:51: Sodium 143, Potassium 3.9, Chloride 101, Carbon Dioxide 34 H, Anion Gap 11.9, BUN 21 H, Creatinine 2.50 H, Estimated Creat Clear 43, Estimated GFR 26 L, Est GFR ( Amer) 31 L, Glucose 111 H, Calcium 8.7, Total Bilirubin 0.3, AST 22, ALT 17, Alkaline Phosphatase 85, Total Protein 6.7, Albumin 3.5, Globulin 3.2, Albumin/Globulin Ratio 1.1 Result diagrams: 08/13/21 09:51 08/13/21 09:51 Orders (Tests/Meds): ED MEDICATIONS Discontinued Medications Generic Name Dose Route Start Last Admin Trade Name Freq PRN Reason Stop Dose Admin Lidocaine/Epinephrine 20 ml 08/13/21 09:37 08/13/21 09:44 Lidocaine 1% W/Epi 1:100,000 20ml Vial SQ 08/13/21 09:38 20 ml ONCE ONE Administration ORDERS Category Date Time Status CT cervical spine wo con Stat Cat Scan 08/13/21 09:[address] facial bones wo con Stat Cat Scan 08/13/21 09:[address] head/brain wo con Stat Cat Scan 08/13/21 09:35 Ordered Pelvis XR 1-2 views [XR pelvis 1-2V] Stat Exams 08/13/21 09:36 Ordered XR chest AP Stat Exams 08/13/21 09:36 Taken Rapid PCR Covid and Flu A/B Stat Lab 08/13/21 10:40 Ordered Urinalysis and Microscopic Stat Lab 08/13/21 09:37 Ordered - Radiology Data #1 Image(s): Chest Image Reviewed: Yes I reviewed the patient's radiology image Preliminary Findings: Normal/NAD - CT Data CT Scan: Head, C-Spine, Other (facial) Time Received: 10:[address] Reviewed: Yes: I have viewed the radiologist's interpretation Findings Narrative: PROCEDURE INFORMATION: Exam: CT Head Without Contrast Exam date and time: 08/13/2021 9:35 AM Age: 70 years old Clinical indication: Injury or trauma; Fall; Bleeding/hemorrhage and blunt trauma (contusions or hematomas); Consciousness not specified; Injury date: 08/13/2021 TECHNIQUE: Imaging protocol: Computed tomography of the head without contrast. 3D rendering (Not supervised by radiologist): MIP and/or 3D reconstructed images were created by the technologist. Radiation optimization: All CT scans at this facility use at least one of these dose optimization techniques: automated exp
--- NOTE | 2021-08-13 09:56 | PC.NURSE ---
pt to ct
[2021-08-13 10:00] LABS: Basophils % 0.4 % (0.1-2.0); Eosinophils # 0.1 K/mm3 (0.0-0.4); Eosinophils % 1.5 % (0.1-12.0); Hematocrit 38.6 % (42.0-52.0); Lymphocytes # 0.7 K/mm3 (0.7-4.5); Lymphocytes % 12.6 % (10-50); Mean Corpuscular Hemoglobin 26.3 pg (27.0-31.2); Mean Corpuscular Volume 84.9 fl (80-94); Mean Platelet Volume 9.7 fl (7.4-10.4); Monocytes # 0.3 K/mm3 (0.1-1.0); Monocytes % 5.1 % (1.7-9.3); Neutrophils # 4.4 K/mm3 (1.8-7.8); Neutrophils % 80.4 % (37.0-80.0); Platelet Count 201 K/mm3 (142-424); Red Blood Count 4.55 M/mm3 (4.60-6.20); Red Cell Distribution Width 15.5 % (11.5-17.5); White Blood Count 5.5 K/mm3 (4.8-10.8)
[2021-08-13 10:09] LABS: Chloride 101 mmol/L (98-107); Potassium 3.9 mmoL/L (3.5-5.1); Sodium 143 mmol/L (136-145)
[2021-08-13 10:12] LABS: Alanine Aminotransferase 17 U/L (12-78); Albumin Level 3.5 g/dl (3.5-5.0); Albumin/Globulin Ratio 1.1 (1.1-1.8); Alkaline Phosphatase 85 U/L (38-126); Anion Gap 11.9 mEq/L (5-15); Aspartate Amino Transferase 22 U/L (17-59); Bilirubin,Total 0.3 mg/dl (0.2-1.3); Blood Urea Nitrogen 21 mg/dl (9-20); Calcium 8.7 mg/dl (8.4-10.2); Carbon Dioxide 34 mmol/L (22.0-30.0); Creatinine Clearance Estimated 43 mL/min (50-200); Estimated Glomerular Filt Rate 26 ml/min (>60); GFR (African American) 31 ML/MIN (>60); Globulin 3.2 g/dL (1.3-3.2); Glucose 111 mg/dl (74-100); Total Protein,Serum 6.7 g/dl (6.3-8.2)
[2021-08-13 10:25] VITALS: BP 127/77; PULSE 90; RESP 18; O2SAT 94
--- NOTE | 2021-08-13 10:25 | PC.NURSE ---
Spoke with Rayne Ye at [facility] and informed her of our rad findings at that pt will be transferred.
--- NOTE | 2021-08-13 10:26 | PC.NURSE ---
rad called for disc. [facility] called for trauma transfer
[2021-08-13 10:30] VITALS: BP 151/84; PULSE 95; RESP 18; O2SAT 94
--- NOTE | 2021-08-13 10:39 | PC.NURSE ---
spoke with dr adair at . pt accepted. [facility] called
[2021-08-13 10:47] LABS: Coronavirus 19, PCR Not Detected (NotDetected); Influenza A, PCR Not Detected (NotDetected); Influenza B, PCR Not Detected (NotDetected)
[2021-08-13 10:56] VITALS: BP 151/84; PULSE 85; RESP 18; TEMP 36.9; O2SAT 95
[2021-08-13 11:00] VITALS: BP 129/79; PULSE 100; RESP 18; O2SAT 95
== END 2021-08-13 11:27 | disposition short-term general hospital (02) ==
PROVIDERS: Emergency Provider Emergency Medicine; PCP Emergency Medicine
DX: S06.5X9A Traumatic subdural hemorrhage with loss of consciousness of unspecified duration, initial encounter (principal); S02.2XXB Fracture of nasal bones, initial encounter for open fracture; W01.0XXA Fall on same level from slipping, tripping and stumbling without subsequent striking against object, initial encounter; Y92.129 Unspecified place in nursing home as the place of occurrence of the external cause; Z86.73 Personal history of transient ischemic attack (TIA), and cerebral infarction without residual deficits; I10 Essential (primary) hypertension; E78.5 Hyperlipidemia, unspecified; E03.9 Hypothyroidism, unspecified; Z87.891 Personal history of nicotine dependence
CPT/HCPCS: 70450; 70486; 71045; 72125; 80053; 85025; 99284; C9803; U0003; U0005

== ENCOUNTER 2021-10-21 21:14 | Emergency (ER) | payer MEDICARE, MEDICAID, SELFPAY ==
[2021-10-21 20:57] VITALS: BP 146/115; PULSE 86; RESP 16; TEMP 36.7; O2SAT 97; BMI 39.9
--- NOTE | 2021-10-21 21:21 | ECG_ITS ---
APPROVED REPORT Exam: Resting ECG HR:87 bpm ECG Measurements Heart Rate 87 AXES FL 144 P 49 QRSd 82 QRS -19 QT 388 T 31 QTc 466 Conclusion Normal sinus rhythm Normal ECG Electronically signed by : Pradip Baird MD 10/22/2021 09:48:04
--- NOTE | 2021-10-21 21:27 | HMH.EDGENADL ---
ED Disposition Clinical Impression: Fall Qualifiers: Encounter type: initial encounter Qualified Code(s): W19.XXXA - Unspecified fall, initial encounter Disposition: Xfer Intermediate Care Fac Condition on Discharge: Good Referrals: Tristen Moreno MD [Primary Care Provider] - - Critical Care Critical Care Time: No Attestation: On 10/21/21, the high probability of a clinically significant, sudden or life threatening deterioration of the following system(s) required my full and direct attention, intervention and personal management. The time I documented below is in addition to time spent performing reported procedures but includes the following listed in this critical care notation. Medical Decision Making - Medical Records Medical records reviewed: Yes: I reviewed the patient's medical records. - Sharan Inquiry Pt receiving controlled substance: No Vital Signs: 10/21/21 20:57 Temperature 98.0 F Temperature Source Oral Pulse Rate [Right] 86 Respiratory Rate 16 Blood Pressure [Right Arm] 146/115 H Blood Pressure Mean [Right Arm] 125 02 Sat by Pulse Oximetry 97 Medical Decision Narrative: Patient is a 71-year-old male who lives in a long-term care facility brought in by EMS with concern for fall and intracranial injury. Patient is well-appearing on initial evaluation, hypertensive on initial vitals with no significant tachycardia no fever. Patient is fully oriented for me on examination, although this does appear to be inconsistent. Patient is able to tell me he does not have any pain in his head, back, chest abdomen or pelvis. Patient states he lowered himself to the ground, after standing up, stating that he does not believe he fell or hit his head, that he remembers everything he did not pass out. Given this and concerned with retirement and history of subdural hematoma will order a CT head without IV contrast for further evaluation of intracranial trauma. Otherwise do not need to obtain the laboratory work-up at this time. ED had obtained, evidence of a small 3 mm subdural hematoma which is improved in size from prior examination and not worsening no evidence of midline shift. I have personally reviewed these images. Patient stable, able to urinate here in the emergency department, will send back to long-term care facility, prior to leaving given the patient return precautions return to the ED with worsening symptoms, to let his staff know to see if still developing a headache or weakness in his arms or legs. General Adult HPI - General Chief complaint: Fall Stated complaint: Unwitnessed fall OOB Time Seen by Provider: 10/21/21 21:28 Mode of Arrival: EMS Source of Information: Patient, EMS Limitations: dementia Description of Symptoms (Recalled from ER Triage Doc. by RN): retirement reports pt fell out of bed. pt is A&Ox3 and has no c/o - History of Present Illness HPI narrative: Patient is a 71-year-old male presents the ED today with EMS after a fall. Patient was found laying on the ground on his back by retirement staff, was noted to have alterations in his speech pattern which are a characteristic for him, and noted to be hypertensive on their initial assessment. Patient has a known subdural hematoma which was diagnosed in July, does not take anticoagulation currently, they were concerned for worsening intracranial injury and patient was brought to the emergency department for further evaluation. Per EMS who appear to have seen the patient in the past patient was awake alert mostly oriented except to place, describing no headache no abdominal pain no chest pain afebrile. - Related Data Home Medications Medication Instructions Recorded Confirmed Tamsulosin HCl 0.4 mg PO HS 10/10/19 06/20/21 Irbesartan [Avapro 75mg 75 mg PO DAILY 10/26/19 06/20/21 tablet] hydroCHLOROthiazide [HCTZ 12.5mg 12.5 mg PO DAILY 10/26/19 06/20/21 capsule] Loperamide HCl [Imodium 2 mg 2 mg PO
--- NOTE | 2021-10-21 21:28 | CT_ITS ---
PROCEDURE INFORMATION: Exam: CT Head Without Contrast Exam date and time: 10/21/2021 9:28 PM Age: 71 years old Clinical indication: Injury or trauma; Fall; Blunt trauma (contusions or hematomas); Without loss of consciousness; Injury date: 10/21/2021; Patient HX: HX of subdural hematoma on 08/13/2021 fell this pm; Additional info: [facility] 08/13/2021 fell again this pm TECHNIQUE: Imaging protocol: Computed tomography of the head without contrast. Radiation optimization: All CT scans at this facility use at least one of these dose optimization techniques: automated exposure control; mA and/or kV adjustment per patient size (includes targeted exams where dose is matched to clinical indication); or iterative reconstruction. COMPARISON: CT HEAD/BRAIN WO CON 08/13/2021 9:56 AM FINDINGS: Brain: There is advanced volume loss. There is extensive white matter lucency consistent with chronic microvascular disease. There are old white matter and basal ganglia lacunar infarcts. Left cerebellar infarct. Pontine lacunar infarct. No evidence of acute infarct. There is a small subacute right convexity subdural hematoma. Maximal thickness is 3 mm. This is markedly decreased from prior scan which demonstrated an acute hematoma measuring up to 18 mm. Mass effect has resolved. Midline shift has resolved. No new hemorrhage. No parenchymal hemorrhage. No subarachnoid hemorrhage. Cerebral ventricles: Ventricular enlargement secondary to volume loss. No intraventricular hemorrhage. Paranasal sinuses: Visualized sinuses are unremarkable. No fluid levels. Mastoid air cells: Visualized mastoid air cells are well aerated. Bones/joints: Unremarkable. No acute fracture. Soft tissues: Unremarkable. IMPRESSION: 1. Small right convexity subacute subdural hematoma with maximal thickness of 3 mm. This is markedly decreased in size and mass effect compared with prior scan. 2. There is chronic microvascular disease with multiple old lacunar infarcts. There is an old left cerebellar infarct. 3. No acute infarct or hemorrhage.
[2021-10-22 00:03] VITALS: BP 145/89; PULSE 82; RESP 16; TEMP 36.7; O2SAT 97
== END 2021-10-22 00:05 ==
PROVIDERS: Emergency Provider Student in an Organized Health Care Education/Training Program; PCP Emergency Medicine
DX: S06.5X9A Traumatic subdural hemorrhage with loss of consciousness of unspecified duration, initial encounter (principal); W06.XXXA Fall from bed, initial encounter; Y92.129 Unspecified place in nursing home as the place of occurrence of the external cause; K21.9 Gastro-esophageal reflux disease without esophagitis; E78.5 Hyperlipidemia, unspecified; I10 Essential (primary) hypertension; E03.9 Hypothyroidism, unspecified; Z87.891 Personal history of nicotine dependence; Z79.899 Other long term (current) drug therapy
CPT/HCPCS: 70450; 93005; 99283

== ENCOUNTER → 2021-10-29 00:30 | Outpatient (CLI) | payer MEDICARE, MEDICAID, SELFPAY ==
[2021-10-29 00:43] LABS: Microscopic, Urine URINE MICROSCOPIC (MICROSCOPIC)
[2021-10-29 00:58] LABS: Appearance,Urine CLOUDY (Clear); Bilirubin,Urine Negative (Negative); Blood, Urine TRACE-I (Negative); Color,Urine YELLOW (Yellow); Glucose,Urine (UA) Negative (Negative); Ketones,Urine Negative (Negative); Leukocyte Esterase,Urine 3+ (Negative); Nitrate,Urine Negative (Negative); Protein,Urine 1+ (Negative); Urobilinogen,Urine 0.2 EU/dl (0.2)
[2021-10-29 01:01] LABS: WBC,Urine TNTC #/hpf (0-3)
[2021-10-30 10:12] LABS: Creatinine,Urine Random 106 mg/dL (Not Estab.)
== END ==
PROVIDERS: Visit Provider Emergency Medicine
DX: N39.0 Urinary tract infection, site not specified (principal); B96.4 Proteus (mirabilis) (morganii) as the cause of diseases classified elsewhere
CPT/HCPCS: 81001; 82570; 84155; 87086; 87088; 87186

== ENCOUNTER → 2021-10-31 12:43 | Outpatient (POV) | payer MEDICARE, MEDICAID, SELFPAY | PROVIDERS: Visit Provider Internal Medicine Nephrology | DX: Z00.00 Encounter for general adult medical examination without abnormal findings (principal) ==

== ENCOUNTER 2021-11-03 23:55 | Emergency (ER) | payer MEDICARE, MEDICAID, SELFPAY ==
[2021-11-03 23:46] VITALS: BP 145/83; PULSE 68; RESP 18; TEMP 37.2; O2SAT 97; BMI 28.0; BMI 35.1
[2021-11-04] VITALS: BP 159/85; PULSE 88; O2SAT 97
--- NOTE | 2021-11-04 00:01 | XR_ITS ---
PROCEDURE INFORMATION: Exam: XR Chest Exam date and time: 11/04/2021 12:01 AM Age: 71 years old Clinical indication: Injury or trauma; Fall; Blunt trauma (contusions or hematomas) TECHNIQUE: Imaging protocol: XR of the chest. Views: 1 view. COMPARISON: CR XR CHEST AP 08/13/2021 10:32 AM FINDINGS: Lungs: Increased opacification at the left lung base, suggestive of lung consolidation and possible pleural effusion. Lung contusion cannot be excluded in the setting of trauma. Increased parenchymal markings and atelectatic change at the right lung base. These findings have progressed. Prominence of the pulmonary vascular markings. Pleural spaces: See Lungs finding. Heart/Mediastinum: The cardiac silhouette appears enlarged. Bones/joints: Right acromioclavicular arthropathy. Hypertrophic degenerative changes are noted involving the spine. IMPRESSION: 1. Increased opacification at the left lung base, suggestive of lung consolidation and possible pleural effusion. Lung contusion cannot be excluded in the setting of trauma. Increased parenchymal markings and atelectatic change at the right lung base. These findings have progressed. Clinical correlation and possible chest CT are recommended. 2. The cardiac silhouette appears enlarged. 3. Prominence of the pulmonary vascular markings.
--- NOTE | 2021-11-04 00:01 | CT_ITS ---
PROCEDURE INFORMATION: Exam: CT Cervical Spine Without Contrast Exam date and time: 11/04/2021 12:01 AM Age: 71 years old Clinical indication: Injury or trauma; Fall; Additional info: Fall with head injury, no loc TECHNIQUE: Imaging protocol: Computed tomography images of the cervical spine without contrast. Radiation optimization: All CT scans at this facility use at least one of these dose optimization techniques: automated exposure control; mA and/or kV adjustment per patient size (includes targeted exams where dose is matched to clinical indication); or iterative reconstruction. COMPARISON: CT CERVICAL SPINE WO CON 08/13/2021 10:03 AM FINDINGS: Bones/joints: No acute cervical spine fracture or subluxation. The facet alignment is preserved bilaterally. The occipital condyles and C1-C2 articulations appear intact. Hypertrophic degenerative changes are identified at the junction of the anterior C1 arch and dens process. An anterior bridging osteophyte is identified at C6-C7. There is a diffuse increase in density of the bone marrow of the visualized spine, stable compared to the previous exam. 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 Discs/Spinal canal/Neural foramina: Degenerative changes are visualized at multiple cervical levels. Moderate spinal canal stenosis at C6-C7, with a right-sided disc bulge/osteophyte complex. Spinal canal stenosis has mildly progressed. There is flattening of the right ventral cervical spinal cord. Mild spinal canal stenosis at C5-C6 with moderate spinal canal stenosis at C4-C5. Thyroid: Thyroid nodules are visualized. Within the right thyroid lobe, there is a 1.7 cm nodule. Lungs: No pneumothorax, as visualized. Soft tissues: No significant prevertebral soft tissue swelling. IMPRESSION: 1. No acute cervical spine fracture or subluxation. 2. Degenerative changes are visualized at multiple cervical levels. 3. Moderate spinal canal stenosis at C6-C7, which has mildly progressed. There is flattening of the right ventral cervical spinal cord. Mild spinal canal stenosis at C5-C6 with moderate spinal canal stenosis at C4-C5. This can be further evaluated with MRI. 4. There is a diffuse increase in density of the bone marrow of the visualized spine, stable compared to the previous exam. 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 5. Thyroid nodules are visualized. Within the right thyroid lobe, there is a 1.7 cm nodule. Follow-up ultrasonography recommended. COMMENTS: Consistent with the [employer]'s Incidental Findings Committee white paper (J Am Andrea Radiol 2015): In patients aged 35 years and older with an incidental thyroid nodule equal to or greater than 1.[address], MRI or extrathyroidal US, further evaluation with dedicated thyroid US is recommended for patients with normal life expectancy and without comorbidities. For smaller nodules without suspicious features, no further evaluation or follow up is recommended.
--- NOTE | 2021-11-04 00:01 | XR_ITS ---
PROCEDURE INFORMATION: Exam: XR Pelvis Exam date and time: 11/04/2021 12:01 AM Age: 71 years old Clinical indication: Screening exam; Fall, limited HX due to patient condition TECHNIQUE: Imaging protocol: XR pelvis. Views: 1 or 2 view. COMPARISON: CR XR PELVIS 1-2V 02/27/2021 4:16 AM FINDINGS: Bones/joints: No visualized acute fracture of the pelvis. No dislocation of the hips. Evaluation of the hips or fracture is limited, without visualized displacing fracture. The bilateral sacroiliac joints are intact. Degenerative changes are seen within the lower lumbar spine. Diffuse osteosclerosis of the visualized bone marrow, which has progressed. Differential considerations include renal osteodystrophy, metabolic disease, and osteoblastic metastatic disease. Soft tissues: No significant soft tissue swelling visualized. Limited evaluation. IMPRESSION: 1. No visualized acute fracture of the pelvis. 2. Diffuse osteosclerosis of the visualized bone marrow, which has progressed. Differential considerations include renal osteodystrophy, metabolic disease, and osteoblastic metastatic disease. Clinical correlation and possible follow-up bone scan recommended.
--- NOTE | 2021-11-04 00:01 | CT_ITS ---
PROCEDURE INFORMATION: Exam: CT Head Without Contrast Exam date and time: 11/04/2021 12:01 AM Age: 71 years old Clinical indication: Injury or trauma; Fall; Additional info: Fall with head injury, no loc TECHNIQUE: Imaging protocol: Computed tomography of the head without contrast. Radiation optimization: All CT scans at this facility use at least one of these dose optimization techniques: automated exposure control; mA and/or kV adjustment per patient size (includes targeted exams where dose is matched to clinical indication); or iterative reconstruction. COMPARISON: CT HEAD/BRAIN WO CON 10/21/2021 10:12 PM FINDINGS: Brain: Within the right frontal-parietal convexity, there is extra-axial isodensity consistent with dural thickening or subacute subdural hemorrhage. This measures 2-3 mm in thickness and is stable compared to the previous exam from 10/21/2021. No visualized acute intracranial hemorrhage. Encephalomalacia involving the left cerebellar lobe, consistent with an old infarct. This is stable. A small lacunar infarct is again seen within the jenaro. Stable basal ganglia/lee radiata lacunar infarcts visualized bilaterally. A small focus of encephalomalacia is seen within the right occipital lobe, as visualized on series 3, image 29 and likely representing an old infarct. The white-mark differentiation is otherwise preserved demonstrating no acute territorial type infarct. There is moderate cerebral white matter hypodensity, likely representing small vessel ischemic disease in a patient this age. The acuity of the white matter disease is indeterminate. There is no midline shift. Cerebellar atrophy visualized. Cerebral ventricles: Moderate ventriculomegaly again visualized. Moderate sulcal atrophy. Paranasal sinuses: Mucous retention cyst or polyp in the left maxillary sinus. Mild mucosal thickening the right maxillary sinus. Mucosal thickening of scattered ethmoid air cells. There is opacification of a right posterior ethmoid air cell. Mild mucosal thickening of the right frontal sinus, with minimal mucosal thickening of the left frontal sinus. Mastoid air cells: No mastoid effusion. Vasculature: Intracranial atherosclerosis visualized. Bones/joints: The calvarium demonstrates no evidence for a depressed fracture. Soft tissues: Unremarkable. IMPRESSION: 1. Within the right frontal-parietal convexity, there is mild extra-axial isodensity consistent with dural thickening or subacute subdural hemorrhage. This is stable compared to the previous exam. No visualized acute intracranial hemorrhage. 2. Encephalomalacia involving the left cerebellar lobe, consistent with an old infarct. This is stable. A small lacunar infarct is again seen within the jenaro. Stable basal ganglia/lee radiata lacunar infarcts visualized bilaterally. 3. A small focus of encephalomalacia is seen within the right occipital lobe, likely representing an old infarct. 4. There is moderate cerebral white matter hypodensity, likely representing small vessel ischemic disease in a patient this age. 5. Moderate ventriculomegaly again visualized. Moderate sulcal atrophy. 6. Paranasal sinus disease.
[2021-11-04 00:30] VITALS: BP 164/92; PULSE 87; O2SAT 97
[2021-11-04 01:00] VITALS: BP 156/83; PULSE 85; O2SAT 96
--- NOTE | 2021-11-04 01:28 | HMH.EDFALL ---
ED Disposition Clinical Impression: Concussion without loss of consciousness Qualifiers: Encounter type: initial encounter Qualified Code(s): S06.0X0A - Concussion without loss of consciousness, initial encounter Fall Qualifiers: Encounter type: initial encounter Qualified Code(s): W19.XXXA - Unspecified fall, initial encounter Disposition: Home, Self-Care Condition on Discharge: Good Additional Instructions: resume orders Referrals: Tristen Moreno MD [Primary Care Provider] - - Critical Care Critical Care Time: No Attestation: On 11/03/21, the high probability of a clinically significant, sudden or life threatening deterioration of the following system(s) required my full and direct attention, intervention and personal management. The time I documented below is in addition to time spent performing reported procedures but includes the following listed in this critical care notation. Medical Decision Making - Medical Records Medical records reviewed: Yes: I reviewed the patient's medical records. - Sharan Inquiry Pt receiving controlled substance: No Vital Signs: 11/03/21 23:46 11/04/21 00:00 11/04/21 00:30 Temperature 98.9 F Temperature Source Oral Pulse Rate 88 87 Pulse Rate [Right] 68 Respiratory Rate 18 Blood Pressure 159/85 H 164/92 H Blood Pressure [Right Arm] 145/83 H Blood Pressure Mean [Right Arm] 103 Blood Pressure Source [Right Arm] Automatic Cuff 02 Sat by Pulse Oximetry 97 97 97 Oxygen Delivery Method Room Air Room Air Room Air 11/04/21 01:00 Temperature Temperature Source Pulse Rate 85 Pulse Rate [Right] Respiratory Rate Blood Pressure 156/83 H Blood Pressure [Right Arm] Blood Pressure Mean [Right Arm] Blood Pressure Source [Right Arm] 02 Sat by Pulse Oximetry 96 Oxygen Delivery Method Room Air - Lab Data Lab results reviewed: Yes: I reviewed the patient's lab results. - Radiology Data #1 Image(s): Chest, Pelvis Image Reviewed: Yes I have reviewed radiologist's interpretation Preliminary Findings: No Fracture Seen - CT Data CT Scan: Head, C-Spine Time Received: 01:[address] Reviewed: Yes: I have viewed the radiologist's interpretation Preliminary Findings: Abnormal Medical Decision Narrative: pt with no acute fx Fall HPI - General Chief Complaint: Fall Stated Complaint: fall Time Seen by Provider: 11/04/21 00:00 Mode of Arrival: EMS Source of Information: Patient, EMS, Medical Record Limitations: Altered Mental Status Description of Symptoms (Recalled from ER Triage Doc. by RN): Pt from [place], fell getting up out of bed. Small cut to forehead with mild bleeding. No anticoag/antiplatlett medications per DEC. Pt denies any complaints or pain. No LOC. - History of Present Illness HPI Narrative: fell at [facility] with no loc MD complaint: fall Onset (ago): hour(s) Fall from: out of bed Fall witnessed: no Place fall occurred: [facility] Loss of consciousness: none Prolonged down time: no Context: tripped/slipped Location of injury: head, neck Severity: moderate Associated symptoms (after fall): denies - Related Data Home Medications Medication Instructions Recorded Confirmed Tamsulosin HCl 0.4 mg PO HS 10/10/19 06/20/21 Irbesartan [Avapro 75mg 75 mg PO DAILY 10/26/19 06/20/21 tablet] hydroCHLOROthiazide [HCTZ 12.5mg 12.5 mg PO DAILY 10/26/19 06/20/21 capsule] Loperamide HCl [Imodium 2 mg 2 mg PO Q8H PRN 11/25/19 06/20/21 capsule] Acetaminophen 500 mg PO TIDP PRN 06/07/20 06/20/21 Cholecalciferol (Vitamin D3) 50,000 unit PO WEEKLY 06/07/20 06/20/21 [Vitamin D3 50,000 unit Cap] Finasteride [Proscar 5mg Tablet] 5 mg PO HS 02/27/21 06/20/21 risperiDONE [Risperdal 0.25mg 0.5 mg PO DAILY 02/27/21 06/20/21 Tablet] Divalproex Sodium 250 mg PO HS 06/03/21 06/20/21 LORazepam [Lorazepam 0.5mg Tablet] 0.5 mg PO HS 06/03/21 06/20/21 Previous Rx's Medication Instructions Recorded [id number]
[2021-11-04 01:50] VITALS: BP 156/83; PULSE 85; RESP 18; TEMP 37.2; O2SAT 97
== END 2021-11-04 01:51 | disposition home or self-care (01) ==
PROVIDERS: Emergency Provider Emergency Medicine; PCP Emergency Medicine
DX: S06.0X0A Concussion without loss of consciousness, initial encounter (principal); W06.XXXA Fall from bed, initial encounter; Y92.129 Unspecified place in nursing home as the place of occurrence of the external cause; K21.9 Gastro-esophageal reflux disease without esophagitis; E78.5 Hyperlipidemia, unspecified; I10 Essential (primary) hypertension; Z86.73 Personal history of transient ischemic attack (TIA), and cerebral infarction without residual deficits; Z87.891 Personal history of nicotine dependence; Z79.899 Other long term (current) drug therapy
CPT/HCPCS: 70450; 71045; 72125; 72170; 99283

== ENCOUNTER 2021-11-17 19:10 | Emergency (ER) | payer MEDICARE, MEDICAID, SELFPAY ==
[2021-11-17 19:11] VITALS: BP 129/71; PULSE 93; RESP 16; TEMP 36.8; O2SAT 93; BMI 28.2
--- NOTE | 2021-11-17 19:22 | CT_ITS ---
PROCEDURE INFORMATION: Exam: CT Head Without Contrast Exam date and time: 11/17/2021 7:22 PM Age: 71 years old Clinical indication: Injury or trauma; Fall; Blunt trauma (contusions or hematomas) TECHNIQUE: Imaging protocol: Computed tomography of the head without contrast. Radiation optimization: All CT scans at this facility use at least one of these dose optimization techniques: automated exposure control; mA and/or kV adjustment per patient size (includes targeted exams where dose is matched to clinical indication); or iterative reconstruction. COMPARISON: CT HEAD/BRAIN WO CON 11/04/2021 12:16 AM FINDINGS: Brain: Chronic left cerebellar infarction with encephalomalacia. There is advanced cerebral atrophy. Changes of chronic white matter microvascular disease are present. No signs of a recent infarction or hemorrhage. No midline shift or mass effect. Cerebral ventricles: No ventriculomegaly. Paranasal sinuses: Visualized sinuses are clear. Mastoid air cells: Mastoid air cells are clear. Bones/joints: Unremarkable. No acute fracture. Soft tissues: Unremarkable. IMPRESSION: Atrophy and chronic white matter changes. No acute intracranial abnormality.
--- NOTE | 2021-11-17 19:22 | CT_ITS ---
PROCEDURE INFORMATION: Exam: CT Cervical Spine Without Contrast Exam date and time: 11/17/2021 7:22 PM Age: 71 years old Clinical indication: Injury or trauma; Fall TECHNIQUE: Imaging protocol: Computed tomography images of the cervical spine without contrast. Radiation optimization: All CT scans at this facility use at least one of these dose optimization techniques: automated exposure control; mA and/or kV adjustment per patient size (includes targeted exams where dose is matched to clinical indication); or iterative reconstruction. COMPARISON: CT CERVICAL SPINE WO CON 11/04/2021 12:16 AM FINDINGS: Bones/joints: No acute fracture. Normal alignment. Generalized skeletal sclerosis suggesting renal osteodystrophy. Discs/Spinal canal/Neural foramina: Advanced discogenic degenerative changes. Multilevel facet DJD. Large right paracentral disc osteophyte complex causing mild spinal stenosis. Bridging bulky anterior osteophyte formation, most prominent at C6-C7. Thyroid: Small thyroid nodules are unchanged. Lungs: Lung apices are normal. Soft tissues: Unremarkable. IMPRESSION: 1. No acute fracture. Normal alignment. 2. Advanced degenerative spondylosis. 3. Stable thyroid nodules.
--- NOTE | 2021-11-17 19:43 | HMH.EDGENADL ---
ED Disposition Clinical Impression: Fall Qualifiers: Encounter type: initial encounter Qualified Code(s): W19.XXXA - Unspecified fall, initial encounter Closed head injury Qualifiers: Encounter type: initial encounter Qualified Code(s): S09.90XA - Unspecified injury of head, initial encounter Disposition: Home, Self-Care Condition on Discharge: Fair Instructions: How to Prevent Falls Referrals: Tristen Moreno MD [Primary Care Provider] - Time of Disposition: 20:45 - Critical Care Critical Care Time: No Attestation: On 11/17/21, the high probability of a clinically significant, sudden or life threatening deterioration of the following system(s) required my full and direct attention, intervention and personal management. The time I documented below is in addition to time spent performing reported procedures but includes the following listed in this critical care notation. Medical Decision Making - Medical Records Medical records reviewed: Yes: I reviewed the patient's medical records. - Sharan Inquiry Pt receiving controlled substance: No Vital Signs: 11/17/21 19:11 Temperature 98.3 F Temperature Source Oral Pulse Rate [Right] 93 H Respiratory Rate 16 Blood Pressure [Right Arm] 129/71 Blood Pressure Mean [Right Arm] 90 02 Sat by Pulse Oximetry 93 L - CT Data CT Scan: Head, C-Spine Time Received: 20:[address] Reviewed: Yes: I have reviewed the patient's CT results, I have viewed the radiologist's interpretation Preliminary Findings: Normal/NAD Findings Narrative: Noncontrast head CT Chronic white vessel changes. No fracture, intracranial bleed, acute finding CT cervical spine IMPRESSION: 1. No acute fracture. Normal alignment. 2. Advanced degenerative spondylosis. 3. Stable thyroid nodules. Medical Decision Narrative: In summary this is a 71-year-old male presenting to the emergency department with head injury after a fall. Patient clinically stable on arrival. Vital signs within normal limits. He is in no acute distress. Concern for closed head injury, intracranial bleed. Will obtain noncontrast head CT and CT cervical spine. Noncontrast head CT shows no skull fracture, no intracranial bleed or other acute finding. CT cervical spine shows DJD but no fracture or other acute finding. Patient has ambulated well in the emergency department. Tolerating oral intake. Fall prevention. Stable for discharge General Adult HPI - General Chief complaint: Fall Stated complaint: fall Time Seen by Provider: 11/17/21 19:23 Mode of Arrival: EMS Limitations: No Limitations Description of Symptoms (Recalled from ER Triage Doc. by RN): prison reports pt has witnessed fall and struck rt side of head. pt has no c/o - History of Present Illness HPI narrative: 71-year-old male presenting to the emergency department with head injury after a fall. [facility] prison just prior to arrival. Had a witnessed fall. Staff says that they think he struck the right side of his head on a piece of furniture. He was able to get up with help. No loss of consciousness. Does not take blood thinners. He has a history of subdural hematoma. They called 911 to get him checked out. Patient will shake his head yes and no to questions. Does not speak in short sentences are full sentences. Denies headache. Denies neck pain. Denies confusion. - Related Data Home Medications Medication Instructions Recorded Confirmed Tamsulosin HCl 0.4 mg PO HS 10/10/19 06/20/21 Irbesartan [Avapro 75mg 75 mg PO DAILY 10/26/19 06/20/21 tablet] hydroCHLOROthiazide [HCTZ 12.5mg 12.5 mg PO DAILY 10/26/19 06/20/21 capsule] Loperamide HCl [Imodium 2 mg 2 mg PO Q8H PRN 11/25/19 06/20/21 capsule] Acetaminophen 500 mg PO TIDP PRN 06/07/20 06/20/21 Cholecalciferol (Vitamin D3) 50,000 unit PO WEEKLY 06/07/20 06/20/21 [Vitamin D3 50,000 unit Cap] Finasteride [Proscar 5mg Tablet] 5 mg PO HS 02/27/21
[2021-11-17 21:29] VITALS: BP 121/75; PULSE 63; RESP 19; TEMP 36.8; O2SAT 98
== END 2021-11-17 21:30 | disposition home or self-care (01) ==
PROVIDERS: Emergency Provider Emergency Medicine; PCP Emergency Medicine
DX: S09.90XA Unspecified injury of head, initial encounter (principal); W18.00XA Striking against unspecified object with subsequent fall, initial encounter; Y92.129 Unspecified place in nursing home as the place of occurrence of the external cause; K21.9 Gastro-esophageal reflux disease without esophagitis; E78.5 Hyperlipidemia, unspecified; I10 Essential (primary) hypertension; Z86.73 Personal history of transient ischemic attack (TIA), and cerebral infarction without residual deficits; E03.9 Hypothyroidism, unspecified
CPT/HCPCS: 70450; 72125; 99283

== ENCOUNTER 2021-11-20 16:21 | Emergency (ER) | payer MEDICARE, MEDICAID, SELFPAY ==
[2021-11-20] VITALS (7 sets, daily range): BP systolic 123–160; BP diastolic 67–91; PULSE 94–101; RESP 13–22; TEMP 37.1–37.2; O2SAT 94–98; BMI 31.5
--- NOTE | 2021-11-20 16:43 | PC.NURSE ---
Dr. Rivas wanted to speak with [facility], they were called at this time. Dr. Rivas speaking with them now.
--- NOTE | 2021-11-20 16:49 | XR_ITS ---
PROCEDURE INFORMATION: Exam: XR Chest Exam date and time: 11/20/2021 4:49 PM Age: 71 years old Clinical indication: Injury or trauma; Fall; Blunt trauma (contusions or hematomas); Additional info: Multiple falls TECHNIQUE: Imaging protocol: XR of the chest. Views: 1 view. Total images: 1 COMPARISON: CR XR CHEST PORTABLE 11/04/2021 12:04 AM FINDINGS: Lungs: Asymmetric lung volumes, decreased on the left. This might be due to pain/splinting. Pulmonary vasculature grossly normal. Approximately 2 cm zone of alveolar density in the peripheral left base which could represent atelectasis, pneumonia, or residual contusion, not significantly changed in appearance from 11/04/2021. Pleural spaces: No pneumothorax. Heart/Mediastinum: Heart size within normal limits for portable AP technique. No tracheal/mediastinal shift. Bones/joints: No acute osseous abnormalities are identified. Mild-moderate thoracic spondylosis. Other findings: No gross right-sided effusion. IMPRESSION: 1. Continued peripheral left basilar density at the lateral costophrenic angle measuring about 2 cm is not substantially changed. This could represent atelectasis, pneumonia, or contusion. It is somewhat rounded in configuration, and further imaging follow-up is recommended to document clearance to exclude a nodule. 2. No gross rib fractures are identified within the field of view. No pneumothorax.
--- NOTE | 2021-11-20 16:50 | PC.NURSE ---
stroke alert called
--- NOTE | 2021-11-20 16:51 | CT_ITS ---
PROCEDURE INFORMATION: Exam: CT Head Without Contrast Exam date and time: 11/20/2021 4:51 PM Age: 71 years old Clinical indication: Altered mental status/memory loss; Additional info: AMS, falls TECHNIQUE: Imaging protocol: Computed tomography of the head without contrast. Radiation optimization: All CT scans at this facility use at least one of these dose optimization techniques: automated exposure control; mA and/or kV adjustment per patient size (includes targeted exams where dose is matched to clinical indication); or iterative reconstruction. Other technique: STROKE PROTOCOL was implemented. COMPARISON: CT HEAD/BRAIN WO CON 11/17/2021 8:04 PM FINDINGS: Brain: No intracranial hemorrhage. There is low attenuation change in the white matter most consistent with chronic age related small vessel ischemic change. No acute territorial infarction is seen. These can be initially occult on head CT. ASPECTS score 10. Cerebral ventricles: Ventricles are somewhat dilated out of proportion to the sulci raising the possibility of but not definite for normal pressure hydrocephalus. This may all be atrophy and is similar to previous study. Paranasal sinuses: Visualized sinuses are unremarkable. No fluid levels. Mastoid air cells: Visualized mastoid air cells are well aerated. Bones/joints: Unremarkable. No acute fracture. Soft tissues: Unremarkable. IMPRESSION: 1. No intracranial hemorrhage. 2. Ventricles are somewhat dilated out of proportion to the sulci raising the possibility of but not definite for normal pressure hydrocephalus. This may all be atrophy and is similar to previous study. 3. There is low attenuation change in the white matter most consistent with chronic age related small vessel ischemic change. No acute territorial infarction is seen. These can be initially occult on head CT. Old bilateral cerebellar infarctions. Moderate generalized substance loss. 4. ASPECTS score 10.
--- NOTE | 2021-11-20 16:52 | CT_ITS ---
PROCEDURE INFORMATION: Exam: CT Cervical Spine Without Contrast Exam date and time: 11/20/2021 4:52 PM Age: 71 years old Clinical indication: Injury or trauma; Fall; Blunt trauma; Additional info: AMS, multiple falls. TECHNIQUE: Imaging protocol: Computed tomography images of the cervical spine without contrast. Radiation optimization: All CT scans at this facility use at least one of these dose optimization techniques: automated exposure control; mA and/or kV adjustment per patient size (includes targeted exams where dose is matched to clinical indication); or iterative reconstruction. COMPARISON: CT CERVICAL SPINE WO CON 11/17/2021 8:04 PM FINDINGS: Bones/joints: No cervical fracture or subluxation. Diffuse osteosclerosis again evident suggesting renal osteodystrophy or other metabolic abnormality versus diffuse metastatic disease. Discs/Spinal canal/Neural foramina: Moderate degenerative change without CT evidence of critical stenosis. Lungs: Lung apices are normal. Soft tissues: Unremarkable. IMPRESSION: 1. No cervical fracture or subluxation. 2. Diffuse osteosclerosis again evident suggesting renal osteodystrophy or other metabolic abnormality versus diffuse metastatic disease.
--- NOTE | 2021-11-20 16:53 | CT_ITS ---
PROCEDURE INFORMATION: Exam: CT Abdomen And Pelvis Without Contrast Exam date and time: 11/20/2021 4:53 PM Age: 71 years old Clinical indication: Abdominal pain; Additional info: Indicates abdominal pian/ aphasic TECHNIQUE: Imaging protocol: Computed tomography of the abdomen and pelvis without contrast. Total images: 367 Radiation optimization: All CT scans at this facility use at least one of these dose optimization techniques: automated exposure control; mA and/or kV adjustment per patient size (includes targeted exams where dose is matched to clinical indication); or iterative reconstruction. COMPARISON: CT ABDOMEN PELVIS WO CON 06/07/2020 2:11 AM FINDINGS: Lungs: Mild atelectasis in the lung bases with no suspected infiltrates or pulmonary contusion. The previously questioned rounded density in the lateral left basilar distribution actually represents some rounded subpleural fat. Heart: Heart size normal. Mild coronary artery calcification. Minimal pericardial fluid without marni pericardial effusion. Mild aortic ectasia/tortuosity. Mediastinal space: The visualized distal esophagus is largely contracted without gross abnormality. Liver: Arms down positioning with streak artifacts mildly limits assessment. Normal contour. No gross mass lesions. No intrahepatic biliary ductal dilatation. Gallbladder and bile ducts: Normal. No calcified stones. No ductal dilation. Pancreas: Mild pancreatic atrophy without acute abnormality. No pancreatic ductal dilatation. Spleen: Arms down positioning with streak artifacts mildly limits assessment. . Splenomegaly measuring 17.1 cm craniocaudal. Adrenal glands: Normal. No adrenal mass. Kidneys and ureters: Right nephrectomy. Chronic left renal cortical thinning suggesting chronic renal disease. Mild left perinephric stranding is unchanged, probably chronic perirenal scarring or edema. No hydronephrosis or hydroureter. No urinary tract stones are identified. 3 cm low-density well-circumscribed cortical cyst along the posterior left kidney is slightly increased in size from 2020 but does not require further evaluation. Stomach and bowel: The stomach is largely contracted without gross abnormality. The small bowel is nondilated with no gross abnormality. There is a moderate amount of stool distributed throughout the colon suggesting constipation. Appendix: The appendix is normal in caliber and demonstrates no evidence of appendicitis. Intraperitoneal space: No free fluid or air. Vasculature: No acute process. No abdominal aortic aneurysm. Lymph nodes: No adenopathy. Urinary bladder: Unremarkable as visualized. Reproductive: Mild prostate enlargement with a central low-density tract suggesting possible prior TURP. Bones/joints: No acute fractures. Chronic lower right lateral rib fractures again noted. Chronic diffuse osteosclerosis is unchanged back to 11/20/2019. This is nonspecific, possibly secondary to renal osteodystrophy. Diffuse osteoblastic metastasis considered less likely given the long-term stability of the appearance although not excluded. Other etiologies such as myelofibrosis, mastocytosis, hyperthyroidism, or hypoparathyroidism could produce this appearance, correlate clinically. Soft tissues: No acute soft tissue abnormalities.Very small fatty left inguinal hernia with no associated bowel herniation or evidence of strangulation.. IMPRESSION: 1. Moderate stool throughout the colon suggesting constipation. 2. Chronic moderate splenomegaly unchanged. No gross evidence of splenic laceration. 3. Prior right nephrectomy with chronic left perinephric stranding and cortical thinn
--- NOTE | 2021-11-20 17:00 | PC.NURSE ---
patient to CT scan
--- NOTE | 2021-11-20 17:11 | PC.NURSE ---
pt returned from CT at this time. Hooked back up to cardiac monitoring and vital signs. Nurse at bedside.
[2021-11-20 17:20] LABS: Basophils % 0.4 % (0.1-2.0); Eosinophils # 0.1 K/mm3 (0.0-0.4); Eosinophils % 0.8 % (0.1-12.0); Hematocrit 35.9 % (42.0-52.0); Hemoglobin 11.5 g/dL (14.1-18.0); Lymphocytes # 0.7 K/mm3 (0.7-4.5); Lymphocytes % 9.1 % (10-50); Mean Corpuscular Hemoglobin 26.6 pg (27.0-31.2); Mean Platelet Volume 9.3 fl (7.4-10.4); Monocytes # 0.5 K/mm3 (0.1-1.0); Monocytes % 7.2 % (1.7-9.3); Neutrophils # 6.2 K/mm3 (1.8-7.8); Neutrophils % 82.6 % (37.0-80.0); Platelet Count 179 K/mm3 (142-424); Red Blood Count 4.33 M/mm3 (4.60-6.20); Red Cell Distribution Width 14.9 % (11.5-17.5); White Blood Count 7.5 K/mm3 (4.8-10.8)
[2021-11-20 17:24] LABS: Alanine Aminotransferase 24 U/L (12-78); Albumin Level 3.6 g/dl (3.5-5.0); Albumin/Globulin Ratio 1.3 (1.1-1.8); Alkaline Phosphatase 81 U/L (38-126); Anion Gap 8.9 mEq/L (5-15); Aspartate Amino Transferase 50 U/L (17-59); Bilirubin,Total 0.5 mg/dl (0.2-1.3); Blood Urea Nitrogen 38 mg/dl (9-20); Calcium 8.9 mg/dl (8.4-10.2); Carbon Dioxide 33 mmol/L (22.0-30.0); Chloride 102 mmol/L (98-107); Estimated Glomerular Filt Rate 28 ml/min (>60); GFR (African American) 34 ML/MIN (>60); Globulin 2.7 g/dL (1.3-3.2); Glucose 117 mg/dl (74-100); Potassium 3.9 mmoL/L (3.5-5.1); Sodium 140 mmol/L (136-145); Total Protein,Serum 6.3 g/dl (6.3-8.2)
--- NOTE | 2021-11-20 17:25 | PC.NURSE ---
VRAD on the phone with er doctor.
[2021-11-20 17:26] LABS: Activated Partial Thrombo Time 23.7 seconds (22.8-30.6); INR 0.99 (0.9-1.1); Prothrombin Time 11.2 seconds (10.1-12.5)
[2021-11-20 17:28] LABS: Creatinine Clearance Estimated 43 mL/min (50-200); Ethyl Alcohol < 10 mg/dl (0-10)
--- NOTE | 2021-11-20 17:28 | PC.NURSE ---
MD speaking with radiology at this time, reporting a negative CT reading. MD cancelled stroke alert at this time.
[2021-11-20 17:36] LABS: Troponin I 0.02 ng/ml (0.00-0.034)
--- NOTE | 2021-11-20 18:03 | PC.NURSE ---
pt to radiology.
--- NOTE | 2021-11-20 19:06 | HMH.EDGENADL ---
ED Disposition Clinical Impression: Multiple falls Constipation Qualifiers: Constipation type: unspecified constipation type Qualified Code(s): K59.00 - Constipation, unspecified Disposition: Home, Self-Care Condition on Discharge: Fair Instructions: How to Prevent Falls Additional Instructions: Please increase patient's bowel regiment to prevent constipation. Please monitor closely and enforce fall precautions. If patient's condition worsens or other concerns arise, please have patient evaluated in the emergency department. Referrals: Tristen Moreno MD [Primary Care Provider] - - Critical Care Critical Care Time: No Attestation: On 11/20/21, the high probability of a clinically significant, sudden or life threatening deterioration of the following system(s) required my full and direct attention, intervention and personal management. The time I documented below is in addition to time spent performing reported procedures but includes the following listed in this critical care notation. Medical Decision Making - Medical Records Medical records reviewed: Yes: I reviewed the patient's medical records. - Sharan Inquiry Pt receiving controlled substance: No Vital Signs: 11/20/21 16:21 11/20/21 16:30 11/20/21 17:14 Temperature 99 F Temperature Source Oral Pulse Rate 96 H 95 H Pulse Rate [Radial] 101 H Respiratory Rate 18 21 13 Blood Pressure 123/67 156/89 H Blood Pressure [Right Arm] 123/73 Blood Pressure Mean 85 111 Blood Pressure Mean [Right Arm] 89 Blood Pressure Position [Right Arm] Sitting 02 Sat by Pulse Oximetry 98 96 96 Oxygen Delivery Method Room Air 11/20/21 17:29 11/20/21 17:59 11/20/21 18:30 Temperature Temperature Source Pulse Rate 100 H 95 H 94 H Pulse Rate [Radial] Respiratory Rate 20 Blood Pressure 160/82 H 155/88 H 159/91 H Blood Pressure [Right Arm] Blood Pressure Mean Blood Pressure Mean [Right Arm] Blood Pressure Position [Right Arm] 02 Sat by Pulse Oximetry 94 L 94 L 96 Oxygen Delivery Method 11/20/21 19:32 Temperature 98.7 F Temperature Source Pulse Rate 95 H Pulse Rate [Radial] Respiratory Rate 22 Blood Pressure 155/82 H Blood Pressure [Right Arm] Blood Pressure Mean Blood Pressure Mean [Right Arm] Blood Pressure Position [Right Arm] 02 Sat by Pulse Oximetry Oxygen Delivery Method Room Air - Lab Data Lab Results 11/20/21 16:45: WBC 7.5, RBC 4.33 L, Hgb 11.5 L, Hct 35.9 L, MCV 83.0, MCH 26.6 L, MCHC 32.0, RDW 14.9, Plt Count 179, MPV 9.3, Neut % (Auto) 82.6 H, Lymph % (Auto) 9.1 L, Smyth % (Auto) 7.2, Eos % (Auto) 0.8, Baso % (Auto) 0.4, Neut # (Auto) 6.2, Lymph # (Auto) 0.7, Smyth # (Auto) 0.5, Eos # (Auto) 0.1, Baso # (Auto) 0.0 11/20/21 16:45: PT 11.2, INR 0.99, APTT 23.7 11/20/21 16:45: Sodium 140, Potassium 3.9, Chloride 102, Carbon Dioxide 33 H, Anion Gap 8.9, BUN 38 H, Creatinine 2.30 H, Estimated Creat Clear 43, Estimated GFR 28 L, Est GFR ( Amer) 34 L, Glucose 117 H, Calcium 8.9, Total Bilirubin 0.5, AST 50, ALT 24, Alkaline Phosphatase 81, Troponin I 0.02, Total Protein 6.3, Albumin 3.6, Globulin 2.7, Albumin/Globulin Ratio 1.3 11/20/21 16:45: Plasma/Serum Alcohol < 10 Result diagrams: 11/20/21 16:45 11/20/21 16:45 Orders (Tests/Meds): ED MEDICATIONS Discontinued Medications Generic Name Dose Route Start Last Admin Trade Name Freq PRN Reason Stop Dose Admin Miscellaneous 1 each 11/20/21 16:49 Consider Pt For Statin At Discharge-Stroke NOTAPPLIC 12/20/21 16:48 NEEDED PRN Reminder for med @discharge - CT Data Findings Narrative: CT Head: IMPRESSION: 1. No intracranial hemorrhage. 2. Ventricles are somewhat dilated out of proportion to the sulci raising the possibility of but not definite for normal pressure hydrocephalus. This may all be atrophy and is similar to previous study. 3. There is low attenuation change in the white matter most cons
[2021-11-20 20:20] LABS: POC Glucose,Bedside 125 (70-110)
--- NOTE | 2021-11-21 | ECG_ITS ---
APPROVED REPORT Exam: Resting ECG HR:96 bpm ECG Measurements Heart Rate 96 AXES MT 149 P 37 QRSd 99 QRS -25 QT 358 T 29 QTc 411 Conclusion SINUS RHYTHM BORDERLINE LEFT AXIS DEVIATION [QRS AXIS < -20] LOW QRS VOLTAGE IN PRECORDIAL LEADS [QRS DEFLECTION < 1.0 mV IN CHEST LEADS] BORDERLINE ECG INTERPRETATION BASED ON A DEFAULT AGE OF 40 YEARS UNCONFIRMED REPORT Electronically signed by : Pradip Baird MD 11/21/2021 17:26:57
== END 2021-11-20 19:53 | disposition home or self-care (01) ==
PROVIDERS: Emergency Provider Emergency Medicine; PCP Emergency Medicine
DX: K59.00 Constipation, unspecified (principal); R29.6 Repeated falls; W18.39XA Other fall on same level, initial encounter; Y92.129 Unspecified place in nursing home as the place of occurrence of the external cause; E03.9 Hypothyroidism, unspecified; E10.9 Type 1 diabetes mellitus without complications; K21.9 Gastro-esophageal reflux disease without esophagitis; I10 Essential (primary) hypertension; E78.5 Hyperlipidemia, unspecified
CPT/HCPCS: 70450; 71045; 72125; 74176; 80053; 82962; 84484; 85025; 85610; 85730; 93005; 99283

== ENCOUNTER 2022-01-10 16:31 | Inpatient (IN) | payer MEDICARE, MEDICAID, SELFPAY ==
[2022-01-10] VITALS (8 sets, daily range): BP systolic 130–165; BP diastolic 74–96; PULSE 124–134; RESP 16–25; TEMP 38.2–39.2; O2SAT 88–99; BMI 31.1; BMI 34.0
--- NOTE | 2022-01-10 17:05 | CT_ITS ---
PROCEDURE INFORMATION: Exam: CT Abdomen And Pelvis With Contrast Exam date and time: 01/10/2022 7:04 PM Age: 71 years old Clinical indication: Fever; Prior surgery; Additional info: Fever, lethargy, necrotic penis, swollen RT abd TECHNIQUE: Imaging protocol: Computed tomography of the abdomen and pelvis with contrast. Radiation optimization: All CT scans at this facility use at least one of these dose optimization techniques: automated exposure control; mA and/or kV adjustment per patient size (includes targeted exams where dose is matched to clinical indication); or iterative reconstruction. Contrast material: ISOVUE; Contrast volume: 75 ml; Contrast route: IV; COMPARISON: CT ABDOMEN PELVIS WO CON 11/20/2021 6:03 PM FINDINGS: Lungs: Regions of parenchymal scarring with minimal pleural reactive change are demonstrated the left lung base. These findings have progressed slightly compared with the previous study. Liver: Normal. No mass. Gallbladder and bile ducts: Normal. No calcified stones. No ductal dilation. Pancreas: Normal. No ductal dilation. Spleen: Persistent splenomegaly spanning 17 cm in length. Findings stable. Adrenal glands: Normal. No mass. Kidneys and ureters: Right nephrectomy unchanged. There is a persistent septated multiloculated low-density mass arising from the posterior aspect of the left kidney. The findings are stable compared with the previous study . There is persistent cortical thinning and minimal perinephric stranding which is unchanged compared with the previous study. Additional smaller cysts again identified in the upper pole of the left kidney. Stomach and bowel: Unremarkable. No obstruction. No mucosal thickening. Appendix: No evidence of appendicitis. Intraperitoneal space: Unremarkable. No free air. No significant fluid collection. Vasculature: Unremarkable. No abdominal aortic aneurysm. Lymph nodes: Unremarkable. No enlarged lymph nodes. Urinary bladder: Unremarkable as visualized. Reproductive: Unremarkable as visualized. Bones/joints: Persistent diffuse osteosclerosis of the visualized bony structures. Findings have been present dating back to 06/07/2020. Soft tissues: Limited visualization of the external genitalia demonstrate no findings to suggest the presence of abscess or necrotizing fasciitis. Irregularity of the skin surface suggestive of ulceration versus laceration injury is partially visualized. Clinically correlate. IMPRESSION: 1. Splenomegaly. Findings stable and unchanged. 2. Evidence of previous right nephrectomy. Findings stable. 3. Stable appearance of the left kidney with multiloculated cysts arising from the posterior aspect. Superimposed findings compatible with chronic renal disease. Findings stable. 4. Chronic diffuse osteosclerosis. Findings stable. 5. Possible ulceration versus laceration injury of the penis. Findings not adequately visualized. Clinically correlate. No findings to suggest necrotizing fasciitis. COMMENTS: Consistent with the [employer]'s Incidental Findings Committee white paper (J Am Andrea Radiol 2018): Any incidental renal lesion less than 1 cm or classified as too small to characterize, or any incidental cystic renal lesion characterized as simple-appearing, is likely benign. No follow-up imaging is recommended for these lesions per consensus recommendations based on imaging criteria.
--- NOTE | 2022-01-10 17:05 | XR_ITS ---
PROCEDURE INFORMATION: Exam: XR Chest Exam date and time: 01/10/2022 6:49 PM Age: 71 years old Clinical indication: Fever; Additional info: Fever, lethargy TECHNIQUE: Imaging protocol: XR of the chest. Views: 1 view. COMPARISON: CR XR CHEST AP 11/20/2021 5:08 PM FINDINGS: Lungs: See Pleural spaces finding. Pleural spaces: Blunting of the left costophrenic angle consistent with a pleural effusion. Underlying regions of sub segmental atelectasis could not be excluded. Findings similar to the 11/20/2021 examination. Lung parenchyma otherwise unchanged. Heart/Mediastinum: Unremarkable. No cardiomegaly. Diaphragm: Elevation of both hemidiaphragms. Bones/joints: Unremarkable. No evidence of acute osseous abnormality. IMPRESSION: Persistent left pleural effusion. Could not exclude underlying region of atelectasis as well as pneumonia. Findings essentially stable compared with the previous study.
[2022-01-10 17:12] LABS: Microscopic, Urine URINE MICROSCOPIC (MICROSCOPIC)
[2022-01-10 17:14] LABS: Coronavirus 19, PCR Not Detected (NotDetected); Influenza A, PCR Not Detected (NotDetected); Influenza B, PCR Not Detected (NotDetected)
[2022-01-10 17:17] LABS: Basophils % 0.3 % (0.1-2.0); Eosinophils % 0.3 % (0.1-12.0); Hemoglobin 11.5 g/dL (14.1-18.0); Lymphocytes # 0.2 K/mm3 (0.7-4.5); Mean Corpuscular HGB Conc 32.8 g/dL (31.8-35.4); Mean Corpuscular Hemoglobin 26.8 pg (27.0-31.2); Mean Corpuscular Volume 81.8 fl (80-94); Mean Platelet Volume 8.9 fl (7.4-10.4); Monocytes # 0.5 K/mm3 (0.1-1.0); Monocytes % 5.6 % (1.7-9.3); Neutrophils # 7.4 K/mm3 (1.8-7.8); Neutrophils % 91.8 % (37.0-80.0); Platelet Count 188 K/mm3 (142-424); Red Blood Count 4.28 M/mm3 (4.60-6.20); Red Cell Distribution Width 15.1 % (11.5-17.5); White Blood Count 8.1 K/mm3 (4.8-10.8)
[2022-01-10 17:26] LABS: MANUAL DIFFERENTIAL MANUAL DIFFERENTIAL (MANUAL DIFF)
[2022-01-10 17:31] LABS: Chloride 104 mmol/L (98-107)
[2022-01-10 17:32] LABS: Potassium 4.2 mmoL/L (3.5-5.1); Sodium 138 mmol/L (136-145)
[2022-01-10 17:34] LABS: Alanine Aminotransferase 34 U/L (12-78); Aspartate Amino Transferase 38 U/L (17-59); Blood Urea Nitrogen 25 mg/dl (9-20); Creatinine Clearance Estimated 51 mL/min (50-200); Estimated Glomerular Filt Rate 33 ml/min (>60); GFR (African American) 40 ML/MIN (>60)
[2022-01-10 17:35] LABS: Albumin Level 3.3 g/dl (3.5-5.0); Albumin/Globulin Ratio 1.1 (1.1-1.8); Alkaline Phosphatase 125 U/L (38-126); Anion Gap 9.2 mEq/L (5-15); Bilirubin,Total 1.1 mg/dl (0.2-1.3); Carbon Dioxide 29 mmol/L (22.0-30.0); Globulin 2.9 g/dL (1.3-3.2); Glucose 121 mg/dl (74-100); Lactic Acid 0.8 mmol/L (0.7-2.1); Total Protein,Serum 6.2 g/dl (6.3-8.2)
--- NOTE | 2022-01-10 17:37 | CT_ITS ---
PROCEDURE INFORMATION: Exam: CT Head Without Contrast Exam date and time: 01/10/2022 6:54 PM Age: 71 years old Clinical indication: Altered mental status/memory loss; Additional info: AMS, prior TIA TECHNIQUE: Imaging protocol: Computed tomography of the head without contrast. Total images: 282 Radiation optimization: All CT scans at this facility use at least one of these dose optimization techniques: automated exposure control; mA and/or kV adjustment per patient size (includes targeted exams where dose is matched to clinical indication); or iterative reconstruction. COMPARISON: CT HEAD/BRAIN WO CON 11/20/2021 5:02 PM FINDINGS: Brain: Moderate generalized atrophy. Moderate-severe bilateral white matter hypodensities which are nonspecific but most commonly associated with chronic microvascular ischemia in this age group. No extra-axial fluid collections. No evidence of acute intracranial hemorrhage. No CT evidence of large territory acute or subacute intracranial ischemia/infarct. Chronic encephalomalacia consistent with chronic infarct in the left cerebellar hemisphere unchanged. Small chronic lacunar infarcts in the right basal ganglia and central jenaro. MRI would be more sensitive for acute/subacute ischemia if clinically indicated. No intracranial mass lesions. No midline shift or herniation. Cerebral ventricles: Moderate compensatory ventriculomegaly secondary to central atrophy. Paranasal sinuses: Mucosal thickening in the maxillary sinuses suggesting mild chronic sinus inflammatory disease. No fluid levels. The other paranasal sinuses are clear. Mastoid air cells: Visualized mastoid air cells are clear. Orbital cavities: Visualized orbital contents demonstrate no acute abnormality. Vasculature: Mild calcific atherosclerosis. No asymmetric vascular hyperdensities suggestive of thrombosis are identified. Bones/joints: The calvarium and visualized facial bones are intact. Soft tissues: The scalp and visualized soft tissues demonstrate no acute abnormality. 6 mm metallic BB foreign body in the left occipital subcutaneous fat again noted. Other findings: The IACs are grossly normal. The sella is grossly normal. IMPRESSION: 1. No acute intracranial process. No intracranial hemorrhage or mass effect. No significant change from 11/20/2021. 2. Atrophy and chronic microvascular changes consistent with age. Chronic infarct in the left cerebellar hemisphere and small chronic lacunar infarcts in the right basal ganglia and central jenaro. 3. Mild calcific atherosclerosis.
[2022-01-10 18:23] LABS: Appearance,Urine CLEAR (Clear); Bilirubin,Urine Negative (Negative); Blood, Urine 2+ (Negative); Color,Urine YELLOW (Yellow); Glucose,Urine (UA) Negative (Negative); Ketones,Urine TRACE (Negative); Leukocyte Esterase,Urine 3+ (Negative); Nitrate,Urine Negative (Negative); PH,Urine 7.5 (5.0-8.5); Protein,Urine 1+ (Negative); Specific Gravity, Urine 1.015 (1.005-1.030)
[2022-01-10 18:27] LABS: Hypochromasia 1+; Lymphocytes % 5 % (10-50); Monocytes % 3 % (2-9); Neutrophils % 91 % (42-76); Platelet Estimate Normal; Total Cells Counted 100
--- NOTE | 2022-01-10 18:29 | HMH.EDGENADL ---
ED Disposition Clinical Impression: Cystitis, SIRS (systemic inflammatory response syndrome) Disposition: Admitted As Inpatient Condition on Discharge: Fair Referrals: Tristen Moreno MD [Primary Care Provider] - - Critical Care Critical Care Time: No Attestation: On 01/10/22, the high probability of a clinically significant, sudden or life threatening deterioration of the following system(s) required my full and direct attention, intervention and personal management. The time I documented below is in addition to time spent performing reported procedures but includes the following listed in this critical care notation. Medical Decision Making - Medical Records Medical records reviewed: Yes: I reviewed the patient's medical records. - Sharan Inquiry Pt receiving controlled substance: No Vital Signs: 01/10/22 16:32 01/10/22 17:01 01/10/22 17:31 Temperature 102.5 F H Temperature Source Rectal Pulse Rate 131 H 131 H Pulse Rate [Right Radial] 134 H Respiratory Rate 25 H 22 24 Blood Pressure 149/88 H 165/85 H Blood Pressure [Right Arm] 159/96 H Blood Pressure Mean 99 111 Blood Pressure Mean [Right Arm] 117 Blood Pressure Source [Right Arm] Automatic Cuff Blood Pressure Position [Right Arm] Sitting 02 Sat by Pulse Oximetry 88 L 93 L 93 L Oxygen Delivery Method Room Air BiPAP 01/10/22 19:29 Temperature Temperature Source Pulse Rate 130 H Pulse Rate [Right Radial] Respiratory Rate 20 Blood Pressure 160/84 H Blood Pressure [Right Arm] Blood Pressure Mean Blood Pressure Mean [Right Arm] Blood Pressure Source [Right Arm] Blood Pressure Position [Right Arm] 02 Sat by Pulse Oximetry 97 Oxygen Delivery Method - Lab Data Lab results reviewed: Yes: I reviewed the patient's lab results. Lab Results 01/10/22 16:40: Urine Color Yellow, Urine Appearance Clear, Urine pH 7.5, Ur Specific Brewster 1.015, Urine Protein 1+, Urine Glucose (UA) Negative, Urine Ketones Trace, Urine Blood 2+, Urine Nitrate Negative, Urine Bilirubin Negative, Urine Urobilinogen 1.0, Ur Leukocyte Esterase 3+ A, Urine RBC 5-10, Urine WBC 10-20, Ur Squamous Epith Cells None, Urine Bacteria Trace 01/10/22 16:40: WBC 8.1, RBC 4.28 L, Hgb 11.5 L, Hct 35.0 L, MCV 81.8, MCH 26.8 L, MCHC 32.8, RDW 15.1, Plt Count 188, MPV 8.9, Neut % (Auto) 91.8 H, Lymph % (Auto) 2.0 L, Burke % (Auto) 5.6, Eos % (Auto) 0.3, Baso % (Auto) 0.3, Neut # (Auto) 7.4, Lymph # (Auto) 0.2 L, Burke # (Auto) 0.5, Eos # (Auto) 0.0, Baso # (Auto) 0.0, Total Counted 100, Neutrophils % (Manual) 91 H, Band Neutrophils % 1.0, Lymphocytes % (Manual) 5 L, Monocytes % (Manual) 3, Platelet Estimate Normal, Hypochromasia 1+ 01/10/22 16:40: Sodium 138, Potassium 4.2, Chloride 104, Carbon Dioxide 29, Anion Gap 9.2, BUN 25 H, Creatinine 2.00 H, Estimated Creat Clear 51, Estimated GFR 33 L, Est GFR ( Amer) 40 L, Glucose 121 H, Calcium 8.0 L, Total Bilirubin 1.1, AST 38, ALT 34, Alkaline Phosphatase 125, Total Protein 6.2 L, Albumin 3.3 L, Globulin 2.9, Albumin/Globulin Ratio 1.1 01/10/22 16:40: Lactate 0.8 01/10/22 16:40: SARS-CoV-2 (PCR) Not detected, Influenza A Untype (PCR) Not detected, Influenza Type B (PCR) Not detected Result diagrams: 01/10/22 16:40 01/10/22 16:40 Orders (Tests/Meds): ED MEDICATIONS Generic Name Dose Route Start Last Admin Trade Name Freq PRN Reason Stop Dose Admin Finasteride 5 mg 01/10/22 21:00 Finasteride 5mg Tablet PO 02/09/22 20:59 HS MICHAEL Ceftriaxone Sodium 1 gm/ 50 mls @ 100 mls/hr 01/10/22 19:15 Sodium Chloride IV 01/24/22 19:14 Q24H MICHAEL Loperamide HCl 2 mg 01/10/22 19:39 Loperamide 2mg Capsule PO 02/09/22 19:38 Q8H PRN Diarrhea Lorazepam 0.5 mg 01/10/22 21:00 Lorazepam 0.5mg Tablet PO 02/09/22 20:59 HS MICHAEL Non-Formulary Medication 50,000 unit 01/10/22 19:45 Cholecalciferol (Vitamin D3) [Vitamin D3 50,000 Unit Cap] PO 02/09/22 19:44 WEEKLY [facility] Non-Formulary
[2022-01-10 18:48] LABS: Bacteria,Urine Trace /lpf
--- NOTE | 2022-01-10 19:30 | PC.NURSE ---
Dr. Ladan velez for ED
--- NOTE | 2022-01-10 19:31 | PC.NURSE ---
ED doctor on phone with Dr. Pickering
--- NOTE | 2022-01-10 21:50 | PC.NURSE ---
PT ARRIVED TO FLOOR VIA STRETCHER FROM ED W/STAFF @ 2007
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
[2022-01-11] VITALS: BP 106/74; PULSE 137; RESP 20; TEMP 39.2; O2SAT 92
--- NOTE | 2022-01-11 01:30 | PC.NURSE ---
dr canales notifed of pt temp still elevated 102.6 rectally after tylenol given and not due to redose at this time, orders to start vancomycin and give bolus of iv fluids 1000ml x1 repeated and verified.
[2022-01-11 04:00] VITALS: BP 186/94; PULSE 84; RESP 18; TEMP 38.7; O2SAT 94
--- NOTE | 2022-01-11 07:18 | HMH.PHAVTE ---
[facility] VTE Monitoring - Patient Demographics Admission date: 01/11/22 Report Date: 01/11/22 Time: 07:18 Allergies/Adverse Reactions: Patient Allergies No Known Allergies Allergy (Verified 12/23/21 15:46) Height: 1.83 m Weight: 113.852 kg Patient Problems: Current Active Problems SIRS (systemic inflammatory response syndrome) (Acute) Cystitis (Acute) - VTE Risk Labs: VTE Related Lab Results Hgb 11.5 g/dL (14.1-18.0) L 01/10/22 16:40 Hct 35.0 % (42.0-52.0) L 01/10/22 16:40 Plt Count 188 K/mm3 (142-424) 01/10/22 16:40 BUN 25 mg/dl (9-20) H 01/10/22 16:40 Creatinine 2.00 mg/dl (0.66-1.25) H 01/10/22 16:40 Estimated Creat Clear 51 mL/min (50-200) 01/10/22 16:40 Was VTE Risk Assessment Performed: Yes VTE Score: 5 VTE Risk Level: Low Risk Clinical Trial Participant: No - Prophylaxis VTE Prophylaxis Ordered?: Yes Types of VTE Prophylaxis: TEDS Knee High, Pharmacological Pharmacologic Type: Heparin
[2022-01-11 07:21] LABS: Blood Urea Nitrogen 28 mg/dl (9-20); Calcium 7.9 mg/dl (8.4-10.2); Carbon Dioxide 29 mmol/L (22.0-30.0); Creatinine Clearance Estimated 56 mL/min (50-200); Estimated Glomerular Filt Rate 33 ml/min (>60); GFR (African American) 40 ML/MIN (>60); Glucose 135 mg/dl (74-100); Magnesium 1.8 mg/dl (1.6-2.3); Potassium 4.5 mmoL/L (3.5-5.1); Sodium 141 mmol/L (136-145)
[2022-01-11 07:31] LABS: Basophils % 0.1 % (0.1-2.0); Lymphocytes # 0.2 K/mm3 (0.7-4.5); Mean Corpuscular Hemoglobin 26.6 pg (27.0-31.2); Monocytes # 0.3 K/mm3 (0.1-1.0); Red Cell Distribution Width 15.3 % (11.5-17.5)
[2022-01-11 07:43] LABS: Anion Gap 9.5 mEq/L (5-15); Chloride 107 mmol/L (98-107); Hematocrit 32.3 % (42.0-52.0); Lymphocytes % 2.2 % (10-50); Mean Corpuscular HGB Conc 31.6 g/dL (31.8-35.4); Mean Platelet Volume 9.6 fl (7.4-10.4); Monocytes % 4.3 % (1.7-9.3); Neutrophils # 6.6 K/mm3 (1.8-7.8); Neutrophils % 93.4 % (37.0-80.0); Platelet Count 175 K/mm3 (142-424); Red Blood Count 3.84 M/mm3 (4.60-6.20); White Blood Count 7.1 K/mm3 (4.8-10.8)
[2022-01-11 07:57] LABS: Hemoglobin 10.2 g/dL (14.1-18.0)
[2022-01-11 07:58] LABS: MANUAL DIFFERENTIAL MANUAL DIFFERENTIAL (MANUAL DIFF)
[2022-01-11 08:00] VITALS: BP 123/62; PULSE 88; RESP 16; TEMP 36.9; O2SAT 98
--- NOTE | 2022-01-11 08:09 | HMH.PHAINT ---
MEDICATION RECONCILIATION COMPLETED ON PATIENT USING MAR FROM [facility]. -SHANTEL TAYLOR, NONAD
--- NOTE | 2022-01-11 08:49 | HMH.PHACONS ---
- Pharmacy Consult Date: 01/11/22 Time: 08:49 Referring provider: DR. HATFIELD Reason for Consult:: VANCOMYCIN DOSING Allergies and ADEs:: Allergies Allergy/AdvReac Type Severity Reaction Status Date / Time No Known Allergies Allergy Verified 12/23/21 15:46 Home Medications:: Home Medications Medication Instructions Recorded Confirmed Type Tamsulosin HCl 0.8 mg PO HS 10/10/19 01/11/22 History Loperamide HCl [Imodium 2 mg 2 mg PO TIDP PRN 11/25/19 01/11/22 History capsule] Acetaminophen 500 mg PO TIDP PRN 06/07/20 01/10/22 History Cholecalciferol (Vitamin D3) 50,000 unit PO MONTHLY 06/07/20 01/11/22 History [Vitamin D3 50,000 unit Cap] Finasteride [Proscar 5mg Tablet] 5 mg PO HS 02/27/21 01/11/22 History Divalproex Sodium 250 mg PO HS 06/03/21 01/11/22 History Losartan Potassium [Cozaar 25mg 25 mg PO DAILY 01/11/22 01/11/22 History Tablets] risperiDONE [Risperidone] 1 mg PO DAILY 01/11/22 01/11/22 History Height: 1.83 m Weight: 113.852 kg Laboratory Results:: Laboratory Results - last 24 hr 01/10/22 16:40: Urine Color Yellow, Urine Appearance Clear, Urine pH 7.5, Ur Specific [place] 1.015, Urine Protein 1+, Urine Glucose (UA) Negative, Urine Ketones Trace, Urine Blood 2+, Urine Nitrate Negative, Urine Bilirubin Negative, Urine Urobilinogen 1.0, Ur Leukocyte Esterase 3+ A, Urine RBC 5-10, Urine WBC 10-20, Ur Squamous Epith Cells None, Urine Bacteria Trace 01/10/22 16:40: WBC 8.1, RBC 4.28 L, Hgb 11.5 L, Hct 35.0 L, MCV 81.8, MCH 26.8 L, MCHC 32.8, RDW 15.1, Plt Count 188, MPV 8.9, Neut % (Auto) 91.8 H, Lymph % (Auto) 2.0 L, [place] % (Auto) 5.6, Eos % (Auto) 0.3, Baso % (Auto) 0.3, Neut # (Auto) 7.4, Lymph # (Auto) 0.2 L, [place] # (Auto) 0.5, Eos # (Auto) 0.0, Baso # (Auto) 0.0, Total Counted 100, Neutrophils % (Manual) 91 H, Band Neutrophils % 1.0, Lymphocytes % (Manual) 5 L, Monocytes % (Manual) 3, Platelet Estimate Normal, Hypochromasia 1+ 01/10/22 16:40: Sodium 138, Potassium 4.2, Chloride 104, Carbon Dioxide 29, Anion Gap 9.2, BUN 25 H, Creatinine 2.00 H, Estimated Creat Clear 51, Estimated GFR 33 L, Est GFR ( Amer) 40 L, Glucose 121 H, Calcium 8.0 L, Total Bilirubin 1.1, AST 38, ALT 34, Alkaline Phosphatase 125, Total Protein 6.2 L, Albumin 3.3 L, Globulin 2.9, Albumin/Globulin Ratio 1.1 01/10/22 16:40: Lactate 0.8 01/10/22 16:40: SARS-CoV-2 (PCR) Not detected, Influenza A Untype (PCR) Not detected, Influenza Type B (PCR) Not detected 01/11/22 06:41: WBC 7.1, RBC 3.84 L, Hgb 10.2 L D, Hct 32.3 L, MCV 84.0, MCH 26.6 L, MCHC 31.6 L, RDW 15.3, Plt Count 175, MPV 9.6, Neut % (Auto) 93.4 H, Lymph % (Auto) 2.2 L, [place] % (Auto) 4.3, Eos % (Auto) 0.0 L, Baso % (Auto) 0.1, Neut # (Auto) 6.6, Lymph # (Auto) 0.2 L, [place] # (Auto) 0.3, Eos # (Auto) 0.0, Baso # (Auto) 0.0 01/11/22 06:41: Sodium 141, Potassium 4.5, Chloride 107, Carbon Dioxide 29, Anion Gap 9.5, BUN 28 H, Creatinine 2.00 H, Estimated Creat Clear 56, Estimated GFR 33 L, Est GFR ( Amer) 40 L, Glucose 135 H, Calcium 7.9 L, Magnesium 1.8 Medical History: Reports:: BPH, Cerebrovascular Accident, Diabetes Mellitus Type 1, Gastroesophageal Reflux Disease(GERD), Hyperlipidemia, Hypertension, MRSA, Renal Disease, Renal Insufficiency, Transient Ischemic Attacks (TIA), Urinary Tract Infection Denies:: Cancer, Diabetes Mellitus Type 2, Internal Pacemaker, Seizures Assessment and Plan - Assessment and plan all Dx Assessment and Plan for all problems:: Age: 71 yo Serum creatinine: 2 mg/dL Height: 72.0 Inches Weight (kg): 113 Assessment: IBW (kg): 77.60 Dosing wt(kg): 113 Estimated Creatinine clearance (ml/min): 38.3 CRCL method: Cockcroft and Gault using ibw(default). Drug selected: Vancomycin Loading dose (mg): 0 Vd (liters): 90.4 (factor used: 0.8 L/kg) Edgardo (hr-1): 0.036 Half life (hrs): 19.25 Recommended dose: 1750 mg Interval: 24 hrs Infusion time (hrs): 2.0 Predicted peak (mcg/mL): 3
[2022-01-11 08:54] LABS: Hypochromasia 1+; Lymphocytes % 1 % (10-50); Monocytes % 2 % (2-9); Neutrophils % 97 % (42-76); Platelet Estimate Normal; Total Cells Counted 100
--- NOTE | 2022-01-11 09:44 | SW/DCPLANNER ---
Addendum entered by Kylee Willis 01/13/22 09:29: This patient will discharge back to [facility] today ICF level of care. Per Miya with [facility] patient will not require an additional COVID swab prior to discharge. Addendum entered by Kylee Willis 01/12/22 10:05: *Correction: [facility] Addendum entered by Kylee Willis 01/12/22 09:55: Updated patient information has been faxed to [facility] [place]: discharge date is unknown at this time. Original Note: This patient currently resides at [facility]. Miya dueñas/ [facility] has confirmed that patient is ICF level of care. I will continue to follow up with Miya until patient is medically stable for discharge.
--- NOTE | 2022-01-11 10:24 | XR_ITS ---
FINAL REPORT CLINICAL HISTORY: hip pain FINDINGS: Right hip with pelvis. There is no acute fracture or dislocation. The joint spaces are intact. There are no soft tissue abnormalities. IMPRESSION: No acute process. Reviewed, Interpreted and Dictated by Ramsey Thorpe MD Transcribed by Bal Dumont Authenticated by Ramsey Thorpe MD on 01/11/2022 12:26:41 PM [facility]
--- NOTE | 2022-01-11 11:19 | HMH.HP ---
*Admission Date: 01/11/22 *Chief complaint: ams *History of present illness: 71-year-old male presenting to the emergency department with chief complaint of fever, increased altered mental status from [facility]. 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 Pt admitted with uti, sepsis for further work up, urology consult,antibiotics and monitoring [facility] History I have reviewed the patient's past medical history: Yes Medical History: Reports:: BPH, Cerebrovascular Accident, Diabetes Mellitus Type 1, Gastroesophageal Reflux Disease(GERD), Hyperlipidemia, Hypertension, MRSA, Renal Disease, Renal Insufficiency, Transient Ischemic Attacks (TIA), Urinary Tract Infection Denies:: Cancer, Diabetes Mellitus Type 2, Internal Pacemaker, Seizures *Have you ever received a pneumonia vaccine?: Yes *Have you received a flu vaccine this season?: Yes Other Medical History: Reports: Blood Transfusion Reaction, Hypothyroidism, Thyroid Disease Other Surgeries: Yes: No Previous Surgery, Colonoscopy. No: Pacemaker Amputation: No Fractures: No - *Social History Smoking Status: Former smoker Alcohol Intake: never Alcohol Intake Frequency:: other Substance Use Type: denies use *Occupational Status:: retired, disabled Housing: jail Household Members: other *Travel in the last 8 weeks: None Family Hx:: Unable to obtain Review of Systems - Review of Systems Review of systems:: pertinent systems reviewed and negative unless documented below - Constitutional Reports fatigue, Reports weakness, Denies body ache(s) - Eyes Denies blurry vision - ENT Denies bleeding gums - *Cardiovascular Denies chest pain at rest - *Respiratory Denies change in phlegm color - *Gastrointestinal Denies abdominal pain - *Genitourinary Reports difficulty urinating, Reports penile discharge, Reports other - *Musculoskeletal Denies abnormal walking - Integumentary/Breasts Denies hair loss - *Neurologic Denies dizziness - Psychiatric Denies lack of enjoyment - Endocrine Denies excessive sweating - Hematologic/Lymphatic Denies easy bruising - Allergic/Immunologic Denies itchy eyes Meds Home Medications Medication Instructions Recorded Confirmed Type Tamsulosin HCl 0.8 mg PO HS 10/10/19 01/11/22 History Loperamide HCl [Imodium 2 mg 2 mg PO TIDP PRN 11/25/19 01/11/22 History capsule] Acetaminophen 500 mg PO TIDP PRN 06/07/20 01/10/22 History Cholecalciferol (Vitamin D3) 50,000 unit PO MONTHLY 06/07/20 01/11/22 History [Vitamin D3 50,000 unit Cap] Finasteride [Proscar 5mg Tablet] 5 mg PO HS 02/27/21 01/11/22 History Divalproex Sodium 250 mg PO HS 06/03/21 01/11/22 History Losartan Potassium [Cozaar 25mg 25 mg PO DAILY 01/11/22 01/11/22 History Tablets] risperiDONE [Risperidone] 1 mg PO DAILY 01/11/22 01/11/22 History Allergies Allergy/AdvReac Type Severity Reaction Status Date / Time No Known Allergies Allergy Verified 12/23/21 15:46 Exam Vital signs and Labs for Last 24 Hours: Temp Pulse Resp BP Pulse Ox 98.4 F 88 16 123/62 98 01/11/22 08:00 01/11/22 08:00 01/11/22 08:00 01/11/22 08:00 01/11/22 08:00 Laboratory Results - last 24 hr 01/10/22 16:40: Urine Color Yellow, Urine Appearance Clear, Urine pH 7.5, Ur Specific [place] 1.015, Urine Protein 1+, Urine Glucose (UA) Negative, Urine Ketones Trace, Urine Blood 2+, Urine Nitrate Negative, Urine Bilirubin Negative, Urine Urobilinogen 1.0, Ur Leukocyte Esterase 3+ A, Urine RBC 5-10, Urine WBC 10-20, Ur Squamous Epith Cells None, Urine Bacteria Trace 01/10/22 16:40: WBC 8.1, RBC 4.28 L, Hgb 11.5 L, Hct 35.0 L, MCV 81.8, MCH 26.8 L, MCHC 32.8, RDW 15.1, Plt Count 188, MPV 8.9, Neut % (Auto) 91.8 H, Lymph % (Auto) 2.0 L, [place] %
[2022-01-11 15:09] VITALS: BMI 33.7
[2022-01-11 16:00] VITALS: BP 161/77; PULSE 89; RESP 15; TEMP 37; O2SAT 97
[2022-01-11 21:35] VITALS: BP 144/72; PULSE 94; RESP 18; TEMP 36.6; O2SAT 92
[2022-01-12 04:39] VITALS: BP 133/83; PULSE 98; RESP 18; TEMP 36.5; O2SAT 100
[2022-01-12 04:40] VITALS: BMI 34.5
[2022-01-12 08:00] VITALS: BP 145/78; PULSE 94; RESP 16; TEMP 37.1; O2SAT 99
[2022-01-12 08:02] LABS: Basophils % 0.5 % (0.1-2.0); Eosinophils % 0.4 % (0.1-12.0); Hematocrit 30.6 % (42.0-52.0); Hemoglobin 9.9 g/dL (14.1-18.0); Lymphocytes # 0.2 K/mm3 (0.7-4.5); Lymphocytes % 11.1 % (10-50); Mean Corpuscular HGB Conc 32.2 g/dL (31.8-35.4); Mean Corpuscular Hemoglobin 26.5 pg (27.0-31.2); Mean Corpuscular Volume 82.4 fl (80-94); Mean Platelet Volume 9.5 fl (7.4-10.4); Monocytes # 0.2 K/mm3 (0.1-1.0); Monocytes % 8.9 % (1.7-9.3); Neutrophils # 1.7 K/mm3 (1.8-7.8); Neutrophils % 79.1 % (37.0-80.0); Platelet Count 125 K/mm3 (142-424); Red Blood Count 3.72 M/mm3 (4.60-6.20); Red Cell Distribution Width 15.3 % (11.5-17.5); White Blood Count 2.2 K/mm3 (4.8-10.8)
[2022-01-12 08:21] LABS: Blood Urea Nitrogen 36 mg/dl (9-20); Calcium 7.9 mg/dl (8.4-10.2); Carbon Dioxide 29 mmol/L (22.0-30.0); Chloride 109 mmol/L (98-107); Creatinine Clearance Estimated 57 mL/min (50-200); Estimated Glomerular Filt Rate 33 ml/min (>60); GFR (African American) 40 ML/MIN (>60); Glucose 89 mg/dl (74-100); Sodium 140 mmol/L (136-145)
--- NOTE | 2022-01-12 09:25 | HMH.ACPN2 ---
Internal Medicine - PN: Subj *Date: 01/12/22 *Time: 08:10 Interval history: pt awake and alert states no pain Exam Vital signs and Labs for Last 24 Hours: Temp Pulse Resp BP Pulse Ox 97.7 F 98 H 18 133/83 100 01/12/22 04:39 01/12/22 04:39 01/12/22 04:39 01/12/22 04:39 01/12/22 04:39 Laboratory Results - last 24 hr 01/12/22 07:03: WBC 2.2 L D, RBC 3.72 L, Hgb 9.9 L, Hct 30.6 L, MCV 82.4, MCH 26.5 L, MCHC 32.2, RDW 15.3, Plt Count 125 L D, MPV 9.5, Neut % (Auto) 79.1, Lymph % (Auto) 11.1, [place] % (Auto) 8.9, Eos % (Auto) 0.4, Baso % (Auto) 0.5, Neut # (Auto) 1.7 L, Lymph # (Auto) 0.2 L, [place] # (Auto) 0.2, Eos # (Auto) 0.0, Baso # (Auto) 0.0 01/12/22 07:03: Sodium 140, Potassium 4.0, Chloride 109 H, Carbon Dioxide 29, Anion Gap 6.0, BUN 36 H D, Creatinine 2.00 H, Estimated Creat Clear 57, Estimated GFR 33 L, Est GFR ( Amer) 40 L, Glucose 89, Calcium 7.9 L I & O for Last 24 hours: Intake & Output 01/09/22 01/10/22 01/11/22 01/12/22 11:59 11:59 11:59 11:59 Intake Total 2535 / 2535 Output Total Balance 2534 / 2534 Weight 251 lb 255 lb Microbiology Reports for the Last 24 Hours: Microbiology 01/10/22 16:40 Blood Blood Culture - Preliminary 01/10/22 16:40 Urine,Clean Catch Urine Culture - Preliminary - Constitutional no acute distress - *Routine HEENT Exam Head: Present: normocephalic Eye: Present: PERRL ENT: Present: mucous membranes moist - *Routine Neck Exam Present: supple. Absent: lymphadenopathy - *Routine Respiratory Exam Present: CTA bilaterally - *Routine Cardiovascular Exam Present: RRR - *Routine Abdominal Exam Present: soft, normoactive bowel sounds. Absent: tenderness - *Routine Exam Penile: Present: erythema, lesions Genitals image: 1 - erosions,lesions with foul odor with drainage - *Routine Extremities Exam Present: normal capillary refill. Absent: cyanosis, clubbing, edema - *Routine Skin Exam Present: warm, wounds. Absent: rash Comments: penis with open drainage odor noted - *Routine Neurological Exam Present: alert Assessment and Plan (1) Lesion of penis Status: Acute Category: Medical Code(s): N48.9 - Disorder of penis, unspecified (2) Severe sepsis Status: Acute Category: Medical Code(s): A41.9 - Sepsis, unspecified organism; R65.20 - Severe sepsis without septic shock (3) Cystitis Status: Acute Category: Medical Code(s): N30.90 - Cystitis, unspecified without hematuria (4) SIRS (systemic inflammatory response syndrome) Status: Acute Category: Medical Code(s): R65.10 - Systemic inflammatory response syndrome (SIRS) of non-infectious origin without acute organ dysfunction (5) REYNALDO (acute kidney injury) Status: Acute Category: Medical Code(s): N17.9 - Acute kidney failure, unspecified (6) Acute urinary tract infection Status: Acute Category: Medical Code(s): N39.0 - Urinary tract infection, site not specified (7) Frequent falls Status: Acute Category: Medical Code(s): R29.6 - Repeated falls (8) Hematuria Status: Acute Qualifiers: Hematuria type: gross Qualified Code(s): R31.0 - Gross hematuria Category: Medical Code(s): R31.9 - Hematuria, unspecified - Assessment and plan all Dx Assessment and Plan for all problems:: rounded with dr canales all orders per dr canales urology consult culture penis
[2022-01-12 16:00] VITALS: BP 140/80; PULSE 95; RESP 18; TEMP 36.9; O2SAT 92
--- NOTE | 2022-01-12 16:09 | HMH.CONS ---
*Admission Date: 01/11/22 *Reason for consult:: Penile lesion *History of present illness: Patient is a 71-year-old white male well-known to me. I saw him in the office on December 23 and he was noted to have evidence of some necrotic tissue at the urethral meatus and a firm mass in the ventral aspect of the foreskin. Mass was tender and suspicious for penile cancer. He was referred to urology and has an appointment failure next Sunday. He came into the emergency room with increased mental status from the skilled nursing. Patient is nonverbal at baseline and does refuse some procedures and exams in the office. His white count was 7.1 his creatinine was 2 consistent with his chronic kidney disease. Urinalysis shows 2+ blood, 3+ leukocyte esterase and trace bacteria. CT scan was performed which showed evidence of a previous right nephrectomy Splenomegaly, multiple cyst of the left kidney and possible ulceration of the penis. There is no evidence of lymphadenopathy. It is noted that patient was at [facility] emergency room on January 04 and a urology consultation was performed at that time. No intervention was delivered at that time as he had an appointment with attending neurologist next week. [facility] History Medical History: Reports:: BPH, Cerebrovascular Accident, Diabetes Mellitus Type 1, Gastroesophageal Reflux Disease(GERD), Hyperlipidemia, Hypertension, MRSA, Renal Disease, Renal Insufficiency, Transient Ischemic Attacks (TIA), Urinary Tract Infection Denies:: Cancer, Diabetes Mellitus Type 2, Internal Pacemaker, Seizures *Have you ever received a pneumonia vaccine?: Yes *Have you received a flu vaccine this season?: Yes Other Medical History: Reports: Blood Transfusion Reaction, Hypothyroidism, Thyroid Disease Other Surgeries: Yes: No Previous Surgery, Colonoscopy. No: Pacemaker Amputation: No Fractures: No - *Social History Smoking Status: Former smoker Alcohol Intake: never Alcohol Intake Frequency:: other Substance Use Type: denies use *Occupational Status:: retired, disabled Housing: skilled nursing Household Members: other *Travel in the last 8 weeks: None Family Hx:: Unable to obtain Review of Systems - Review of Systems Review of systems:: unable to obtain - *Neurologic Reports weakness, Denies abnormal walking, Denies dizziness Meds Home Medications Medication Instructions Recorded Confirmed Type Tamsulosin HCl 0.8 mg PO HS 10/10/19 01/11/22 History Loperamide HCl [Imodium 2 mg 2 mg PO TIDP PRN 11/25/19 01/11/22 History capsule] Acetaminophen 500 mg PO TIDP PRN 06/07/20 01/10/22 History Cholecalciferol (Vitamin D3) 50,000 unit PO MONTHLY 06/07/20 01/11/22 History [Vitamin D3 50,000 unit Cap] Finasteride [Proscar 5mg Tablet] 5 mg PO HS 02/27/21 01/11/22 History Divalproex Sodium 250 mg PO HS 06/03/21 01/11/22 History Losartan Potassium [Cozaar 25mg 25 mg PO DAILY 01/11/22 01/11/22 History Tablets] risperiDONE [Risperidone] 1 mg PO DAILY 01/11/22 01/11/22 History Allergies Allergy/AdvReac Type Severity Reaction Status Date / Time No Known Allergies Allergy Verified 12/23/21 15:46 Exam Vital signs and Labs for Last 24 Hours: Temp Pulse Resp BP Pulse Ox 98.7 F 94 H 16 145/78 H 99 01/12/22 08:00 01/12/22 08:00 01/12/22 08:00 01/12/22 08:00 01/12/22 08:00 Laboratory Results - last 24 hr 01/10/22 16:40: Urine Color Yellow, Urine Appearance Clear, Urine pH 7.5, Ur Specific [place] 1.015, Urine Protein 1+, Urine Glucose (UA) Negative, Urine Ketones Trace, Urine Blood 2+, Urine Nitrate Negative, Urine Bilirubin Negative, Urine Urobilinogen 1.0, Ur Leukocyte Esterase 3+ A, Urine RBC 5-10, Urine WBC 10-20, Ur Squamous Epith Cells None, Urine Bacteria Trace 01/12/22 07:03: WBC 2.2 L D, RBC 3.72 L, Hgb 9.9 L, Hct 30.6 L, MCV 82.4, MCH 26.5 L, MCHC 32.2, RDW 15.3, Plt Count 125 L D, MPV 9.5, Neut % (Auto) 79.1, Lymph % (Auto) 11.1, [place] % (Auto) 8.9, Eos % (Auto) 0.4, Baso % (Aut
[2022-01-12 20:00] VITALS: BP 170/79; PULSE 99; RESP 16; TEMP 37.4; O2SAT 92
[2022-01-12 21:32] LABS: Vancomycin,Trough 18.2 ug/mL (5.0-10.0)
[2022-01-13] VITALS: BP 175/81; PULSE 82; RESP 16; TEMP 37.3; O2SAT 93
[2022-01-13 03:07] LABS: Vancomycin,Peak 41.3 ug/ml (11-39)
[2022-01-13 04:00] VITALS: BP 164/82; PULSE 97; RESP 14; TEMP 37.5; O2SAT 91
[2022-01-13 05:00] VITALS: BMI 34.3
[2022-01-13 07:50] LABS: Basophils % 0.6 % (0.1-2.0); Eosinophils # 0.1 K/mm3 (0.0-0.4); Eosinophils % 1.8 % (0.1-12.0); Hematocrit 31.1 % (42.0-52.0); Hemoglobin 9.9 g/dL (14.1-18.0); Lymphocytes # 0.4 K/mm3 (0.7-4.5); Lymphocytes % 13.8 % (10-50); Mean Corpuscular HGB Conc 31.7 g/dL (31.8-35.4); Mean Corpuscular Hemoglobin 26.5 pg (27.0-31.2); Mean Corpuscular Volume 83.5 fl (80-94); Mean Platelet Volume 10.1 fl (7.4-10.4); Monocytes # 0.3 K/mm3 (0.1-1.0); Neutrophils # 2.1 K/mm3 (1.8-7.8); Neutrophils % 72.9 % (37.0-80.0); Platelet Count 148 K/mm3 (142-424); Red Blood Count 3.72 M/mm3 (4.60-6.20); Red Cell Distribution Width 15.3 % (11.5-17.5); White Blood Count 2.8 K/mm3 (4.8-10.8)
[2022-01-13 07:56] LABS: Anion Gap 9.8 mEq/L (5-15); Blood Urea Nitrogen 33 mg/dl (9-20); Carbon Dioxide 25 mmol/L (22.0-30.0); Chloride 109 mmol/L (98-107); Creatinine Clearance Estimated 54 mL/min (50-200); Estimated Glomerular Filt Rate 31 ml/min (>60); GFR (African American) 38 ML/MIN (>60); Glucose 97 mg/dl (74-100); Potassium 3.8 mmoL/L (3.5-5.1); Sodium 140 mmol/L (136-145)
[2022-01-13 08:00] VITALS: BP 149/81; PULSE 96; RESP 19; TEMP 37.1; O2SAT 93
--- NOTE | 2022-01-13 09:22 | HMH.DCSUM ---
General - General Admission date:: 01/10/22 Discharge date: 01/13/22 HPI HPI: 71-year-old male presenting to the emergency department with chief complaint of fever, increased altered mental status from [facility]. 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 Pt admitted with uti, sepsis for further work up, urology consult,antibiotics and monitoring Hospital Course Hospital Course: Abnormal Lab Results 01/10/22 16:40: Ur Leukocyte Esterase 3+ A 01/12/22 20:50: Vancomycin Trough 18.2 H 01/13/22 02:25: Vancomycin Peak 41.3 H* 01/13/22 06:29: WBC 2.8 L D, RBC 3.72 L, Hgb 9.9 L, Hct 31.1 L, MCH 26.5 L, MCHC 31.7 L, [place] % (Auto) 11.0 H, Lymph # (Auto) 0.4 L 01/13/22 06:29: Chloride 109 H, BUN 33 H, Creatinine 2.10 H, Estimated GFR 31 L, Est GFR ( Amer) 38 L, Calcium 8.0 L Microbiology 01/10/22 16:40 Blood Blood Culture - Preliminary 01/10/22 16:40 Blood Blood Culture - Preliminary Gram Negative Rods 01/10/22 16:40 Urine,Clean Catch Urine Culture - Preliminary Ordering Physician: Rayne Aponte MD Date of Service: 01/10/22 Procedure(s): CT abdomen pelvis w con Accession Number(s): [id number] cc: Carmen Argueta MD; Tristen Moreno MD; Rayne Aponte MD~ PROCEDURE INFORMATION: Exam: CT Abdomen And Pelvis With Contrast Exam date and time: 01/10/2022 7:04 PM Age: 71 years old Clinical indication: Fever; Prior surgery; Additional info: Fever, lethargy, necrotic penis, swollen RT abd TECHNIQUE: Imaging protocol: Computed tomography of the abdomen and pelvis with contrast. Radiation optimization: All CT scans at this facility use at least one of these dose optimization techniques: automated exposure control; mA and/or kV adjustment per patient size (includes targeted exams where dose is matched to clinical indication); or iterative reconstruction. Contrast material: ISOVUE; Contrast volume: 75 ml; Contrast route: IV; COMPARISON: CT ABDOMEN PELVIS WO CON 11/20/2021 6:03 PM FINDINGS: Lungs: Regions of parenchymal scarring with minimal pleural reactive change are demonstrated the left lung base. These findings have progressed slightly compared with the previous study. Liver: Normal. No mass. Gallbladder and bile ducts: Normal. No calcified stones. No ductal dilation. Pancreas: Normal. No ductal dilation. Spleen: Persistent splenomegaly spanning 17 cm in length. Findings stable. Adrenal glands: Normal. No mass. Kidneys and ureters: Right nephrectomy unchanged. There is a persistent septated multiloculated low-density mass arising from the posterior aspect of the left kidney. The findings are stable compared with the previous study . There is persistent cortical thinning and minimal perinephric stranding which is unchanged compared with the previous study. Additional smaller cysts again identified in the upper pole of the left kidney. Stomach and bowel: Unremarkable. No obstruction. No mucosal thickening. Appendix: No evidence of appendicitis. Intraperitoneal space: Unremarkable. No free air. No significant fluid collection. Vasculature: Unremarkable. No abdominal aortic aneurysm. Lymph nodes: Unremarkable. No enlarged lymph nodes. Urinary bladder: Unremarkable as visualized. Reproductive: Unremarkable as visualized. Bones/joints: Persistent diffuse osteosclerosis of the visualized bony structures. Findings have been present dating back to 06/07/2020. Soft tissues: Limited visualization of the external genitalia demonstrate no findings to suggest the presence of abscess or necrotizing fasciitis. Irregularity of the skin surface suggestive of ulceration versus laceration injury is part
--- NOTE | 2022-01-13 09:40 | HMH.PHACONS ---
- Pharmacy Consult Date: 01/13/22 Time: 09:40 Referring provider: DR. HATFIELD Reason for Consult:: VANCOMYCIN LEVELS Allergies and ADEs:: Allergies Allergy/AdvReac Type Severity Reaction Status Date / Time No Known Allergies Allergy Verified 12/23/21 15:46 Home Medications:: Home Medications Medication Instructions Recorded Confirmed Type Tamsulosin HCl 0.8 mg PO HS 10/10/19 01/11/22 History Loperamide HCl [Imodium 2 mg 2 mg PO TIDP PRN 11/25/19 01/11/22 History capsule] Acetaminophen 500 mg PO TIDP PRN 06/07/20 01/10/22 History Cholecalciferol (Vitamin D3) 50,000 unit PO MONTHLY 06/07/20 01/11/22 History [Vitamin D3 50,000 unit Cap] Finasteride [Proscar 5mg Tablet] 5 mg PO HS 02/27/21 01/11/22 History Divalproex Sodium 250 mg PO HS 06/03/21 01/11/22 History Losartan Potassium [Cozaar 25mg 25 mg PO DAILY 01/11/22 01/11/22 History Tablets] risperiDONE [Risperidone] 1 mg PO DAILY 01/11/22 01/11/22 History levoFLOXacin [Levaquin 500mg 500 mg PO DAILY 7 Days #7 tab 01/13/22 Rx tab] Height: 1.83 m Weight: 115.031 kg Laboratory Results:: Laboratory Results - last 24 hr 01/10/22 16:40: Urine Color Yellow, Urine Appearance Clear, Urine pH 7.5, Ur Specific [place] 1.015, Urine Protein 1+, Urine Glucose (UA) Negative, Urine Ketones Trace, Urine Blood 2+, Urine Nitrate Negative, Urine Bilirubin Negative, Urine Urobilinogen 1.0, Ur Leukocyte Esterase 3+ A, Urine RBC 5-10, Urine WBC 10-20, Ur Squamous Epith Cells None, Urine Bacteria Trace 01/12/22 20:50: Vancomycin Trough 18.2 H 01/13/22 02:25: Vancomycin Peak 41.3 H* 01/13/22 06:29: WBC 2.8 L D, RBC 3.72 L, Hgb 9.9 L, Hct 31.1 L, MCV 83.5, MCH 26.5 L, MCHC 31.7 L, RDW 15.3, Plt Count 148, MPV 10.1, Neut % (Auto) 72.9, Lymph % (Auto) 13.8, [place] % (Auto) 11.0 H, Eos % (Auto) 1.8, Baso % (Auto) 0.6, Neut # (Auto) 2.1, Lymph # (Auto) 0.4 L, [place] # (Auto) 0.3, Eos # (Auto) 0.1, Baso # (Auto) 0.0 01/13/22 06:29: Sodium 140, Potassium 3.8, Chloride 109 H, Carbon Dioxide 25, Anion Gap 9.8, BUN 33 H, Creatinine 2.10 H, Estimated Creat Clear 54, Estimated GFR 31 L, Est GFR ( Amer) 38 L, Glucose 97, Calcium 8.0 L Medical History: Reports:: BPH, Cerebrovascular Accident, Diabetes Mellitus Type 1, Gastroesophageal Reflux Disease(GERD), Hyperlipidemia, Hypertension, MRSA, Renal Disease, Renal Insufficiency, Transient Ischemic Attacks (TIA), Urinary Tract Infection Denies:: Cancer, Diabetes Mellitus Type 2, Internal Pacemaker, Seizures Assessment and Plan (1) Lesion of penis Status: Acute Category: Medical Code(s): N48.9 - Disorder of penis, unspecified (2) Severe sepsis Status: Acute Category: Medical Code(s): A41.9 - Sepsis, unspecified organism; R65.20 - Severe sepsis without septic shock (3) Cystitis Status: Acute Category: Medical Code(s): N30.90 - Cystitis, unspecified without hematuria (4) SIRS (systemic inflammatory response syndrome) Status: Acute Category: Medical Code(s): R65.10 - Systemic inflammatory response syndrome (SIRS) of non-infectious origin without acute organ dysfunction (5) REYNALDO (acute kidney injury) Status: Acute Category: Medical Code(s): N17.9 - Acute kidney failure, unspecified (6) Acute urinary tract infection Status: Acute Category: Medical Code(s): N39.0 - Urinary tract infection, site not specified (7) Frequent falls Status: Acute Category: Medical Code(s): R29.6 - Repeated falls (8) Hematuria Status: Acute Qualifiers: Hematuria type: gross Qualified Code(s): R31.0 - Gross hematuria Category: Medical Code(s): R31.9 - Hematuria, unspecified - Assessment and plan all Dx Assessment and Plan for all problems:: PATIENT HAD VANCOMYCIN PEAK AND TROUGH LEVELS DRAWN OVERNIGHT. PATIENT'S VANCOMYCIN PEAK WAS 41.3 MCG/ML AND TROUGH WAS 18.2 MCG/ML. RECOMMEND PATIENT'S VANCOMYCIN DOSE BE REDUCED TO 1500 MG Q24H IF PATIENT IS TO CONTINUE WITH VANCOMYCIN.
== END 2022-01-13 11:30 | DRG 871 ==
LOC: ER 19:50 → 2ND 19:58
PROVIDERS: Nurse Practitioner Family; Admitting Provider Family Medicine; Emergency Provider Emergency Medicine; PCP Emergency Medicine; Visit Provider Emergency Medicine
DX: A41.59 Other Gram-negative sepsis (principal); J96.01 Acute respiratory failure with hypoxia; N30.01 Acute cystitis with hematuria; R65.20 Severe sepsis without septic shock; N40.0 Benign prostatic hyperplasia without lower urinary tract symptoms; Z86.73 Personal history of transient ischemic attack (TIA), and cerebral infarction without residual deficits; K21.9 Gastro-esophageal reflux disease without esophagitis; E78.5 Hyperlipidemia, unspecified; Z86.14 Personal history of Methicillin resistant Staphylococcus aureus infection; E03.9 Hypothyroidism, unspecified; Z87.891 Personal history of nicotine dependence; E10.22 Type 1 diabetes mellitus with diabetic chronic kidney disease; I12.9 Hypertensive chronic kidney disease with stage 1 through stage 4 chronic kidney disease, or unspecified chronic kidney disease; N18.9 Chronic kidney disease, unspecified; C60.9 Malignant neoplasm of penis, unspecified; Z20.822 Contact with and (suspected) exposure to COVID-19
CPT/HCPCS: 36415; 70450; 71045; 73502; 74177; 80048; 80053; 80202; 81001; 83605; 83735; 85007; 85025; 87040; 87070; 87077; 87086; 87088; 87186; 87205; 96365; 96366; 96375; 99285; C9803; J0696; J3370; Q9967; U0003; U0005

== ENCOUNTER → 2022-02-08 13:00 | Outpatient (CLI) | payer MEDICARE, MEDICAID, SELFPAY | PROVIDERS: PCP Emergency Medicine; Visit Provider Specialist | DX: G40.909 Epilepsy, unspecified, not intractable, without status epilepticus (principal); R29.6 Repeated falls; S06.5X9A Traumatic subdural hemorrhage with loss of consciousness of unspecified duration, initial encounter ==

== ENCOUNTER 2022-02-17 19:54 | Emergency (ER) | payer MEDICARE, MEDICAID, SELFPAY ==
[2022-02-17 19:56] VITALS: BP 146/66; PULSE 101; RESP 18; TEMP 36.8; O2SAT 97; BMI 39.5
--- NOTE | 2022-02-17 20:00 | PC.NURSE ---
Patient grabbed one of the ER nurse's private area while she attempted to obtained IV access. Patient was instructed on appropriate behavior in this hospital. Patient verbalized understanding.
--- NOTE | 2022-02-17 20:06 | CT_ITS ---
PROCEDURE INFORMATION: Exam: CT Lumbar Spine Without Contrast Exam date and time: 02/17/2022 8:48 PM Age: 71 years old Clinical indication: Injury or trauma; Fall TECHNIQUE: Imaging protocol: Computed tomography images of the lumbar spine without contrast. Radiation optimization: All CT scans at this facility use at least one of these dose optimization techniques: automated exposure control; mA and/or kV adjustment per patient size (includes targeted exams where dose is matched to clinical indication); or iterative reconstruction. COMPARISON: CT THORACIC SPINE WO CON 02/17/2022 8:45 PM FINDINGS: Vertebrae: No acute fracture. Normal alignment. Diffuse osteosclerosis with subtle lucencies which could reflect renal osteodystrophy versus malignancy. Discs/Spinal canal/Neural foramina: Multilevel disc bulging and mild marginal osteophyte formation and facet joint arthropathy resulting in mild neural foraminal and mild canal narrowing. Soft tissues: Unremarkable. IMPRESSION: No acute fracture or malalignment. Diffuse osteosclerosis.
--- NOTE | 2022-02-17 20:06 | CT_ITS ---
PROCEDURE INFORMATION: Exam: CT Thoracic Spine Without Contrast Exam date and time: 02/17/2022 8:45 PM Age: 71 years old Clinical indication: Injury or trauma; Fall TECHNIQUE: Imaging protocol: Computed tomography images of the thoracic spine without contrast. Radiation optimization: All CT scans at this facility use at least one of these dose optimization techniques: automated exposure control; mA and/or kV adjustment per patient size (includes targeted exams where dose is matched to clinical indication); or iterative reconstruction. COMPARISON: CT CERVICAL SPINE WO CON 02/17/2022 8:42 PM FINDINGS: Vertebrae: Diffuse osteosclerosis with subtle lucencies which could indicate renal osteodystrophy versus malignancy. Multilevel anterior bridging osteophyte formation. No acute fracture or malalignment. Discs/Spinal canal/Neural foramina: See Vertebrae finding. Soft tissues: Unremarkable. IMPRESSION: 1. No acute fracture or malalignment. 2. Diffuse osteosclerosis.
--- NOTE | 2022-02-17 20:06 | CT_ITS ---
PROCEDURE INFORMATION: Exam: CT Abdomen And Pelvis Without Contrast Exam date and time: 02/17/2022 8:52 PM Age: 71 years old Clinical indication: Injury or trauma; Fall TECHNIQUE: Imaging protocol: Computed tomography of the abdomen and pelvis without contrast. Radiation optimization: All CT scans at this facility use at least one of these dose optimization techniques: automated exposure control; mA and/or kV adjustment per patient size (includes targeted exams where dose is matched to clinical indication); or iterative reconstruction. COMPARISON: CT ABDOMEN PELVIS W CON 01/10/2022 7:04 PM FINDINGS: Lungs: In the left lung base there is atelectasis and scarring. Liver: Normal. No mass. Gallbladder and bile ducts: Normal. No calcified stones. No ductal dilation. Pancreas: Normal. No ductal dilation. Spleen: Normal. No splenomegaly. Adrenal glands: Normal. No mass. Kidneys and ureters: 3.2 cm simple exophytic cyst posterior left kidney. Right nephrectomy. Stomach and bowel: Unremarkable. No obstruction. No mucosal thickening. Appendix: Normal appendix. Intraperitoneal space: Unremarkable. No free air. No significant fluid collection. Vasculature: Unremarkable. No abdominal aortic aneurysm. Lymph nodes: Unremarkable. No enlarged lymph nodes. Urinary bladder: Cystitis with urinary bladder wall thickening and surrounding inflammatory changes. Reproductive: Unremarkable as visualized. Bones/joints: There is diffuse osteosclerosis which could reflect renal osteodystrophy versus malignancy. No acute fracture. Soft tissues: Unremarkable. IMPRESSION: 1. No acute posttraumatic findings in the abdomen pelvis. 2. Cystitis. 3. Stable diffuse bony osteosclerosis which could reflect malignancy versus renal osteodystrophy. 4. Additional nonemergent findings as above COMMENTS: Consistent with the [place] [employer]'s Incidental Findings Committee white paper (J Am Andrea Radiol 2018): Any incidental renal lesion less than 1 cm or classified as too small to characterize, or any incidental cystic renal lesion characterized as simple-appearing, is likely benign. No follow-up imaging is recommended for these lesions per consensus recommendations based on imaging criteria.
--- NOTE | 2022-02-17 20:06 | CT_ITS ---
PROCEDURE INFORMATION: Exam: CT Head Without Contrast Exam date and time: 02/17/2022 8:39 PM Age: 71 years old Clinical indication: Injury or trauma; Fall TECHNIQUE: Imaging protocol: Computed tomography of the head without contrast. Radiation optimization: All CT scans at this facility use at least one of these dose optimization techniques: automated exposure control; mA and/or kV adjustment per patient size (includes targeted exams where dose is matched to clinical indication); or iterative reconstruction. COMPARISON: CT HEAD/BRAIN WO CON 01/10/2022 6:54 PM FINDINGS: Brain: Moderate to severe volume loss. Decreased attenuation of the supratentorial white matter is likely secondary to chronic microvascular ischemia. No acute intracranial hemorrhage, midline shift or intracranial mass. Chronic left cerebellar infarct. There are chronic lacunar infarcts at the right thalamus and bilateral lee radiata. Cerebral ventricles: Stable ventriculomegaly. Paranasal sinuses: Mild paranasal sinus disease. Mastoid air cells: Visualized mastoid air cells are well aerated. Bones/joints: Chronic nasal bone fractures. No acute calvarial fracture. Soft tissues: Left suboccipital soft tissue foreign body measuring 5 mm. This is stable from prior examination. IMPRESSION: No acute intracranial abnormality.
--- NOTE | 2022-02-17 20:06 | CT_ITS ---
PROCEDURE INFORMATION: Exam: CT Cervical Spine Without Contrast Exam date and time: 02/17/2022 8:42 PM Age: 71 years old Clinical indication: Injury or trauma; Fall TECHNIQUE: Imaging protocol: Computed tomography images of the cervical spine without contrast. Radiation optimization: All CT scans at this facility use at least one of these dose optimization techniques: automated exposure control; mA and/or kV adjustment per patient size (includes targeted exams where dose is matched to clinical indication); or iterative reconstruction. COMPARISON: CT CERVICAL SPINE WO CON 11/20/2021 5:02 PM FINDINGS: Bones/joints: No acute fracture. Normal alignment. Diffuse osteosclerosis could be due to malignancy or renal osteodystrophy. Anterior bridging osteophyte formation at C6-C7. Discs/Spinal canal/Neural foramina: At C6-C7 there is posterior osteophyte formation resulting in central canal narrowing and nerve root impingement. No additional significant disc protrusion. No severe spinal canal stenosis. No significant neural foraminal narrowing. Lungs: Lung apices are normal. Soft tissues: Unremarkable. IMPRESSION: No acute findings.
--- NOTE | 2022-02-17 20:06 | XR_ITS ---
PROCEDURE INFORMATION: Exam: XR Pelvis Exam date and time: 02/17/2022 9:40 PM Age: 71 years old Clinical indication: Injury or trauma; Fall; Blunt trauma (contusions or hematomas); Bilateral; Pelvic region; Additional info: [facility] at [facility] patient TECHNIQUE: Imaging protocol: XR pelvis. Views: 1 or 2 view. COMPARISON: CT ABDOMEN PELVIS WO CON 02/17/2022 8:52 PM FINDINGS: Bones/joints: Unremarkable. No acute fracture. Soft tissues: Unremarkable. IMPRESSION: No acute findings.
--- NOTE | 2022-02-17 20:15 | XR_ITS ---
PROCEDURE INFORMATION: Exam: XR Chest Exam date and time: 02/17/2022 9:33 PM Age: 71 years old Clinical indication: Injury or trauma; Fall; Blunt trauma (contusions or hematomas); Additional info: Fall at skilled nursing dementia patient TECHNIQUE: Imaging protocol: XR of the chest. Views: 1 view. COMPARISON: CR XR CHEST PORTABLE 01/10/2022 6:49 PM FINDINGS: Lungs: No consolidation. Granulomatous disease. Scattered atelectasis in the lung bases. Pleural spaces: Persistent left pleural effusion versus pleural scarring. No pneumothorax. Heart/Mediastinum: Unremarkable. No cardiomegaly. Bones/joints: Unremarkable. IMPRESSION: No acute findings.
[2022-02-17 20:24] LABS: Alanine Aminotransferase 18 U/L (12-78); Albumin Level 3.1 g/dl (3.5-5.0); Albumin/Globulin Ratio 1.1 (1.1-1.8); Alkaline Phosphatase 87 U/L (38-126); Aspartate Amino Transferase 16 U/L (17-59); Bilirubin,Total 0.3 mg/dl (0.2-1.3); Blood Urea Nitrogen 23 mg/dl (9-20); Calcium 8.4 mg/dl (8.4-10.2); Carbon Dioxide 33 mmol/L (22.0-30.0); Chloride 102 mmol/L (98-107); Creatinine Clearance Estimated 61 mL/min (50-200); Estimated Glomerular Filt Rate 35 ml/min (>60); GFR (African American) 43 ML/MIN (>60); Globulin 2.8 g/dL (1.3-3.2); Glucose 123 mg/dl (74-100); Sodium 140 mmol/L (136-145); Total Protein,Serum 5.9 g/dl (6.3-8.2)
[2022-02-17 20:29] LABS: C-Reactive Protein 25.5 mg/L (0-4)
[2022-02-17 20:43] LABS: Procalcitonin 0.327 ng/mL (0.0-2.0)
[2022-02-17 21:00] LABS: Basophils % 0.3 % (0.1-2.0); Eosinophils # 0.1 K/mm3 (0.0-0.4); Eosinophils % 1.5 % (0.1-12.0); Hematocrit 31.7 % (42.0-52.0); Hemoglobin 9.8 g/dL (14.1-18.0); Lymphocytes # 0.7 K/mm3 (0.7-4.5); Lymphocytes % 11.3 % (10-50); Mean Corpuscular HGB Conc 30.7 g/dL (31.8-35.4); Mean Corpuscular Volume 81.4 fl (80-94); Mean Platelet Volume 8.1 fl (7.4-10.4); Monocytes # 0.5 K/mm3 (0.1-1.0); Monocytes % 7.3 % (1.7-9.3); Neutrophils # 5.1 K/mm3 (1.8-7.8); Neutrophils % 79.6 % (37.0-80.0); Platelet Count 198 K/mm3 (142-424); Red Cell Distribution Width 14.7 % (11.5-17.5); White Blood Count 6.4 K/mm3 (4.8-10.8)
--- NOTE | 2022-02-17 21:46 | HMH.EDFALL ---
ED Disposition Clinical Impression: Fall Qualifiers: Encounter type: initial encounter Qualified Code(s): W19.XXXA - Unspecified fall, initial encounter Contusion of head Qualifiers: Encounter type: initial encounter Contusion of head detail: unspecified part of head Qualified Code(s): S00.93XA - Contusion of unspecified part of head, initial encounter Disposition: Home, Self-Care Condition on Discharge: Good Instructions: How to Prevent Falls Additional Instructions: resume orders Referrals: Tristen Moreno MD [Primary Care Provider] - - Critical Care Critical Care Time: No Attestation: On 02/17/22, the high probability of a clinically significant, sudden or life threatening deterioration of the following system(s) required my full and direct attention, intervention and personal management. The time I documented below is in addition to time spent performing reported procedures but includes the following listed in this critical care notation. Medical Decision Making - Medical Records Medical records reviewed: Yes: I reviewed the patient's medical records. - Sharan Inquiry Pt receiving controlled substance: No Vital Signs: 02/17/22 19:56 Temperature 98.2 F Temperature Source Oral Pulse Rate [Apical] 101 H Respiratory Rate 18 Blood Pressure [Right Arm] 146/66 H Blood Pressure Mean [Right Arm] 92 Blood Pressure Source [Right Arm] Automatic Cuff Blood Pressure Position [Right Arm] Sitting 02 Sat by Pulse Oximetry 97 Oxygen Delivery Method Room Air - Lab Data Lab results reviewed: Yes: I reviewed the patient's lab results. Lab Results 02/17/22 20:05: WBC 6.4, RBC 3.90 L, Hgb 9.8 L, Hct 31.7 L, MCV 81.4, MCH 25.0 L, MCHC 30.7 L, RDW 14.7, Plt Count 198, MPV 8.1, Neut % (Auto) 79.6, Lymph % (Auto) 11.3, [place] % (Auto) 7.3, Eos % (Auto) 1.5, Baso % (Auto) 0.3, Neut # (Auto) 5.1, Lymph # (Auto) 0.7, [place] # (Auto) 0.5, Eos # (Auto) 0.1, Baso # (Auto) 0.0 02/17/22 20:05: Sodium 140, Potassium 4.0, Chloride 102, Carbon Dioxide 33 H, Anion Gap 9.0, BUN 23 H, Creatinine 1.90 H, Estimated Creat Clear 61, Estimated GFR 35 L, Est GFR ( Amer) 43 L, Glucose 123 H, Calcium 8.4, Total Bilirubin 0.3, AST 16 L, ALT 18, Alkaline Phosphatase 87, C-Reactive Protein 25.5 H, Total Protein 5.9 L, Albumin 3.1 L, Globulin 2.8, Albumin/Globulin Ratio 1.1, Procalcitonin 0.327 Result diagrams: 02/17/22 20:05 02/17/22 20:05 Orders (Tests/Meds): ORDERS Category Date Time Status Complete Blood Count Auto Diff Stat Lab 02/17/22 20:05 Results Erythrocyte Sedimentation Rate Stat Lab 02/17/22 20:05 Results Rapid PCR Covid and Flu A/B Stat Lab 02/17/22 20:12 Ordered - Radiology Data #1 Image(s): Chest, Pelvis Image Reviewed: Yes I have reviewed radiologist's interpretation Preliminary Findings: Normal/NAD - CT Data CT Scan: Head, C-Spine, Abdomen, Pelvis, T-Spine, L-Spine Time Received: 22:[address] Reviewed: Yes: I have viewed the radiologist's interpretation Preliminary Findings: No Fracture Seen Medical Decision Narrative: fall but stable exam and vital signs Fall HPI - General Chief Complaint: Fall Stated Complaint: fall Time Seen by Provider: 02/17/22 20:15 Mode of Arrival: EMS Source of Information: Patient, EMS, Medical Record Limitations: No Limitations Description of Symptoms (Recalled from ER Triage Doc. by RN): Per ems, patient fell at approximately 1925 and was found laying on his back on the floor. States that he did hit his head and has a knot on the back of his head at the left center. - History of Present Illness HPI Narrative: fell at [facility] and sent to ed for barbara SMILEY complaint: fall Onset (ago): hour(s) Fall from: other Fall witnessed: no Place fall occurred: [facility] Loss of consciousness: none Prolonged down time: no Symptoms prior to fall: none Location of injury: head, neck Severity: moderate Associated symptoms (after fall): denies - Related Data Home
[2022-02-17 22:06] VITALS: BP 140/70; PULSE 80; RESP 20; TEMP 36.8; O2SAT 98
[2022-02-17 22:24] LABS: Erythrocyte Sedimentation Rate 50 mm/hr (0-20)
== END 2022-02-17 22:40 | disposition home or self-care (01) ==
PROVIDERS: Emergency Provider Emergency Medicine; PCP Emergency Medicine
DX: S00.93XA Contusion of unspecified part of head, initial encounter (principal); W01.0XXA Fall on same level from slipping, tripping and stumbling without subsequent striking against object, initial encounter; Y92.129 Unspecified place in nursing home as the place of occurrence of the external cause; I50.9 Heart failure, unspecified; I25.10 Atherosclerotic heart disease of native coronary artery without angina pectoris; F41.8 Other specified anxiety disorders; K21.9 Gastro-esophageal reflux disease without esophagitis; E78.5 Hyperlipidemia, unspecified; Z87.891 Personal history of nicotine dependence; Z79.899 Other long term (current) drug therapy
CPT/HCPCS: 70450; 71045; 72125; 72128; 72131; 72170; 74176; 80053; 84145; 85025; 85651; 86140; 99284

== ENCOUNTER → 2022-02-27 12:35 | Outpatient (POV) | payer MEDICARE, MEDICAID, SELFPAY | PROVIDERS: Visit Provider Internal Medicine Nephrology | DX: Z00.00 Encounter for general adult medical examination without abnormal findings (principal) ==

== ENCOUNTER 2022-03-07 13:12 | Outpatient (CLI) | payer MEDICARE, MEDICAID, SELFPAY ==
[2022-03-07 13:40] VITALS: BP 174/83; PULSE 97; O2SAT 98
[2022-03-07 14:15] VITALS: BP 180/87; PULSE 94; O2SAT 99
== END 2022-03-07 14:15 | disposition home or self-care (01) ==
LOC: INF 13:12
PROVIDERS: PCP Emergency Medicine; Visit Provider Emergency Medicine
DX: D64.9 Anemia, unspecified (principal)
CPT/HCPCS: 96365; J1439

== ENCOUNTER → 2022-03-23 13:01 | Outpatient (CLI) | payer MEDICARE, MEDICAID, SELFPAY ==
[2022-03-23 13:25] VITALS: BP 151/77; PULSE 75; RESP 18; O2SAT 99
[2022-03-23 14:05] VITALS: BP 161/88; PULSE 75; RESP 18
== END ==
PROVIDERS: PCP Emergency Medicine; Visit Provider Emergency Medicine
DX: D64.9 Anemia, unspecified (principal); N18.4 Chronic kidney disease, stage 4 (severe); D63.1 Anemia in chronic kidney disease
CPT/HCPCS: 96365; J1439

== ENCOUNTER → 2022-09-01 13:40 | Outpatient (CLI) | payer MEDICARE, MEDICAID, SELFPAY ==
[2022-09-01 14:26] LABS: Microscopic, Urine URINE MICROSCOPIC (MICROSCOPIC)
[2022-09-01 14:38] LABS: Basophils % 0.5 % (0.1-2.0); Eosinophils # 0.1 K/mm3 (0.0-0.4); Eosinophils % 1.6 % (0.1-12.0); Hemoglobin 13.6 g/dL (14.1-18.0); Lymphocytes # 0.8 K/mm3 (0.7-4.5); Lymphocytes % 10.7 % (10-50); Mean Corpuscular HGB Conc 32.3 g/dL (31.8-35.4); Mean Corpuscular Hemoglobin 27.9 pg (27.0-31.2); Mean Corpuscular Volume 86.2 fl (80-94); Mean Platelet Volume 8.4 fl (7.4-10.4); Monocytes # 0.3 K/mm3 (0.1-1.0); Monocytes % 4.5 % (1.7-9.3); Neutrophils % 82.6 % (37.0-80.0); Platelet Count 203 K/mm3 (142-424); Red Blood Count 4.87 M/mm3 (4.60-6.20); Red Cell Distribution Width 14.1 % (11.5-17.5); White Blood Count 7.3 K/mm3 (4.8-10.8)
[2022-09-01 15:09] LABS: Appearance,Urine SL CLOUDY (Clear); Bilirubin,Urine Negative (Negative); Blood, Urine 2+ (Negative); Color,Urine YELLOW (Yellow); Glucose,Urine (UA) Negative (Negative); Ketones,Urine Negative (Negative); Leukocyte Esterase,Urine 3+ (Negative); Nitrate,Urine Negative (Negative); PH,Urine 6.5 (5.0-8.5); Protein,Urine 2+ (Negative); Specific Gravity, Urine 1.025 (1.005-1.030); Urobilinogen,Urine 0.2 EU/dl (0.2)
[2022-09-01 15:23] LABS: Creatinine,Urine Random 101 mg/dL (Not Estab.)
[2022-09-01 15:31] LABS: Albumin Level 3.5 g/dl (3.5-5.0); Anion Gap 14.4 mEq/L (5-15); Blood Urea Nitrogen 24 mg/dl (9-20); Calcium 8.9 mg/dl (8.4-10.2); Carbon Dioxide 28 mmol/L (22.0-30.0); Chloride 103 mmol/L (98-107); Estimated Glomerular Filt Rate 37 ml/min (>60); GFR (African American) 45 ML/MIN (>60); Glucose 100 mg/dl (74-100); Phosphorous 3.3 mg/dl (2.5-4.5); Potassium 4.4 mmoL/L (3.5-5.1); Sodium 141 mmol/L (136-145)
[2022-09-01 15:39] LABS: Bacteria,Urine Trace /lpf; WBC,Urine TNTC #/hpf (0-3)
[2022-09-01 15:43] LABS: Intact Parathyroid Hormone 88.2 pg/mL (7.5-53.5)
[2022-09-01 15:48] LABS: 25-OH Vitamin D, Total 55.3 ng/mL (30-100)
== END ==
PROVIDERS: PCP Emergency Medicine; Visit Provider Emergency Medicine
DX: I10 Essential (primary) hypertension (principal); N39.0 Urinary tract infection, site not specified; B96.4 Proteus (mirabilis) (morganii) as the cause of diseases classified elsewhere; N18.4 Chronic kidney disease, stage 4 (severe)
CPT/HCPCS: 80069; 81001; 82306; 82570; 83970; 84155; 85025; 87086; 87088; 87186

== ENCOUNTER → 2022-09-04 12:35 | Outpatient (POV) | payer MEDICARE, MEDICAID, SELFPAY | PROVIDERS: Visit Provider Internal Medicine Nephrology | DX: Z00.00 Encounter for general adult medical examination without abnormal findings (principal) ==

== ENCOUNTER → 2022-09-06 10:53 | Outpatient (CLI) | payer MEDICARE, MEDICAID, SELFPAY ==
--- NOTE | 2022-09-06 10:56 | FL_ITS ---
FINAL REPORT CLINICAL HISTORY: dysphagia fluoro time-2.53 FINDINGS: MODIFIED BARIUM SWALLOW HISTORY: Dysphagia. FINDINGS: Fluoroscopy was provided for the speech pathologist to evaluate the swallowing mechanism. The patient was given several different consistencies of barium while the swallow was visualized fluoroscopically. The report of the speech pathologist should be consulted prior to making dietary decisions. FLUOROSCOPY TIME: 2 minutes 53 seconds. TOTAL NUMBER OF IMAGES: 12 cine runs IMPRESSION: Modified barium swallow under fluoroscopic guidance. Please see speech pathologist's report for further details and dietary recommendations. Reviewed, Interpreted and Dictated by Ramsey Thorpe MD Transcribed by Kyleigh Coker PA-C Authenticated and [facility]
--- NOTE | 2022-09-06 11:39 | HMH.SLMBS2 ---
Speech & Language Evaluation Speech/Language Mod Barium Swallow Start: 09/06/22 11:30 Freq: once Status: Complete Protocol: Document 09/06/22 11:30 RENETTA (Rec: 09/06/22 11:39 [email or web address] [id number]) General Information General Current Food Consistency Other Dentition Poor Dentition Comment: Previous diet unknown. Pt and transport were u/a to report. Oxygen Status Room Air Facial Symmetry Symmetrical Ability to Follow Directions Fair Communication Ability Severe Impairment MBS Recommendations Diet Dietary Recommendations Mechanical Soft,Chopped Meats, Thin Liquids Treatment/Strategies Strategy/Precaution Recommend Sitting Upright (90 deg), Pocketing,Small Bites and Sips ,Alternate Liquids/Solids Mod Barium Swallow Impressions Summary and Impressions Oral Phase Impression Mild Impairment Oral Phase Summary Prolonged mastication time was noted with whole mechanical soft and regular solids. No significant residue was noted. He did demonstrate oral holding x2, and required min cues to swallow. Pharyngeal Phase Impression Mild Impairment Pharyngeal Phase Summary No aspiration was present on the study. Pt was noted to deeply penetrate consistently during the study, however, penetrated material did not deepen and all material was cleared from the laryngeal vestibule upon completion of the pharyngeal swallow. With large, consecutive sips he did demonstrate deeper penetration to the level of the vocal folds, which again cleared. Minimal diffuse pharyngeal residue was noted with all liquid trials. Speech/Language MBS Assessment/Goals/Plan Assessment Date of Evaluation: 09/06/22 Evaluation Type Initial Certification Assessment/Problems Dysphagia per MD order. Does Patient Qualify for Service Yes Qualify/Failure Comment [facility] MACHINIST at SNF will follow up for care. Recommendations PHYSICIAN CERTIFICATION: The specified therapy services are required, authorized, and reviewed every 30 days. Diet Recommendations Mechanical
== END ==
PROVIDERS: PCP Emergency Medicine; Visit Provider Emergency Medicine
DX: R13.10 Dysphagia, unspecified (principal)
CPT/HCPCS: 70371; 92611

== ENCOUNTER 2022-11-09 13:30 | Inpatient (IN) | payer MEDICARE, MEDICAID, SELFPAY ==
[2022-11-09] VITALS (8 sets, daily range): BP systolic 104–154; BP diastolic 55–89; PULSE 78–110; RESP 16–20; TEMP 36.8–38.4; O2SAT 93–97; BMI 31.4; BMI 31.5; BMI 31.1
--- NOTE | 2022-11-09 13:31 | PC.NURSE ---
Marli called radiology to let them know of stroke protocol
--- NOTE | 2022-11-09 13:32 | CT_ITS ---
FINAL REPORT TECHNIQUE: Thin section axial images were obtained from skull base to vertex without contrast. Coronal reconstruction images were obtained from the axial data. Exam was performed using dose reduction technique. CLINICAL HISTORY: stroke protocol, AMS, HX STROKE COMPARISON: 02/17/2022 FINDINGS: There is age-appropriate atrophy. There is no mass effect or midline shift. There is no intracranial hemorrhage. There is a stable old left cerebellar infarct. There is no hydrocephalus. Periventricular low density is likely related to changes of chronic small vessel ischemia. The basilar cisterns are preserved. The posterior fossa is without acute abnormality. The soft tissues are without acute abnormality. No acute osseous abnormality is identified. IMPRESSION: No acute intracranial abnormality. Atrophy and changes suggesting chronic small vessel ischemia. Reviewed, Interpreted and Dictated by Lzi Persaud MD Transcribed by Shreya Torres Authenticated and [facility]
--- NOTE | 2022-11-09 13:33 | PC.NURSE ---
fsbs 166 on arrival
--- NOTE | 2022-11-09 13:37 | PC.NURSE ---
PT TO CT AT THIS TIME
[2022-11-09 13:40] LABS: Coronavirus 19, PCR Not Detected (NotDetected); Influenza A, PCR Not Detected (NotDetected); Influenza B, PCR Not Detected (NotDetected)
--- NOTE | 2022-11-09 13:43 | PC.NURSE ---
pt returned from CT via stretcher
--- NOTE | 2022-11-09 13:56 | HMH.EDGENADL ---
Discharge Plan Disposition Patient Disposition: Admitted As Inpatient Condition: Fair Clinical Impressions Clinical Impression: Acute cholecystitis Discharge ED Provider: Qasim Gomez General Adult HPI General Chief complaint: Altered Mental Status Stated complaint: AMS Time Seen by Provider: 11/09/22 13:50 Mode of Arrival: EMS Limitations: Altered Mental Status Description of Symptoms (Recalled from ER Triage Doc. by RN): PT BROUGHT IN VIA EMS FOR DECREASED LOC. NH REPORTS PT UNRESPONSIVE . PT ALERT ON ARRIVAL, NON-VERBAL. FOLLOWS ALL COMMANDS History of Present Illness HPI narrative: The patient is brought in by ambulance from a detention for altered mental status. The patient is unable to provide any history. He will tell me his name, does not answer any other questions, but does follow commands. Shakes his head no when asked if he is in any pain. Related Data Home Medications Medication Instructions Recorded Confirmed tamsulosin 0.4 mg capsule 0.8 mg PO HS PROSTATE 10/10/19 11/09/22 acetaminophen 500 mg tablet 500 mg PO TIDP PRN Mild 06/07/20 11/09/22 Pain,Fever,Headache cholecalciferol (vitamin D3) 1,250 50,000 unit PO MONTHLY Supplement 06/07/20 11/09/22 mcg (50,000 unit) capsule finasteride 5 mg tablet 5 mg PO HS Prostate 02/27/21 11/09/22 hydrochlorothiazide 12.5 mg tablet 12.5 mg PO DAILY High blood 11/09/22 11/09/22 pressure losartan 25 mg tablet 25 mg PO DAILY High blood pressure 11/09/22 11/09/22 Previous Rx's Medication Instructions Recorded hydrocodone 7.5 mg-acetaminophen 1 tab PO BID pain #60 tabs 10/26/22 325 mg tablet Allergies Allergy/AdvReac Type Severity Reaction Status Date / Time No Known Allergies Allergy Verified 10/17/22 20:36 [facility] Disclaimer: The information contained in this section may have been updated after the patient was seen, as this information can be updated by other users. Medical History Cerebellar infarct Cerebral atrophy Cervical spinal stenosis Cervical spondylosis Chronic renal disease Chronic schizophrenia CKD (chronic kidney disease) stage 4, GFR 15-29 ml/min DDD (degenerative disc disease), cervical Foraminal stenosis of cervical region Hematuria due to chronic cystitis Hypertension Multiple thyroid nodules Obesity (BMI 30.0-34.9) Obesity, morbid, BMI 40.0-49.9 Phimosis of penis Prostate enlargement Renal insufficiency Stroke Social History Smoking Status: Unknown if ever smoked alcohol intake: never substance use type: denies use current occupational status: retired Travel in the last 8 weeks: None household members: other housing: detention current occupational exposures/hazards: No caffeine: Yes ROS Obtained: Yes unobtainable due to mental status and Yes unobtainable due to mental condition Physical Exam General General appearance: alert and in no apparent distress Head Head exam: atraumatic and normocephalic Eye Eye exam: Present normal appearance and EOMI ENT ENT exam: Present mucous membranes moist Neck Neck exam: Present normal inspection and trachea midline Chest Chest inspection: Present normal inspection and symmetric chest wall rise Respiratory Respiratory exam: Present normal lung sounds bilaterally; Absent respiratory distress Cardiovascular Cardiovascular exam: Present regular rate, normal rhythm and normal heart sounds Abdominal Exam Abdominal exam: Present soft, tenderness (When palpated in the right upper quadrant grabs my hand and pulls away. He does not do this when I palpate other areas of his abdomen) and normal bowel sounds; Absent distention, guarding, rebound or rigidity Extremities Exam Extremities exam: Present normal inspection Neurological Exam Neurological exam: Present alert, CN II-XII intact and other (No facial asymmetry. Extraocular movements are intact. Moves all 4 extremities equally.); Absent
--- NOTE | 2022-11-09 13:58 | PC.NURSE ---
preliminary ct report given to MARKELL SMILEY
[2022-11-09 14:00] LABS: Microscopic, Urine URINE MICROSCOPIC (MICROSCOPIC)
--- NOTE | 2022-11-09 14:00 | PC.NURSE ---
MARKELL SMILEY at for pt shawnaal
--- NOTE | 2022-11-09 14:00 | PC.NURSE ---
DR. MANDUJANO AT BEDSIDE
[2022-11-09 14:05] LABS: Basophils % 0.3 % (0.1-2.0); Eosinophils # 0.1 K/mm3 (0.0-0.4); Eosinophils % 0.8 % (0.1-12.0); Hematocrit 43.5 % (42.0-52.0); Hemoglobin 14.4 g/dL (14.1-18.0); Lymphocytes # 0.4 K/mm3 (0.7-4.5); Lymphocytes % 3.4 % (10-50); Mean Corpuscular HGB Conc 33.2 g/dL (31.8-35.4); Mean Corpuscular Hemoglobin 28.7 pg (27.0-31.2); Mean Corpuscular Volume 86.4 fl (80-94); Mean Platelet Volume 8.7 fl (7.4-10.4); Monocytes # 0.5 K/mm3 (0.1-1.0); Neutrophils # 10.9 K/mm3 (1.8-7.8); Neutrophils % 91.4 % (37.0-80.0); Platelet Count 172 K/mm3 (142-424); Red Blood Count 5.03 M/mm3 (4.60-6.20); Red Cell Distribution Width 14.3 % (11.5-17.5); White Blood Count 11.9 K/mm3 (4.8-10.8)
[2022-11-09 14:07] LABS: Appearance,Urine CLEAR (Clear); Blood, Urine Negative (Negative); Color,Urine DK YELLOW (Yellow); Glucose,Urine (UA) Negative (Negative); Ketones,Urine TRACE (Negative); Leukocyte Esterase,Urine 1+ (Negative); Nitrate,Urine Negative (Negative); PH,Urine 5.5 (5.0-8.5); Protein,Urine 1+ (Negative)
[2022-11-09 14:07] LABS: Chloride 102 mmol/L (98-107); Sodium 142 mmol/L (136-145)
[2022-11-09 14:08] LABS: Potassium 4.3 mmoL/L (3.5-5.1)
[2022-11-09 14:10] LABS: Alanine Aminotransferase 281 U/L (12-78); Alkaline Phosphatase 237 U/L (38-126); Aspartate Amino Transferase 254 U/L (17-59); Bilirubin,Total 1.7 mg/dl (0.2-1.3); Blood Urea Nitrogen 27 mg/dl (9-20); Creatinine Clearance Estimated 40 mL/min (50-200); Estimated Glomerular Filt Rate 27 ml/min (>60); GFR (African American) 33 ML/MIN (>60)
[2022-11-09 14:11] LABS: Albumin/Globulin Ratio 1.3 (1.1-1.8); Anion Gap 12.3 mEq/L (5-15); Carbon Dioxide 32 mmol/L (22.0-30.0); Globulin 3.2 g/dL (1.3-3.2); Glucose 145 mg/dl (74-100); Total Protein,Serum 7.2 g/dl (6.3-8.2)
[2022-11-09 14:16] LABS: MANUAL DIFFERENTIAL MANUAL DIFFERENTIAL (MANUAL DIFF)
[2022-11-09 14:16] LABS: Bilirubin,Urine 2+ (Negative)
--- NOTE | 2022-11-09 14:20 | CT_ITS ---
FINAL REPORT TECHNIQUE: Thin section axial images were obtained from the lung bases to the pubic symphysis without IV contrast. Coronal reconstruction images were obtained from the axial data. Exam was performed using dose reduction technique. CLINICAL HISTORY: elevated liver enzymes COMPARISON: 02/17/2022 FINDINGS: There is artifact from patient's arms not being above head. There is left greater than right lower lobe atelectasis with left greater than right small effusions. There is a small pericardial effusion which is stable. The gallbladder is mildly distended, pericholecystic inflammation is not excluded. There are no renal or ureteral stones. There is no hydronephrosis. The spleen is enlarged measuring 16 cm. There is stable adrenal hyperplasia with nodularity. The right kidney is absent. Left renal cyst is stable. There is stable left perinephric stranding. The remaining unenhanced solid abdominal organs are unremarkable. There is a moderate to large amount of retained stool. There is asymmetric wall thickening of the rectum best seen on axial image 117, neoplasm is not excluded. There is a Calvin catheter in the bladder. There is diffuse increased density to the bones, could be related to renal osteodystrophy but bone metastases is not excluded. There is no evidence of small bowel obstruction. The appendix is normal . There is no lymphadenopathy or ascites. IMPRESSION: Splenomegaly. Rectal wall thickening, neoplasm is not excluded. Recommend correlation with recent colonoscopy if performed. Distended gallbladder. Consider ultrasound if there is concern for acute cholecystitis. Abnormality of the bones which could be related to renal osteodystrophy but bone metastases is not excluded. Reviewed, Interpreted and Dictated by Liz Persaud MD Transcribed by Shreya Torres Authenticated and [facility]
--- NOTE | 2022-11-09 14:29 | PC.NURSE ---
pt to CT via stretcher
--- NOTE | 2022-11-09 14:30 | XR_ITS ---
FINAL REPORT CLINICAL HISTORY: AMS COMPARISON: 02/17/2022 FINDINGS: A single PA view of the chest was obtained. The cardiac and mediastinal silhouettes are within normal limits. There are low lung volumes. There is likely left basilar atelectasis, left effusion is not excluded. No acute osseous abnormality is identified. IMPRESSION: Possible left effusion. Reviewed, Interpreted and Dictated by Liz Persaud MD Transcribed by Shreya Torres Authenticated and . [facility]
[2022-11-09 14:36] LABS: Amorphous Sediment,Urine 1+ /lpf; Bacteria,Urine 1+ /lpf; Squamous Epithelial Cell,Urine Occasional #/hpf (0-5)
[2022-11-09 14:42] LABS: Lipase 48 U/L (23-300)
[2022-11-09 14:49] LABS: Lactic Acid 1.5 mmol/L (0.7-2.1)
[2022-11-09 15:17] LABS: Lymphocytes % 6 % (10-50); Monocytes % 5 % (2-9); Neutrophils % 89 % (42-76); Platelet Estimate Normal; RBC Morphology Normal; Total Cells Counted 100
--- NOTE | 2022-11-09 15:51 | US_ITS ---
PROCEDURE INFORMATION: Exam: US Abdomen; Limited Exam date and time: 11/09/2022 4:07 PM Age: 72 years old Clinical indication: Abnormal findings; Abnormal radiologic finding of the abdomen; Radiologic exam and body structure: Distended gallbladder on recent CT; Prior surgery; Surgery type: Right kidney removed unknown when; Additional info: Elev liver enzymes, ruq tenderness, dist gb on CT TECHNIQUE: Imaging protocol: Real time ultrasound of the abdomen with image documentation. Limited exam focused on the region of clinical interest. Total images: 37 COMPARISON: CT ABDOMEN PELVIS WO CON 11/09/2022 2:33 PM FINDINGS: Liver: Mild fatty infiltration of the liver. Gallbladder: Sludge and stones noted within the gallbladder. Mild gallbladder distention. Biliary ducts: Common bile duct measures 4 mm. Right kidney: Right kidney is surgically absent. IMPRESSION: 1. Sludge and stones noted within the gallbladder. 2. Mild gallbladder distention. 3. Mild fatty infiltration of the liver. 4. Right kidney is surgically absent.
--- NOTE | 2022-11-09 15:51 | PC.NURSE ---
Spoke with Lourdes in radiology regarding gallbladder US
--- NOTE | 2022-11-09 17:14 | PC.NURSE ---
Had project/production manager imaging surgeon paged for consult with Dr Gomez
--- NOTE | 2022-11-09 17:23 | PC.NURSE ---
DR MANDUJANO SPEAKING WITH DR SOUSA
--- NOTE | 2022-11-09 17:24 | PC.NURSE ---
DR MANDUJANO SPEAKING WITH HOSPITALIST FOR ADMISSION
--- NOTE | 2022-11-09 17:25 | PC.NURSE ---
PSYCHOLOGIST PRIVATE PRACTICE NOTIFIED OF ADMISSION
--- NOTE | 2022-11-09 18:16 | PC.NURSE ---
REPORT GIVEN TO Michael PAINTER RN
--- NOTE | 2022-11-09 18:34 | PC.NURSE ---
Pt arrived to the floor at this time
--- NOTE | 2022-11-09 19:07 | PC.NURSE ---
from what i was able to obtain from pt : alert to self. pt did tell me his name and birthday but no other verbal responses were given. pt will follow commands and shake head yes or no. polo in place, lungs diminished. pt shook head no when asked if he was having any pain. polo in place wiht dark yellow uop. 20g iv rac with abx running. cb within reach. pt currently lying in bed watching tv. no concerns at this time. bed alarm on for pt safety.
--- NOTE | 2022-11-09 19:58 | EXP.HP ---
History of Present Illness *Admission Date: 11/09/22 *Reason for visit:: Altered mental status *History of present illness: this is a 72-year-old male with past medical history of cerebellar stroke, chronic schizophrenia, chronic renal disease who presents emergency department today with complaints of altered mental status. It is reported patient is nonverbal secondary to his cerebellar stroke and was noted to be altered prior to arrival. On arrival to the emergency department he was able to follow commands with head shakes and hand gestures but is nonverbal. Broad work-up was initiated to include chest abdomen pelvis CT, CT of the head and chest x-ray. CT of the head negative for acute disease processes. CT abdomen with distended gallbladder with possible pericholecystic inflammation. He is also noted to have splenomegaly. He is also noted to have rectal wall thickening, neoplasm unable to be excluded. Ultrasound was obtained and noted to have sludge and stones within the gallbladder with 4 mm common bile duct. Given the above findings on CT scan, surgery was consulted and is okay with patient staying here for consultation. At the time of admission, mild leukocytosis, REYNALDO with a creatinine of 2.4 and acute cystitis. He is admitted to the hospitalist service for further evaluation and management. [facility] Disclaimer: The information contained in this section may have been updated after the patient was seen, as this information can be updated by other users. Medical History Cerebellar infarct Cerebral atrophy Cervical spinal stenosis Cervical spondylosis Chronic renal disease Chronic schizophrenia CKD (chronic kidney disease) stage 4, GFR 15-29 ml/min DDD (degenerative disc disease), cervical Foraminal stenosis of cervical region Hematuria due to chronic cystitis Hypertension Multiple thyroid nodules Obesity (BMI 30.0-34.9) Obesity, morbid, BMI 40.0-49.9 Phimosis of penis Prostate enlargement Renal insufficiency Stroke Social History Smoking Status: Unknown if ever smoked alcohol intake: never substance use type: denies use current occupational status: retired Travel in the last 8 weeks: None household members: other housing: alf current occupational exposures/hazards: No caffeine: Yes Review of Systems Review of Systems Review of systems:: unable to obtain Review of systems (narrative): patient nonverbal and no family members at bedside Meds Home Medications and Allergies Home Medications Medication Instructions Recorded Confirmed Type tamsulosin 0.4 mg capsule 0.8 mg PO HS PROSTATE 10/10/19 11/09/22 History acetaminophen 500 mg tablet 500 mg PO Q4HP PRN Mild 06/07/20 11/10/22 History Pain,Fever,Headache cholecalciferol (vitamin D3) 1,250 50,000 unit PO MONTHLY Supplement 06/07/20 11/09/22 History mcg (50,000 unit) capsule finasteride 5 mg tablet 5 mg PO HS Prostate 02/27/21 11/09/22 History hydrocodone 7.5 mg-acetaminophen 1 tab PO BID pain #60 tabs 10/26/22 11/09/22 Rx 325 mg tablet hydrochlorothiazide 12.5 mg tablet 12.5 mg PO DAILY Fluid 11/09/22 11/09/22 History losartan 25 mg tablet 25 mg PO DAILY Hypertension 11/09/22 11/09/22 History paliperidone palmitate 117 mg/0.75 117 mg IM MONTHLY MOOD 11/10/22 11/10/22 History mL intramuscular syringe (Invega Sustminda) tizanidine 2 mg tablet 2 mg PO TID MUSCLE SPASM 11/10/22 11/10/22 History New Prescriptions to Start Prescriptions: Allergies Allergy/AdvReac Type Severity Reaction Status Date / Time No Known Allergies Allergy Verified 10/17/22 20:36 Exam Data for Last 24 hours Vital signs and Labs for Last 24 Hours: Temp Pulse Resp BP Pulse Ox 101.2 F H 110 H 18 154/89 H 93 L 11/09/22 19:22 11/09/22 18:42 11/09/22 18:42 11/09/22 18:42 11/09/22 18:42 Laboratory Results
[2022-11-09 21:20] LABS: Erythrocyte Sedimentation Rate 24 mm/hr (0-20)
[2022-11-09 21:27] LABS: Procalcitonin 3.47 ng/mL (0.0-2.0)
[2022-11-10] VITALS (24 sets, daily range): BP systolic 90–164; BP diastolic 50–89; PULSE 74–108; RESP 14–22; TEMP 36.1–43; O2SAT 90–98; BMI 32.1
--- NOTE | 2022-11-10 06:01 | EXP.SURG.CON ---
History of Present Illness *Admission Date: 11/09/22 *History of present illness: Patient is a 72-year-old male retirement patient with past medical history of cerebellar stroke, chronic schizophrenia, chronic renal disease who presented emergency department yesterday afternoon after concerns from [place] staff of altered mental status. It is reported patient is nonverbal secondary to his cerebellar stroke and was noted to be altered prior to arrival. [facility] had concerns that the patient was unresponsive. On arrival to the emergency department he was able to follow commands with head shakes and hand gestures but is nonverbal. Examination by the ER physician was concerning for possible right upper quadrant tenderness as the patient would grab his hand with palpation in RUQ. Broad work-up was initiated. He was found to have mild leukocytosis with slight elevation of transaminases and bilirubin. CT abdomen revealed distended gallbladder, pericholecystic inflammation is not excluded . He was also noted to have splenomegaly. He had slight elevation of liver function tests. Ultrasound was obtained and noted to have sludge and stones within the gallbladder with mild gallbladder distension with 4 mm common bile duct. Given the above findings on CT scan, surgery was contacted as it was felt the patient likely had acute cholecystitis. He was admitted to the hospitalist service for further evaluation and management with surgical consultation for apparent acute cholecystitis. [facility] Disclaimer: The information contained in this section may have been updated after the patient was seen, as this information can be updated by other users. Medical History Cerebellar infarct Cerebral atrophy Cervical spinal stenosis Cervical spondylosis Chronic renal disease Chronic schizophrenia CKD (chronic kidney disease) stage 4, GFR 15-29 ml/min DDD (degenerative disc disease), cervical Foraminal stenosis of cervical region Hematuria due to chronic cystitis Hypertension Multiple thyroid nodules Obesity (BMI 30.0-34.9) Obesity, morbid, BMI 40.0-49.9 Phimosis of penis Prostate enlargement Renal insufficiency Stroke Social History Smoking Status: Unknown if ever smoked alcohol intake: never substance use type: denies use current occupational status: retired Travel in the last 8 weeks: None household members: other housing: retirement current occupational exposures/hazards: No caffeine: Yes Meds Home Medications and Allergies Home Medications Medication Instructions Recorded Confirmed Type tamsulosin 0.4 mg capsule 0.8 mg PO HS PROSTATE 10/10/19 11/09/22 History acetaminophen 500 mg tablet 500 mg PO TIDP PRN Mild 06/07/20 11/09/22 History Pain,Fever,Headache cholecalciferol (vitamin D3) 1,250 50,000 unit PO MONTHLY Supplement 06/07/20 11/09/22 History mcg (50,000 unit) capsule finasteride 5 mg tablet 5 mg PO HS Prostate 02/27/21 11/09/22 History hydrocodone 7.5 mg-acetaminophen 1 tab PO BID pain #60 tabs 10/26/22 11/09/22 Rx 325 mg tablet hydrochlorothiazide 12.5 mg tablet 12.5 mg PO DAILY High blood 11/09/22 11/09/22 History pressure losartan 25 mg tablet 25 mg PO DAILY High blood pressure 11/09/22 11/09/22 History New Prescriptions to Start Prescriptions: Allergies Allergy/AdvReac Type Severity Reaction Status Date / Time No Known Allergies Allergy Verified 10/17/22 20:36 Exam (Inpt) Vital signs and Labs for Last 24 Hours: Temp Pulse Resp BP Pulse Ox 98.2 F 79 16 144/79 H 96 11/10/22 04:00 11/10/22 04:00 11/10/22 04:00 11/10/22 04:00 11/10/22 04:00 Laboratory Results - last 24 hr 11/09/22 13:36: SARS-CoV-2 (PCR) Not detected, Influenza A Untype (PCR) Not detected, Influenza Type B (PCR) Not detected 11/09/22 13:54: WBC 11.9 H, RBC 5.03, Hgb 14.4, Hct 43.5, MCV 86.4, M
[2022-11-10 06:40] LABS: Basophils % 0.2 % (0.1-2.0); Eosinophils # 0.1 K/mm3 (0.0-0.4); Eosinophils % 1.8 % (0.1-12.0); Hematocrit 35.9 % (42.0-52.0); Lymphocytes # 0.4 K/mm3 (0.7-4.5); Lymphocytes % 6.7 % (10-50); Mean Corpuscular HGB Conc 32.8 g/dL (31.8-35.4); Mean Corpuscular Hemoglobin 28.6 pg (27.0-31.2); Mean Corpuscular Volume 87.1 fl (80-94); Mean Platelet Volume 8.8 fl (7.4-10.4); Monocytes # 0.3 K/mm3 (0.1-1.0); Monocytes % 5.6 % (1.7-9.3); Neutrophils # 4.7 K/mm3 (1.8-7.8); Neutrophils % 85.7 % (37.0-80.0); Platelet Count 142 K/mm3 (142-424); Red Blood Count 4.12 M/mm3 (4.60-6.20); Red Cell Distribution Width 14.4 % (11.5-17.5); White Blood Count 5.4 K/mm3 (4.8-10.8)
[2022-11-10 06:42] LABS: Hemoglobin 11.8 g/dL (14.1-18.0); MANUAL DIFFERENTIAL MANUAL DIFFERENTIAL (MANUAL DIFF)
[2022-11-10 06:49] LABS: Alanine Aminotransferase 162 U/L (12-78); Albumin Level 2.8 g/dl (3.5-5.0); Albumin/Globulin Ratio 1.1 (1.1-1.8); Alkaline Phosphatase 179 U/L (38-126); Aspartate Amino Transferase 84 U/L (17-59); Bilirubin,Total 1.3 mg/dl (0.2-1.3); Blood Urea Nitrogen 26 mg/dl (9-20); Carbon Dioxide 29 mmol/L (22.0-30.0); Chloride 109 mmol/L (98-107); Creatinine Clearance Estimated 52 mL/min (50-200); Estimated Glomerular Filt Rate 35 ml/min (>60); GFR (African American) 43 ML/MIN (>60); Globulin 2.6 g/dL (1.3-3.2); Glucose 91 mg/dl (74-100); Magnesium 1.9 mg/dl (1.6-2.3); Sodium 140 mmol/L (136-145); Total Protein,Serum 5.4 g/dl (6.3-8.2)
[2022-11-10 06:50] LABS: Lactic Acid 0.5 mmol/L (0.7-2.1)
[2022-11-10 07:25] LABS: Eosinophils % 2 % (0-3); Lymphocytes % 9 % (10-50); Monocytes % 2 % (2-9); Neutrophils % 87 % (42-76); Platelet Estimate Normal; RBC Morphology Normal; Total Cells Counted 100
[2022-11-10 07:38] LABS: INR 1.16 (0.9-1.1); Prothrombin Time 12.4 seconds (10.1-12.5)
--- NOTE | 2022-11-10 07:53 | DIET.NUTRFU ---
Reviewed chart, he is from [place] and has a diet of MSOFT with nectar thick liquids. He was here on 02/17 and have weight of 117kg. When say him in December 2022 it was reported 20# wt loss, now has had another 35#. Currently NPO for gallbladder eval from sx.
--- NOTE | 2022-11-10 08:23 | SW/DCPLANNER ---
Addendum entered by Kylee Willis 11/15/22 08:05: The plan for this patient is to return to [facility] level of care. Miya dueñas/ Spencer Kenney has stated that patient does NOT need a repeat COVID swab prior to discharge. Addendum entered by Kylee Willis 11/14/22 10:34: Updated patient information has been faxed to Miya dueñas/ Spencer Kenney. Original Note: This patient currently resides at [facility] level of care. I will continue to follow up with Miya at [facility] until patient is medically stable for discharge. I will fax update patient information today.
--- NOTE | 2022-11-10 09:52 | P.CONPHA_ITS ---
Pharmacy Intervention Comments: MEDICATION RECONCILIATION COMPLETED ON PATIENT USING MAR FROM [facility]. -SHANTEL TAYLOR, NONAD
--- NOTE | 2022-11-10 09:52 | HMH.PHAINT1 ---
Pharmacy Intervention Comments: MEDICATION RECONCILIATION COMPLETED ON PATIENT USING MAR FROM [facility]. -SHANTEL TAYLOR, NONAD
--- NOTE | 2022-11-10 11:13 | EXP.PN ---
Subjective *Date: 11/10/22 *Time: 11:13 Interval history: Date of service November 10, 2022 The patient is nonverbal. He wakes up to stimulation and is alert and makes facial expressions. Nursing staff report a T-max of 101.2 with improved heart rates and elevated blood pressures. He is saturating appropriately on room air. He is tolerating his IV antibiotic with no adverse events. His blood cultures are pending and general surgery plans on intraoperative evaluation. His CBC identifies an improved leukocytoses and stable hemoglobin. His electrolytes are stable and his creatinine has improved. His total bilirubin has normalized and his LFTs are improving. Exam Data for Last 24 hours Vital signs and Labs for Last 24 Hours: Temp Pulse Resp BP Pulse Ox 99.1 F 74 20 164/89 H 98 11/10/22 08:00 11/10/22 08:00 11/10/22 08:00 11/10/22 08:00 11/10/22 08:00 Laboratory Results - last 24 hr 11/09/22 13:36: SARS-CoV-2 (PCR) Not detected, Influenza A Untype (PCR) Not detected, Influenza Type B (PCR) Not detected 11/09/22 13:54: WBC 11.9 H, RBC 5.03, Hgb 14.4, Hct 43.5, MCV 86.4, MCH 28.7, MCHC 33.2, RDW 14.3, Plt Count 172, MPV 8.7, Neut % (Auto) 91.4 H, Lymph % (Auto) 3.4 L, [place] % (Auto) 4.0, Eos % (Auto) 0.8, Baso % (Auto) 0.3, Neut # (Auto) 10.9 H, Lymph # (Auto) 0.4 L, [place] # (Auto) 0.5, Eos # (Auto) 0.1, Baso # (Auto) 0.0, Total Counted 100, Neutrophils % (Manual) 89 H, Lymphocytes % (Manual) 6 L, Monocytes % (Manual) 5, Platelet Estimate Normal, RBC Morphology Normal 11/09/22 13:54: Sodium 142, Potassium 4.3, Chloride 102, Carbon Dioxide 32 H, Anion Gap 12.3, BUN 27 H, Creatinine 2.40 H, Estimated Creat Clear 40, Estimated GFR 27 L, Est GFR ( Amer) 33 L, Glucose 145 H, Calcium 9.0, Total Bilirubin 1.7 H, AST 254 H, ALT 281 H, Alkaline Phosphatase 237 H, Total Protein 7.2, Albumin 4.0, Globulin 3.2, Albumin/Globulin Ratio 1.3 11/09/22 13:54: Lipase 48 11/09/22 13:54: Lactate 1.5 11/09/22 13:59: Urine Color Dk yellow, Urine Appearance Clear, Urine pH 5.5, Ur Specific [place] 1.020, Urine Protein 1+, Urine Glucose (UA) Negative, Urine Ketones Trace, Urine Blood Negative, Urine Nitrate Negative, Urine Bilirubin 2+ A, Urine Urobilinogen 4.0, Ur Leukocyte Esterase 1+ A, Urine WBC 5-10, Ur Squamous Epith Cells Occasional, Amorphous Sediment 1+, Urine Bacteria 1+ 11/09/22 20:52: ESR 24 H 11/09/22 20:52: C-Reactive Protein 91.0 H, Procalcitonin 3.47 H 11/10/22 06:30: WBC 5.4 D, RBC 4.12 L, Hgb 11.8 L D, Hct 35.9 L, MCV 87.1, MCH 28.6, MCHC 32.8, RDW 14.4, Plt Count 142, MPV 8.8, Neut % (Auto) 85.7 H, Lymph % (Auto) 6.7 L, [place] % (Auto) 5.6, Eos % (Auto) 1.8, Baso % (Auto) 0.2, Neut # (Auto) 4.7, Lymph # (Auto) 0.4 L, [place] # (Auto) 0.3, Eos # (Auto) 0.1, Baso # (Auto) 0.0, Total Counted 100, Neutrophils % (Manual) 87 H, Lymphocytes % (Manual) 9 L, Monocytes % (Manual) 2, Eosinophils % (Manual) 2, Platelet Estimate Normal, RBC Morphology Normal 11/10/22 06:30: Sodium 140, Potassium 4.0, Chloride 109 H, Carbon Dioxide 29, Anion Gap 6.0, BUN 26 H, Creatinine 1.90 H D, Estimated Creat Clear 52, Estimated GFR 35 L, Est GFR ( Amer) 43 L D, Glucose 91 D, Calcium 8.0 L, Magnesium 1.9, Total Bilirubin 1.3, AST 84 H D, ALT 162 H D, Alkaline Phosphatase 179 H, Total Protein 5.4 L, Albumin 2.8 L D, Globulin 2.6, Albumin/Globulin Ratio 1.1 11/10/22 06:30: Lactate 0.5 L 11/10/22 06:30: PT 12.4, INR 1.16 H I & O for Last 24 hours: Intake & Output 11/07/22 11/08/22 11/09/22 11/10/22 23:59 23:59 23:59 23:59 Output Total 0 / 800 1060 / 1060 Balance 0 / -800 -1060 / -1060 Weight 98.7 kg 101.9 kg Microbiology Reports for the Last 24 Hours: Microbiology 11/09/22 13:54 Blood Blood Culture - Preliminary Constitutional Constitutional: no acute distress, chronically ill appearing and cooperative *Routine HEENT Exam Head: Present normocephalic Eye: Present EOMI and PERRL ENT: Present mucous membranes moist *Routine Neck Exam N
--- NOTE | 2022-11-10 12:02 | P.PN_ITS ---
[facility] Disclaimer: The information contained in this section may have been updated after the patient was seen, as this information can be updated by other users. Medical History Cerebellar infarct Cerebral atrophy Cervical spinal stenosis Cervical spondylosis Chronic renal disease Chronic schizophrenia CKD (chronic kidney disease) stage 4, GFR 15-29 ml/min DDD (degenerative disc disease), cervical Foraminal stenosis of cervical region Hematuria due to chronic cystitis Hypertension Multiple thyroid nodules Obesity (BMI 30.0-34.9) Obesity, morbid, BMI 40.0-49.9 Phimosis of penis Prostate enlargement Renal insufficiency Stroke Social History Smoking Status: Unknown if ever smoked alcohol intake: never substance use type: denies use current occupational status: retired Travel in the last 8 weeks: None household members: other housing: senior care current occupational exposures/hazards: No caffeine: Yes [facility] Anesthesia Checklist Patient Identification Patient Identification: Arm Band and Verbal (Name & ) Structural Data Admitted From: Home Planned Operative Procedure/s: Lap. cholecystectomy Consent for Planned Operative Procedure(s) Verified: Yes NPO Status Verified Time NPO: 00:00 Chart Verification Results Verified: CBC and BMP Additional verifications Anesthesia Reactions: No Hx Blood Transfusions: No Blood Transfusion Reaction: Yes Airway Assessment C-Spine Mobility Assessed: Yes TMJ Mobility Assessed: Yes Dentition: Edentulous Neurological Assessment Level of Consciousness: Awake Hx Seizures: No Numbness or tingling in extremities: No Anesthesia Plan Anesthesia Risk discussed: Yes Anesthesia Plan: Patient unable to respond/answer ASA Class: IV (E) Anesthesia Type: General
--- NOTE | 2022-11-10 14:23 | EXP.OP.NOTE ---
Date of procedure: 11/10/22 Pre-op Diagnosis:: Probable acute cholecystitis Post-op Diagnosis:: Acute cholecystitis Procedure performed:: Laparoscopic cholecystectomy Surgeon:: Angel Bolanos MD AUTO SELF SERVICE STATION ATTENDANT:: Dexter Roper Anesthesia: MAXI Estimated blood loss (mL): 75 Clinical Note:: Patient is a 72-year-old male [facility] patient with past medical history of cerebellar stroke, chronic schizophrenia, chronic renal disease who presented emergency department yesterday afternoon after concerns from [facility] staff of altered mental status.? It is reported patient is nonverbal secondary to his cerebellar stroke and was noted to be altered prior to arrival.? NH had concerns that the patient was unresponsive.? On arrival to the emergency department he was able to follow commands with head shakes and hand gestures but is nonverbal.? Examination by the ER physician was concerning for possible right upper quadrant tenderness as the patient would grab his hand with palpation in RUQ.? Broad work-up was initiated.? He was found to have mild leukocytosis with slight elevation of transaminases and bilirubin.? CT abdomen revealed distended gallbladder, pericholecystic inflammation is not excluded .? He was also noted to have splenomegaly.? He had slight elevation of liver function tests.? Ultrasound was obtained and noted to have sludge and stones within the gallbladder with mild gallbladder distension with 4 mm common bile duct.? Given the above findings on CT scan, surgery was contacted as it was felt the patient likely had acute cholecystitis.? He was admitted to the hospitalist service for further evaluation and management with surgical consultation for apparent acute cholecystitis. Based on the fact that the patient had clinical and radiographic evidence suggestive of acute cholecystitis plan was made for laparoscopic cholecystectomy. Operative findings:: He had fatty liver. He had distended gallbladder with some thickening and pericholecystic edema. There was probable stone in the neck of the gallbladder. There were several branching veins around the cystic duct. Operative note:: Patient was taken the operating room. He was given preoperative intravenous antibiotics. In the operating room he was placed in a supine position. General anesthesia was induced via endotracheal tube. Abdomen was prepped and draped in the standard surgical fashion. Subumbilical skin incision was made and while performing abdominal wall lift Veress needle was inserted. CO2 pneumoperitoneum was achieved to 15 mmHg. 11 mm trocar was inserted at the umbilicus. He was positioned in reverse Trendelenburg left side down. A couple of 5 mm trochars were inserted in the right upper abdomen. 10 mm trocar was inserted in the epigastrium. He had some fatty infiltration of the liver. Gallbladder was identified and grasped retracted anteriorly and superiorly over the dome of the liver. Gallbladder was somewhat edematous and distended with some mild thickening. There were adhesions of omentum and duodenum to the neck of the gallbladder and this was taken down using blunt dissection. Infundibulum/Vasquez's pouch the gallbladder was retracted anterior laterally. Blunt dissection was carried out. The cystic duct was identified. There were some branching vessels around the cystic duct and there is some oozing. Surgicel was inserted temporarily for hemostasis. Dissection was carried out ultimately isolating identifying the cystic duct. There was probable stone in the neck of the gallbladder. Cystic duct was multiply clipped and sharply divided. A couple hemoclips were placed on the tiny branching vein which was oozing. Cystic artery was identified and it was carefully coagulated with PATEL ultrasonic robotic erin and divided. Liver was rather friable. The gallbladder was dissected free from the liver in a retrograde fashion using PATEL ultrasonic harmonic erin. Please note that there was some brief unavoida
--- NOTE | 2022-11-10 14:28 | EXP.ANES.I ---
[facility] Anesthesia Record Part I Anesthesia Record I Intake, IV Amount: 1,200 Estimated blood loss (mL): 20 Urine output (mL): 500 Blood Products used (#): none Blood Pressure: 140/72 SaO2: 92 Pulse Rate: 83 Respiratory Rate: 16 Temperature: 99.3 F Patient is:: Drowsy and Stable Stable to PACU at:: 14:25
--- NOTE | 2022-11-10 16:47 | P.PNANES_ITS ---
[facility] Anesthesia Record Part II Anesthesia Record Part II Discharge Time: 14:55 Destination: Medical Surgical Department PACU nurse assessment reviewed?: Yes Patient Condition:: Good Anesthesia Complications:: None Swallowing reflex intact?: Yes Cyanosis?: No Blood Pressure: 155/83 Pulse Rate: 77 Temperature: 97 F Mental Status: Alert & Oriented (Unable to fully assess. Pt is non verbal) Pain level:: 0 Nausea and/or vomitting:: None Intake, IV Amount: 0
--- NOTE | 2022-11-10 18:22 | PC.NURSE ---
pt post morteza, [address] to abdomen, C/D/I, has not shown signs of pain, remains on room air, polo remains in place
[2022-11-11] VITALS (8 sets, daily range): BP systolic 93–141; BP diastolic 51–70; PULSE 78–98; RESP 16–22; TEMP 36.3–37; O2SAT 91–96; BMI 31.6
--- NOTE | 2022-11-11 02:24 | PC.NURSE ---
NOTICED PT HAS STARTED TO HAVE A WET NON PRODUCTIVE COUGH. LUNG SOUNDS HAVE CRACKLE BILATERALLY. AIRLINE CUSTOMER SERVICE AGENT NOTIFIED.
--- NOTE | 2022-11-11 02:40 | XR_ITS ---
PROCEDURE INFORMATION: Exam: XR Chest Exam date and time: 11/11/2022 2:53 AM Age: 72 years old Clinical indication: Cough TECHNIQUE: Imaging protocol: Radiologic exam of the chest. Views: 1 view. COMPARISON: CR XR CHEST PORTABLE 11/09/2022 2:48 PM FINDINGS: Lungs: No focal consolidation. Minimal left basilar atelectasis. Pleural spaces: Trace left pleural effusion. Heart/Mediastinum: Unremarkable. No cardiomegaly. Bones/joints: No acute osseous abnormality. IMPRESSION: 1. Trace left pleural effusion. 2. No focal consolidation. 3. Minimal left basilar atelectasis.
--- NOTE | 2022-11-11 05:19 | PC.NURSE ---
NO ACUTE CHANGES SINCE PREVIOUS ASSESSMENT. PT HAS SLEPT WELL THIS SHIFT. LUNG SOUNDS ARE DIMINISHED WITH CRACKLES. REMAINS ON ROOM AIR. PT'S BP HAS BEEN SOFT SINCE HIS PROCEDURE. HE HAS RECEIVED TWO 500ML BOLUSES. STONE LATHE OPERATOR CONTACTED AFTER THE SECOND BOLUS DUE TO PT BEGINNING TO HAVE A WET COUGH AND LUNG SOUNDS CHANGED FROM PREVIOUS ASSESSMENT. CHEST X-RAY ORDERED AND TAKEN. SURGICAL SITES ARE C/D/I. DRESSINGS IN PLACE. BED ALARM IN PLACE FOR PT SAFETY.
[2022-11-11 07:13] LABS: INR 1.01 (0.9-1.1); Prothrombin Time 10.9 seconds (10.1-12.5)
[2022-11-11 07:16] LABS: Basophils % 0.1 % (0.1-2.0); Hematocrit 26.8 % (42.0-52.0); Hemoglobin 8.8 g/dL (14.1-18.0); Lymphocytes # 0.4 K/mm3 (0.7-4.5); Lymphocytes % 5.4 % (10-50); Mean Corpuscular HGB Conc 32.6 g/dL (31.8-35.4); Mean Corpuscular Hemoglobin 28.9 pg (27.0-31.2); Mean Corpuscular Volume 88.7 fl (80-94); Mean Platelet Volume 9.4 fl (7.4-10.4); Monocytes # 0.3 K/mm3 (0.1-1.0); Monocytes % 4.7 % (1.7-9.3); Neutrophils # 6.5 K/mm3 (1.8-7.8); Neutrophils % 89.9 % (37.0-80.0); Platelet Count 185 K/mm3 (142-424); Red Blood Count 3.03 M/mm3 (4.60-6.20); Red Cell Distribution Width 14.6 % (11.5-17.5); White Blood Count 7.2 K/mm3 (4.8-10.8)
[2022-11-11 07:17] LABS: Alanine Aminotransferase 98 U/L (12-78); Albumin Level 2.5 g/dl (3.5-5.0); Albumin/Globulin Ratio 1.1 (1.1-1.8); Alkaline Phosphatase 144 U/L (38-126); Anion Gap 8.9 mEq/L (5-15); Aspartate Amino Transferase 36 U/L (17-59); Bilirubin,Total 0.7 mg/dl (0.2-1.3); Blood Urea Nitrogen 34 mg/dl (9-20); Calcium 7.8 mg/dl (8.4-10.2); Carbon Dioxide 26 mmol/L (22.0-30.0); Chloride 110 mmol/L (98-107); Creatinine Clearance Estimated 36 mL/min (50-200); Estimated Glomerular Filt Rate 23 ml/min (>60); GFR (African American) 28 ML/MIN (>60); Globulin 2.3 g/dL (1.3-3.2); Glucose 141 mg/dl (74-100); MANUAL DIFFERENTIAL MANUAL DIFFERENTIAL (MANUAL DIFF); Potassium 4.9 mmoL/L (3.5-5.1); Sodium 140 mmol/L (136-145); Total Protein,Serum 4.8 g/dl (6.3-8.2)
[2022-11-11 07:33] LABS: Procalcitonin 1.43 ng/mL (0.0-2.0)
[2022-11-11 08:49] LABS: Lymphocytes % 5 % (10-50); Monocytes % 5 % (2-9); Neutrophils % 90 % (42-76); Total Cells Counted 100
[2022-11-11 08:50] LABS: Platelet Estimate Normal; RBC Morphology Normal
--- NOTE | 2022-11-11 09:20 | EXP.PN ---
Subjective *Date: 11/11/22 *Time: 09:20 Interval history: Date of service November 11, 2022 The patient is sitting up in bed alert and continues to be nonverbal. He shakes his head no when I ask if he is in pain. Nursing staff report that he remains afebrile with stable heart rates some elevated blood pressures and saturating appropriately on room air. He is tolerating a soft mechanical diet with nectar thick liquids. His morning labs identify a normal white blood cell count, hemoglobin 8.8 and platelets 185. His electrolytes are stable and his creatinine has increased to 2.7. His elevated procalcitonin has returned to normal. 1 bottle on his blood cultures is being reported as positive for cocci in clusters with his bio fire positive for Staphylococcus. He is tolerating his IV Zosyn with no adverse events. He underwent laparoscopic cholecystectomy on November 10, 2022. Surgery continues to follow. Exam Data for Last 24 hours Vital signs and Labs for Last 24 Hours: Temp Pulse Resp BP Pulse Ox 97.3 F L 92 H 17 110/56 L 91 L 11/11/22 07:14 11/11/22 07:14 11/11/22 07:14 11/11/22 07:14 11/11/22 07:14 Laboratory Results - last 24 hr 11/11/22 06:57: PT 10.9, INR 1.01 11/11/22 06:57: WBC 7.2 D, RBC 3.03 L D, Hgb 8.8 L, Hct 26.8 L, MCV 88.7, MCH 28.9, MCHC 32.6, RDW 14.6, Plt Count 185 D, MPV 9.4, Neut % (Auto) 89.9 H, Lymph % (Auto) 5.4 L, [place] % (Auto) 4.7, Eos % (Auto) 0.0 L, Baso % (Auto) 0.1, Neut # (Auto) 6.5, Lymph # (Auto) 0.4 L, [place] # (Auto) 0.3, Eos # (Auto) 0.0, Baso # (Auto) 0.0, Total Counted 100, Neutrophils % (Manual) 90 H, Lymphocytes % (Manual) 5 L, Monocytes % (Manual) 5, Platelet Estimate Normal, RBC Morphology Normal 11/11/22 06:57: Sodium 140, Potassium 4.9 D, Chloride 110 H, Carbon Dioxide 26, Anion Gap 8.9, BUN 34 H D, Creatinine 2.70 H D, Estimated Creat Clear 36, Estimated GFR 23 L, Est GFR ( Amer) 28 L D, Glucose 141 H, Calcium 7.8 L, Total Bilirubin 0.7, AST 36 D, ALT 98 H D, Alkaline Phosphatase 144 H, Total Protein 4.8 L, Albumin 2.5 L D, Globulin 2.3, Albumin/Globulin Ratio 1.1, Procalcitonin 1.43 I & O for Last 24 hours: Intake & Output 11/08/22 11/09/22 11/10/22 11/11/22 23:59 23:59 23:59 23:59 Intake Total 1200 / 1200 2399 / 2399 Output Total 0 / 800 1760 / 1760 250 / 250 Balance 0 / -800 -560 / -560 2149 / 2149 Weight 98.7 kg 101.9 kg 100.4 kg Microbiology Reports for the Last 24 Hours: Microbiology 11/09/22 13:54 Blood Blood Culture - Preliminary Gram Positive Cocci 11/09/22 13:54 Blood Blood Culture - Preliminary 11/09/22 13:59 Urine,Catheterized Urine Culture - Preliminary NO GROWTH AFTER 24 HOURS Constitutional Constitutional: no acute distress, obese, chronically ill appearing and cooperative *Routine HEENT Exam Head: Present normocephalic Eye: Present EOMI and PERRL ENT: Present mucous membranes moist *Routine Neck Exam Neck: Present supple; Absent lymphadenopathy *Routine Respiratory Exam Respiratory: Present CTA bilaterally, normal respiratory effort and symmetric chest movement *Routine Cardiovascular Exam Cardiovascular: Present RRR; Absent murmur *Routine Abdominal Exam Abdominal: Present soft and normoactive bowel sounds; Absent tenderness, distended, rebound or guarding Comments: Port sites surgical dressings noted *Routine Extremities Exam Extremities: Present pulses intact and normal capillary refill; Absent cyanosis, clubbing or edema *Routine Skin Exam Skin: Present warm; Absent rash *Routine Neurological Exam Neurological: Present alert, vision grossly intact and hearing grossly intact Routine Psychiatric Exam Psychiatric: Present cooperative Assessment and Plan *Assessment and plan (1) Sepsis: Status: Acute Qualifiers: Sepsis type: sepsis due to unspecified organism Severe sepsis acute organ dysfunction type: acute renal failure Severe sepsis yenifer
--- NOTE | 2022-11-11 09:42 | P.PN_ITS ---
Subjective Narrative: No overnight concerns per nursing Exam Data for Last 24 hours Vital signs and Labs for Last 24 Hours: Temp Pulse Resp BP Pulse Ox 97.3 F L 92 H 17 110/56 L 91 L 11/11/22 07:14 11/11/22 07:14 11/11/22 07:14 11/11/22 07:14 11/11/22 07:14 Laboratory Results - last 24 hr 11/11/22 06:57: PT 10.9, INR 1.01 11/11/22 06:57: WBC 7.2 D, RBC 3.03 L D, Hgb 8.8 L, Hct 26.8 L, MCV 88.7, MCH 28.9, MCHC 32.6, RDW 14.6, Plt Count 185 D, MPV 9.4, Neut % (Auto) 89.9 H, Lymph % (Auto) 5.4 L, [place] % (Auto) 4.7, Eos % (Auto) 0.0 L, Baso % (Auto) 0.1, Neut # (Auto) 6.5, Lymph # (Auto) 0.4 L, [place] # (Auto) 0.3, Eos # (Auto) 0.0, Baso # (Auto) 0.0, Total Counted 100, Neutrophils % (Manual) 90 H, Lymphocytes % (Manual) 5 L, Monocytes % (Manual) 5, Platelet Estimate Normal, RBC Morphology Normal 11/11/22 06:57: Sodium 140, Potassium 4.9 D, Chloride 110 H, Carbon Dioxide 26, Anion Gap 8.9, BUN 34 H D, Creatinine 2.70 H D, Estimated Creat Clear 36, Edith mated GFR 23 L, Est GFR ( Amer) 28 L D, Glucose 141 H, Calcium 7.8 L, Total Bilirubin 0.7, AST 36 D, ALT 98 H D, Alkaline Phosphatase 144 H, Total Protein 4.8 L, Albumin 2.5 L D, Globulin 2.3, Albumin/Globulin Ratio 1.1, Procalcitonin 1.43 I & O for Last 24 hours: Intake & Output 11/08/22 11/09/22 11/10/22 11/11/22 11:59 11:59 11:59 11:59 Intake Total 3599 / 3599 Output Total 1060 / 1060 950 / 950 Balance -1060 / -1060 2649 / 2649 Weight 224 lb 10.417 oz 221 lb 5.506 oz Microbiology Reports for the Last 24 Hours: Microbiology 11/09/22 13:54 Blood Blood Culture - Preliminary Gram Positive Cocci 11/09/22 13:54 Blood Blood Culture - Preliminary 11/09/22 13:59 Urine,Catheterized Urine Culture - Preliminary NO GROWTH AFTER 24 HOURS Constitutional Constitutional: no acute distress *Routine Respiratory Exam Respiratory: Absent respiratory distress *Routine Cardiovascular Exam Cardiovascular: Absent tachycardia *Routine Abdominal Exam Comments: Dressings are intact and dry. No spreading cellulitis. *Routine Neurological Exam Neurological: Present alert; Absent oriented X3 Progress Note: A&P Assessment and plan (1) Acute cholecystitis: Status: Acute Assessment and plan: Overall, doing well status post laparoscopic cholecystectomy. Continue management as per primary service (2) Postoperative anemia: Status: Acute Assessment and plan: No definitive evidence of ongoing blood loss. Likely a combination of operative loss, volume infusion, and equilibration. Repeat hemoglobin in AM (3) Acute kidney injury superimposed on chronic kidney disease: Status: Acute Assessment and plan: Increased creatinine noted this AM. Continue management as per primary service (4) Sepsis: Status: Acute (5) Chronic schizophrenia: Status: Chronic (6) Cerebellar infarct: Status: Chronic
--- NOTE | 2022-11-11 18:54 | PC.NURSE ---
pt is more alert this shift. able to answer yes and no questions and verbalize some needs. polo cath remains in place. dsg in place to abd c/d/i.
[2022-11-11 22:49] LABS: Hep A Ab, IgM NEGATIVE; Hepatitis B Core Antibody IgM NEGATIVE; Hepatitis B Surface Antigen NEGATIVE; Hepatitis C Antibody <0.1
[2022-11-12 04:00] VITALS: BP 152/74; PULSE 93; RESP 16; TEMP 37; O2SAT 93; BMI 32.7
--- NOTE | 2022-11-12 05:12 | PC.NURSE ---
vital signs stable/afebrile. LAP ANGELICA DRSGS X 4 C/D/I . NO C/O PAIN. NO INDICATION OF PAIN. ABDOMEN SOFT. POSITIVE BOWEL SOUNDS X 4.
[2022-11-12 07:19] LABS: Alanine Aminotransferase 71 U/L (12-78); Albumin Level 2.7 g/dl (3.5-5.0); Alkaline Phosphatase 124 U/L (38-126); Aspartate Amino Transferase 35 U/L (17-59); Bilirubin,Total 0.7 mg/dl (0.2-1.3); Blood Urea Nitrogen 32 mg/dl (9-20); Calcium 7.7 mg/dl (8.4-10.2); Carbon Dioxide 25 mmol/L (22.0-30.0); Chloride 116 mmol/L (98-107); Creatinine Clearance Estimated 37 mL/min (50-200); Estimated Glomerular Filt Rate 23 ml/min (>60); GFR (African American) 28 ML/MIN (>60); Globulin 2.6 g/dL (1.3-3.2); Glucose 88 mg/dl (74-100); Sodium 145 mmol/L (136-145); Total Protein,Serum 5.3 g/dl (6.3-8.2)
[2022-11-12 07:30] VITALS: BP 150/70; PULSE 90; RESP 17; TEMP 36.9; O2SAT 93
[2022-11-12 07:36] LABS: Procalcitonin 0.829 ng/mL (0.0-2.0)
[2022-11-12 07:48] LABS: Anion Gap 8.5 mEq/L (5-15); Potassium 4.5 mmoL/L (3.5-5.1)
--- NOTE | 2022-11-12 09:48 | EXP.SURG.PN ---
Subjective Narrative: No new issues per nursing Exam Data for Last 24 hours Vital signs and Labs for Last 24 Hours: Temp Pulse Resp BP Pulse Ox 98.5 F 90 17 150/70 H 93 L 11/12/22 07:30 11/12/22 07:30 11/12/22 07:30 11/12/22 07:30 11/12/22 07:30 Laboratory Results - last 24 hr 11/09/22 13:54: Hepatitis A IgM Ab Negative, Hep Bs Antigen Negative, Hep B Core IgM Ab Negative, Hepatitis C Antibody <0.1 11/12/22 06:48: Sodium 145, Potassium 4.5, Chloride 116 H, Carbon Dioxide 25, Anion Gap 8.5, BUN 32 H, Creatinine 2.70 H, Estimated Creat Clear 37, Estimated GFR 23 L, Est GFR ( Amer) 28 L, Glucose 88 D, Calcium 7.7 L, Total Bilirubin 0.7, AST 35, ALT 71 D, Alkaline Phosphatase 124, Total Protein 5.3 L, Albumin 2.7 L, Globulin 2.6, Albumin/Globulin Ratio 1.0 L, Procalcitonin 0.829 I & O for Last 24 hours: Intake & Output 11/09/22 11/10/22 11/11/22 11/12/22 11:59 11:59 11:59 11:59 Intake Total 3599 / 3599 2526 / 2526 Output Total 1060 / 1060 950 / 950 1450 / 1450 Balance -1060 / -1060 2649 / 2649 1076 / 1076 Weight 224 lb 10.417 oz 221 lb 5.506 oz 228 lb 9.91 oz Microbiology Reports for the Last 24 Hours: Microbiology 11/09/22 13:59 Urine,Catheterized Urine Culture - Final NO GROWTH AFTER 48 HOURS 11/09/22 13:54 Blood Blood Culture - Preliminary 11/09/22 13:54 Blood Blood Culture - Preliminary Gram Positive Cocci Constitutional Constitutional: no acute distress *Routine Respiratory Exam Respiratory: Absent respiratory distress *Routine Cardiovascular Exam Cardiovascular: Absent tachycardia *Routine Abdominal Exam Comments: Incisions healing without sign of infection Progress Note: A&P Assessment and plan (1) Acute cholecystitis: Status: Acute Assessment and plan: Overall, doing well status post laparoscopic cholecystectomy. Continue management as per primary service (2) Postoperative anemia: Status: Acute Assessment and plan: CBC from this morning remains pending (3) Acute kidney injury superimposed on chronic kidney disease: Status: Acute Assessment and plan: Creatinine remains elevated (same as yesterday)
--- NOTE | 2022-11-12 10:46 | EXP.PN ---
Subjective *Date: 11/12/22 *Time: 10:46 Interval history: Date of service November 12, 2022 The patient is nonverbal. Nursing staff report that he remains afebrile with stable vital signs and now saturating appropriately on room air. His chest x-ray yesterday identified a trace left pleural effusion with no infiltrates or opacities. His morning CBC is pending. Exam Data for Last 24 hours Vital signs and Labs for Last 24 Hours: Temp Pulse Resp BP Pulse Ox 98.5 F 90 17 150/70 H 93 L 11/12/22 07:30 11/12/22 07:30 11/12/22 07:30 11/12/22 07:30 11/12/22 07:30 Laboratory Results - last 24 hr 11/09/22 13:54: Hepatitis A IgM Ab Negative, Hep Bs Antigen Negative, Hep B Core IgM Ab Negative, Hepatitis C Antibody <0.1 11/12/22 06:48: Sodium 145, Potassium 4.5, Chloride 116 H, Carbon Dioxide 25, Anion Gap 8.5, BUN 32 H, Creatinine 2.70 H, Estimated Creat Clear 37, Estimated GFR 23 L, Est GFR ( Amer) 28 L, Glucose 88 D, Calcium 7.7 L, Total Bilirubin 0.7, AST 35, ALT 71 D, Alkaline Phosphatase 124, Total Protein 5.3 L, Albumin 2.7 L, Globulin 2.6, Albumin/Globulin Ratio 1.0 L, Procalcitonin 0.829 I & O for Last 24 hours: Intake & Output 11/09/22 11/10/22 11/11/22 11/12/22 23:59 23:59 23:59 23:59 Intake Total 1200 / 1200 3987 / 3987 938 / 938 Output Total 0 / 800 1760 / 1760 650 / 650 1050 / 1050 Balance 0 / -800 -560 / -560 3337 / 3337 -112 / -112 Weight 98.7 kg 101.9 kg 100.4 kg 103.7 kg Microbiology Reports for the Last 24 Hours: Microbiology 11/09/22 13:59 Urine,Catheterized Urine Culture - Final NO GROWTH AFTER 48 HOURS 11/09/22 13:54 Blood Blood Culture - Preliminary 11/09/22 13:54 Blood Blood Culture - Preliminary Gram Positive Cocci Constitutional Constitutional: no acute distress, obese, chronically ill appearing and cooperative *Routine HEENT Exam Head: Present normocephalic Eye: Present EOMI and PERRL ENT: Present mucous membranes moist *Routine Neck Exam Neck: Present supple; Absent lymphadenopathy *Routine Respiratory Exam Respiratory: Present CTA bilaterally, normal respiratory effort and symmetric chest movement *Routine Cardiovascular Exam Cardiovascular: Present RRR; Absent murmur *Routine Abdominal Exam Abdominal: Present soft and normoactive bowel sounds; Absent tenderness, distended, rebound or guarding Comments: Port sites surgical dressings noted *Routine Extremities Exam Extremities: Present pulses intact and normal capillary refill; Absent cyanosis, clubbing or edema *Routine Skin Exam Skin: Present warm; Absent rash *Routine Neurological Exam Neurological: Present alert, vision grossly intact and hearing grossly intact Routine Psychiatric Exam Psychiatric: Present cooperative Assessment and Plan *Assessment and plan (1) Sepsis: Status: Acute Qualifiers: Sepsis type: sepsis due to unspecified organism Severe sepsis acute organ dysfunction type: acute renal failure Severe sepsis shock status: without septic shock Category: Medical Code(s): A41.9 - Sepsis, unspecified organism (2) Acute cholecystitis: Status: Acute Category: Medical Code(s): K81.0 - Acute cholecystitis (3) Acute kidney injury superimposed on chronic kidney disease: Status: Acute Category: Medical Code(s): N17.9 - Acute kidney failure, unspecified; N18.9 - Chronic kidney disease, unspecified (4) Chronic schizophrenia: Status: Chronic Category: Medical Code(s): F20.9 - Schizophrenia, unspecified (5) Cerebellar infarct: Status: Chronic Category: Medical Code(s): I63.9 - Cerebral infarction, unspecified Plan 72-year-old male that presents to [facility] emergency department from his facility for changes in his behavior. He is nonverbal. ED evaluation identifies sepsis and concerns for cholecystitis. General
[2022-11-12 10:56] LABS: Basophils % 0.2 % (0.1-2.0); Eosinophils % 0.5 % (0.1-12.0); Hematocrit 23.5 % (42.0-52.0); Hemoglobin 7.7 g/dL (14.1-18.0); Lymphocytes # 0.4 K/mm3 (0.7-4.5); Lymphocytes % 9.8 % (10-50); Mean Corpuscular HGB Conc 32.9 g/dL (31.8-35.4); Mean Corpuscular Hemoglobin 29.4 pg (27.0-31.2); Mean Corpuscular Volume 89.4 fl (80-94); Mean Platelet Volume 9.2 fl (7.4-10.4); Monocytes # 0.2 K/mm3 (0.1-1.0); Monocytes % 5.4 % (1.7-9.3); Neutrophils # 3.2 K/mm3 (1.8-7.8); Neutrophils % 84.1 % (37.0-80.0); Platelet Count 151 K/mm3 (142-424); Red Blood Count 2.63 M/mm3 (4.60-6.20); Red Cell Distribution Width 14.7 % (11.5-17.5); White Blood Count 3.8 K/mm3 (4.8-10.8)
[2022-11-12 15:12] VITALS: BP 150/77; PULSE 85; RESP 17; TEMP 36.7; O2SAT 97
--- NOTE | 2022-11-12 17:19 | PC.NURSE ---
pt pulled out iv, new one placed in rt ac. spoke with pt on the need to keep iv in. pt has been more verbal today, still answering questions with short answers. dr sheridan removed bandages on incision sites, left open to air, no edema, redness or drainage noted. pt states he is not in any pain at this time. cb within reach. bed alarm on for pt safety.
[2022-11-12 20:00] VITALS: BP 137/65; PULSE 95; RESP 16; TEMP 36.8; O2SAT 92
[2022-11-13 04:00] VITALS: BP 131/68; PULSE 90; RESP 18; TEMP 36.8; O2SAT 94; BMI 33.0
--- NOTE | 2022-11-13 05:11 | PC.NURSE ---
Pt has been verbal at times this shift. Has answered appropriately at times. Pt has been resistive to care and combative this shift. He has had 2 large BMs. Has had a bed bath with linen change. F/C draining appropriately at bedside. Surgical incisions STABLE ATTENDANT. No redness or drainage noted. VSS. Medications administered per mar. call light within reach. Safety measures in place. SCDs off at this time.
--- NOTE | 2022-11-13 06:11 | EXP.SURG.PN ---
Subjective Narrative: Patient has shown some decreasing hemoglobin postoperatively. He did have some oozing intraoperatively. Overnight he has been somewhat combative. Patient has moved his bowels and has been tolerating a diet with self feeding yesterday. Exam Data for Last 24 hours Vital signs and Labs for Last 24 Hours: Temp Pulse Resp BP Pulse Ox 98.2 F 90 18 131/68 94 L 11/13/22 04:00 11/13/22 04:00 11/13/22 04:00 11/13/22 04:00 11/13/22 04:00 Laboratory Results - last 24 hr 11/12/22 06:48: Sodium 145, Potassium 4.5, Chloride 116 H, Carbon Dioxide 25, Anion Gap 8.5, BUN 32 H, Creatinine 2.70 H, Estimated Creat Clear 37, Estimated GFR 23 L, Est GFR ( Amer) 28 L, Glucose 88 D, Calcium 7.7 L, Total Bilirubin 0.7, AST 35, ALT 71 D, Alkaline Phosphatase 124, Total Protein 5.3 L, Albumin 2.7 L, Globulin 2.6, Albumin/Globulin Ratio 1.0 L, Procalcitonin 0.829 11/12/22 10:14: WBC 3.8 L D, RBC 2.63 L, Hgb 7.7 L, Hct 23.5 L, MCV 89.4, MCH 29.4, MCHC 32.9, RDW 14.7, Plt Count 151, MPV 9.2, Neut % (Auto) 84.1 H, Lymph % (Auto) 9.8 L, [place] % (Auto) 5.4, Eos % (Auto) 0.5, Baso % (Auto) 0.2, Neut # (Auto) 3.2, Lymph # (Auto) 0.4 L, [place] # (Auto) 0.2, Eos # (Auto) 0.0, Baso # (Auto) 0.0 I & O for Last 24 hours: Intake & Output 11/10/22 11/11/22 11/12/22 11/13/22 11:59 11:59 11:59 11:59 Intake Total 3599 / 3599 2526 / 2526 2611 / 2611 Output Total 1060 / 1060 950 / 950 1450 / 1450 1950 / 1950 Balance -1060 / -1060 2649 / 2649 1076 / 1076 661 / 661 Weight 224 lb 10.417 oz 221 lb 5.506 oz 228 lb 9.91 oz 231 lb 3.2 oz *Routine Abdominal Exam Abdominal: Present soft; Absent tenderness Comments: No tenderness. No palpable mass. Progress Note: A&P Assessment and plan (1) Sepsis: Status: Acute (2) Acute cholecystitis: Status: Acute Assessment and plan: Check hemoglobin. Likely had some intraoperative as well as postoperative blood loss. If stable would not plan for repeat operative intervention. (3) Acute kidney injury superimposed on chronic kidney disease: Status: Acute (4) Chronic schizophrenia: Status: Chronic (5) Cerebellar infarct: Status: Chronic
[2022-11-13 06:30] LABS: Basophils % 0.3 % (0.1-2.0); Eosinophils % 0.7 % (0.1-12.0); Hematocrit 24.5 % (42.0-52.0); Hemoglobin 7.9 g/dL (14.1-18.0); Lymphocytes # 0.4 K/mm3 (0.7-4.5); Lymphocytes % 9.1 % (10-50); Mean Corpuscular HGB Conc 32.5 g/dL (31.8-35.4); Mean Corpuscular Hemoglobin 29.1 pg (27.0-31.2); Mean Corpuscular Volume 89.6 fl (80-94); Mean Platelet Volume 9.2 fl (7.4-10.4); Monocytes # 0.2 K/mm3 (0.1-1.0); Monocytes % 4.6 % (1.7-9.3); Neutrophils # 3.9 K/mm3 (1.8-7.8); Neutrophils % 85.3 % (37.0-80.0); Platelet Count 173 K/mm3 (142-424); Red Blood Count 2.73 M/mm3 (4.60-6.20); Red Cell Distribution Width 14.8 % (11.5-17.5); White Blood Count 4.6 K/mm3 (4.8-10.8)
[2022-11-13 06:34] LABS: MANUAL DIFFERENTIAL MANUAL DIFFERENTIAL (MANUAL DIFF)
[2022-11-13 06:43] LABS: Anion Gap 9.8 mEq/L (5-15); Blood Urea Nitrogen 28 mg/dl (9-20); Calcium 7.9 mg/dl (8.4-10.2); Carbon Dioxide 27 mmol/L (22.0-30.0); Chloride 117 mmol/L (98-107); Creatinine Clearance Estimated 39 mL/min (50-200); Estimated Glomerular Filt Rate 25 ml/min (>60); GFR (African American) 30 ML/MIN (>60); Glucose 103 mg/dl (74-100); Potassium 3.8 mmoL/L (3.5-5.1)
--- NOTE | 2022-11-13 06:47 | EXP.PN ---
Subjective *Date: 11/13/22 *Time: 06:47 Interval history: Date of service November 13, 2022 No acute events are reported overnight. The patient is eliminating and tolerating his diet. He continues with gentle IV fluid resuscitation with his acute kidney injury postoperatively. His IV antibiotic continues with concerns of positive blood culture on 1 bottle with bio fire identifying staph. In the literature it is rare for gallbladder disease to cause staph bacteremia. I suspect contamination. His leukocytosis is resolved and his procalcitonin is now normal. His hemoglobin is stable when compared to yesterday. Exam Data for Last 24 hours Vital signs and Labs for Last 24 Hours: Temp Pulse Resp BP Pulse Ox 98.2 F 90 18 131/68 94 L 11/13/22 04:00 11/13/22 04:00 11/13/22 04:00 11/13/22 04:00 11/13/22 04:00 Laboratory Results - last 24 hr 11/12/22 06:48: Sodium 145, Potassium 4.5, Chloride 116 H, Carbon Dioxide 25, Anion Gap 8.5, BUN 32 H, Creatinine 2.70 H, Estimated Creat Clear 37, Estimated GFR 23 L, Est GFR ( Amer) 28 L, Glucose 88 D, Calcium 7.7 L, Total Bilirubin 0.7, AST 35, ALT 71 D, Alkaline Phosphatase 124, Total Protein 5.3 L, Albumin 2.7 L, Globulin 2.6, Albumin/Globulin Ratio 1.0 L, Procalcitonin 0.829 11/12/22 10:14: WBC 3.8 L D, RBC 2.63 L, Hgb 7.7 L, Hct 23.5 L, MCV 89.4, MCH 29.4, MCHC 32.9, RDW 14.7, Plt Count 151, MPV 9.2, Neut % (Auto) 84.1 H, Lymph % (Auto) 9.8 L, [place] % (Auto) 5.4, Eos % (Auto) 0.5, Baso % (Auto) 0.2, Neut # (Auto) 3.2, Lymph # (Auto) 0.4 L, [place] # (Auto) 0.2, Eos # (Auto) 0.0, Baso # (Auto) 0.0 11/13/22 06:15: WBC 4.6 L, RBC 2.73 L, Hgb 7.9 L, Hct 24.5 L, MCV 89.6, MCH 29.1, MCHC 32.5, RDW 14.8, Plt Count 173, MPV 9.2, Neut % (Auto) 85.3 H, Lymph % (Auto) 9.1 L, [place] % (Auto) 4.6, Eos % (Auto) 0.7, Baso % (Auto) 0.3, Neut # (Auto) 3.9, Lymph # (Auto) 0.4 L, [place] # (Auto) 0.2, Eos # (Auto) 0.0, Baso # (Auto) 0.0 I & O for Last 24 hours: Intake & Output 11/10/22 11/11/22 11/12/22 11/13/22 23:59 23:59 23:59 23:59 Intake Total 1200 / 1200 3987 / 3987 2347 / 2347 1202 / 1202 Output Total 1760 / 1760 650 / 650 1950 / 1950 1050 / 1050 Balance -560 / -560 3337 / 3337 397 / 397 152 / 152 Weight 101.9 kg 100.4 kg 103.7 kg 104.871 kg Constitutional Constitutional: no acute distress, obese, chronically ill appearing and cooperative *Routine HEENT Exam Head: Present normocephalic Eye: Present EOMI and PERRL ENT: Present mucous membranes moist *Routine Neck Exam Neck: Present supple; Absent lymphadenopathy *Routine Respiratory Exam Respiratory: Present CTA bilaterally, normal respiratory effort and symmetric chest movement *Routine Cardiovascular Exam Cardiovascular: Present RRR; Absent murmur *Routine Abdominal Exam Abdominal: Present soft and normoactive bowel sounds; Absent tenderness, distended, rebound or guarding Comments: Port sites surgical dressings noted *Routine Extremities Exam Extremities: Present pulses intact and normal capillary refill; Absent cyanosis, clubbing or edema *Routine Skin Exam Skin: Present warm; Absent rash *Routine Neurological Exam Neurological: Present alert, vision grossly intact and hearing grossly intact Routine Psychiatric Exam Psychiatric: Present cooperative Assessment and Plan *Assessment and plan (1) Sepsis: Status: Acute Qualifiers: Sepsis type: sepsis due to unspecified organism Severe sepsis acute organ dysfunction type: acute renal failure Severe sepsis shock status: without septic shock Category: Medical Code(s): A41.9 - Sepsis, unspecified organism (2) Acute cholecystitis: Status: Acute Category: Medical Code(s): K81.0 - Acute cholecystitis (3) Acute kidney injury superimposed on chronic kidney disease: Status: Acute Category: Medical Code(s): N17.9 - Acute kidney failure, unspecified; N18.9 - Chronic kidney disease, unspecified (4) Chronic schizophreni
[2022-11-13 06:59] LABS: Procalcitonin 0.487 ng/mL (0.0-2.0)
[2022-11-13 07:05] LABS: Sodium 150 mmol/L (136-145)
--- NOTE | 2022-11-13 07:07 | PC.NURSE ---
Lab values reported to MD Barragan.
[2022-11-13 07:12] LABS: Lymphocytes % 8 % (10-50); Monocytes % 6 % (2-9); Neutrophils % 86 % (42-76); Platelet Estimate Normal; RBC Morphology Normal; Total Cells Counted 100
[2022-11-13 08:00] VITALS: BP 145/75; PULSE 75; RESP 18; TEMP 37; O2SAT 91
--- NOTE | 2022-11-13 08:33 | PC.NURSE ---
When conversing with pt it is noted that he does not easily answer questions. numerous questions asked but pt will only respond if he feels like it. pt refuses to allow staff to assess his abdominal incisions. only incision able to visualize was at umbilicus. assessment/request explained, but when attempting to assess pt, he will fling his arm out towards staff in an attempt to stop them and then will grab their arm. pt also unwilling to allow staff to assess catheter site at this time.
[2022-11-13 12:00] VITALS: BP 150/75; PULSE 93; RESP 18; TEMP 37.1; O2SAT 100
--- NOTE | 2022-11-13 15:39 | PC.NURSE ---
pt has rested this afternoon. he had 1 large bm before lunch that required a bed change. while cleaning up pt this RN was able to fully assess pt incisions on abdomen. no s/s of infection noted. catheter insertion site/stoma was also assessed. no s/s of infection noted. pt has tolerated nectar thick liquids well. periods of vocal responsiveness noted. nad noted. lungs are clear, bowels active.
[2022-11-13 16:00] VITALS: BP 154/74; PULSE 79; RESP 18; TEMP 37.6; O2SAT 92
--- NOTE | 2022-11-13 18:09 | PC.NURSE ---
pt has had a total of two BM this shift
[2022-11-13 19:37] VITALS: BP 170/66; PULSE 91; RESP 18; TEMP 37.1; O2SAT 95
[2022-11-14] VITALS (24 sets, daily range): BP systolic 124–184; BP diastolic 49–82; PULSE 55–90; RESP 16–20; TEMP 36.6–37.5; O2SAT 93–98; BMI 33.8
--- NOTE | 2022-11-14 03:14 | PC.NURSE ---
Pt will verbalize and follow commands at times. Has used call light and requested water to drink multiple times. Water nectar thickened per orders. He continues to be resistive to care. VSS. Pt has scattered rhonchi to upper lobes. Has had one BM thus far. F/C remains in place. Call light within reach.
[2022-11-14 06:54] LABS: Anion Gap 7.3 mEq/L (5-15); Blood Urea Nitrogen 22 mg/dl (9-20); Calcium 7.6 mg/dl (8.4-10.2); Carbon Dioxide 25 mmol/L (22.0-30.0); Chloride 116 mmol/L (98-107); Creatinine Clearance Estimated 47 mL/min (50-200); Estimated Glomerular Filt Rate 30 ml/min (>60); GFR (African American) 36 ML/MIN (>60); Glucose 82 mg/dl (74-100); Potassium 3.3 mmoL/L (3.5-5.1); Sodium 145 mmol/L (136-145)
[2022-11-14 06:58] LABS: Basophils % 0.5 % (0.1-2.0); Eosinophils # 0.1 K/mm3 (0.0-0.4); Eosinophils % 1.4 % (0.1-12.0); Lymphocytes # 0.5 K/mm3 (0.7-4.5); Lymphocytes % 14.4 % (10-50); Mean Corpuscular HGB Conc 33.5 g/dL (31.8-35.4); Mean Corpuscular Hemoglobin 29.9 pg (27.0-31.2); Mean Corpuscular Volume 89.1 fl (80-94); Mean Platelet Volume 9.4 fl (7.4-10.4); Monocytes # 0.2 K/mm3 (0.1-1.0); Monocytes % 4.9 % (1.7-9.3); Neutrophils # 2.8 K/mm3 (1.8-7.8); Neutrophils % 78.7 % (37.0-80.0); Platelet Count 154 K/mm3 (142-424); Red Blood Count 2.29 M/mm3 (4.60-6.20); Red Cell Distribution Width 15.2 % (11.5-17.5); White Blood Count 3.5 K/mm3 (4.8-10.8)
[2022-11-14 07:26] LABS: Hemoglobin 6.8 g/dL (14.1-18.0)
[2022-11-14 07:27] LABS: Hematocrit 20.4 % (42.0-52.0)
--- NOTE | 2022-11-14 08:10 | PC.NURSE ---
reported critical hgb and hct to .
--- NOTE | 2022-11-14 08:29 | EXP.SURG.PN ---
Subjective Patient reports: no new complaints Narrative: No issues per nursing Exam Data for Last 24 hours Vital signs and Labs for Last 24 Hours: Temp Pulse Resp BP Pulse Ox 98.7 F 64 18 130/58 L 95 11/14/22 03:52 11/14/22 03:52 11/14/22 03:52 11/14/22 03:52 11/14/22 03:52 Laboratory Results - last 24 hr 11/14/22 05:43: WBC 3.5 L, RBC 2.29 L, Hgb 6.8 L*, Hct 20.4 L*, MCV 89.1, MCH 29.9, MCHC 33.5, RDW 15.2, Plt Count 154, MPV 9.4, Neut % (Auto) 78.7, Lymph % (Auto) 14.4, [place] % (Auto) 4.9, Eos % (Auto) 1.4, Baso % (Auto) 0.5, Neut # (Auto) 2.8, Lymph # (Auto) 0.5 L, [place] # (Auto) 0.2, Eos # (Auto) 0.1, Baso # (Auto) 0.0 11/14/22 05:43: Sodium 145, Potassium 3.3 L, Chloride 116 H, Carbon Dioxide 25, Anion Gap 7.3, BUN 22 H, Creatinine 2.20 H, Estimated Creat Clear 47, Estimated GFR 30 L, Est GFR ( Amer) 36 L, Glucose 82 D, Calcium 7.6 L I & O for Last 24 hours: Intake & Output 11/11/22 11/12/22 11/13/22 11/14/22 11:59 11:59 11:59 11:59 Intake Total 3599 / 3599 2526 / 2526 2671 / 2671 2298 / 2298 Output Total 950 / 950 1450 / 1450 1950 / 1950 1100 / 1100 Balance 2649 / 2649 1076 / 1076 721 / 721 1198 / 1198 Weight 221 lb 5.506 oz 228 lb 9.91 oz 231 lb 3.2 oz 236 lb 5.369 oz Microbiology Reports for the Last 24 Hours: Microbiology 11/09/22 13:54 Blood Blood Culture - Preliminary Gram Positive Cocci *Routine Abdominal Exam Abdominal: Present soft; Absent tenderness or mass Comments: Some bruising at incisions. Progress Note: A&P Assessment and plan (1) Sepsis: Status: Acute (2) Acute cholecystitis: Status: Acute (3) Acute kidney injury superimposed on chronic kidney disease: Status: Acute (4) Chronic schizophrenia: Status: Chronic (5) Cerebellar infarct: Status: Chronic Assessment and Plan Assessment and Plan for All Diagnoses:: Some slight decrease in Hgb. No reason to believe he has any active bleeding at this time based on clinical scenario. Would not plan operative intervention at this time. Transfuse and monitor Hgb.
--- NOTE | 2022-11-14 11:08 | EXP.ACUTE.PN ---
Subjective *Date: 11/14/22 *Time: 11:08 Interval history: Pleasant on exam this morning. Hemodynamically stable. Asking for water on exam. Denies any shortness of breath, abdominal pain, nausea, vomiting. Appears at baseline mentation. Reviewed labs this morning, hemoglobin down again. Needs transfusion today. Medical Exam Vital signs and Labs for Last 24 Hours: Vital Signs Temp Pulse Resp BP Pulse Ox 11/14/22 08:00 97.9 F 71 18 144/67 H 95 11/14/22 03:52 98.7 F 64 18 130/58 L 95 11/13/22 19:37 98.8 F 91 H 18 170/66 H 95 11/13/22 16:00 99.6 F 79 18 154/74 H 92 L 11/13/22 12:00 98.8 F 93 H 18 150/75 H 100 Intake and Output 11/13/22 11/14/22 11/14/22 23:59 07:59 15:59 Intake Total 1698 / 3560 240 / 240 Output Total 900 / 2150 200 / 200 Balance 798 / 1410 -200 / 40 240 / 40 Intake: Intake, Oral Amount 480 / 1140 240 / 240 Intake, Total IV Amount 1218 / 2420 0.9 % Sodium Chloride 1,000 ml 1218 / 2420 @ 100 mls/hr IV .Q10H [facility] Rx#: [id number] Output: Output, Urine Amount 900 / 1950 Output, Urine Amount (Catheter) 200 / 200 Calvin 200 / 200 Other: Number of Unmeasured Voids 0 0 Number of Bowel Movements 1 Weight 107.2 kg Patient Weight 11/14/22 23:59 Weight 107.2 kg Laboratory Results - last 24 hr 11/14/22 05:43: WBC 3.5 L, RBC 2.29 L, Hgb 6.8 L*, Hct 20.4 L*, MCV 89.1, MCH 29.9, MCHC 33.5, RDW 15.2, Plt Count 154, MPV 9.4, Neut % (Auto) 78.7, Lymph % (Auto) 14.4, [place] % (Auto) 4.9, Eos % (Auto) 1.4, Baso % (Auto) 0.5, Neut # (Auto) 2.8, Lymph # (Auto) 0.5 L, [place] # (Auto) 0.2, Eos # (Auto) 0.1, Baso # (Auto) 0.0 11/14/22 05:43: Sodium 145, Potassium 3.3 L, Chloride 116 H, Carbon Dioxide 25, Anion Gap 7.3, BUN 22 H, Creatinine 2.20 H, Estimated Creat Clear 47, Estimated GFR 30 L, Est GFR ( Amer) 36 L, Glucose 82 D, Calcium 7.6 L 11/14/22 09:09: Crossmatch ([facility]) See Detail I & O for Labs for Last 24 Hours: Intake & Output 11/11/22 11/12/22 11/13/22 11/14/22 23:59 23:59 23:59 23:59 Intake Total 3987 / 3987 2347 / 2347 3560 / 3560 240 / 240 Output Total 650 / 650 1950 / 1950 1950 / 2150 200 / 200 Balance 3337 / 3337 397 / 397 1610 / 1410 40 / 40 Weight 100.4 kg 103.7 kg 104.871 kg 107.2 kg Microbiology Reports for the Last 24 Hours: Microbiology 11/09/22 13:54 Blood Blood Culture - Preliminary Gram Positive Cocci Constitutional: Present no acute distress, obese, chronically ill appearing and cooperative Head: Present atraumatic and normocephalic ENT: Present normal exam Neck: Present normal inspection Respiratory: Present normal respiratory effort; Absent accessory muscle use, rhonchi, wheezes or crackles Cardiac: Present Reg Rate and Rhythm GI: Present soft and normal bowel sounds; Absent distention, tenderness, guarding or rebound Extremities: Present normal inspection and full ROM Skin: Present intact; Absent erythema Neuro: Present Grossly Intact, alert, awake and moves all extremities Assessment and Plan *Assessment and plan (1) Acute cholecystitis: Status: Acute Category: Medical Code(s): K81.0 - Acute cholecystitis (2) Acute kidney injury superimposed on chronic kidney disease: Status: Acute Category: Medical Code(s): N17.9 - Acute kidney failure, unspecified; N18.9 - Chronic kidney disease, unspecified (3) Chronic schizophrenia: Status: Chronic Category: Medical Code(s): F20.9 - Schizophrenia, unspecified (4) Cerebellar infarct: Status: Chronic Category: Medical Code(s): I63.9 - Cerebral infarction, unspecified (5) Postoperative anemia: Status: Acute Category: Medical Code(s): D64.9 - Anemia, unspecified Plan 72-year-old male that presents to [facility] emergency department from his facility for changes in his behavior. He is nonverbal. ED e
--- NOTE | 2022-11-14 13:36 | DIET.NUTRFU ---
Reviewed meal intake, yesterday's meals were poor refused breakfast, only 5% for lunch and 25% for dinner. He was also combative yesterday. Today's meal intake was lite for breakfast with yogurt and then good intake for lunch at 75%. Staff reported better mood today. Able to feed self today for lunch, with MSOFT and nectar thick, tolerated well. Wt has been gradually increasing admitted on 11/09 at 99kg and now at 107kg, IVF was discontinued today. Did not appear to have any increased edema present. 2 large BM noted on 11/13. Plan during rounds was to remove polo with anticipation of discharge back to [facility] tomorrow. Labs reviewed, renal fxn improved. Will continue to monitor po intake
--- NOTE | 2022-11-14 16:32 | PC.NURSE ---
Addendum entered by Negrita Mccarty RN 11/14/22 19:04: PT TOLERATED SITTING UP IN THE CHAIR FOR 30 MIN. THIS SHIFT. Original Note: PT IS RESTING IN BED. ALERT TO SELF ONLY. PT WILL HAVE PERIODIC EPISODES WHEN HE WILL NOT VERBALLY RESPOND OR FOLLOW COMMANDS. TOLERATING FIRST UNIT OF PRBC'S WELL. CATHETER WAS DC'D THIS AFTERNOON. INCONTINENT OF BOWEL/BLADDER. TOLERATING PUREED/NECTAR THICK DIET. PT DOES NEED SOME ASSISTANCE WITH FEEDING. LUNG SOUNDS DIMINISHED. ABDOMEN SOFT/NON TENDER WITH SURGICAL INCISIONS OPEN TO AIR. ACTIVE BOWEL SOUNDS. 2 BOWEL MOVEMENTS THIS SHIFT. WILL CONTINUE TO MONITOR.
[2022-11-15 03:41] VITALS: BMI 34.6
[2022-11-15 03:42] VITALS: BP 135/74; PULSE 64; RESP 18; TEMP 37.2; O2SAT 95
--- NOTE | 2022-11-15 04:24 | PC.NURSE ---
Pt has rested well through the night. Pt tolerated the 2nd unit of PRBC well. Pt is alert and oriented to self. Periods of being nonverbal but will follow commands. Room air. Receiving IV abx. Pt incision sites are open to air. Pt has no complaints of pain. VSS. Will continue to monitor
[2022-11-15 06:50] LABS: Basophils % 0.4 % (0.1-2.0); Eosinophils # 0.2 K/mm3 (0.0-0.4); Hematocrit 29.5 % (42.0-52.0); Hemoglobin 9.7 g/dL (14.1-18.0); Lymphocytes # 0.6 K/mm3 (0.7-4.5); Mean Corpuscular HGB Conc 32.8 g/dL (31.8-35.4); Mean Corpuscular Hemoglobin 29.8 pg (27.0-31.2); Mean Corpuscular Volume 90.6 fl (80-94); Mean Platelet Volume 9.7 fl (7.4-10.4); Monocytes # 0.3 K/mm3 (0.1-1.0); Monocytes % 5.5 % (1.7-9.3); Neutrophils # 4.2 K/mm3 (1.8-7.8); Neutrophils % 80.1 % (37.0-80.0); Platelet Count 166 K/mm3 (142-424); Red Blood Count 3.26 M/mm3 (4.60-6.20); White Blood Count 5.3 K/mm3 (4.8-10.8)
[2022-11-15 06:58] LABS: Anion Gap 7.4 mEq/L (5-15); Blood Urea Nitrogen 19 mg/dl (9-20); Calcium 7.7 mg/dl (8.4-10.2); Carbon Dioxide 25 mmol/L (22.0-30.0); Chloride 115 mmol/L (98-107); Creatinine Clearance Estimated 51 mL/min (50-200); Estimated Glomerular Filt Rate 31 ml/min (>60); GFR (African American) 38 ML/MIN (>60); Glucose 82 mg/dl (74-100); Potassium 3.4 mmoL/L (3.5-5.1); Sodium 144 mmol/L (136-145)
--- NOTE | 2022-11-15 07:14 | EXP.SURG.PN ---
Subjective Patient reports: no new complaints Narrative: Resting comfortably Exam Data for Last 24 hours Vital signs and Labs for Last 24 Hours: Temp Pulse Resp BP Pulse Ox 98.9 F 64 18 135/74 95 11/15/22 03:42 11/15/22 03:42 11/15/22 03:42 11/15/22 03:42 11/15/22 03:42 Laboratory Results - last 24 hr 11/14/22 05:43: WBC 3.5 L, RBC 2.29 L, Hgb 6.8 L*, Hct 20.4 L*, MCV 89.1, MCH 29.9, MCHC 33.5, RDW 15.2, Plt Count 154, MPV 9.4, Neut % (Auto) 78.7, Lymph % (Auto) 14.4, [place] % (Auto) 4.9, Eos % (Auto) 1.4, Baso % (Auto) 0.5, Neut # (Auto) 2.8, Lymph # (Auto) 0.5 L, [place] # (Auto) 0.2, Eos # (Auto) 0.1, Baso # (Auto) 0.0 11/14/22 05:43: Blood Type Confirm B Positive 11/14/22 09:09: Blood Type B Positive, Antibody Screen Negative, Crossmatch ([facility]) See Detail 11/15/22 05:56: WBC 5.3 D, RBC 3.26 L D, Hgb 9.7 L, Hct 29.5 L, MCV 90.6, MCH 29.8, MCHC 32.8, RDW 15.0, Plt Count 166, MPV 9.7, Neut % (Auto) 80.1 H, Lymph % (Auto) 11.0, [place] % (Auto) 5.5, Eos % (Auto) 3.0, Baso % (Auto) 0.4, Neut # (Auto) 4.2, Lymph # (Auto) 0.6 L, [place] # (Auto) 0.3, Eos # (Auto) 0.2, Baso # (Auto) 0.0 11/15/22 05:56: Sodium 144, Potassium 3.4 L, Chloride 115 H, Carbon Dioxide 25, Anion Gap 7.4, BUN 19, Creatinine 2.10 H, Estimated Creat Clear 51, Estimated GFR 31 L, Est GFR ( Amer) 38 L, Glucose 82, Calcium 7.7 L I & O for Last 24 hours: Intake & Output 11/12/22 11/13/22 11/14/22 11/15/22 11:59 11:59 11:59 11:59 Intake Total 2526 / 2526 2671 / 2671 2538 / 2538 2254 / 2254 Output Total 1450 / 1450 1950 / 1950 1100 / 1100 600 / 600 Balance 1076 / 1076 721 / 721 1438 / 1438 1654 / 1654 Weight 228 lb 9.91 oz 231 lb 3.2 oz 236 lb 5.369 oz 242 lb 1.081 oz *Routine Abdominal Exam Abdominal: Present soft Progress Note: A&P Assessment and plan (1) Acute cholecystitis: Status: Acute (2) Acute kidney injury superimposed on chronic kidney disease: Status: Acute (3) Chronic schizophrenia: Status: Chronic (4) Cerebellar infarct: Status: Chronic (5) Postoperative anemia: Status: Acute Assessment and Plan Assessment and Plan for All Diagnoses:: Patient had excellent response to 2 unit transfusion.
[2022-11-15 07:25] VITALS: BP 155/76; PULSE 60; RESP 17; TEMP 37.3; O2SAT 91
--- NOTE | 2022-11-15 07:42 | EXP.DC.SUM ---
General Admission date:: 11/09/22 Discharge date: 11/15/22 HPI HPI HPI: Patient is a 72-year-old male [facility] patient with past medical history of cerebellar stroke, chronic schizophrenia, chronic renal disease who presented emergency department yesterday afternoon after concerns from [facility] staff of altered mental status. It is reported patient is nonverbal secondary to his cerebellar stroke and was noted to be altered prior to arrival. NH had concerns that the patient was unresponsive. On arrival to the emergency department he was able to follow commands with head shakes and hand gestures but is nonverbal. Examination by the ER physician was concerning for possible right upper quadrant tenderness as the patient would grab his hand with palpation in RUQ. Broad work-up was initiated. He was found to have mild leukocytosis with slight elevation of transaminases and bilirubin. CT abdomen revealed distended gallbladder, pericholecystic inflammation is not excluded . He was also noted to have splenomegaly. He had slight elevation of liver function tests. Ultrasound was obtained and noted to have sludge and stones within the gallbladder with mild gallbladder distension with 4 mm common bile duct. Given the above findings on CT scan, surgery was contacted as it was felt the patient likely had acute cholecystitis. He was admitted to the hospitalist service for further evaluation and management with surgical consultation for apparent acute cholecystitis. Hospital Course Hospital Course Hospital Course: 72-year-old male that presents to [facility] emergency department from his facility for changes in his behavior.? He is nonverbal.? ED evaluation identifies sepsis and concerns for cholecystitis.? General surgery was contacted out of the ED. patient is status postcholecystectomy on 11/10/2022.? Clinically improving however having worse anemia today.? Tolerating p.o. intake.? Pleasant on exam.? Problems addressed as follows: Acute cholecystitis Sepsis, resolved Surgery was consulted on admission.? Patient is status post Laparoscopic cholecystectomy November 10, 2022. Tolerated procedure well. Has tolerated advancement in his diet to a regular diet for him which includes: soft mechanical with nectar thick liquids. Aspiration precautions during admission. No longer having signs of sepsis. Likely related to cholecystitis. Treated empirically with antibiotics during admission. No indication to continue antibiotics at discharge. Postop anemia Hemoglobin dropped to 6.8 on 11/14. Was transfused 2 units with good response. Hemoglobin improved to 9.7 and has remained stable since transfusion. No active signs of bleeding. Recommend repeat CBC and CMP in a week to monitor. Acute kidney injury on CKD 3 Baseline creatinine 1.8, creatinine improved today to 2.1 (previously elevated to 2.7). Avoiding NSAIDs, renally dosing meds. Hypertension Routine blood pressure monitoring. Continued home blood pressure regimen. Cerebellar infarct, chronic Nonverbal, Antiplatelet therapy held during admission. Okay to resume antiplatelet therapy on return to nursing facility. Resume statin therapy. Chronic schizophrenia Routine nursing interaction, Invega monthly. No outbursts or behavioral disturbances during hospitalization. Medically stable for discharge back to [facility] for continued long-term care. Exam Data for Last 24 hours Vital signs and Labs for Last 24 Hours: Temp Pulse Resp BP Pulse Ox 99.2 F 60 17 155/76 H 91 L 11/15/22 07:25 11/15/22 07:25 11/15/22 07:25 11/15/22 07:25 11/15/22 07:25 Laboratory Results - last 24 hr 11/14/22 05:43: Blood Type Confirm B Positive 11/14/22 09:09: Blood Type B Positive, Antibody Screen Negative, Crossmatch ([facility]) See Detail 11/15/22 05:56: WBC 5.3 D, RBC 3.26 L D, Hgb 9.7 L, Hct 29.5 L, MCV 90.6, MCH 29.8, MCHC 32.8, RDW 15.0, Plt Count 166, MPV 9.7, Neut % (Auto) 80.1 H, Lymph % (Au
--- NOTE | 2022-11-15 08:53 | EXP.PHA.PN ---
Subjective *Date: 11/15/22 *Time: 08:53 Medical Exam Vital signs and Labs for Last 24 Hours: Vital Signs Temp Pulse Pulse Resp BP BP Pulse Ox 11/15/22 07:25 99.2 F 60 17 155/76 H 91 L 11/15/22 03:42 98.9 F 64 18 135/74 95 11/14/22 22:05 98.9 F 72 18 151/70 H 98 11/14/22 21:05 99.1 F 86 18 153/70 H 96 11/14/22 20:45 98.9 F 88 18 151/64 H 98 11/14/22 19:45 99.1 F 74 18 149/66 H 97 11/14/22 19:30 99.1 F 78 18 146/79 H 96 11/14/22 19:37 99.1 F 78 18 146/79 H 96 11/14/22 19:15 99.5 F 80 20 169/82 H 95 11/14/22 19:00 99.2 F 86 18 170/81 H 95 11/14/22 18:55 98.7 F 88 16 184/81 H 95 11/14/22 18:50 98.6 F 90 18 173/71 H 96 11/14/22 18:45 98.8 F 85 16 159/70 H 97 11/14/22 18:40 98.6 F 85 16 145/55 H 98 11/14/22 18:10 99.1 F 82 16 142/61 H 95 11/14/22 16:00 98.2 F 85 20 133/64 96 11/14/22 17:15 98.7 F 62 18 161/81 H 95 11/14/22 17:00 98.9 F 65 16 152/72 H 95 11/14/22 16:45 98.6 F 62 18 155/69 H 93 L 11/14/22 16:30 98.6 F 55 L 16 124/49 L 94 L 11/14/22 16:25 99.3 F 80 18 161/68 H 94 L 11/14/22 16:20 99.0 F 77 20 146/72 H 96 11/14/22 16:15 98.7 F 64 18 144/71 H 96 11/14/22 16:10 98.6 F 68 18 159/72 H 95 Intake and Output 0111/15/22 11/15/22 23:59 07:59 15:59 Intake Total 526 / 2494 60 / 60 Output Total 0 / 0 Balance 526 / 1694 60 / 60 0 / 60 Intake: Intake, Oral Amount 240 / 660 60 / 60 Intake (Blood Product) Amt 286 / 286 Red Blood Cells Unit 0 / 0 [id number] Red Blood Cells Unit 286 / 286 [id number] Output: Output, Urine Amount 0 / 0 Other: Number of Unmeasured Voids 0 1 Number of Urine Attends/Diapers 1 Weight 109.8 kg Patient Weight 11/15/22 23:59 Weight 109.8 kg Laboratory Results - last 24 hr 11/14/22 05:43: Blood Type Confirm B Positive 11/14/22 09:09: Blood Type B Positive, Antibody Screen Negative, Crossmatch ([facility]) See Detail 11/15/22 05:56: WBC 5.3 D, RBC 3.26 L D, Hgb 9.7 L, Hct 29.5 L, MCV 90.6, MCH 29.8, MCHC 32.8, RDW 15.0, Plt Count 166, MPV 9.7, Neut % (Auto) 80.1 H, Lymph % (Auto) 11.0, [place] % (Auto) 5.5, Eos % (Auto) 3.0, Baso % (Auto) 0.4, Neut # (Auto) 4.2, Lymph # (Auto) 0.6 L, [place] # (Auto) 0.3, Eos # (Auto) 0.2, Baso # (Auto) 0.0 11/15/22 05:56: Sodium 144, Potassium 3.4 L, Chloride 115 H, Carbon Dioxide 25, Anion Gap 7.4, BUN 19, Creatinine 2.10 H, Estimated Creat Clear 51, Estimated GFR 31 L, Est GFR ( Amer) 38 L, Glucose 82, Calcium 7.7 L I & O for Labs for Last 24 Hours: Intake & Output 11/12/22 11/13/22 11/14/22 11/15/22 23:59 23:59 23:59 23:59 Intake Total 2347 / 2347 3560 / 3560 2494 / 2494 60 / 60 Output Total 1950 / 1949 1950 / 2150 800 / 800 0 / 0 Balance 397 / 397 1610 / 1410 1694 / 1694 60 / 60 Weight 103.7 kg 104.871 kg 107.2 kg 109.8 kg Microbiology Reports for the Last 24 Hours: Microbiology 11/09/22 13:54 Blood Blood Culture - Preliminary Gram Positive Cocci 11/09/22 13:54 Blood Blood Culture - Preliminary Gram Positive Cocci The patient's infection will respond to the chosen ABx?: Yes (BLOOD CULTURE PENDING, REPEAT URINE CULTURE NO GROWTH.) Is the patient receiving the right drug, dose, and route?: Yes Could a more targeted ABx be ordered?: No
--- NOTE | 2022-11-16 11:08 | CARE MANAGER ---
Contacted [facility] and they state patient is doing well. Denies any questions or concerns. ADOLFO Wu
== END 2022-11-15 11:59 | DRG 854 ==
LOC: ER 17:25 → 2ND 17:50
PROVIDERS: Nurse Practitioner Acute Care; Surgery; Admitting Provider Family Medicine; Emergency Provider Emergency Medicine; Visit Provider Internal Medicine Adolescent Medicine
PROC: 0FT44ZZ Resection of Gallbladder, Percutaneous Endoscopic Approach (ICD-10-PCS; CPT 47562; principal; 2022-11-10 12:00)
DX: A41.9 Sepsis, unspecified organism (principal); K81.0 Acute cholecystitis; N18.4 Chronic kidney disease, stage 4 (severe); N17.9 Acute kidney failure, unspecified; E66.01 Morbid (severe) obesity due to excess calories; Z68.34 Body mass index [BMI] 34.0-34.9, adult; Z86.73 Personal history of transient ischemic attack (TIA), and cerebral infarction without residual deficits; I12.9 Hypertensive chronic kidney disease with stage 1 through stage 4 chronic kidney disease, or unspecified chronic kidney disease; F20.9 Schizophrenia, unspecified; R65.20 Severe sepsis without septic shock; D64.89 Other specified anemias
CPT/HCPCS: 47600; 36415; 70450; 71045; 74176; 76705; 80048; 80053; 80074; 81001; 83605; 83690; 83735; 84145; 85007; 85025; 85610; 85651; 86140; 86850; 87040; 87077; 87086; 87186; 96374; 99285; C9803; J1956; J2405; J2543; P9016; U0003; U0005

== ENCOUNTER 2022-12-07 14:13 | Observation (INO) | payer MEDICARE, MEDICAID, SELFPAY ==
[2022-12-07] VITALS (14 sets, daily range): BP systolic 137–174; BP diastolic 60–99; PULSE 71–96; RESP 18–20; TEMP 36.6–37.9; O2SAT 90–98; BMI 35.9; BMI 30.5
--- NOTE | 2022-12-07 14:33 | PC.NURSE ---
[id number] DR MANDUJANO AT BEDSIDE
--- NOTE | 2022-12-07 14:38 | XR_ITS ---
PROCEDURE INFORMATION: Exam: XR Chest Exam date and time: 12/07/2022 5:12 PM Age: 72 years old Clinical indication: Other: Weakness; Additional info: General weakness TECHNIQUE: Imaging protocol: Radiologic exam of the chest. Views: 1 view. Portable AP exam 5:21 p.m. COMPARISON: CR XR CHEST PORTABLE 11/11/2022 2:53 AM FINDINGS: Lungs: Worsened left basilar atelectasis/volume loss since the prior exam. Bilateral hazy central and infrahilar interstitial prominence and peribronchial thickening, without definite consolidation. Pleural spaces: Small left pleural effusion appears enlarged since the prior study. No pneumothorax. Heart/Mediastinum: Cardiac silhouette appears mildly enlarged, but is accentuated by portable AP technique. Bones/joints: There are spinal degenerative changes, with multilevel disc narrrowing and spondylosis. Chronic right acromioclavicular arthritis. Diffuse bone sclerosis is better seen on the patient's CT exam. No focal lytic lesions or acute fracture visible. IMPRESSION: 1. Small layering left pleural effusion. The right-sided effusion seen on the earlier CT is not well demonstrated on this portable chest x-ray. 2. Enlarged cardiac silhouette, which is in part due to a small pericardial effusion as seen on earlier CT. 3. Worsened left lower lobe atelectasis compared with 11/11/2022. 4. Hazy central and lower pulmonary interstitial prominence and peribronchial thickening, which could be mild vascular congestion or bronchitis. 5. Diffuse bone sclerosis, better seen on the CT, likely metabolic bone disease or less likely diffuse osteoblastic metastasis.
--- NOTE | 2022-12-07 14:38 | CT_ITS ---
PROCEDURE INFORMATION: Exam: CT Abdomen And Pelvis With Contrast Exam date and time: 12/07/2022 4:51 PM Age: 72 years old Clinical indication: Abdominal pain; Additional info: Abd pain TECHNIQUE: Imaging protocol: Computed tomography of the abdomen and pelvis with contrast. Radiation optimization: All CT scans at this facility use at least one of these dose optimization techniques: automated exposure control; mA and/or kV adjustment per patient size (includes targeted exams where dose is matched to clinical indication); or iterative reconstruction. Contrast material: ISOVUE; Contrast volume: 75 ml; Contrast route: IV; Other protocol: This patient has received 9 known CTs and 0 known cardiac nuclear medicine studies in the 12 months prior to the current study. COMPARISON: CT ABDOMEN PELVIS WO CON 11/09/2022 2:33 PM FINDINGS: Lungs: Dense atelectasis or consolidation at the posterior left lung base, milder subsegmental atelectasis on the right. Pleural spaces: There are small bilateral layering pleural effusions, left greater than right. This appears to be low-density fluid, though there are some streak artifacts present. Heart: Slight cardiomegaly. Small pericardial effusion enlarged in the interval, this is low-density fluid, measuring up to 2 cm thickness posteriorly on the left see series 3, image 1, incompletely imaged on this exam. Liver: The liver is normal. Gallbladder and bile ducts: Cholecystectomy clips. Biliary tree is within normal limits. No calcified stones. Pancreas: Mild fatty atrophic changes of the pancreas. No ductal dilatation or mass. Spleen: Prominent splenomegaly 17.8 cm long axis coronal image 47. Adrenal glands: Slight adrenal thickening, no discrete nodules. See series 3, image 36 on the right, and image 38 on the left. Kidneys and ureters: Post right nephrectomy. Multiple cystic lesions in the left kidney, largest approximately 3.9 cm posteriorly series 3, image 54, with HU density 10 and simple appearance. Some lesions have indeterminate density, e.g. a 1.4 cm left lateral subcortical renal lesion on coronal image 44 has indeterminate HU density of 29, but this may be due to technical streak artifacts rather than truly complex cyst or solid nodule, this study is limited by extensive streak artifacts. There are subcentimeter lesions which are too small to accurately characterize. No hydronephrosis. No hydroureter. No calcified obstructing stones. Stomach and bowel: No acute findings in the stomach. The mid and distal transverse colon is empty and contracted which may account for thickened appearance, differential would be colitis. There are no dilated loops. There is moderate fecal distention of the remainder of the colon. Slight rectal wall thickening is chronic since the prior exam, no discrete mass or colon obstruction seen. Scattered small intestinal air-fluid levels, but no dilated loops or mucosal thickening. Appendix: No findings of appendicitis. Intraperitoneal space: There is no free intraperitoneal air. There is no significant free intraperitoneal fluid. Vasculature: Minimal calcified atherosclerotic plaques scattered through the abdomen and pelvis. There is no aortic aneurysm. Lymph nodes: No significantly enlarged lymph nodes by short axis criteria. Urinary bladder: The urinary bladder is contracted around a bladder catheter and not well evaluated. Bladder thickening may be due to hypo distension, but there is prominent perivesical hypervascularity, and this raises the possibility of cystitis or bladder hypertrophy. There is trace intraluminal gas, which may be iatrogenic from catheterization , rather than
[2022-12-07 14:44] LABS: Microscopic, Urine URINE MICROSCOPIC (MICROSCOPIC)
--- NOTE | 2022-12-07 14:44 | HMH.EDGENADL ---
Discharge Plan Disposition Patient Disposition: Admitted as Observation Condition: Fair Chief Complaint: Abdominal Pain Prescriptions Prescriptions: No Action hydrocodone-acetaminophen 7.5-325 mg tablet 1 tab PO BID Qty: 60 0RF tamsulosin 0.4 MG capsule 0.8 mg PO HS acetaminophen 500 MG tablet 500 mg PO Q4HP PRN (Reason: Mild Pain,Fever,Headache) cholecalciferol (vitamin D3) 1,250 MCG capsule 50,000 unit PO MONTHLY losartan 25 mg tablet 25 mg PO DAILY hydrochlorothiazide 12.5 mg tablet 12.5 mg PO DAILY tizanidine 2 mg tablet 2 mg PO TID Invega Sustenna 117 mg/0.75 mL syringe 117 mg IM MONTHLY pantoprazole 40 mg tablet,delayed release (DR/EC) 40 mg PO DAILY finasteride 5 mg tablet 5 mg PO DAILY lactulose 10 gram/15 mL solution 15 ml PO DAILY pantoprazole 40 mg tablet,delayed release (DR/EC) 40 mg PO HS Clinical Impressions Clinical Impression: Urinary tract infection, Chronic kidney disease, Abdominal pain, AMS (altered mental status), Pleural effusion, Acute pericardial effusion Discharge ED Provider: Qasim Gomez General Adult HPI General Chief complaint: Abdominal Pain Stated complaint: abdominal pain Time Seen by Provider: 12/07/22 14:13 Mode of Arrival: EMS Limitations: No Limitations Description of Symptoms (Recalled from ER Triage Doc. by RN): PT BROUGHT IN VIA EMS FOR ABDOMINAL PAIN. AL REPORTS PT NOT LIKE HIMSELF ASKED PT IF IN PAIN AND PT RUBBED HIS ABDOMEN PT NONVERBAL BUT WILL NOD HIS HEAD. RECENT GALLBLADDER REMOVAL ON 11/10/2022 History of Present Illness HPI narrative: The patient is brought in by EMS from [facility]. He is nonverbal and is not able to give history himself. Staff at the intermediate reported that he was not acting his usual self today. Asked if he was having any pain he rubbed his abdomen, therefore sent here for concern about abdominal pain. He recently had a cholecystectomy at this facility on 11/10/2022. The patient does not give any additional history himself to me and does not indicate any pain anywhere when asked. Related Data Home Medications Medication Instructions Recorded Confirmed tamsulosin 0.4 mg capsule 0.8 mg PO HS PROSTATE 10/10/19 12/07/22 acetaminophen 500 mg tablet 500 mg PO Q4HP PRN Mild 06/07/20 12/07/22 Pain,Fever,Headache cholecalciferol (vitamin D3) 1,250 50,000 unit PO MONTHLY Supplement 06/07/20 12/07/22 mcg (50,000 unit) capsule hydrochlorothiazide 12.5 mg tablet 12.5 mg PO DAILY Fluid 11/09/22 12/07/22 losartan 25 mg tablet 25 mg PO DAILY Hypertension 11/09/22 12/07/22 paliperidone palmitate 117 mg/0.75 117 mg IM MONTHLY MOOD 11/10/22 12/07/22 mL intramuscular syringe (Invega Sustenna) tizanidine 2 mg tablet 2 mg PO TID MUSCLE SPASM 11/10/22 12/07/22 finasteride 5 mg tablet 5 mg PO DAILY Blood Pressure 12/07/22 12/07/22 lactulose 10 gram/15 mL oral 15 ml PO DAILY Liver 12/07/22 12/07/22 solution pantoprazole 40 mg tablet,delayed 40 mg PO DAILY GERD 12/07/22 12/07/22 release pantoprazole 40 mg tablet,delayed 40 mg PO HS GERD 12/07/22 12/07/22 release Previous Rx's Medication Instructions Recorded hydrocodone 7.5 mg-acetaminophen 1 tab PO BID pain #60 tabs 10/26/22 325 mg tablet Allergies Allergy/AdvReac Type Severity Reaction Status Date / Time No Known Allergies Allergy Verified 11/11/22 11:04 [facility] Disclaimer: The information contained in this section may have been updated after the patient was seen, as this information can be updated by other users. Medical History Cerebellar infarct Cerebral atrophy Cervical spinal stenosis Cervical spondylosis Chronic renal disease Chronic schizophrenia CKD (chronic kidney disease) stage 4, GFR 15-29 ml/min DDD (degenerative disc disease), cervical Foraminal stenosis of cervical region Hematuria due to chronic
[2022-12-07 14:58] LABS: Basophils % 0.5 % (0.1-2.0); Eosinophils % 0.5 % (0.1-12.0); Hematocrit 38.1 % (42.0-52.0); Hemoglobin 12.3 g/dL (14.1-18.0); Lymphocytes # 0.5 K/mm3 (0.7-4.5); Lymphocytes % 9.7 % (10-50); Mean Corpuscular HGB Conc 32.4 g/dL (31.8-35.4); Mean Corpuscular Hemoglobin 28.8 pg (27.0-31.2); Mean Corpuscular Volume 88.7 fl (80-94); Mean Platelet Volume 8.8 fl (7.4-10.4); Monocytes # 0.3 K/mm3 (0.1-1.0); Monocytes % 6.7 % (1.7-9.3); Neutrophils # 4.2 K/mm3 (1.8-7.8); Neutrophils % 82.7 % (37.0-80.0); Platelet Count 191 K/mm3 (142-424); Red Blood Count 4.29 M/mm3 (4.60-6.20); Red Cell Distribution Width 14.6 % (11.5-17.5); White Blood Count 5.1 K/mm3 (4.8-10.8)
[2022-12-07 15:04] LABS: Amylase 63 U/L (30-110); Anion Gap 8.6 mEq/L (5-15); Blood Urea Nitrogen 21 mg/dl (9-20); Calcium 8.5 mg/dl (8.4-10.2); Carbon Dioxide 37 mmol/L (22.0-30.0); Chloride 94 mmol/L (98-107); Creatinine Clearance Estimated 52 mL/min (50-200); Estimated Glomerular Filt Rate 31 ml/min (>60); GFR (African American) 38 ML/MIN (>60); Glucose 124 mg/dl (74-100); Lipase 32 U/L (23-300); Potassium 3.6 mmoL/L (3.5-5.1); Sodium 136 mmol/L (136-145)
[2022-12-07 15:05] LABS: Alanine Aminotransferase 15 U/L (12-78); Albumin Level 3.8 g/dl (3.5-5.0); Alkaline Phosphatase 103 U/L (38-126); Aspartate Amino Transferase 21 U/L (17-59); Bilirubin,Direct 0.4 mg/dl (0.0-0.4); Bilirubin,Indirect 0.4 mg/dL (0.0-0.9); Bilirubin,Total 0.8 mg/dl (0.2-1.3); Bilirubin,Unconjugated 0.4 mg/dL (0.0-1.1); Total Protein,Serum 6.9 g/dl (6.3-8.2)
[2022-12-07 15:10] LABS: Appearance,Urine CLEAR (Clear); Bilirubin,Urine Negative (Negative); Blood, Urine 1+ (Negative); Color,Urine YELLOW (Yellow); Glucose,Urine (UA) Negative (Negative); Ketones,Urine Negative (Negative); Leukocyte Esterase,Urine 2+ (Negative); Nitrate,Urine Negative (Negative); Protein,Urine 1+ (Negative); Urobilinogen,Urine 0.2 EU/dl (0.2)
[2022-12-07 15:18] LABS: Troponin I < 0.01 ng/ml (0.00-0.034)
--- NOTE | 2022-12-07 15:30 | ECG_ITS ---
APPROVED REPORT Exam: Resting ECG HR:69 bpm ECG Measurements Heart Rate 69 AXES ME 159 P 24 QRSd 88 QRS 81 QT 395 T 28 QTc 414 Conclusion SINUS RHYTHM WITH OCCASIONAL SUPRAVENTRICULAR PREMATURE COMPLEXES BORDERLINE ECG UNCONFIRMED REPORT Electronically signed by : Pradip Baird MD 12/08/2022 08:57:33
[2022-12-07 15:40] LABS: Bacteria,Urine 4+ /lpf; Squamous Epithelial Cell,Urine Occasional #/hpf (0-5); WBC,Urine 20-50 #/hpf (0-3)
--- NOTE | 2022-12-07 16:15 | PC.NURSE ---
contacted rad to check on status of pt going to CT, rad staff reports was waiting on pt to get at least 1/2 bag of IVF in first before taking pt to Ct
--- NOTE | 2022-12-07 16:47 | PC.NURSE ---
pt in CT
--- NOTE | 2022-12-07 17:08 | PC.NURSE ---
pt return from CT
--- NOTE | 2022-12-07 18:17 | PC.NURSE ---
3 hour troponin sent
[2022-12-07 18:48] LABS: NT Pro Brain Natriuretic Pep. 2940 pg/mL (0-125)
[2022-12-07 19:09] LABS: Troponin I < 0.01 ng/ml (0.00-0.034)
[2022-12-07 19:20] LABS: Coronavirus 19, PCR Not Detected (NotDetected); Influenza A, PCR Not Detected (NotDetected); Influenza B, PCR Not Detected (NotDetected)
--- NOTE | 2022-12-07 19:32 | PC.NURSE ---
MARKELL SMILEY speaking with hospitalist
--- NOTE | 2022-12-07 20:25 | EXP.HP ---
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 Patient is nonverbal at baseline but staff at the SNF report that he was not acting per usual. Upon arrival to the emergency department he was awake and alert but not responding to commands per his typical. he did mention to the ED provider that his abdomen was hurting when he was asked where his pain was. Emergency department work-up significant for acute cystitis noted, + leukoesterase, 20-50 WBCs and +4 bacteria. Creatinine of 2.1 with a creatinine of 2.2 at discharge 3 weeks ago. Elevated BNP of 2940. Abdominal CT remarkable for thickened bladder likely secondary to cystitis, small but somewhat enlarged pericardial effusion and pleural effusion, L >R. thickened colon noted that could be consistent with colitis or decompression. Given patient's mild altered mental status and acute cystitis, will admit for further observation. [facility] Disclaimer: The information contained in this section may have been updated after the patient was seen, as this information can be updated by other users. Medical History Cerebellar infarct Cerebral atrophy Cervical spinal stenosis Cervical spondylosis Chronic renal disease Chronic schizophrenia CKD (chronic kidney disease) stage 4, GFR 15-29 ml/min DDD (degenerative disc disease), cervical Foraminal stenosis of cervical region Hematuria due to chronic cystitis Hypertension Multiple thyroid nodules Obesity (BMI 30.0-34.9) Obesity, morbid, BMI 40.0-49.9 Phimosis of penis Prostate enlargement Renal insufficiency Stroke Social History Smoking Status: Unknown if ever smoked alcohol intake: never substance use type: denies use current occupational status: retired Travel in the last 8 weeks: None household members: other housing: long term current occupational exposures/hazards: No caffeine: Yes Review of Systems Review of Systems Review of systems:: unable to obtain Review of systems (narrative): Nonverbal Meds Home Medications and Allergies Home Medications Medication Instructions Recorded Confirmed Type tamsulosin 0.4 mg capsule 0.8 mg PO HS prostate 10/10/19 12/07/22 History acetaminophen 500 mg tablet 500 mg PO Q4HP PRN Mild 06/07/20 12/07/22 History Pain,Fever,Headache cholecalciferol (vitamin D3) 1,250 50,000 unit PO MONTHLY Supplement 06/07/20 12/07/22 History mcg (50,000 unit) capsule hydrocodone 7.5 mg-acetaminophen 1 tab PO BID pain #60 tabs 10/26/22 12/07/22 Rx 325 mg tablet hydrochlorothiazide 12.5 mg tablet 12.5 mg PO DAILY Fluid 11/09/22 12/07/22 History losartan 25 mg tablet 25 mg PO DAILY Hypertension 11/09/22 12/07/22 History paliperidone palmitate 117 mg/0.75 117 mg IM MONTHLY mood/anxiety 11/10/22 12/07/22 History mL intramuscular syringe (Mafengwo) tizanidine 2 mg tablet 2 mg PO TID muscle spasms 11/10/22 12/07/22 History finasteride 5 mg tablet 5 mg PO HS prostate 12/07/22 12/08/22 History lactulose 10 gram/15 mL oral 15 ml PO DAILY PRN Constipation 12/07/22 12/07/22 History solution pantoprazole 40 mg tablet,delayed 40 mg PO HS acid reflux 12/07/22 12/07/22 History release New Prescriptions to Start Prescriptions: Allergies Allergy/AdvReac Type Severity Reaction Status Date / Time No Known Allergies Allergy Verified 11/11/22 11:04 Exam Data for Last 24 hours Vital signs and Labs for Last 24 Hours: Temp Pulse Resp BP Pulse Ox 98.9 F 90 18 174/91 H 93 L 12/07/22 14:13 12/07/22 19:30 12/07/22 18:00 12/07/22 19:30 12/07/22 19:30 Laboratory R
[2022-12-07 21:09] LABS: Troponin I < 0.01 ng/ml (0.00-0.034)
--- NOTE | 2022-12-07 22:25 | PC.NURSE ---
Pt arrived to floor via stretcher @ [id number]
--- NOTE | 2022-12-08 00:16 | PC.NURSE ---
RECEIVED PHONE REPORT FROM EVELIN RN/ED NURSE AT 2140. PATIENT ARRIVED TO THE FLOOR AT 2200 VIA STRETCHER. PATIENT IS NON VERBAL. NODDS HEAD TO SIMPLE QUESTIONS. [id number] TO OBTAIN ANY HISTORY FROM PATIENT. PATIENT INFO ID FROM ED REPORTS AND [facility]. ATTEMPTED TO CONTACT FAMILY TO CONFIRM DNR WITHOUT SUCCESS. PHONE MESSAGE LEFT FOR THEM TO VALL US.
[2022-12-08 04:00] VITALS: BP 155/69; PULSE 65; RESP 18; TEMP 37.2; O2SAT 91; BMI 30.5
--- NOTE | 2022-12-08 05:02 | PC.NURSE ---
PATIENT FOLLOWS SIMPLE COMMANDS. WILL NODE TO SOME QUESTIONS. NON VERBAL. REQUIRE 2 ASSIST TO TURN AND REPOSITION. BARRIER CREAM APPLIED TO COCCYX AND BUTTOCKS DUE TO STAGE 1 PRESSURE AREA. HOB UP 35 DEGREES. SIDE RAILS UP X 2. BED ALARM IN USE. OLD CHOLECYSTECTOMY INCISIONS DRY AND INTACT WITH OLD BRUISING NOTED. NAD. NO INDICATIONS OF PAIN.
[2022-12-08 06:33] LABS: Chloride 104 mmol/L (98-107)
[2022-12-08 06:34] LABS: Potassium 3.6 mmoL/L (3.5-5.1); Sodium 139 mmol/L (136-145)
[2022-12-08 06:37] LABS: Alanine Aminotransferase 11 U/L (12-78); Albumin Level 2.8 g/dl (3.5-5.0); Albumin/Globulin Ratio 1.1 (1.1-1.8); Alkaline Phosphatase 83 U/L (38-126); Anion Gap 5.6 mEq/L (5-15); Aspartate Amino Transferase 17 U/L (17-59); Bilirubin,Total 0.6 mg/dl (0.2-1.3); Blood Urea Nitrogen 19 mg/dl (9-20); Calcium 7.7 mg/dl (8.4-10.2); Carbon Dioxide 33 mmol/L (22.0-30.0); Creatinine Clearance Estimated 55 mL/min (50-200); Estimated Glomerular Filt Rate 40 ml/min (>60); GFR (African American) 48 ML/MIN (>60); Globulin 2.6 g/dL (1.3-3.2); Glucose 82 mg/dl (74-100); Phosphorous 3.4 mg/dl (2.5-4.5); Total Protein,Serum 5.4 g/dl (6.3-8.2)
[2022-12-08 06:38] LABS: Magnesium 2.1 mg/dl (1.6-2.3)
[2022-12-08 08:00] VITALS: BP 160/81; PULSE 81; RESP 16; TEMP 36.8; O2SAT 95
--- NOTE | 2022-12-08 08:00 | XR_ITS ---
FINAL REPORT CLINICAL HISTORY: hypoxia FINDINGS: SINGLE-VIEW CHEST The heart size is normal. The mediastinum is normal. There is left basilar opacity and left pleural effusion, may represent pneumonia. There is no pneumothorax. IMPRESSION: Left basilar opacity and left pleural effusion, favor pneumonia. Recommend continued follow-up. Reviewed, Interpreted and Dictated by Liz Persaud MD Transcribed by Shreya Torres Authenticated and [facility]
--- NOTE | 2022-12-08 08:01 | EXP.PHA.CONS ---
Pharmacy Consult Date: 12/08/22 Time: 08:01 Referring provider: DR. MANDUJANO Reason for Consult:: VANCOMYCIN DOSING Allergies Allergy/AdvReac Type Severity Reaction Status Date / Time No Known Allergies Allergy Verified 11/11/22 11:04 Home Medications Medication Instructions Recorded Confirmed Type tamsulosin 0.4 mg capsule 0.8 mg PO HS PROSTATE 10/10/19 12/07/22 History acetaminophen 500 mg tablet 500 mg PO Q4HP PRN Mild 06/07/20 12/07/22 History Pain,Fever,Headache cholecalciferol (vitamin D3) 1,250 50,000 unit PO MONTHLY Supplement 06/07/20 12/07/22 History mcg (50,000 unit) capsule hydrocodone 7.5 mg-acetaminophen 1 tab PO BID pain #60 tabs 10/26/22 12/07/22 Rx 325 mg tablet hydrochlorothiazide 12.5 mg tablet 12.5 mg PO DAILY Fluid 11/09/22 12/07/22 History losartan 25 mg tablet 25 mg PO DAILY Hypertension 11/09/22 12/07/22 History paliperidone palmitate 117 mg/0.75 117 mg IM MONTHLY MOOD 11/10/22 12/07/22 History mL intramuscular syringe (Invega Sustenna) tizanidine 2 mg tablet 2 mg PO TID MUSCLE SPASM 11/10/22 12/07/22 History finasteride 5 mg tablet 5 mg PO DAILY Blood Pressure 12/07/22 12/07/22 History lactulose 10 gram/15 mL oral 15 ml PO DAILY Liver 12/07/22 12/07/22 History solution pantoprazole 40 mg tablet,delayed 40 mg PO DAILY GERD 12/07/22 12/07/22 History release pantoprazole 40 mg tablet,delayed 40 mg PO HS GERD 12/07/22 12/07/22 History release New Prescriptions to Start Prescriptions: Height: 1.78 m Weight: 96.842 kg Laboratory Results:: Laboratory Results - last 24 hr 12/07/22 14:25: Urine Color Yellow, Urine Appearance Clear, Urine pH 6.0, Ur Specific [place] 1.020, Urine Protein 1+, Urine Glucose (UA) Negative, Urine Ketones Negative, Urine Blood 1+, Urine Nitrate Negative, Urine Bilirubin Negative, Urine Urobilinogen 0.2, Ur Leukocyte Esterase 2+ A, Urine RBC 5-10, Urine WBC 20-50, Ur Squamous Epith Cells Occasional, Urine Bacteria 4+ 12/07/22 14:25: WBC 5.1, RBC 4.29 L, Hgb 12.3 L, Hct 38.1 L, MCV 88.7, MCH 28.8, MCHC 32.4, RDW 14.6, Plt Count 191, MPV 8.8, Neut % (Auto) 82.7 H, Lymph % (Auto) 9.7 L, [place] % (Auto) 6.7, Eos % (Auto) 0.5, Baso % (Auto) 0.5, Neut # (Auto) 4.2, Lymph # (Auto) 0.5 L, [place] # (Auto) 0.3, Eos # (Auto) 0.0, Baso # (Auto) 0.0 12/07/22 14:25: Sodium 136, Potassium 3.6, Chloride 94 L, Carbon Dioxide 37 H, Anion Gap 8.6, BUN 21 H, Creatinine 2.10 H, Estimated Creat Clear 52, Estimated GFR 31 L, Est GFR ( Amer) 38 L, Glucose 124 H, Calcium 8.5, Troponin I < 0.01, Amylase 63, Lipase 32 12/07/22 14:25: Total Bilirubin 0.8, Direct Bilirubin 0.4, Conjugated Bilirubin 0.0, Indirect Bilirubin 0.4, Unconjugated Bilirubin 0.4, AST 21, ALT 15, Alkaline Phosphatase 103, Total Protein 6.9 D, Albumin 3.8 12/07/22 14:25: NT-Pro-B Natriuret Pep 2940 H 12/07/22 18:14: Troponin I < 0.01 12/07/22 19:15: SARS-CoV-2 (PCR) Not detected, Influenza A Untype (PCR) Not detected, Influenza Type B (PCR) Not detected 12/07/22 20:30: Troponin I < 0.01 12/08/22 06:12: Sodium 139, Potassium 3.6, Chloride 104, Carbon Dioxide 33 H, Anion Gap 5.6, BUN 19, Creatinine 1.70 H, Estimated Creat Clear 55, Estimated GFR 40 L, Est GFR ( Amer) 48 L D, Glucose 82 D, Calcium 7.7 L, Phosphorus 3.4, Magnesium 2.1, Total Bilirubin 0.6, AST 17, ALT 11 L D, Alkaline Phosphatase 83, Total Protein 5.4 L, Albumin 2.8 L D, Globulin 2.6, Albumin/Globulin Ratio 1.1 Medical History: Medical History (Updated 12/07/22 @ 20:26 by Michelle Biswas [facility]) Cerebellar infarct Cerebral atrophy Cervical spinal stenosis Cervical spondylosis Chronic renal disease Chronic schizophrenia CKD (chronic kidney disease) stage 4, GFR 15-29 ml/min DDD (degenerative disc disease), cervical Foraminal stenosis of cervical region Hematuria due to chronic cystitis Hypertension Multiple thyroid nodules Obesity (BMI 30.0-34.9) Obesity, morbid, BMI 40.0-49.9 Phimosis of penis Prostate enlargement Renal insufficie
--- NOTE | 2022-12-08 08:05 | HMH.PHAINT1 ---
Pharmacy Intervention Comments: home medication list verified using MAR from senior care
--- NOTE | 2022-12-08 08:39 | SW/DCPLANNER ---
This patient currently resides at [facility] level of care. I will continue to follow up with Miya until patient is medically stable for discharge.
--- NOTE | 2022-12-08 11:23 | DIET.NUTRFU ---
RD reviewed chart and touched base with nursing staff at [facility]. Patient's po intake had declined for the last couple days. At baseline is needs setup assistance and tolerates MSOFT with nectar thicks. He also drinks 3 mighty shakes/day for additional nutritional support. No flavor preference indicated. Reviewing his weight hx, last admit on 11/10 he was 101kg and now is 96.8kg, each time he comes in he has a set back in wt it takes him time to get back bria routine. Barrier cream in place for a noted stage I wto coccyx area. Plan to discharge back to [facility] when ready
[2022-12-08 11:31] VITALS: BP 153/71; PULSE 79; RESP 18; TEMP 37.1; O2SAT 92
--- NOTE | 2022-12-08 11:40 | EXP.PN ---
Subjective *Date: 12/08/22 *Time: 11:40 Interval history: Date of service 12/08/2022 The patient is nonverbal but shakes his head no when I inquire about abdominal pain. Nursing staff report that he remains afebrile with stable vital signs and saturating appropriately on room air. He is tolerating his IV antibiotic with no adverse events. Dietitian has evaluated the patient's record and has identified a 26 pound weight loss over a 3-month period of time. He is currently mechanical soft nectar thick liquids heart healthy diet. I have recommended the addition of protein supplements. His BMI is 31. I have reviewed and personally interpreted his morning labs identified a CBC with a normal white blood cell count of 5.1 improved hemoglobin of 12.3 from previous admission and a platelet count of 191. His electrolytes are normal and his creatinine is at baseline at 1.7. His troponin trend was negative. And his BNP is elevated. Exam Data for Last 24 hours Vital signs and Labs for Last 24 Hours: Temp Pulse Resp BP Pulse Ox 98.7 F 79 18 153/71 H 92 L 12/08/22 11:31 12/08/22 11:31 12/08/22 11:31 12/08/22 11:31 12/08/22 11:31 Laboratory Results - last 24 hr 12/07/22 14:25: Urine Color Yellow, Urine Appearance Clear, Urine pH 6.0, Ur Specific [place] 1.020, Urine Protein 1+, Urine Glucose (UA) Negative, Urine Ketones Negative, Urine Blood 1+, Urine Nitrate Negative, Urine Bilirubin Negative, Urine Urobilinogen 0.2, Ur Leukocyte Esterase 2+ A, Urine RBC 5-10, Urine WBC 20-50, Ur Squamous Epith Cells Occasional, Urine Bacteria 4+ 12/07/22 14:25: WBC 5.1, RBC 4.29 L, Hgb 12.3 L, Hct 38.1 L, MCV 88.7, MCH 28.8, MCHC 32.4, RDW 14.6, Plt Count 191, MPV 8.8, Neut % (Auto) 82.7 H, Lymph % (Auto) 9.7 L, [place] % (Auto) 6.7, Eos % (Auto) 0.5, Baso % (Auto) 0.5, Neut # (Auto) 4.2, Lymph # (Auto) 0.5 L, [place] # (Auto) 0.3, Eos # (Auto) 0.0, Baso # (Auto) 0.0 12/07/22 14:25: Sodium 136, Potassium 3.6, Chloride 94 L, Carbon Dioxide 37 H, Anion Gap 8.6, BUN 21 H, Creatinine 2.10 H, Estimated Creat Clear 52, Estimated GFR 31 L, Est GFR ( Amer) 38 L, Glucose 124 H, Calcium 8.5, Troponin I < 0.01, Amylase 63, Lipase 32 12/07/22 14:25: Total Bilirubin 0.8, Direct Bilirubin 0.4, Conjugated Bilirubin 0.0, Indirect Bilirubin 0.4, Unconjugated Bilirubin 0.4, AST 21, ALT 15, Alkaline Phosphatase 103, Total Protein 6.9 D, Albumin 3.8 12/07/22 14:25: NT-Pro-B Natriuret Pep 2940 H 12/07/22 18:14: Troponin I < 0.01 12/07/22 19:15: SARS-CoV-2 (PCR) Not detected, Influenza A Untype (PCR) Not detected, Influenza Type B (PCR) Not detected 12/07/22 20:30: Troponin I < 0.01 12/08/22 06:12: Sodium 139, Potassium 3.6, Chloride 104, Carbon Dioxide 33 H, Anion Gap 5.6, BUN 19, Creatinine 1.70 H, Estimated Creat Clear 55, Estimated GFR 40 L, Est GFR ( Amer) 48 L D, Glucose 82 D, Calcium 7.7 L, Phosphorus 3.4, Magnesium 2.1, Total Bilirubin 0.6, AST 17, ALT 11 L D, Alkaline Phosphatase 83, Total Protein 5.4 L, Albumin 2.8 L D, Globulin 2.6, Albumin/Globulin Ratio 1.1 I & O for Last 24 hours: Intake & Output 12/05/22 12/06/22 12/07/22 12/08/22 23:59 23:59 23:59 23:59 Intake Total 503 / 503 Output Total 1800 / 1800 1000 / 1000 Balance -1800 / -1800 -497 / -497 Weight 96.842 kg 96.842 kg Microbiology Reports for the Last 24 Hours: Microbiology 12/07/22 14:25 Urine,Catheterized Urine Culture - Preliminary Gram Negative Rods Constitutional Constitutional: no acute distress, obese, chronically ill appearing and cooperative *Routine HEENT Exam Head: Present normocephalic Eye: Present EOMI and PERRL ENT: Present mucous membranes moist *Routine Neck Exam Neck: Present supple; Absent lymphadenopathy *Routine Respiratory Exam Respiratory: Present CTA bilaterally, normal respiratory effort and symmetric chest movement *Routine Cardiovascular Exam Cardiovascular: Present RRR; Absent murmur *Routine Abdominal Exam Abdo
[2022-12-08 13:31] VITALS: BMI 30.5
[2022-12-08 16:00] VITALS: BP 167/89; PULSE 82; RESP 20; TEMP 37.5; O2SAT 93
--- NOTE | 2022-12-08 18:36 | PC.NURSE ---
PT IS RESTING IN BED. NONVERBAL. PT WILL FOLLOW SIMPLE COMMANDS. TURNED AND REPOSITIONED IN BED. EATING AND DRINKING WELL. LUNG SOUNDS HAVE SCATTERED RHONCHI. ABDOMEN SOFT NON TENDER. PT SHAKES HIS HEAD NO WHEN ASKED ABOUT ABDOMINAL PAIN. CATHETER DC'D THIS SHIFT. WILL CONTINUE TO MONITOR.
[2022-12-08 20:00] VITALS: BP 169/84; PULSE 87; RESP 16; TEMP 37.6; O2SAT 93
--- NOTE | 2022-12-08 23:10 | PC.NURSE ---
PULLED IV OUT. ALLAN OSORIO APPLIED TO RAC.
[2022-12-08 23:41] VITALS: BP 148/78; PULSE 83; RESP 18; TEMP 37.2; O2SAT 96
--- NOTE | 2022-12-09 01:28 | PC.NURSE ---
NEW IV PLACED LEFT HAND #22 GAUGE NEEDLE X 1 STICK. PATIENT IS NON VERBAL BUT WILL FOLLOW SIMPLE COMMANDS. NODS HEAD NO TO PAIN. INCONTINENT URINE. TURNED AND REPOSITIONED Q 2 HRS. BARRIER CREAM APPLIED TO BUTTOCKS AND COCCYX WITH EACH BRIEF CHANGE.
[2022-12-09 04:00] VITALS: BP 168/82; PULSE 72; RESP 16; TEMP 36.9; O2SAT 93; BMI 31.9
--- NOTE | 2022-12-09 06:31 | PC.NURSE ---
LAB REPORTS URINE CULTURE + ESBL. Marely MCKEON BELT BUILDER NOTIFIED AT THIS TIME.
[2022-12-09 08:00] VITALS: BP 148/74; PULSE 75; RESP 18
--- NOTE | 2022-12-09 08:22 | PC.NURSE ---
tech note; pt refused temperature check and O2 Sat check for 0800 vital signs. Notified nurse.
[2022-12-09 09:29] LABS: Chloride 105 mmol/L (98-107); Potassium 3.9 mmoL/L (3.5-5.1); Sodium 141 mmol/L (136-145)
[2022-12-09 09:32] LABS: Anion Gap 6.9 mEq/L (5-15); Blood Urea Nitrogen 21 mg/dl (9-20); Carbon Dioxide 33 mmol/L (22.0-30.0); Creatinine Clearance Estimated 55 mL/min (50-200); Estimated Glomerular Filt Rate 37 ml/min (>60); GFR (African American) 45 ML/MIN (>60)
[2022-12-09 09:33] LABS: Glucose 91 mg/dl (74-100)
[2022-12-09 10:04] LABS: Procalcitonin 0.375 ng/mL (0.0-2.0)
[2022-12-09 10:35] LABS: NT Pro Brain Natriuretic Pep. 2220 pg/mL (0-125)
[2022-12-09 12:00] VITALS: BP 147/81; PULSE 72; RESP 18; TEMP 36.7; O2SAT 91
--- NOTE | 2022-12-09 13:18 | EXP.ACUTE.PN ---
Subjective *Date: 12/09/22 *Time: 13:18 Interval history: No acute events overnight. Urine culture returned positive for ESBL, antibiotics transitioned to meropenem. Stable on room air this morning. Having elevated temperatures but no marni fever. Tolerating p.o. intake. Difficult to assess review of systems given patient's nonverbal status but nods head yes and no to questioning. Denies nausea, chest pain, upset stomach. Medical Exam Vital signs and Labs for Last 24 Hours: Vital Signs Temp Pulse Resp BP Pulse Ox 12/09/22 12:00 98.1 F 72 18 147/81 H 91 L 12/09/22 08:00 75 18 148/74 H 12/09/22 04:00 98.5 F 72 16 168/82 H 93 L 12/08/22 23:41 99.0 F 83 18 148/78 H 96 12/08/22 20:00 99.7 F H 87 16 169/84 H 93 L 12/08/22 20:00 93 L 12/08/22 16:00 99.5 F 82 20 167/89 H 93 L Intake and Output 12/08/22 12/09/22 12/09/22 23:59 07:59 15:59 Intake Total 1589 / 2212 50 / 770 720 / 770 Output Total 720 / 1720 0 / 0 Balance 869 / 492 50 / 770 720 / 770 Intake: Intake, Oral Amount 720 / 840 720 / 720 Intake, Total IV Amount 869 / 1372 50 / 50 0.9 % Sodium Chloride 1,000 ml 819 / 1022 @ 50 mls/hr IV .Q20H MICHAEL Rx#: [id number] Cefepime HCl 1 gm In 0.9 % 50 / 50 50 / 50 Sodium Chloride 50 ml @ 100 mls /hr IV Q12H MICHAEL Rx#:[id number] Output: Output, Urine Amount 720 / 1720 0 / 0 Other: Number of Unmeasured Voids 2 1 2 Weight 101.196 kg Patient Weight 12/09/22 23:59 Weight 101.196 kg Laboratory Results - last 24 hr 12/09/22 08:23: Sodium 141, Potassium 3.9, Chloride 105, Carbon Dioxide 33 H, Anion Gap 6.9, BUN 21 H, Creatinine 1.80 H, Estimated Creat Clear 55, Estimated GFR 37 L, Est GFR ( Amer) 45 L, Glucose 91, Calcium 8.0 L, Procalcitonin 0.375 12/09/22 08:23: NT-Pro-B Natriuret Pep 2220 H I & O for Labs for Last 24 Hours: Intake & Output 12/06/22 12/07/22 12/08/22 12/09/22 23:59 23:59 23:59 23:59 Intake Total 2212 / 2212 770 / 770 Output Total 1800 / 1800 1720 / 1720 0 / 0 Balance -1800 / -1800 492 / 492 770 / 770 Weight 96.842 kg 96.8 kg 101.196 kg Microbiology Reports for the Last 24 Hours: Microbiology 12/07/22 14:25 Urine,Catheterized Urine Culture - Final Escherichia coli Constitutional: Present no acute distress, obese, chronically ill appearing and cooperative Head: Present atraumatic and normocephalic ENT: Present normal exam Neck: Present normal inspection Respiratory: Present normal respiratory effort; Absent accessory muscle use, rhonchi, wheezes or crackles Cardiac: Present Reg Rate and Rhythm GI: Present soft and normal bowel sounds; Absent distention, tenderness, guarding or rebound Extremities: Present normal inspection and full ROM Skin: Present intact; Absent erythema Neuro: Present Grossly Intact, alert, awake and moves all extremities Assessment and Plan *Assessment and plan (1) Acute cystitis: Status: Acute Category: Medical Code(s): N30.00 - Acute cystitis without hematuria (2) Metabolic encephalopathy: Status: Acute Category: Medical Code(s): G93.41 - Metabolic encephalopathy (3) Pleural effusion: Status: Acute Category: Medical Code(s): J90 - Pleural effusion, not elsewhere classified (4) Chronic kidney disease: Status: Acute Category: Medical Code(s): N18.9 - Chronic kidney disease, unspecified (5) Chronic schizophrenia: Status: Chronic Category: Medical Code(s): F20.9 - Schizophrenia, unspecified (6) Hypertension: Status: Chronic Qualifiers: Hypertension type: essential hypertension Qualified Code(s): I10 - Essential (primary) hypertension Category: Medical Code(s): I10 - Essential (primary) hypertension Plan 72-year-old male that presents to [facility] emergency department at the
[2022-12-09 16:00] VITALS: BP 155/86; PULSE 76; RESP 18; TEMP 37.4; O2SAT 94
--- NOTE | 2022-12-09 17:51 | PC.NURSE ---
no acute change from previous shift. pt has been combative at time, redirected, let pt calm down and reproached.
[2022-12-09 20:00] VITALS: BP 152/83; PULSE 87; RESP 18; TEMP 37.4; O2SAT 92
--- NOTE | 2022-12-09 21:55 | PC.NURSE ---
PATIENT BECOMES AGGITATED AND UNCOOPERATIVE IF HE DOES NOT KNOW OR UNDERSTAND INSTRUCTIONS. DOES NOT LIKE NEEDLES AND CAN BE COMBATIVE. REPEATED SIMPLE EXPLANATIONS SEEM TO HELP. PATIENT IS NON VERBAL WITH ME BUT IT WAS REPORTED HE SPOKE TO NURSE ON DAYSHIFT. CONTACT ISOLATION FOR ESBL IN URINE.
[2022-12-09 23:56] VITALS: BP 154/77; PULSE 73; RESP 16; TEMP 36.9; O2SAT 93
[2022-12-10 04:00] VITALS: BP 169/83; PULSE 81; RESP 16; TEMP 36.8; O2SAT 93; BMI 31.3
[2022-12-10 08:00] VITALS: BP 128/89; PULSE 92; RESP 18; TEMP 37.1; O2SAT 90
[2022-12-10 08:42] LABS: Basophils % 0.3 % (0.1-2.0); Eosinophils # 0.1 K/mm3 (0.0-0.4); Eosinophils % 2.2 % (0.1-12.0); Hematocrit 38.7 % (42.0-52.0); Hemoglobin 12.6 g/dL (14.1-18.0); Lymphocytes # 0.7 K/mm3 (0.7-4.5); Lymphocytes % 13.1 % (10-50); Mean Corpuscular HGB Conc 32.4 g/dL (31.8-35.4); Mean Corpuscular Hemoglobin 28.3 pg (27.0-31.2); Mean Corpuscular Volume 87.2 fl (80-94); Mean Platelet Volume 8.5 fl (7.4-10.4); Monocytes # 0.2 K/mm3 (0.1-1.0); Monocytes % 3.7 % (1.7-9.3); Neutrophils # 4.4 K/mm3 (1.8-7.8); Neutrophils % 80.7 % (37.0-80.0); Platelet Count 198 K/mm3 (142-424); Red Blood Count 4.44 M/mm3 (4.60-6.20); Red Cell Distribution Width 14.3 % (11.5-17.5); White Blood Count 5.5 K/mm3 (4.8-10.8)
[2022-12-10 08:47] LABS: Chloride 104 mmol/L (98-107)
[2022-12-10 08:48] LABS: Potassium 3.8 mmoL/L (3.5-5.1); Sodium 143 mmol/L (136-145)
[2022-12-10 08:50] LABS: Alanine Aminotransferase 13 U/L (12-78); Alkaline Phosphatase 104 U/L (38-126); Aspartate Amino Transferase 21 U/L (17-59); Bilirubin,Total 0.7 mg/dl (0.2-1.3); Blood Urea Nitrogen 24 mg/dl (9-20); Creatinine Clearance Estimated 51 mL/min (50-200); Estimated Glomerular Filt Rate 35 ml/min (>60); GFR (African American) 43 ML/MIN (>60)
[2022-12-10 08:51] LABS: Albumin Level 3.5 g/dl (3.5-5.0); Albumin/Globulin Ratio 1.2 (1.1-1.8); Anion Gap 8.8 mEq/L (5-15); Calcium 8.7 mg/dl (8.4-10.2); Carbon Dioxide 34 mmol/L (22.0-30.0); Globulin 2.9 g/dL (1.3-3.2); Glucose 135 mg/dl (74-100); Total Protein,Serum 6.4 g/dl (6.3-8.2)
--- NOTE | 2022-12-10 09:20 | EXP.DC.SUM ---
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 Patient is nonverbal at baseline but staff at the SNF report that he was not acting per usual. Upon arrival to the emergency department he was awake and alert but not responding to commands per his typical. he did mention to the ED provider that his abdomen was hurting when he was asked where his pain was. Emergency department work-up significant for acute cystitis noted, + leukoesterase, 20-50 WBCs and +4 bacteria. Creatinine of 2.1 with a creatinine of 2.2 at discharge 3 weeks ago. Elevated BNP of 2940. Abdominal CT remarkable for thickened bladder likely secondary to cystitis, small but somewhat enlarged pericardial effusion and pleural effusion, L >R. thickened colon noted that could be consistent with colitis or decompression. Given patient's mild altered mental status and acute cystitis, will admit for further observation. Hospital Course Hospital Course Hospital Course: 72-year-old male that presents to [facility] emergency department at the request of his long-term care facility for mental status changes. He has experienced a previous cerebellar stroke and is nonverbal. Problems addressed are as follows: Acute cystitis Urine cultures currently identifying gram-negative rods, ESBL. Transitioned to Invanz for therapy and ease of dosing. Receiving day 2 of 7 on day of discharge. Will need to complete 5 more days of 1 g IM after discharge at nursing facility. Patient has remained hemodynamically stable with defervescent's of symptoms since admission. White cell count normalized. Procalcitonin 0.375-day before discharge, suggests improvement and appropriate response to antibiotic therapy. Acute metabolic encephalopathy Resolved, likely secondary to infection. Appears at baseline mentation today. CKD stage IIIb Baseline creatinine 1.8, stable. Avoiding NSAID therapy. Needs repeat labs in 1 week to monitor kidney function Pleural effusion L>R on CT abdomen imaging. Elevated BNP, increased Diuretic therapy during admission. Continue with Lasix 40 mg orally daily with HCTZ. Recommend outpatient follow-up with pulmonology Pulse oximetry monitoring, stable on RA Hypertension Loop diuretic therapy. Stable during admission. Decrease losartan to 12.5mg daily Chronic schizophrenia Routine nursing interaction. Monthly Invega therapy. Stable during admission. Medically stable for discharge back to nursing facility to complete antibiotic therapy. Exam Data for Last 24 hours Vital signs and Labs for Last 24 Hours: Temp Pulse Resp BP Pulse Ox 98.7 F 92 H 18 128/89 90 L 12/10/22 08:00 12/10/22 08:00 12/10/22 08:00 12/10/22 08:00 12/10/22 08:00 Laboratory Results - last 24 hr 12/09/22 08:23: Sodium 141, Potassium 3.9, Chloride 105, Carbon Dioxide 33 H, Anion Gap 6.9, BUN 21 H, Creatinine 1.80 H, Estimated Creat Clear 55, Estimated GFR 37 L, Est GFR ( Amer) 45 L, Glucose 91, Calcium 8.0 L, Procalcitonin 0.375 12/09/22 08:23: NT-Pro-B Natriuret Pep 2220 H 12/10/22 08:19: WBC 5.5, RBC 4.44 L, Hgb 12.6 L, Hct 38.7 L, MCV 87.2, MCH 28.3, MCHC 32.4, RDW 14.3, Plt Count 198, MPV 8.5, Neut % (Auto) 80.7 H, Lymph % (Auto) 13.1, [place] % (Auto) 3.7, Eos % (Auto) 2.2, Baso % (Auto) 0.3, Neut # (Auto) 4.4, Lymph # (Auto) 0.7, [place] # (Auto) 0.2, Eos # (Auto) 0.1, Baso # (Auto) 0.0 12/10/22 08:19: Sodium 143, Potassium 3.8, Chloride 104, Carbon Dioxide 34 H, Anion Gap 8.8, BUN 24 H, Creatinine 1.90 H, Estimated Creat Clear 51, Estimated GFR 35 L, Est GFR ( Amer) 43 L, Glucose 135 H D, Calcium 8.7, Total Bilirubin 0.7, AST 21, ALT 13, Alkaline Phosphatase 104, Total Protein 6.4, Albumin 3.5, Globulin 2.9, Albumin/Globulin Rat
--- NOTE | 2022-12-11 14:52 | CARE MANAGER ---
Spoke with Po[facility] at [facility], patient is doing well. No known needs at time of call.
[2022-12-11 18:09] LABS: Legionella pneumophila Urinary Negative (Negative)
== END 2022-12-10 12:48 ==
LOC: ER 20:10 → 2ND 22:53
PROVIDERS: Internal Medicine Adolescent Medicine; Nurse Practitioner Acute Care; Admitting Provider Family Medicine; Emergency Provider Emergency Medicine; Visit Provider Family Medicine
DX: G93.41 Metabolic encephalopathy (principal); N30.00 Acute cystitis without hematuria; J90 Pleural effusion, not elsewhere classified; N18.30 Chronic kidney disease, stage 3 unspecified; F20.9 Schizophrenia, unspecified; I12.9 Hypertensive chronic kidney disease with stage 1 through stage 4 chronic kidney disease, or unspecified chronic kidney disease; Z79.899 Other long term (current) drug therapy; I69.328 Other speech and language deficits following cerebral infarction; R06.9 Unspecified abnormalities of breathing; Z20.822 Contact with and (suspected) exposure to COVID-19
CPT/HCPCS: G0378; 36415; 51702; 71045; 74177; 80048; 80053; 80076; 81001; 82150; 83690; 83735; 83880; 84100; 84145; 84484; 85025; 87040; 87086; 87088; 87186; 93005; 99285; C9803; J0692; J1335; Q9967; U0003; U0005

== ENCOUNTER → 2023-01-29 13:17 | Outpatient (POV) | payer MEDICARE, MEDICAID, SELFPAY | PROVIDERS: Visit Provider Internal Medicine Nephrology | DX: Z00.00 Encounter for general adult medical examination without abnormal findings (principal) ==

== ENCOUNTER → 2023-02-14 08:54 | Outpatient (CLI) | payer MEDICARE, MEDICAID, SELFPAY ==
[2023-02-14 09:31] LABS: Basophils % 0.5 % (0.1-2.0); Eosinophils # 0.2 K/mm3 (0.0-0.4); Eosinophils % 3.4 % (0.1-12.0); Hematocrit 40.6 % (42.0-52.0); Lymphocytes # 0.7 K/mm3 (0.7-4.5); Lymphocytes % 12.9 % (10-50); Mean Corpuscular Hemoglobin 28.7 pg (27.0-31.2); Mean Corpuscular Volume 89.6 fl (80-94); Mean Platelet Volume 8.8 fl (7.4-10.4); Monocytes # 0.3 K/mm3 (0.1-1.0); Monocytes % 5.5 % (1.7-9.3); Neutrophils # 4.3 K/mm3 (1.8-7.8); Neutrophils % 77.7 % (37.0-80.0); Platelet Count 201 K/mm3 (142-424); Red Blood Count 4.53 M/mm3 (4.60-6.20); Red Cell Distribution Width 14.7 % (11.5-17.5); White Blood Count 5.5 K/mm3 (4.8-10.8)
[2023-02-14 09:40] LABS: Chloride 99 mmol/L (98-107); Potassium 3.6 mmoL/L (3.5-5.1); Sodium 140 mmol/L (136-145)
[2023-02-14 09:42] LABS: Alanine Aminotransferase 14 U/L (12-78); Aspartate Amino Transferase 15 U/L (17-59); Blood Urea Nitrogen 39 mg/dl (9-20); Estimated Glomerular Filt Rate 23 ml/min (>60); GFR (African American) 28 ML/MIN (>60)
[2023-02-14 09:43] LABS: Albumin Level 3.7 g/dl (3.5-5.0); Albumin/Globulin Ratio 1.5 (1.1-1.8); Alkaline Phosphatase 83 U/L (38-126); Anion Gap 11.6 mEq/L (5-15); Bilirubin,Total 0.3 mg/dl (0.2-1.3); Calcium 8.9 mg/dl (8.4-10.2); Carbon Dioxide 33 mmol/L (22.0-30.0); Globulin 2.5 g/dL (1.3-3.2); Glucose 121 mg/dl (74-100); Total Protein,Serum 6.2 g/dl (6.3-8.2)
== END ==
PROVIDERS: PCP Emergency Medicine; Visit Provider Surgery
DX: I10 Essential (primary) hypertension (principal); N30.00 Acute cystitis without hematuria
CPT/HCPCS: 36415; 80053; 85025

== ENCOUNTER → 2023-03-02 10:10 | Outpatient (CLI) | payer MEDICARE, MEDICAID, SELFPAY ==
--- NOTE | 2023-03-02 10:14 | CT_ITS ---
FINAL REPORT TECHNIQUE: Noncontrast CT exam of the abdomen and pelvis. This study was performed with techniques to keep radiation doses as low as reasonably achievable (ALARA). Individualized dose reduction techniques using automated exposure control or adjustment of mA and/or kV according to the patient''s size were employed. CLINICAL HISTORY: abdominal pain COMPARISON: 12/07/2022 FINDINGS: Abdomen: There are tiny bilateral pleural effusions. There is moderate splenomegaly, slightly improved. Liver, pancreas, and adrenal glands have a normal CT appearance in their limited unenhanced state. There is an exophytic mass posterior left kidney, probable complex cyst. Status post right nephrectomy. The bowel is unremarkable. Pelvis: The appendix is normal. There is a mildly distended bladder. Mild prostate enlargement is noted. No fluid collection or adenopathy is seen. IMPRESSION: No acute findings. Moderate splenomegaly, mildly improved. Tiny bilateral pleural effusions. Reviewed, Interpreted and Dictated by Kylie Collazo MD Transcribed by Pau Calix Authenticated and [facility]
== END ==
LOC: RAD 10:11
PROVIDERS: PCP Emergency Medicine; Visit Provider Surgery
DX: R10.9 Unspecified abdominal pain (principal)
CPT/HCPCS: 74176

== ENCOUNTER → 2023-03-20 12:13 | Outpatient (CLI) | payer MEDICARE, MEDICAID, SELFPAY | PROVIDERS: PCP Emergency Medicine; Visit Provider Emergency Medicine | DX: S21.209A Unspecified open wound of unspecified back wall of thorax without penetration into thoracic cavity, initial encounter (principal); B96.4 Proteus (mirabilis) (morganii) as the cause of diseases classified elsewhere | CPT/HCPCS: 87070; 87077; 87186; 87205 ==

== ENCOUNTER → 2023-03-21 09:04 | Outpatient (CLI) | payer MEDICARE, MEDICAID, SELFPAY ==
--- NOTE | 2023-03-21 09:35 | MR_ITS ---
FINAL REPORT CLINICAL HISTORY: renal mass protocol, one kidney, unable to do contrast due to GFR of 28 COMPARISON: None FINDINGS: Multiplanar MR imaging of the abdomen was performed with oral contrast only secondary to GFR of 28. Images are degraded by patient motion. Images of the liver reveal no evidence of mass. There is no evidence of biliary ductal dilatation. The gallbladder has an unremarkable appearance. There is a unilateral left kidney measuring 12.9 cm in craniocaudal dimension. The right kidney is not identified and likely surgically absent. There is an exophytic signal abnormality arising from the posterior aspect of the left kidney. The focus measures 3.7 x 2.0 cm, is well-circumscribed, and is fluid signal intensity and favored to represent benign cyst. There is a multitude of other smaller similar appearing structures measuring up to 1.6 cm in diameter. Findings are most consistent with multiple benign-appearing cysts. There is no abdominal adenopathy. IMPRESSION: Solitary left kidney. Multiple well-circumscribed fluid signal intensity structures in the left kidney measuring up to 3.7 cm consistent with benign renal cysts. Reviewed, Interpreted and Dictated by Ramsey Thorpe MD Transcribed by Pau Calix Authenticated and [facility]
[2023-03-21 09:49] LABS: Blood Urea Nitrogen 35 mg/dl (9-20); Estimated Glomerular Filt Rate 28 ml/min (>60); GFR (African American) 34 ML/MIN (>60)
== END ==
PROVIDERS: PCP Emergency Medicine; Visit Provider Emergency Medicine
DX: N28.89 Other specified disorders of kidney and ureter (principal)
CPT/HCPCS: 36415; 74181; 82565; 84520

== ENCOUNTER → 2023-04-02 12:53 | Outpatient (POV) | payer MEDICARE, MEDICAID, SELFPAY | PROVIDERS: Visit Provider Internal Medicine Nephrology | DX: Z00.00 Encounter for general adult medical examination without abnormal findings (principal) ==

== ENCOUNTER 2023-04-14 14:21 | Emergency (ER) | payer MEDICARE, MEDICAID, SELFPAY ==
[2023-04-14] VITALS (7 sets, daily range): BP systolic 120–159; BP diastolic 70–92; PULSE 81–101; RESP 16–20; TEMP 36.7; O2SAT 93–98; BMI 33.2
--- NOTE | 2023-04-14 14:33 | ECG_ITS ---
APPROVED REPORT Exam: Resting ECG HR:92 bpm ECG Measurements Heart Rate 92 AXES [place] 156 P 89 QRSd 87 QRS -21 QT 354 T 66 QTc 403 Conclusion SINUS RHYTHM WITH SINUS ARRHYTHMIA BORDERLINE LEFT AXIS DEVIATION [QRS AXIS < -20] LOW QRS VOLTAGE IN PRECORDIAL LEADS [QRS DEFLECTION < 1.0 mV IN CHEST LEADS] BORDERLINE ECG UNCONFIRMED REPORT Electronically signed by : Pradip Baird MD 04/14/2023 21:13:09
--- NOTE | 2023-04-14 14:45 | PC.NURSE ---
DR. LEBLANC AT BEDSIDE
--- NOTE | 2023-04-14 14:48 | CT_ITS ---
PROCEDURE INFORMATION: Exam: CT Head Without Contrast Exam date and time: 04/14/2023 2:58 PM Age: 72 years old Clinical indication: Injury or trauma; Fall; Blunt trauma (contusions or hematomas); Additional info: Fall, loc TECHNIQUE: Imaging protocol: Computed tomography of the head without contrast. Radiation optimization: All CT scans at this facility use at least one of these dose optimization techniques: automated exposure control; mA and/or kV adjustment per patient size (includes targeted exams where dose is matched to clinical indication); or iterative reconstruction. REPORTING DATA: Count of CT and Cardiac NM exams in prior 12 months: This patient has received 4 known CTs and 0 known cardiac nuclear medicine studies in the 12 months prior to the current study. COMPARISON: CT HEAD/BRAIN WO CON 11/09/2022 1:39 PM FINDINGS: Brain: Moderate-sized region of encephalomalacia/gliosis in the left cerebellar hemisphere. There is no evidence of acute intracranial hemorrhage, extra-axial collection or locoregional mass effect. There are patchy and confluent hypodensities in the periventricular and subcortical white matter. The appearance is nonspecific, but most likely represents chronic small vessel disease in a person of this age Cerebral ventricles: The ventricles, sulci and cisterns are normal in size and configuration for patient's age. No hydrocephalus or midline structure shift Pituitary gland and sella: Sellar/parasellar structures, craniocervical junction and orbits are unremarkable Paranasal sinuses: Visualized sinuses are unremarkable. No fluid levels. Mastoid air cells: Visualized mastoid air cells are well aerated. Bones/joints: No calvarial fracture Soft tissues: Small left anterolateral scalp hematoma. IMPRESSION: 1. No acute intracranial abnormality. No calvarial fracture. 2. Small left anterolateral scalp hematoma.
--- NOTE | 2023-04-14 14:48 | CT_ITS ---
PROCEDURE INFORMATION: Exam: CT Cervical Spine Without Contrast Exam date and time: 04/14/2023 2:58 PM Age: 72 years old Clinical indication: Injury or trauma; Fall; Blunt trauma; Additional info: Fall, loc TECHNIQUE: Imaging protocol: Computed tomography of the cervical spine without contrast. Radiation optimization: All CT scans at this facility use at least one of these dose optimization techniques: automated exposure control; mA and/or kV adjustment per patient size (includes targeted exams where dose is matched to clinical indication); or iterative reconstruction. REPORTING DATA: Count of CT and Cardiac NM exams in prior 12 months: This patient has received 4 known CTs and 0 known cardiac nuclear medicine studies in the 12 months prior to the current study. COMPARISON: CT CERVICAL SPINE WO CON 02/17/2022 8:42 PM FINDINGS: Bones/joints: There is redemonstration of diffuse skeletal sclerosis which can be either metabolic or represent widespread metastases. Vertebral alignment is maintained. There is preservation of vertebral body heights. Facet joints are aligned. Odontoid process is intact. Atlantoaxial interval maintained. No acute fracture. Uncovertebral and facet arthropathy result in varying degrees of neural foraminal narrowing at multiple levels. Auditory system: Nodular soft tissue thickening in bilateral external auditory canals. While nonspecific statistically represent cerumen. Lungs: Lung apices are normal. Thyroid: There is a 1.4 cm right thyroid hypodensity. Soft tissues: Prevertebral and paravertebral soft tissues are maintained IMPRESSION: 1. No acute fracture. No traumatic subluxation. 2. There is redemonstration of diffuse skeletal sclerosis which can be either metabolic or represent widespread metastases.
--- NOTE | 2023-04-14 15:24 | HMH.EDGENADL ---
Discharge Plan Disposition Patient Disposition: Home, Self-Care Condition: Fair Chief Complaint: Fall Prescriptions Prescriptions: No Action hydrocodone-acetaminophen 7.5-325 mg tablet 1 tab PO BID Qty: 60 0RF tamsulosin 0.4 MG capsule 0.8 mg PO HS acetaminophen 500 MG tablet 500 mg PO Q4HP PRN (Reason: Mild Pain,Fever,Headache) cholecalciferol (vitamin D3) 1,250 MCG capsule 50,000 unit PO MONTHLY hydrochlorothiazide 12.5 mg tablet 12.5 mg PO DAILY tizanidine 2 mg tablet 2 mg PO TID Invega Sustenna 117 mg/0.75 mL syringe 117 mg IM MONTHLY finasteride 5 mg tablet 5 mg PO HS lactulose 10 gram/15 mL solution 15 ml PO DAILY PRN (Reason: Constipation) pantoprazole 40 mg tablet,delayed release (DR/EC) 40 mg PO HS furosemide 40 mg Tablet 40 mg PO DAILY 30 Days Qty: 0 0RF ertapenem 1 gram recon soln 1 g IM DAILY 5 Days Qty: 5 0RF losartan 25 mg tablet 12.5 mg PO DAILY 30 Days Qty: 0 0RF Referrals Follow up/Referrals: Provider,Referral, MD [Primary Care Provider] - See instructions Clinical Impressions Clinical Impression: CHI (closed head injury) Qualifiers: Encounter type: initial encounter Qualified Code(s): S09.90XA - Unspecified injury of head, initial encounter Discharge ED Provider: Francis Jaimes General Adult HPI General Chief complaint: Fall Stated complaint: Fall Time Seen by Provider: 04/14/23 14:26 Mode of Arrival: EMS Source of Information: EMS Limitations: No Limitations Description of Symptoms (Recalled from ER Triage Doc. by RN): 72 yo M presents to ED from [facility]. EMS reports pt was sitting in his wheelchair and fell face first onto the floor. pt presents with hematoma to right forhead above left eye. pt nonverbal at baseline. History of Present Illness HPI narrative: This is a 72-year-old male with history of degenerative disc disease, cervical stenosis, CVA, hypertension, hyperlipidemia, CKD presenting with fall. Patient lives at assisted living facility. Fell on his wheelchair today. Landed face first, unknown loss of consciousness because of patient's neurologic baseline being largely nonverbal. No other available history. Patient not on anticoagulation Related Data Home Medications Medication Instructions Recorded Confirmed tamsulosin 0.4 mg capsule 0.8 mg PO HS prostate 10/10/19 02/22/23 acetaminophen 500 mg tablet 500 mg PO Q4HP PRN Mild 06/07/20 02/22/23 Pain,Fever,Headache cholecalciferol (vitamin D3) 1,250 50,000 unit PO MONTHLY Supplement 06/07/20 02/22/23 mcg (50,000 unit) capsule hydrochlorothiazide 12.5 mg tablet 12.5 mg PO DAILY Fluid 11/09/22 02/22/23 paliperidone palmitate 117 mg/0.75 117 mg IM MONTHLY mood/anxiety 11/10/22 02/22/23 mL intramuscular syringe (Invega Sustenna) tizanidine 2 mg tablet 2 mg PO TID muscle spasms 11/10/22 02/22/23 finasteride 5 mg tablet 5 mg PO HS prostate 12/07/22 02/22/23 lactulose 10 gram/15 mL oral 15 ml PO DAILY PRN Constipation 12/07/22 02/22/23 solution pantoprazole 40 mg tablet,delayed 40 mg PO HS acid reflux 12/07/22 02/22/23 release Previous Rx's Medication Instructions Recorded ertapenem 1 gram solution for 1 g IM DAILY 5 days #5 ea 12/10/22 injection furosemide 40 mg tablet 40 mg PO DAILY 30 days #0 tabs 12/10/22 losartan 25 mg tablet 12.5 mg PO DAILY Hypertension 30 12/10/22 days #0 tabs hydrocodone 7.5 mg-acetaminophen 1 tab PO BID pain #60 tabs 03/26/23 325 mg tablet Allergies Allergy/AdvReac Type Severity Reaction Status Date / Time No Known Allergies Allergy Verified 02/22/23 14:[address] [facility] Disclaimer: The information contained in this section may have been updated after the patient was seen, as this information can be updated by other users. Medical History Cerebellar infarct Cerebral atrophy Cervical spinal stenosis Cervi
--- NOTE | 2023-04-14 16:21 | PC.NURSE ---
called [facility] for pt transport. pt will be transported back to facility when truck gets back into [facility].
--- NOTE | 2023-04-14 17:39 | PC.NURSE ---
report called to nurse at [facility]
== END 2023-04-14 19:10 | disposition home or self-care (01) ==
PROVIDERS: Emergency Provider Emergency Medicine
DX: S09.8XXA Other specified injuries of head, initial encounter (principal); S00.83XA Contusion of other part of head, initial encounter; I49.9 Cardiac arrhythmia, unspecified; M48.02 Spinal stenosis, cervical region; E78.5 Hyperlipidemia, unspecified; N18.4 Chronic kidney disease, stage 4 (severe); W05.0XXA Fall from non-moving wheelchair, initial encounter; I12.9 Hypertensive chronic kidney disease with stage 1 through stage 4 chronic kidney disease, or unspecified chronic kidney disease
CPT/HCPCS: 70450; 72125; 93005; 99284

== ENCOUNTER → 2023-07-02 13:34 | Outpatient (POV) | payer MEDICARE, MEDICAID, SELFPAY | PROVIDERS: Visit Provider Internal Medicine Nephrology | DX: Z00.00 Encounter for general adult medical examination without abnormal findings (principal) ==

== ENCOUNTER 2023-07-12 13:50 | Inpatient (IN) | payer MEDICARE, MEDICAID, SELFPAY ==
[2023-07-12] VITALS (10 sets, daily range): BP systolic 94–129; BP diastolic 55–72; PULSE 77–102; RESP 12–20; TEMP 36.8–36.9; O2SAT 92–97; BMI 29.2; BMI 32.9
--- NOTE | 2023-07-12 13:54 | XR_ITS ---
FINAL REPORT CLINICAL HISTORY: AMS FINDINGS: SINGLE-VIEW CHEST The heart size is normal. The mediastinum is normal. There is patchy airspace opacity at the left base consistent with acute pneumonia. There is no pneumothorax. IMPRESSION: Acute pneumonia at the left base. Reviewed, Interpreted and Dictated by Ramsey Thorpe MD Transcribed by Shreya Torres Authenticated and . [facility]
--- NOTE | 2023-07-12 13:54 | CT_ITS ---
FINAL REPORT TECHNIQUE: Multiple axial CT images were performed from the foramen magnum to the vertex without enhancement. This study was performed with techniques to keep radiation doses as low as reasonably achievable (ALARA). Individualized dose reduction techniques using automated exposure control or adjustment of mA and/or kV according to the patient's size were employed. CLINICAL HISTORY: AMS COMPARISON: 04/14/2023 FINDINGS: There is moderate atrophy. There is extensive periventricular white matter change likely related to small vessel disease. There is no evidence of hemorrhage. No masses are identified. No extra-axial fluid is seen. The sinuses are normal. IMPRESSION: Atrophy and chronic changes without acute process. Reviewed, Interpreted and Dictated by Ramsey Thorpe MD Transcribed by Shreya Torres Authenticated and [facility]
--- NOTE | 2023-07-12 13:57 | HMH.EDGENADL ---
Discharge Plan Disposition Patient Disposition: Admitted Condition: Good Prescriptions Prescriptions: No Action hydrocodone-acetaminophen 7.5-325 mg tablet 1 tab PO BID Qty: 60 0RF tamsulosin 0.4 MG capsule 0.8 mg PO HS acetaminophen 500 MG tablet 500 mg PO Q4HP PRN (Reason: Mild Pain,Fever,Headache) cholecalciferol (vitamin D3) 1,250 MCG capsule 50,000 unit PO MONTHLY hydrochlorothiazide 12.5 mg tablet 12.5 mg PO DAILY tizanidine 2 mg tablet 2 mg PO TID Invega Sustenna 117 mg/0.75 mL syringe 117 mg IM MONTHLY finasteride 5 mg tablet 5 mg PO HS lactulose 10 gram/15 mL solution 15 ml PO DAILY PRN (Reason: Constipation) pantoprazole 40 mg tablet,delayed release (DR/EC) 40 mg PO HS furosemide 40 mg Tablet 40 mg PO DAILY 30 Days Qty: 0 0RF ertapenem 1 gram recon soln 1 g IM DAILY 5 Days Qty: 5 0RF losartan 25 mg tablet 12.5 mg PO DAILY 30 Days Qty: 0 0RF Referrals Follow up/Referrals: Tristen Moreno MD [Primary Care Provider] - See instructions Clinical Impressions Clinical Impression: Acute UTI, REYNALDO (acute kidney injury), Respiratory failure Instructions Patient Instructions: DI for Altered Mental Status Discharge ED Provider: Billy Canales General Adult HPI General Chief complaint: Altered Mental Status Stated complaint: AMS Time Seen by Provider: 07/12/23 13:54 History of Present Illness HPI narrative: This patient is a 72-year-old male with a history of degenerative disc disease, cervical stenosis, prior CVA, hypertension, hyperlipidemia, and CKD who is nonverbal at baseline presenting to the emergency department for evaluation with concern for possible altered mental status. According to the nursing facility, the patient was eating around 1:00 PM when he seemed to be leaning over to the left and did not seem to be eating his food normally. They called EMS, who noted that the patient seemed to be at his baseline without new focal deficits. Upon arrival, the patient is nonverbal and does not contribute to history. Nursing staff hears familiar with the patient and notes that he seems to be at his baseline currently. Related Data Home Medications Medication Instructions Recorded Confirmed tamsulosin 0.4 mg capsule 0.8 mg PO HS prostate 10/10/19 02/22/23 acetaminophen 500 mg tablet 500 mg PO Q4HP PRN Mild 06/07/20 02/22/23 Pain,Fever,Headache cholecalciferol (vitamin D3) 1,250 50,000 unit PO MONTHLY Supplement 06/07/20 02/22/23 mcg (50,000 unit) capsule hydrochlorothiazide 12.5 mg tablet 12.5 mg PO DAILY Fluid 11/09/22 02/22/23 paliperidone palmitate 117 mg/0.75 117 mg IM MONTHLY mood/anxiety 11/10/22 02/22/23 mL intramuscular syringe (Invega Sustenna) tizanidine 2 mg tablet 2 mg PO TID muscle spasms 11/10/22 02/22/23 finasteride 5 mg tablet 5 mg PO HS prostate 12/07/22 02/22/23 lactulose 10 gram/15 mL oral 15 ml PO DAILY PRN Constipation 12/07/22 02/22/23 solution pantoprazole 40 mg tablet,delayed 40 mg PO HS acid reflux 12/07/22 02/22/23 release Previous Rx's Medication Instructions Recorded ertapenem 1 gram solution for 1 g IM DAILY 5 days #5 ea 12/10/22 injection furosemide 40 mg tablet 40 mg PO DAILY 30 days #0 tabs 12/10/22 losartan 25 mg tablet 12.5 mg PO DAILY Hypertension 30 12/10/22 days #0 tabs hydrocodone 7.5 mg-acetaminophen 1 tab PO BID pain #60 tabs 06/22/23 325 mg tablet Allergies Allergy/AdvReac Type Severity Reaction Status Date / Time No Known Allergies Allergy Verified 02/22/23 14:39 [facility] Disclaimer: The information contained in this section may have been updated after the patient was seen, as this information can be updated by other users. Medical History Cerebellar infarct Cerebral atrophy Cervical spinal stenosis Cervical spondylosis Chronic renal disease Chronic schizophrenia CKD (chroni
[2023-07-12 14:01] LABS: Basophils % 0.5 % (0.1-2.0); Eosinophils # 0.1 K/mm3 (0.0-0.4); Eosinophils % 1.1 % (0.1-12.0); Hematocrit 39.5 % (42.0-52.0); Hemoglobin 12.3 g/dL (14.1-18.0); Lymphocytes # 0.5 K/mm3 (0.7-4.5); Mean Corpuscular HGB Conc 31.2 g/dL (31.8-35.4); Mean Corpuscular Hemoglobin 28.1 pg (27.0-31.2); Mean Corpuscular Volume 90.1 fl (80-94); Mean Platelet Volume 8.8 fl (7.4-10.4); Monocytes # 0.3 K/mm3 (0.1-1.0); Monocytes % 4.9 % (1.7-9.3); Neutrophils % 85.6 % (37.0-80.0); Platelet Count 131 K/mm3 (142-424); Red Blood Count 4.38 M/mm3 (4.60-6.20); Red Cell Distribution Width 13.7 % (11.5-17.5); White Blood Count 5.8 K/mm3 (4.8-10.8)
[2023-07-12 14:03] LABS: Chloride 104 mmol/L (98-107); Potassium 4.2 mmoL/L (3.5-5.1); Sodium 142 mmol/L (136-145)
[2023-07-12 14:05] LABS: Alanine Aminotransferase 17 U/L (12-78); Aspartate Amino Transferase 21 U/L (17-59); Blood Urea Nitrogen 47 mg/dl (9-20); Creatinine Clearance Estimated 33 mL/min (50-200); Estimated Glomerular Filt Rate 23 ml/min (>60); GFR (African American) 28 ML/MIN (>60)
[2023-07-12 14:06] LABS: Albumin Level 3.2 g/dl (3.5-5.0); Albumin/Globulin Ratio 1.3 (1.1-1.8); Alkaline Phosphatase 59 U/L (38-126); Anion Gap 10.2 mEq/L (5-15); Bilirubin,Total 0.4 mg/dl (0.2-1.3); Calcium 8.4 mg/dl (8.4-10.2); Carbon Dioxide 32 mmol/L (22.0-30.0); Globulin 2.5 g/dL (1.3-3.2); Glucose 128 mg/dl (74-100); Total Protein,Serum 5.7 g/dl (6.3-8.2)
--- NOTE | 2023-07-12 14:06 | ECG_ITS ---
APPROVED REPORT Exam: Resting ECG HR:88 bpm ECG Measurements Heart Rate 88 AXES [place] 147 P 75 QRSd 89 QRS -14 QT 347 T 53 QTc 392 Conclusion SINUS RHYTHM NORMAL ECG UNCONFIRMED REPORT Electronically signed by : Pradip Baird MD 07/13/2023 09:56:11
[2023-07-12 14:07] LABS: MANUAL DIFFERENTIAL MANUAL DIFFERENTIAL (MANUAL DIFF)
[2023-07-12 14:19] LABS: Microscopic, Urine URINE MICROSCOPIC (MICROSCOPIC)
--- NOTE | 2023-07-12 14:23 | PC.NURSE ---
rad called about pt gfr r/t ct scan ordered with contrast. checked with ER MD Holder- states okay to scan pt without contrast. contacted rad back to notify them per Dr. Holder scan pt without contrast.
[2023-07-12 14:36] LABS: Appearance,Urine CLEAR (Clear); Bilirubin,Urine Negative (Negative); Blood, Urine 1+ (Negative); Color,Urine YELLOW (Yellow); Glucose,Urine (UA) Negative (Negative); Ketones,Urine Negative (Negative); Leukocyte Esterase,Urine 2+ (Negative); Nitrate,Urine POSITIVE (Negative); Protein,Urine 1+ (Negative); Specific Gravity, Urine 1.015 (1.005-1.030); Urobilinogen,Urine 0.2 EU/dl (0.2)
--- NOTE | 2023-07-12 14:36 | PC.NURSE ---
Rounded on patient; nothing needed at this time. Call light within reach of patient
--- NOTE | 2023-07-12 15:11 | PC.NURSE ---
Patient back from CT
[2023-07-12 15:12] LABS: Bacteria,Urine 2+ /lpf
[2023-07-12 15:15] LABS: Lymphocytes % 8 % (10-50); Monocytes % 3 % (2-9); Neutrophils % 88 % (42-76); Platelet Estimate Slight Decrease; RBC Morphology Normal; Total Cells Counted 100
--- NOTE | 2023-07-12 15:20 | PC.NURSE ---
Rounded on patient at this time. Call light within reach of patient
--- NOTE | 2023-07-12 15:42 | EXP.HP ---
History of Present Illness *Admission Date: 07/12/23 *Reason for visit:: weakness *History of present illness: Mr. Medina is a 72-year-old male who lives [facility]. History of cervical stenosis, previous CVA, nonverbal status, hypertension, hyperlipidemia, and CKD. He was brought to the ER via EMS today because of concern for altered mental status at his [facility]. According to facility and chart review (unable to get history from patient because of nonverbal status), patient was eating around 1 PM when he seemed to be leaning to the left and not eating as well. He did not appear at his baseline mentation or alertness. EMS was contacted and they brought Mr. Medina to the ER for further management. On arrival, EMS reported that the patient seemed like he was at his baseline function with no new deficits as he is well-known to them. He is unable to give any history or review of systems. Work-up in the ER concerning for pneumonia with new oxygen requirement. Urinalysis additionally grossly abnormal. Patient initiated on antibiotics and medicine was consulted for admission. On my evaluation, the patient has minimal wheeze but a raspy cough. Is pleasant and makes good eye contact. Responds with head nods but is unable to answer questions. O2 saturations in the 90s on 2 L. [facility] Disclaimer: The information contained in this section may have been updated after the patient was seen, as this information can be updated by other users. Medical History Cerebellar infarct Cerebral atrophy Cervical spinal stenosis Cervical spondylosis Chronic renal disease Chronic schizophrenia CKD (chronic kidney disease) stage 4, GFR 15-29 ml/min DDD (degenerative disc disease), cervical Foraminal stenosis of cervical region Hematuria due to chronic cystitis Hypertension Multiple thyroid nodules Obesity (BMI 30.0-34.9) Obesity, morbid, BMI 40.0-49.9 Phimosis of penis Prostate enlargement Renal insufficiency Stroke Surgical History History of laparoscopic cholecystectomy Family History No significant family history Social History Smoking Status: Unknown if ever smoked alcohol intake: never substance use type: denies use current occupational status: retired Travel in the last 8 weeks: None household members: other housing: [facility] current occupational exposures/hazards: No caffeine: Yes Review of Systems Review of Systems Review of systems:: unable to obtain Meds Home Medications and Allergies Home Medications Medication Instructions Recorded Confirmed Type tamsulosin 0.4 mg capsule 0.8 mg PO HS prostate 10/10/19 07/12/23 History acetaminophen 500 mg tablet 500 mg PO Q4HP PRN Mild 06/07/20 07/12/23 History Pain,Fever,Headache cholecalciferol (vitamin D3) 1,250 50,000 unit PO MONTHLY Supplement 06/07/20 07/12/23 History mcg (50,000 unit) capsule hydrochlorothiazide 12.5 mg tablet 12.5 mg PO DAILY Fluid 11/09/22 07/12/23 History paliperidone palmitate 117 mg/0.75 3 mg IM DAILY mood/anxiety 11/10/22 07/12/23 History mL intramuscular syringe tizanidine 2 mg tablet 2 mg PO TID muscle spasms 11/10/22 07/12/23 History finasteride 5 mg tablet 5 mg PO HS prostate 12/07/22 07/12/23 History lactulose 10 gram/15 mL oral 15 ml PO DAILY PRN Constipation 12/07/22 07/12/23 History solution pantoprazole 40 mg tablet,delayed 40 mg PO HS acid reflux 12/07/22 07/12/23 History release losartan 25 mg tablet 12.5 mg PO DAILY Hypertension 30 12/10/22 07/12/23 Rx days #0 tabs hydrocodone 7.5 mg-acetaminophen 1 tab PO BID pain #60 tabs 06/22/23 07/12/23 Rx 325 mg tablet furosemide 40 mg tablet 40 mg PO DAILY Fluid 07/12/23 07/12/23 History paliperidone 3 mg tablet,extended 3 mg PO DAILY mood 06/23
--- NOTE | 2023-07-12 15:44 | PC.NURSE ---
notified care management of admission
--- NOTE | 2023-07-12 16:30 | PC.NURSE ---
Charge Nurse @[facility]
[2023-07-12 18:53] LABS: Coronavirus 19, PCR Not Detected (NotDetected); Influenza A, PCR Not Detected (NotDetected); Influenza B, PCR Not Detected (NotDetected)
[2023-07-13 04:00] VITALS: BP 156/86; PULSE 88; RESP 20; TEMP 36.9; O2SAT 93; BMI 33.3
--- NOTE | 2023-07-13 05:48 | PC.NURSE ---
no acute changes t/o shift. BA on for safety.
[2023-07-13 06:26] LABS: Basophils % 0.2 % (0.1-2.0); Eosinophils # 0.1 K/mm3 (0.0-0.4); Eosinophils % 1.2 % (0.1-12.0); Hematocrit 36.8 % (42.0-52.0); Hemoglobin 11.4 g/dL (14.1-18.0); Lymphocytes # 0.4 K/mm3 (0.7-4.5); Mean Corpuscular HGB Conc 31.1 g/dL (31.8-35.4); Mean Corpuscular Hemoglobin 27.8 pg (27.0-31.2); Mean Corpuscular Volume 89.6 fl (80-94); Mean Platelet Volume 8.8 fl (7.4-10.4); Monocytes # 0.3 K/mm3 (0.1-1.0); Monocytes % 7.3 % (1.7-9.3); Neutrophils # 3.3 K/mm3 (1.8-7.8); Neutrophils % 81.4 % (37.0-80.0); Platelet Count 134 K/mm3 (142-424); Red Blood Count 4.11 M/mm3 (4.60-6.20); Red Cell Distribution Width 13.7 % (11.5-17.5); White Blood Count 4.1 K/mm3 (4.8-10.8)
[2023-07-13 06:36] LABS: Alanine Aminotransferase 10 U/L (12-78); Albumin Level 2.7 g/dl (3.5-5.0); Alkaline Phosphatase 63 U/L (38-126); Anion Gap 6.6 mEq/L (5-15); Aspartate Amino Transferase 13 U/L (17-59); Bilirubin,Total 0.2 mg/dl (0.2-1.3); Blood Urea Nitrogen 40 mg/dl (9-20); Calcium 8.4 mg/dl (8.4-10.2); Carbon Dioxide 36 mmol/L (22.0-30.0); Chloride 102 mmol/L (98-107); Creatinine Clearance Estimated 41 mL/min (50-200); Estimated Glomerular Filt Rate 26 ml/min (>60); GFR (African American) 31 ML/MIN (>60); Globulin 2.6 g/dL (1.3-3.2); Glucose 89 mg/dl (74-100); Magnesium 1.9 mg/dl (1.6-2.3); Potassium 3.6 mmoL/L (3.5-5.1); Sodium 141 mmol/L (136-145); Total Protein,Serum 5.3 g/dl (6.3-8.2)
[2023-07-13 07:38] VITALS: BP 153/90; PULSE 99; RESP 18; TEMP 37.2; O2SAT 92
[2023-07-13 07:43] VITALS: O2SAT 97
--- NOTE | 2023-07-13 08:17 | P.CONPHA_ITS ---
Pharmacy Intervention Comments: MEDICATION RECONCILIATION COMPLETED ON PATIENT USING MAR FROM [facility]. -SHANTEL TAYLOR, NONAD
--- NOTE | 2023-07-13 08:17 | HMH.PHAINT1 ---
Pharmacy Intervention Comments: MEDICATION RECONCILIATION COMPLETED ON PATIENT USING MAR FROM [facility]. -SHANTEL TAYLOR, NONAD
--- NOTE | 2023-07-13 10:55 | PC.NURSE ---
02- weaned to 1L with sats at 95%.
--- NOTE | 2023-07-13 12:45 | EXP.ACUTE.PN ---
Subjective *Date: 07/13/23 *Time: 11:13 Interval history: Nonverbal on exam. No acute distress. Tolerating weaning of oxygen to 1 L today. Improving labs. No nausea or vomiting. Medical Exam Vital signs and Labs for Last 24 Hours: Vital Signs Temp Pulse Resp BP Pulse Ox O2 Del Method O2 Flow Rate 07/13/23 21:00 Nasal Cannula 1 07/13/23 20:00 Nasal Cannula 1 07/13/23 20:00 99.0 F 98 H 18 162/83 H 98 Nasal Cannula 1 07/13/23 17:26 Nasal Cannula 07/13/23 15:44 Nasal Cannula 1 07/13/23 13:42 Nasal Cannula 1 07/13/23 12:25 Nasal Cannula 1 07/13/23 16:00 97.9 F 95 H 18 130/54 L 93 L Nasal Cannula 1 07/13/23 10:42 Nasal Cannula 2 07/13/23 07:49 Nasal Cannula 2 07/13/23 07:43 97 Nasal Cannula 2 07/13/23 07:38 99.0 F 99 H 18 153/90 H 92 L Nasal Cannula 2 07/13/23 06:10 Nasal Cannula 2 07/13/23 04:41 Nasal Cannula 2 07/13/23 03:00 Nasal Cannula 2 07/13/23 04:00 98.4 F 88 20 156/86 H 93 L Nasal Cannula 2 07/13/23 01:00 Nasal Cannula 2 Intake and Output 07/13/23 07/13/23 07/14/23 15:59 23:59 07:59 Intake Total 420 / 1290 600 / 1290 Output Total 0 / 0 0 / 0 Balance 420 / 1290 600 / 1290 Intake: Intake, Oral Amount 120 / 990 600 / 990 Intake, Total IV Amount 300 / 300 Azithromycin 500 mg In 0.9 % 250 / 250 Sodium Chloride 250 ml @ 250 mls/hr IV Q24H MICHAEL Rx#:[id number] Ceftriaxone Sodium 1 gm In 0.9 50 / 50 % Sodium Chloride 50 ml @ 100 mls/hr IV Q24H MIHCAEL Rx#:[id number] Output: Output, Urine Amount 0 / 0 0 / 0 Other: Number of Unmeasured Voids 0 1 Weight 105.6 kg Laboratory Results - last 24 hr 07/12/23 14:16: Urine Color Yellow, Urine Appearance Clear, Urine pH 6.0, Ur Specific [place] 1.015, Urine Protein 1+, Urine Glucose (UA) Negative, Urine Ketones Negative, Urine Blood 1+, Urine Nitrate Positive, Urine Bilirubin Negative, Urine Urobilinogen 0.2, Ur Leukocyte Esterase 2+ A, Urine RBC 5-10, Urine WBC 10-20, Ur Squamous Epith Cells 3-5, Urine Bacteria 2+ 07/13/23 05:30: WBC 4.1 L D, RBC 4.11 L, Hgb 11.4 L, Hct 36.8 L, MCV 89.6, MCH 27.8, MCHC 31.1 L, RDW 13.7, Plt Count 134 L, MPV 8.8, Neut % (Auto) 81.4 H, Lymph % (Auto) 10.0, [place] % (Auto) 7.3, Eos % (Auto) 1.2, Baso % (Auto) 0.2, Neut # (Auto) 3.3, Lymph # (Auto) 0.4 L, [place] # (Auto) 0.3, Eos # (Auto) 0.1, Baso # (Auto) 0.0, Sodium 141, Potassium 3.6, Chloride 102, Carbon Dioxide 36 H, Anion Gap 6.6, BUN 40 H, Creatinine 2.50 H, Estimated Creat Clear 41, Estimated GFR 26 L, Est GFR ( Amer) 31 L, Glucose 89 D, Calcium 8.4, Magnesium 1.9, Total Bilirubin 0.2, AST 13 L D, ALT 10 L D, Alkaline Phosphatase 63, Total Protein 5.3 L, Albumin 2.7 L D, Globulin 2.6, Albumin/Globulin Ratio 1.0 L I & O for Labs for Last 24 Hours: Intake & Output 07/11/23 07/12/23 07/13/23 07/14/23 23:59 23:59 23:59 23:59 Intake Total 490 / 520 1290 / 1290 Output Total 0 / 0 0 / 0 Balance 490 / 520 1290 / 1290 Weight 104.099 kg 105.6 kg Microbiology Reports for the Last 24 Hours: Microbiology 07/12/23 14:16 Urine,Clean Catch Urine Culture - Preliminary Gram Negative Rods Constitutional: Present no acute distress, obese, chronically ill appearing and cooperative Head: Present atraumatic and normocephalic ENT: Present normal exam Neck: Present normal inspection Respiratory: Present normal respiratory effort; Absent accessory muscle use, rhonchi, wheezes or crackles Cardiac: Present Reg Rate and Rhythm GI: Present soft and normal bowel sounds; Absent distention, tenderness, guarding or rebound Extremities: Present normal inspection and full ROM Skin: Present intact; Absent erythema Neuro: Present Grossly Intact, alert, awake and moves all extremities Assessment and Plan *Assessment and plan (1) Pneumonia: Status: Acute Qualifiers: Pneumonia type
--- NOTE | 2023-07-13 13:31 | CARE MANAGER ---
Addendum entered by Anu Ledezma RN 07/16/23 13:59: Per [facility] this morning, patient returned to [facility] over the weekend. Not a skilled patient. Original Note: Spoke with automotive leasing sales representative of [facility] who states the patient is SNF there.
--- NOTE | 2023-07-13 15:37 | PC.NURSE ---
courtesy tech note: repositioned pt and he is now supine. call light within reach.
[2023-07-13 16:00] VITALS: BP 130/54; PULSE 95; RESP 18; TEMP 36.6; O2SAT 93
--- NOTE | 2023-07-13 16:35 | DIET.NUTRFU ---
This RD spoke to nurse at [place] for diet clarification. He is on MSOFT, nectar thick with fortified oats, thickened ice cream at lunch and a milkshake BID. He is nonverbal, unable to interview. He is requiring assistance with meals, ate green beans and mashed potatoes at lunch. Nursing also felt he would benefit from a sippy cup for liquids. Kitchen made aware of changes.
[2023-07-13 16:40] VITALS: BMI 33.3
[2023-07-13 20:00] VITALS: BP 162/83; PULSE 98; RESP 18; TEMP 37.2; O2SAT 98
[2023-07-14 04:00] VITALS: BP 123/66; PULSE 80; RESP 19; TEMP 37.1; O2SAT 99; BMI 33.8
[2023-07-14 07:28] VITALS: BP 156/87; PULSE 83; RESP 18; TEMP 36.9; O2SAT 91
[2023-07-14 08:00] VITALS: O2SAT 91
--- NOTE | 2023-07-14 08:00 | PC.NURSE ---
COURTESY NOTE: pt provided with fresh nectar thick water. pt had no further requests.
--- NOTE | 2023-07-14 12:30 | PC.NURSE ---
COURTESY NOTE: fed pt lunch. pt tolerated tray well and ate roughly 65% of tray. pt is clean and dry at this time.
--- NOTE | 2023-07-14 12:45 | EXP.DC.SUM ---
General Admission date:: 07/12/23 Discharge date: 07/14/23 HPI HPI HPI: Mr. Medina is a 72-year-old male who lives [facility]. History of cervical stenosis, previous CVA, nonverbal status, hypertension, hyperlipidemia, and CKD. He was brought to the ER via EMS today because of concern for altered mental status at his longterm. According to facility and chart review (unable to get history from patient because of nonverbal status), patient was eating around 1 PM when he seemed to be leaning to the left and not eating as well. He did not appear at his baseline mentation or alertness. EMS was contacted and they brought Mr. Medina to the ER for further management. On arrival, EMS reported that the patient seemed like he was at his baseline function with no new deficits as he is well-known to them. He is unable to give any history or review of systems. Work-up in the ER concerning for pneumonia with new oxygen requirement. Urinalysis additionally grossly abnormal. Patient initiated on antibiotics and medicine was consulted for admission. On my evaluation, the patient has minimal wheeze but a raspy cough. Is pleasant and makes good eye contact. Responds with head nods but is unable to answer questions. O2 saturations in the 90s on 2 L. Hospital Course Hospital Course Hospital Course: Mr. Medina is a 72-year-old male who is a long-term resident at a nursing facility. Presented with concern for change in mentation. Found to have pneumonia and UTI. Cultures grew E. coli in his urine. Has seen improvement in oxygenation, on 1 L oxygen on day of discharge. Stable for discharge back to longterm to continue care and convalescence. Problems addressed as follows: Pneumonia Acute hypoxemic respiratory failure -New oxygen requirement, white cell count normal, 4.1. White cell count remained normal. Necessitating supplemental oxygen. Chest imaging positive for pneumonia. Continue oxygen as needed 1 to 2 L daily. Goal saturations greater than 90%. Initially treated with azithromycin and ceftriaxone. Transitioned to ertapenem on day of discharge for UTI coverage as well. Complete antibiotics as below with ertapenem. Stable oxygenation. Meeting criteria for discharge back to longterm for continued care. UTI -Urine reviewed, grossly abnormal with nitrate positivity, leukocyte esterase positivity, 2+ bacteria. Urine culture returned with ESBL E. coli on day of discharge. Patient transition to ertapenem. Received first dose IV during admission. Will need 6 more doses to complete 7-day course for effective treatment. Continue with ertapenem IM 1 g daily starting 07/15-07/20. REYNALDO on CKD 4 -Baseline creatinine 1.7-2.0. Creatinine 2.7 on admission. Improving during admission with IV fluids. Need repeat BMP in 1 week to monitor creatinine and electrolytes. Continue home meds for chronic conditions including the following: Hypertension: Losartan 12.5 Ulysses to daily, HCTZ to 5 mg daily, Lasix 40 mg daily BPH: For history had 5 mill grams nightly, tamsulosin 0.8 mg nightly GERD: Pantoprazole 40 g nightly Mood order and for any: On paliperidone 3 mg p.o. daily History of stroke and nonverbal status complicates all aspects of his care Spent 30 minutes in discharge documentation, chart review, medication management, and direct care with patient. Exam Data for Last 24 hours Vital signs and Labs for Last 24 Hours: Temp Pulse Resp BP Pulse Ox O2 Del Method O2 Flow Rate 98.4 F 83 18 156/87 H 91 L Nasal Cannula 1 07/14/23 07:28 07/14/23 07:28 07/14/23 07:28 07/14/23 07:28 07/14/23 08:00 07/14/23 11:00 07/14/23 11:00 I & O for Last 24 hours: Intake & Output 07/11/23 07/12/23 07/13/23 07/14/23 23:59 23:59 23:59 23:59 Intake Total 490 / 520 1540 / 1540 600 / 600 Output Total 0 / 0 0 / 0 0 / 0 Balance 490 / 520 1540 / 1540 600 / 600 Weight 104.099 kg 105.6 kg 107.365 kg Microbiology Reports
[2023-07-14 15:14] VITALS: BP 140/75; PULSE 68; RESP 18; TEMP 37.2; O2SAT 91
== END 2023-07-14 15:22 | DRG 193 ==
LOC: ER 15:56 → 2ND 16:05
PROVIDERS: Emergency Medicine; Admitting Provider Internal Medicine Adolescent Medicine; Emergency Provider Emergency Medicine; PCP Emergency Medicine; Visit Provider Internal Medicine Adolescent Medicine
DX: J18.9 Pneumonia, unspecified organism (principal); J96.01 Acute respiratory failure with hypoxia; N39.0 Urinary tract infection, site not specified; N17.9 Acute kidney failure, unspecified; N18.4 Chronic kidney disease, stage 4 (severe); I12.9 Hypertensive chronic kidney disease with stage 1 through stage 4 chronic kidney disease, or unspecified chronic kidney disease; Z79.899 Other long term (current) drug therapy; Z86.73 Personal history of transient ischemic attack (TIA), and cerebral infarction without residual deficits; E78.5 Hyperlipidemia, unspecified; F20.9 Schizophrenia, unspecified; E66.9 Obesity, unspecified; Z68.33 Body mass index [BMI] 33.0-33.9, adult; K21.9 Gastro-esophageal reflux disease without esophagitis; Z66 Do not resuscitate; B96.20 Unspecified Escherichia coli [E. coli] as the cause of diseases classified elsewhere
CPT/HCPCS: 36415; 70450; 71045; 80053; 81001; 83735; 85007; 85025; 87040; 87086; 87088; 87186; 87636; 93005; 99285; J0456; J0696; J1335

== ENCOUNTER 2023-08-27 11:54 | Emergency (ER) | payer MEDICARE, MEDICAID, SELFPAY ==
[2023-08-27] VITALS (8 sets, daily range): BP systolic 109–138; BP diastolic 55–77; PULSE 72–101; RESP 18–20; TEMP 37.2; O2SAT 94–96; BMI 27.1; BMI 26.4
--- NOTE | 2023-08-27 12:20 | PC.NURSE ---
DR CARNEY AT BEDSIDE
--- NOTE | 2023-08-27 12:21 | CT_ITS ---
FINAL REPORT TECHNIQUE: Thin section axial images were obtained from skull base to vertex without contrast. Coronal reconstruction images were obtained from the axial data. Exam was performed using dose reduction technique. CLINICAL HISTORY: fall COMPARISON: 07/12/2023 FINDINGS: There is age-appropriate atrophy. Stable periventricular white matter changes are seen. Old right basal ganglier lacunar infarct and focal encephalomalacia in the left cerebellum are unchanged. There is no mass effect or midline shift. There is no intracranial hemorrhage. There is no hydrocephalus. Periventricular low density is likely related to changes of chronic small vessel ischemia. The basilar cisterns are preserved. The posterior fossa is without acute abnormality. The soft tissues are without acute abnormality. No acute osseous abnormality is identified. IMPRESSION: No acute intracranial abnormality. Extensive, stable chronic findings as above. Reviewed, Interpreted and Dictated by Liz Persaud MD Transcribed by Libra Oneil Authenticated and [facility]
--- NOTE | 2023-08-27 12:26 | HMH.EDGENADL ---
Discharge Plan Disposition Patient Disposition: Xfer [facility] Prescriptions Prescriptions: New cefdinir 300 mg capsule 300 mg PO BID 10 Days Qty: 20 0RF No Action hydrocodone-acetaminophen 7.5-325 mg tablet 1 tab PO BID Qty: 60 0RF tamsulosin 0.4 MG capsule 0.8 mg PO HS acetaminophen 500 MG tablet 500 mg PO Q4HP PRN (Reason: Mild Pain,Fever,Headache) cholecalciferol (vitamin D3) 1,250 MCG capsule 50,000 unit PO MONTHLY hydrochlorothiazide 12.5 mg tablet 12.5 mg PO DAILY tizanidine 2 mg tablet 2 mg PO TID finasteride 5 mg tablet 5 mg PO HS lactulose 10 gram/15 mL solution 30 ml PO DAILYP PRN (Reason: Constipation) pantoprazole 40 mg tablet,delayed release (DR/EC) 40 mg PO HS losartan 25 mg tablet 12.5 mg PO DAILY 30 Days Qty: 0 0RF paliperidone 3 mg Tablet Extended Release 24hr 3 mg PO DAILY furosemide 40 mg tablet 40 mg PO DAILY acetaminophen 500 mg Tablet 500 mg PO Q6H ertapenem 1 gram Recon Soln 1 g IM Q24H 6 Days Qty: 6 0RF Rx Instructions: first dose IM 07/15 Referrals Follow up/Referrals: Tristen Moreno MD [Primary Care Provider] - See instructions Activity Restrictions/Add. Instructions Additional Instructions/Restrictions: At this time it was felt you are safe to be discharged home. If new or worsening symptoms please do not hesitate to return the emergency department. Please have your doctor follow-up with you within 1 week for rechecking your kidney function and urine for infection. Clinical Impressions Clinical Impression: Fall, CKD (chronic kidney disease), Acute UTI Discharge ED Provider: Billy Canales General Adult HPI General Chief complaint: Fall Stated complaint: fall Time Seen by Provider: 08/27/23 12:26 Mode of Arrival: EMS Source of Information: EMS Limitations: No Limitations Description of Symptoms (Recalled from ER Triage Doc. by RN): PT BROUGHT BY EMS FROM [place]. STAFF REPORTS UNWITNESSED FALL OUT OF WHEELCHAIR. UNKNOWN LOC. REDNESS NOTED TO FOREHEAD, NO OPEN AREAS OR BRUISING. PT NONVERBAL AT BASELINE, NODDED HEAD NO WHEN ASKED IF HE HAD ANY PAIN. History of Present Illness HPI narrative: Patient is a 73-year-old male with past medical history of CVA, nonverbal who presents emergency department for evaluation of an unwitnessed fall. Patient was found next to his wheelchair, no LOC. Due to redness of forehead they referred him here for continued evaluation. Patient denies pain when asked he shakes his head no. No other history is available at this time. Related Data Home Medications Medication Instructions Recorded Confirmed tamsulosin 0.4 mg capsule 0.8 mg PO HS prostate 10/10/19 07/12/23 acetaminophen 500 mg tablet 500 mg PO Q4HP PRN Mild 06/07/20 07/12/23 Pain,Fever,Headache cholecalciferol (vitamin D3) 1,250 50,000 unit PO MONTHLY Supplement 06/07/20 07/12/23 mcg (50,000 unit) capsule hydrochlorothiazide 12.5 mg tablet 12.5 mg PO DAILY Fluid 11/09/22 07/12/23 tizanidine 2 mg tablet 2 mg PO TID muscle spasms 11/10/22 07/12/23 finasteride 5 mg tablet 5 mg PO HS prostate 12/07/22 07/12/23 lactulose 10 gram/15 mL oral 30 ml PO DAILYP PRN Constipation 12/07/22 07/13/23 solution pantoprazole 40 mg tablet,delayed 40 mg PO HS acid reflux 12/07/22 07/12/23 release furosemide 40 mg tablet 40 mg PO DAILY Fluid 07/12/23 07/12/23 paliperidone 3 mg tablet,extended 3 mg PO DAILY mood 07/12/23 07/12/23 release 24 hr acetaminophen 500 mg tablet 500 mg PO Q6H Pain 07/13/23 07/13/23 Previous Rx's Medication Instructions Recorded losartan 25 mg tablet 12.5 mg PO DAILY Hypertension 30 12/10/22 days #0 tabs ertapenem 1 gram solution for 1 g IM Q24H 6 days #6 ea 07/14/23 injection cefdinir 300 mg capsule 300 mg PO BID uti 10 days #20 caps 08/27/23 hydrocodone 7.5 mg-acetaminophen 1 tab PO BID pain #60 tabs 08/27/23 325 mg tablet Allergies Allergy/AdvReac
--- NOTE | 2023-08-27 12:27 | CT_ITS ---
FINAL REPORT TECHNIQUE: Axial images were obtained from skull base to the thoracic inlet by computed tomography. Coronal and sagittal reconstruction process performed. This study was performed with techniques to keep radiation doses as low as reasonably achievable (ALARA). Individualized dose reduction techniques using automated exposure control or adjustment of mA and/or kV according to the patient''s size were employed. CLINICAL HISTORY: fall COMPARISON: 04/14/2023 FINDINGS: There is linear lucency through the right C4 lamina seen on axial image 48, likely unchanged from prior exam. There are no other findings to suggest acute fracture. There is no evidence of facet lock. Craniocervical junction is intact. Diffuse increased density is seen of the bones which is unchanged. There is multilevel degenerative disc disease which is stable. There is no acute fracture or subluxation. IMPRESSION: No acute osseous abnormality of the cervical spine. Stable, multilevel degenerative disc disease with diffuse bone sclerosis. Reviewed, Interpreted and Dictated by Liz Persaud MD Transcribed by Libra Oneil Authenticated and [facility]
[2023-08-27 12:39] LABS: Basophils % 0.3 % (0.1-2.0); Eosinophils # 0.1 K/mm3 (0.0-0.4); Eosinophils % 1.6 % (0.1-12.0); Hematocrit 34.5 % (42.0-52.0); Lymphocytes # 0.5 K/mm3 (0.7-4.5); Lymphocytes % 9.3 % (10-50); Mean Corpuscular HGB Conc 34.7 g/dL (31.8-35.4); Mean Corpuscular Hemoglobin 30.7 pg (27.0-31.2); Mean Corpuscular Volume 88.3 fl (80-94); Mean Platelet Volume 9.4 fl (7.4-10.4); Monocytes # 0.3 K/mm3 (0.1-1.0); Neutrophils # 4.5 K/mm3 (1.8-7.8); Neutrophils % 83.9 % (37.0-80.0); Platelet Count 162 K/mm3 (142-424); Red Blood Count 3.91 M/mm3 (4.60-6.20); Red Cell Distribution Width 14.1 % (11.5-17.5); White Blood Count 5.4 K/mm3 (4.8-10.8)
[2023-08-27 12:42] LABS: Anion Gap 13.9 mEq/L (5-15); Blood Urea Nitrogen 57 mg/dl (9-20); Calcium 8.8 mg/dl (8.4-10.2); Carbon Dioxide 30 mmol/L (22.0-30.0); Chloride 104 mmol/L (98-107); Creatinine Clearance Estimated 26 mL/min (50-200); Estimated Glomerular Filt Rate 19 ml/min (>60); GFR (African American) 22 ML/MIN (>60); Glucose 105 mg/dl (74-100); Potassium 3.9 mmoL/L (3.5-5.1); Sodium 144 mmol/L (136-145)
[2023-08-27 13:10] LABS: Microscopic, Urine URINE MICROSCOPIC (MICROSCOPIC)
[2023-08-27 13:12] LABS: Appearance,Urine CLOUDY (Clear); Bilirubin,Urine Negative (Negative); Blood, Urine 2+ (Negative); Color,Urine YELLOW (Yellow); Glucose,Urine (UA) Negative (Negative); Ketones,Urine Negative (Negative); Leukocyte Esterase,Urine 3+ (Negative); Nitrate,Urine POSITIVE (Negative); Protein,Urine 1+ (Negative); Specific Gravity, Urine 1.015 (1.005-1.030); Urobilinogen,Urine 0.2 EU/dl (0.2)
[2023-08-27 14:31] LABS: Bacteria,Urine 1+ /lpf; Squamous Epithelial Cell,Urine Occasional #/hpf (0-5)
--- NOTE | 2023-08-27 16:26 | PC.NURSE ---
Pt incontinent of bladder. Pt brief changed. Pt given warm blanket and made comfortable. No other needs voiced. Call light within reach.
--- NOTE | 2023-08-27 16:30 | PC.NURSE ---
[facility] NOTIFIED OF TRANSFER BACK TO [place]
--- NOTE | 2023-08-31 11:20 | PC.NURSE ---
urine culture results on worklist- notified dr. helms who reviewed results. pt d/c on cefdinir. dr. helms states no further action needed
== END 2023-08-27 17:10 ==
PROVIDERS: Emergency Provider Emergency Medicine; PCP Emergency Medicine
DX: N39.0 Urinary tract infection, site not specified (principal); B96.29 Other Escherichia coli [E. coli] as the cause of diseases classified elsewhere; N18.4 Chronic kidney disease, stage 4 (severe); E04.2 Nontoxic multinodular goiter; Z86.73 Personal history of transient ischemic attack (TIA), and cerebral infarction without residual deficits; W19.XXXA Unspecified fall, initial encounter; I12.9 Hypertensive chronic kidney disease with stage 1 through stage 4 chronic kidney disease, or unspecified chronic kidney disease
CPT/HCPCS: 70450; 72125; 80048; 81001; 85025; 87086; 99285

== ENCOUNTER 2023-09-10 07:14 | Emergency (ER) | payer MEDICARE, MEDICAID, SELFPAY ==
[2023-09-10] VITALS (18 sets, daily range): BP systolic 101–135; BP diastolic 51–71; PULSE 96–117; RESP 20–32; TEMP 36.7–37.9; O2SAT 77–99; BMI 24.8
--- NOTE | 2023-09-10 06:49 | PC.NURSE ---
Received report from ADOLFO Ellis who stated patient was being sent for altered mental status. He usually refuses care and is combative and today he is not . Per her statement, patient was diagnosed with a real bad UTI and placed on Invanz 500mg daily. Patient takes Tylenol q6h with last dose being give3n at 0530. VS at time of report: [id number] ; Being transport by ems. patient has a POA Luna [id number]
--- NOTE | 2023-09-10 07:12 | ECG_ITS ---
APPROVED REPORT Exam: Resting ECG HR:102 bpm ECG Measurements Heart Rate 102 AXES UT 126 P 159 QRSd 86 QRS -14 QT 277 T 180 QTc 336 Conclusion SINUS TACHYCARDIA WITH OCCASIONAL VENTRICULAR PREMATURE COMPLEXES POSSIBLE ANTERIOR MYOCARDIAL INFARCTION , PROBABLY OLD [30 ms Q WAVE IN V3/V4, OR R < 0.2 mV IN V4] ABNORMAL RHYTHM ECG UNCONFIRMED REPORT Electronically signed by : Pradip Baird MD 09/12/2023 17:16:06
--- NOTE | 2023-09-10 07:14 | CT_ITS ---
FINAL REPORT CLINICAL HISTORY: [facility] COMPARISON: 08/27/2023 FINDINGS: Axial images of the head were obtained without contrast. Coronal and sagittal reformatted images were also obtained. This study was performed with techniques to keep radiation doses as low as reasonably achievable (ALARA). Individualized dose reduction techniques using automated exposure control or adjustment of mA and/or kV according to the patient's size were employed. There is generalized age-appropriate atrophy. Periventricular low-attenuation areas are seen consistent with moderate chronic ischemic changes. Moderate ventriculomegaly is stable. There is a chronic left cerebellar infarct with associated encephalomalacia, stable since the prior CT. There is no evidence of intracranial hemorrhage or mass. There is no evidence of acute infarct. There is no evidence of shift of the midline structures. No skull abnormality is seen on the bone window images. There is mild mucosal thickening in the left maxillary sinus. IMPRESSION: Atrophy and moderate periventricular chronic ischemic changes, as well as several chronic periventricular lacunar infarcts and chronic left cerebellar encephalomalacia. No acute intracranial abnormality identified. Reviewed, Interpreted and Dictated by Angel Valenzuela III, MD Transcribed by Asmita García Authenticated and . [facility]
--- NOTE | 2023-09-10 07:14 | XR_ITS ---
FINAL REPORT CLINICAL HISTORY: AMS, hypoxia COMPARISON: None FINDINGS: A single portable view of the chest was obtained. The heart size and pulmonary vascularity are within normal limits. The mediastinum is within normal limits. Left lung opacities are consistent with pneumonia. The bony thorax is intact. IMPRESSION: Left lung pneumonia. Reviewed, Interpreted and Dictated by Angel Valenzuela III, MD Transcribed by Pau Calix Authenticated and . [facility]
[2023-09-10 07:22] LABS: Basophils % 0.3 % (0.1-2.0); Eosinophils % 0.1 % (0.1-12.0); Hematocrit 38.9 % (42.0-52.0); Hemoglobin 12.7 g/dL (14.1-18.0); Lymphocytes # 0.6 K/mm3 (0.7-4.5); Lymphocytes % 6.5 % (10-50); Mean Corpuscular HGB Conc 32.6 g/dL (31.8-35.4); Mean Corpuscular Hemoglobin 29.4 pg (27.0-31.2); Mean Corpuscular Volume 90.1 fl (80-94); Mean Platelet Volume 10.1 fl (7.4-10.4); Monocytes # 0.5 K/mm3 (0.1-1.0); Monocytes % 5.8 % (1.7-9.3); Neutrophils # 7.8 K/mm3 (1.8-7.8); Neutrophils % 87.4 % (37.0-80.0); Platelet Count 182 K/mm3 (142-424); Red Blood Count 4.31 M/mm3 (4.60-6.20); Red Cell Distribution Width 14.8 % (11.5-17.5)
[2023-09-10 07:30] LABS: MANUAL DIFFERENTIAL MANUAL DIFFERENTIAL (MANUAL DIFF)
[2023-09-10 07:33] LABS: Coronavirus 19, PCR Not Detected (NotDetected); Influenza A, PCR Not Detected (NotDetected); Influenza B, PCR Not Detected (NotDetected)
[2023-09-10 07:36] LABS: Alanine Aminotransferase 15 U/L (12-78); Albumin Level 3.3 g/dl (3.5-5.0); Alkaline Phosphatase 69 U/L (38-126); Anion Gap 15.1 mEq/L (5-15); Aspartate Amino Transferase 20 U/L (17-59); Bilirubin,Total 0.5 mg/dl (0.2-1.3); Carbon Dioxide 33 mmol/L (22.0-30.0); Chloride 107 mmol/L (98-107); Estimated Glomerular Filt Rate 14 ml/min (>60); GFR (African American) 17 ML/MIN (>60); Globulin 3.2 g/dL (1.3-3.2); Glucose 130 mg/dl (74-100); Potassium 4.1 mmoL/L (3.5-5.1); Total Protein,Serum 6.5 g/dl (6.3-8.2)
[2023-09-10 07:41] LABS: D-Dimer 1.34 ug/mL (0.0-0.5)
[2023-09-10 07:47] LABS: Lymphocytes % 6 % (10-50); Monocytes % 1 % (2-9); Myelocytes % 1 (0-1); Neutrophils % 78 % (42-76); Total Cells Counted 100
[2023-09-10 07:48] LABS: Acanthocytes 1+; Microcytosis 1+
[2023-09-10 07:49] LABS: Anisocytosis 1+; Platelet Estimate Normal
[2023-09-10 07:50] LABS: NT Pro Brain Natriuretic Pep. 3800 pg/mL (0-125); Troponin I 0.04 ng/ml (0.00-0.034)
--- NOTE | 2023-09-10 07:54 | PC.NURSE ---
pt to scan via stretcher
[2023-09-10 07:55] LABS: Microscopic, Urine URINE MICROSCOPIC (MICROSCOPIC)
[2023-09-10 07:56] LABS: T4 (Thyroxine) 4.2 ug/dl (5.53-11.0)
--- NOTE | 2023-09-10 07:56 | HMH.EDGENADL ---
Discharge Plan Disposition Patient Disposition: Hospice - Medical Facility Condition: Fair Prescriptions Prescriptions: No Action hydrocodone-acetaminophen 7.5-325 mg tablet 1 tab PO BID Qty: 60 0RF tamsulosin 0.4 MG capsule 0.8 mg PO HS acetaminophen 500 MG tablet 500 mg PO Q4HP PRN (Reason: Mild Pain,Fever,Headache) cholecalciferol (vitamin D3) 1,250 MCG capsule 50,000 unit PO MONTHLY hydrochlorothiazide 12.5 mg tablet 12.5 mg PO DAILY tizanidine 2 mg tablet 2 mg PO TID finasteride 5 mg tablet 5 mg PO HS lactulose 10 gram/15 mL solution 30 ml PO DAILYP PRN (Reason: Constipation) pantoprazole 40 mg tablet,delayed release (DR/EC) 40 mg PO HS losartan 25 mg tablet 12.5 mg PO DAILY 30 Days Qty: 0 0RF paliperidone 3 mg Tablet Extended Release 24hr 1.5 mg PO DAILY furosemide 40 mg tablet 40 mg PO DAILY acetaminophen 500 mg Tablet 500 mg PO Q6H ertapenem 1 gram Recon Soln 1 g IM Q24H 6 Days Qty: 6 0RF Rx Instructions: first dose IM 07/15 Clinical Impressions Clinical Impression: Acute and chronic respiratory failure, AMS (altered mental status), Sepsis, Acute kidney injury superimposed on chronic kidney disease, Pneumonia, Chronic UTI Instructions Patient Instructions: DI for Altered Mental Status Discharge ED Provider: Martha Holder General Adult HPI General Chief complaint: Shortness of Breath/Dyspnea Stated complaint: altered mental status Time Seen by Provider: 09/10/23 07:14 History of Present Illness HPI narrative: This patient is a 73-year-old male with a history of CVA with residual deficits leaving him essentially nonverbal, CKD, recurrent complicated urinary tract infection, hypertension, hyperlipidemia, schizophrenia, and obesity presenting to the emergency department from care home with concern for altered mental status. Patient is currently being treated there for complicated urinary tract infection with IV antibiotics. Today, he was difficult to arouse, which is unusual for him. Given this, they called EMS. EMS notes that the patient was hypoxic on a nonrebreather with oxygen saturations not exceeding the high 80s. They also note that he is febrile and tachycardic. Patient is nonverbal at baseline and is also somnolent at this time, so he does not contribute to medical history. Related Data Home Medications Medication Instructions Recorded Confirmed tamsulosin 0.4 mg capsule 0.8 mg PO HS prostate 10/10/19 09/10/23 acetaminophen 500 mg tablet 500 mg PO Q4HP PRN Mild 06/07/20 09/10/23 Pain,Fever,Headache cholecalciferol (vitamin D3) 1,250 50,000 unit PO MONTHLY Supplement 06/07/20 09/10/23 mcg (50,000 unit) capsule hydrochlorothiazide 12.5 mg tablet 12.5 mg PO DAILY Fluid 11/09/22 09/10/23 tizanidine 2 mg tablet 2 mg PO TID muscle spasms 11/10/22 09/10/23 finasteride 5 mg tablet 5 mg PO HS prostate 12/07/22 09/10/23 lactulose 10 gram/15 mL oral 30 ml PO DAILYP PRN Constipation 12/07/22 09/10/23 solution pantoprazole 40 mg tablet,delayed 40 mg PO HS acid reflux 12/07/22 09/10/23 release furosemide 40 mg tablet 40 mg PO DAILY Fluid 07/12/23 09/10/23 paliperidone 3 mg tablet,extended 1.5 mg PO DAILY mood 07/12/23 09/10/23 release 24 hr acetaminophen 500 mg tablet 500 mg PO Q6H Pain 07/13/23 09/10/23 Previous Rx's Medication Instructions Recorded losartan 25 mg tablet 12.5 mg PO DAILY Hypertension 30 12/10/22 days #0 tabs ertapenem 1 gram solution for 1 g IM Q24H 6 days #6 ea 07/14/23 injection hydrocodone 7.5 mg-acetaminophen 1 tab PO BID pain #60 tabs 08/27/23 325 mg tablet Allergies Allergy/AdvReac Type Severity Reaction Status Date / Time No Known Allergies Allergy Verified 09/10/23 11:25 [facility] Disclaimer: The information contained in this section may have been updated after the patient was seen, as this information can be updated by other users. Vasu
[2023-09-10 07:57] LABS: Appearance,Urine CLEAR (Clear); Blood, Urine TRACE-I (Negative); Color,Urine YELLOW (Yellow); Glucose,Urine (UA) Negative (Negative); Ketones,Urine Negative (Negative); Leukocyte Esterase,Urine 2+ (Negative); Nitrate,Urine Negative (Negative); PH,Urine 5.5 (5.0-8.5); Protein,Urine 1+ (Negative); Urobilinogen,Urine 0.2 EU/dl (0.2)
[2023-09-10 07:57] LABS: Creatinine Clearance Estimated 18 mL/min (50-200)
[2023-09-10 08:01] LABS: VBG Base Excess 4.9 mmol/L (-2.4-2.3); VBG HCO3 30.2 mmol/L (23-30); VBG Oxygen Saturation 99.2 % (50-70); VBG PCO2 53.7 mmol/L (35-51); VBG PH 7.37 mmol/L (7.31-7.41); VBG PO2 163.3 mmol/L (28-40); VBG Total CO2 31.9 mmol/L (23-27)
[2023-09-10 08:02] LABS: Blood Urea Nitrogen 94 mg/dl (9-20); Sodium 151 mmol/L (136-145)
--- NOTE | 2023-09-10 08:02 | CT_ITS ---
FINAL REPORT CLINICAL HISTORY: AMS, REYNALDO, sepsis COMPARISON: 03/02/2023 FINDINGS: CT OF THE ABDOMEN AND PELVIS WITH CONTRAST Axial CT images of the abdomen and pelvis were obtained after the administration of IV contrast. Coronal reformatted images were also obtained and reviewed. This study was performed with techniques to keep radiation doses as low as reasonably achievable (ALARA). Individualized dose reduction techniques using automated exposure control or adjustment of mA and/or kV according to the patient's size were employed. Abdomen: The liver has an unremarkable appearance, without evidence of mass or biliary ductal dilatation. Postcholecystectomy. The spleen enlarged at 16 cm. No adrenal mass is present. The pancreas has an unremarkable appearance. Status post right nephrectomy. There are multiple left renal masses, some do not appear to be cysts and are likely complex cysts versus renal neoplasms. The aorta is normal in caliber. There is no free fluid or adenopathy. No mass or abnormal fluid collection is seen. Pelvis: The appendix is not well-visualized. There is diffuse bladder wall thickening. A Calvin catheter is present. There is a partially imaged fluid collection inferior to the left ischial tuberosity measuring 4 cm, probably new. Abscess not excluded. There is no evidence of mass or adenopathy. There is no evidence of bowel obstruction. There is diffuse sclerosis throughout the visualized bony skeleton favored to represent metabolic bone disease over her diffuse metastatic bone disease. IMPRESSION: Splenomegaly. Left renal masses, complex cysts versus renal neoplasms. Diffuse sclerosis throughout the visualized bony skeleton. Fluid collection inferior to the left ischial tuberosity, abscess not excluded. Reviewed, Interpreted and Dictated by Angel Valenzuela III, MD Transcribed by [employer] Authenticated and [facility]
--- NOTE | 2023-09-10 08:02 | CT_ITS ---
FINAL REPORT CLINICAL HISTORY: resp failure, elevated d-dimer COMPARISON: None FINDINGS: Thin section axial CT images of the chest were obtained with contrast. 3D reformatted images were also obtained. This study was performed with techniques to keep radiation doses as low as reasonably achievable (ALARA). Individualized dose reduction techniques using automated exposure control or adjustment of mA and/or kV according to the patient's size were employed. There is no evidence of pulmonary embolism. There is no evidence of thoracic aortic aneurysm or dissection. There is mild mediastinal adenopathy. There is diffuse esophageal wall thickening favored to be inflammatory. There is a small pericardial effusion. There are lingular and left lower lobe opacities consistent with atelectasis or pneumonia. There is abnormal material filling the left mainstem bronchus which may represent mucous plugging. There is mild atelectasis in the right lower lobe. There is diffuse sclerosis throughout the bony thorax favored to represent metabolic bone disease over diffuse metastatic bony disease. IMPRESSION: Diffuse esophageal wall thickening, favor inflammatory. Small pericardial effusion. Mild mediastinal adenopathy. Lingula and left lower lobe atelectasis or pneumonia. Probable mucous plugging left mainstem bronchus. Diffuse sclerosis throughout the bony thorax. Reviewed, Interpreted and Dictated by Angel Valenzuela III, MD Transcribed by [employer] Authenticated and [facility]
[2023-09-10 08:05] LABS: Bilirubin,Urine Negative (Negative)
[2023-09-10 08:09] LABS: Thyroid Stimulating Hormone 1.38 uIU/mL (0.465-4.68)
--- NOTE | 2023-09-10 08:22 | HMH.ITSTN ---
GFR completion/results were overrode for the use of contrast media by the Physician on a risk vs. benefit situation with this patient.
[2023-09-10 08:29] LABS: Amorphous Sediment,Urine Trace /lpf; Bacteria,Urine Trace /lpf
--- NOTE | 2023-09-10 09:20 | PC.NURSE ---
resp at bs placing pt on vapotherm
--- NOTE | 2023-09-10 09:55 | PC.NURSE ---
received report from Remi MATA
--- NOTE | 2023-09-10 11:00 | SW/DCPLANNER ---
Addendum entered by [facility] 09/10/23 15:25: Per Janet w/ [facility] is on its way to Hospice and we can arrange for transport from ED. I have informed ED staff. Addendum entered by [facility] 09/10/23 14:23: Samreen is working w/ [facility] company to have adequate O2 for this patient at [facility]. Addendum entered by [facility] 09/10/23 13:29: Samreen w/ Hosp[facility] that patient is okay to return to [facility] today and Hospice to admit once he returns. I have updated ED staff and Miya w/ [facility]. Addendum entered by [facility] 09/10/23 11:52: Samreen dueñas/ [facility] will be here between 12:30PM-1PM: family is aware. Original Note: ED staff called me regarding [facility]osp[facility] services for this patient. Patient currently resides at [facility] level of care. I called and spoke w/ patient's family listed in demographics (Tamra) and she is agreeable for patient information to be faxed to [facility] at this time. I will fax patient information to Janet w/ Hosp[facility] and follow up once reviewed. Patient could potentially return to [facility] w/ [facility] today.
--- NOTE | 2023-09-10 12:50 | PC.NURSE ---
Hospice nurse at beside
== END 2023-09-10 16:28 | disposition hospice, inpatient (51) ==
PROVIDERS: Emergency Provider Emergency Medicine
DX: A41.89 Other specified sepsis (principal); J96.21 Acute and chronic respiratory failure with hypoxia; J18.8 Other pneumonia, unspecified organism; N39.0 Urinary tract infection, site not specified; G93.41 Metabolic encephalopathy; N17.9 Acute kidney failure, unspecified; N18.4 Chronic kidney disease, stage 4 (severe); E87.0 Hyperosmolality and hypernatremia; R00.0 Tachycardia, unspecified; I49.3 Ventricular premature depolarization; R50.9 Fever, unspecified; I12.9 Hypertensive chronic kidney disease with stage 1 through stage 4 chronic kidney disease, or unspecified chronic kidney disease; E78.5 Hyperlipidemia, unspecified; E66.9 Obesity, unspecified; F20.9 Schizophrenia, unspecified; Z87.440 Personal history of urinary (tract) infections; Z86.73 Personal history of transient ischemic attack (TIA), and cerebral infarction without residual deficits; Z87.891 Personal history of nicotine dependence
CPT/HCPCS: 70450; 71045; 71275; 74177; 80053; 81001; 82803; 83605; 83880; 84436; 84443; 84484; 85007; 85025; 85378; 87040; 87086; 87636; 93005; 96365; 96366; 96367; 96375; 99291; J0456; Q9967